=== PATIENT | male | born 1945 | race Caucasian/White ===

== ENCOUNTER → 2018-03-05 10:01 | Outpatient (CLI) | payer MEDICARE, OTHER, SELFPAY ==
--- NOTE | 2018-03-08 07:35 | PM.PFT.1 ---
Pulmonary Function Test Referral & Results Date Patient Seen: 03/05/18 Requesting provider: Mark Palafox Results: The spirometry demonstrates an FVC of 2.09 L which is 55% of predicted. The FEV1 was measured at 1.49 L which is 54% of predicted. The FEV1/FVC ratio was 71 which is 97% of predicted. Following the administration of bronchodilator there was no appreciable change. Lung volumes show an SVC of 2.25 L which is 55% of predicted. The diffusing capacity was measured at 23.49 which is 82% of predicted. The maximum voluntary ventilation was reduced. Interpretation: This study demonstrates moderately severe obstructive lung disease based on reduction in FEV1 without evidence of benefit following bronchodilator administration There is also moderate restrictive lung disease present There is also a small reduction in diffusing capacity suggesting some element of disease at the capillary alveolar level Compared to PFTs performed in October 2011, current spirometry shows reduction in FEV1 from 2.25 L previously to 1.49 L currently. There is also a reduction in total lung volumes with prior SVC being 3.13 L currently 2.25 L. No diffusing capacity was performed on previous study.
== END ==
PROVIDERS: PCP Internal Medicine; Visit Provider Internal Medicine
DX: R06.09 Other forms of dyspnea (principal)
CPT/HCPCS: 94010; 94060; 94726; 94729

== ENCOUNTER → 2018-03-21 14:40 | Outpatient (CLI) | payer MEDICARE, OTHER, SELFPAY ==
--- NOTE | 2018-03-21 | DI.CT.S_ITS ---
PROCEDURE: CT CHEST HIGH RESOLUTION INDICATIONS: Dyspnea TECHNIQUE: Noncontrast 1.0 and 5.0 mm thick contiguous axial sections from the pulmonary apex to the posterior costophrenic angles, with 7 mm thick coronal and sagittal MIP reformats. 1 mm thick dynamic expiratory images acquired through the upper, mid, and lower lungs. 1.0 mm thick axial sections acquired from the tana to the posterior costophrenic angles in the prone end-inspiration position. For radiation dose reduction, the following was used: automated exposure control, adjustment of mA and/or kV according to patient size. COMPARISON: [facility], , CT ABDOMEN/PELVIS WITH CONTRAST, 05/22/2006, 7:41. FINDINGS: Image quality: Excellent. Lungs: No alveolitis or pulmonary fibrosis is seen. There is a small degree of soft tissue prominence along the central bronchi of the upper lungs bilaterally consistent with mild bronchitis, chronic. No bronchiectasis is associated. Pleura: No pleural effusions or pneumothorax. Mediastinum: Heart size is normal. No pericardial effusion. Thoracic aorta and central pulmonary arteries are normal in size. Esophagus is normal in caliber. Bones and chest wall: No suspicious bony lesions. No vertebral body compression fractures. Abdomen: Visualized upper abdominal solid organs and bowel loops appear normal except for presence of the large 9.4 cm exophytic upper pole right renal cortical cyst that has further enlarged since the comparison CT of the abdomen/pelvis from 05/22/06, when this cyst had measured only 6.8 cm in dimension. IMPRESSION: Mild chronic bronchitis, without evidence of underlying infection or neoplasm or pulmonary fibrosis/alveolitis. Mildly enlarged previously present exophytic right upper pole renal cortical cyst now measures up to 9.4 cm in maximal axial dimension. Dictated by: Curry Gagnon M.D. on 03/21/2018 at 16:09 Approved by: Curry Gagnon M.D. on 03/21/2018 at 16:12
== END ==
PROVIDERS: Family Provider Internal Medicine Rheumatology; PCP Internal Medicine; Visit Provider Internal Medicine
DX: J42 Unspecified chronic bronchitis (principal); R06.00 Dyspnea, unspecified; N28.1 Cyst of kidney, acquired
CPT/HCPCS: 71250

== ENCOUNTER → 2018-05-08 11:18 | Outpatient (CLI) | payer MEDICARE, OTHER, SELFPAY ==
[2018-05-08 12:40] LABS: Add Manual Diff / Slide Review NO; Eosinophils Percent Auto 6.5 % (2-4); Hematocrit 37.6 % (41-53); Hemoglobin 12.6 g/dL (13.5-17.5); Lymphocytes Percent Auto 22.5 % (25-40); Mean Corpuscular HGB Conc 33.4 % (30-36); Mean Corpuscular Hemoglobin 34.3 PG (26-34); Mean Corpuscular Volume 102.7 fL (80-100); Monocytes Percent Auto 14.4 % (3-14); Neutrophils Absolute Auto 2200 /uL (3000-5900); Neutrophils Percent Auto 55.6 % (50-75); Platelet Count 141 X10^3/uL (150-400); Red Blood Cell Count 3.66 X10^6/uL (4.5-5.9); Red Cell Distribution Width 13.4 % (11.6-14.8); White Blood Cell Count 3.9 X10^3/uL (4.5-11.0)
[2018-05-08 13:00] LABS: Erythrocyte Sedimentation Rate 9 MM/HR (0-15)
[2018-05-08 13:01] LABS: Alanine Aminotransferase 35 IU/L (21-72); Albumin 3.8 g/dL (3.5-5.0); Albumin Globulin Ratio 1.7 (1.0-2.8); Alkaline Phosphatase 46 U/L (38-126); Aspartate Aminotransferase 42 IU/L (17-59); Bilirubin Total 0.4 mg/dL (0.2-1.3); Blood Urea Nitrogen 22 mg/dL (9-20); Calcium 9.3 mg/dL (8.4-10.2); Carbon Dioxide 32 mmol/L (22-32); Chloride 101 mmol/L (98-107); Estimated Glomerular Filt Rate > 60.0 mL/min (>60); Globulin 2.2 g/dL (1.7-4.1); Glucose 106 mg/dL (80-110); HEMOLYSIS < 15 (0-50); Potassium 4.3 mmol/L (3.4-5.1); Sodium 140 mmol/L (137-145)
[2018-05-08 13:02] LABS: C-Reactive Protein Quant < 0.5 mg/dL (<1.0)
== END ==
PROVIDERS: Family Provider Internal Medicine Rheumatology; PCP Internal Medicine; Visit Provider Internal Medicine Rheumatology
DX: M06.09 Rheumatoid arthritis without rheumatoid factor, multiple sites (principal)
CPT/HCPCS: 36415; 80053; 85025; 85651; 86140

== ENCOUNTER → 2018-05-21 16:04 | Outpatient (CLI) | payer MEDICARE, OTHER, SELFPAY ==
[2018-05-21 17:25] LABS: BUN Creatinine Ratio 25.6 (6-22); Blood Urea Nitrogen 23 mg/dL (9-20); Calcium 9.4 mg/dL (8.4-10.2); Carbon Dioxide 30 mmol/L (22-32); Chloride 101 mmol/L (98-107); Estimated Glomerular Filt Rate > 60.0 mL/min (>60); Glucose 91 mg/dL (80-110); HEMOLYSIS < 15 (0-50); Phosphorous 3.5 mg/dL (2.3-3.7); Potassium 4.3 mmol/L (3.4-5.1); Sodium 139 mmol/L (137-145)
== END ==
PROVIDERS: PCP Internal Medicine; Visit Provider Urology
DX: N28.1 Cyst of kidney, acquired (principal)
CPT/HCPCS: 36415; 80069

== ENCOUNTER → 2018-05-29 16:24 | Outpatient (CLI) | payer MEDICARE, OTHER, SELFPAY ==
[2018-05-29 18:52] LABS: Prostate Specific Antigen < 0.064 ng/mL (0.10-4.00)
== END ==
PROVIDERS: Family Provider Internal Medicine Rheumatology; PCP Internal Medicine; Visit Provider Urology
DX: Z85.46 Personal history of malignant neoplasm of prostate (principal); Z92.3 Personal history of irradiation; Z12.5 Encounter for screening for malignant neoplasm of prostate
CPT/HCPCS: 84153

== ENCOUNTER → 2018-06-11 13:45 | Outpatient (CLI) | payer MEDICARE, OTHER, SELFPAY ==
--- NOTE | 2018-06-11 | DI.US.S_ITS ---
PROCEDURE: US RENAL COMPLETE INDICATIONS: RENAL CYST TECHNIQUE: Real-time scanning was performed of the kidneys and bladder, with image documentation. COMPARISON: [facility], RG, CT ABDOMEN/PELVIS WITH CONTRAST, 05/22/2006, 7:41. [facility], CT, CT CHEST HIGH RESOLUTION, 03/21/2018, 14:42. FINDINGS: Kidneys: Kidneys are normal in size. Right kidney measures 11.0 cm long; left kidney measures 10.9 cm long. Right renal cortical thickness is 1.8 cm; left renal cortical thickness is 1.7 cm. Renal cortical echotexture is normal. No hydronephrosis or nephrolithiasis. No suspicious solid mass lesions. A large exophytic upper pole right renal cortical cyst is seen, correlating with the CT appearance from 2005 and also from February of this year. It measures up to 10.0 x 11.5 x 13.4 cm. There is an inferior right renal cortical simple cyst also, measuring up to 3.1 cm. Bladder: Pre-void bladder volume is 69 mL. Post-void residual is 0 mL. Pre-void images demonstrate no intraluminal masses or stones. On pre-void images, neither ureteral jets are noted with color Doppler interrogation. (Of note, ureteral jets may not be detectable in up to 25% of cases due to insufficient differences in specific gravity between ureteral and bladder urine). Miscellaneous: No free pelvic fluid. IMPRESSION: Large exophytic but simple appearing right renal cortical cyst projects upwards from the upper pole cortex of the right kidney. There is also a small simple cyst measuring 3.1 cm in maximal dimension at the inferior right kidney. Bladder function is normal. Dictated by: Curry Gagnon M.D. on 06/11/2018 at 16:28 Approved by: Curry Gagnon M.D. on 06/11/2018 at 16:31
== END ==
PROVIDERS: Family Provider Internal Medicine Rheumatology; PCP Internal Medicine; Visit Provider Urology
DX: N28.1 Cyst of kidney, acquired (principal)
CPT/HCPCS: 76770

== ENCOUNTER 2018-08-14 10:00 | Outpatient (RCR) | payer MEDICARE, OTHER, SELFPAY ==
[2018-04-09 11:47] VITALS: BP 122/60; BP 128/80; O2SAT 95; BMI 25.8
--- NOTE | 2018-04-09 13:33 | CR.IEVALNOTE ---
MVR repair 2003/ A-Fib/A-Flutter CR Initial Assessment Report CR Cardiac Rehab Initial Assessment Start: 04/09/18 10:33 Freq: Status: Active Protocol: Document 04/09/18 11:47 KAYLA (Rec: 04/09/18 12:08 KAYLA [id number]) Cardiac Rehabilitation Exercise Risk Risk Moderate % 50% EF Comment: 04/03/18 50% 12/22/16 55% AICD No Heart Rhythm a-fib on intake. hx of a- flutter noted in hx. Left Arm Blood Pressure (90/60-120/80 mmHg) 128/80 H Blood Pressure Method Manual Cuff/Auscultation Blood Pressure Position Sitting Right Arm Blood Pressure (90/60-120/80 mmHg) 122/60 H Blood Pressure Method Manual Cuff/Auscultation Blood Pressure Position Sitting Bilateral Resting Heart Rate: 58 Strength: Normal Pulse Rhythm: Irregular Regularly Irregular Pulse Assessment Method Pulse Ox/Monitor Lung Sounds: clear on auscultation Pulse Oximetry (91-100 %) 95 Cardiac Rehabilitation Exercise Fall Risk History of Falling (Immediate or No Previous) Secondary Diagnosis (More Than 2 Medical Yes Diagnoses) Ambulatory Aid None/bed rest/nurse assist IV/Heparin Lock No Gait/Transferring Normal/bedrest/immobile Mental Status Oriented to own ability Score Total 15 Risk Level Low Fall Risk Action Implement Dulzura Fall Risk Precautions Comment notes that he has balance issues and walks outside using hiking poles Assistive Devices None Cross Activity Status Index 6.36 Cardiac Rehabilitation Nutrition Evaluation Lipids Comment need to contact Dr. Lima's office. states has been a year or 2 since last draw History of Diabetes No Cardiac Rehabilitation Weight Management Plan Height 170.18 cm Weight 74.843 kg Body Mass Index (BMI) 25.8 Girth Measurement (in inches) (cm) 36.75 Patient Goal(s) Lose 1-2 of Girth Lose 5-10 lbs Body Weight BMI Goal of 19-25 Vitamins & Supplements Yes Use None/Never Intake Type hx etoh abuse. quit 3 years ago Nutrition Evaluation Referral to Diabetes Education No Nurse/Patient Discussion Yes Patient Following Diet Plan No Patient's Nutritional Goals pt aware that diet is sub optimal. is pre-diabetic and he notes that she eats better than he does. 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 no occupational exposures Hx Hypertension Yes Medications lisinopril 5mg, carvedilol 6. 25mg bid Goal of BP <130/80 Yes HTN Education Discussion reviewed effects of exercise on BP Medications Reconciled Yes CR Psychosocial Evaluation Goal wants to be able to be more confident about exercise ability. 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 Psych Consult No Discussion with Patient Yes Psychotropic Medications Yes: venlafaxine. feels he's in a good space currently PHQ9 Score between 5 and 8 (some half answers) HQ Scoring Scale 5-7 = Mild PHQ >9 No PCP Notified No Comment discussed meaning of numbers. 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 Treatment Prescribed for Individual Yes Needs No Treatment Change Yes: Please Continue with Cardiopulmonary Rehabilitation as Ordered Date 04/09/18 Document 04/09/18 12:16 CFS (Rec: 04/09/18 12:29 CFS [id number]) Cardiac Rehabilitation Exercise Fall Risk Comment Will still start on a saucer under physioball while next to a railing untill he is used to the physioball. Home Exercise Yes Mode Comment: Walking Duration Comment: 30 min Frequency Comment: 3x wk Symptoms: Arthralgias Back Pain Joint Pain Joint Stiffness Joint Swelling Body Alignment Posture Lumbar Lordosis Thoracic Kyphosis Ambulation Assistive Device None Orthotic/Prosthetic Devices or Brace: No Comment RA and OA, Lower back surgery, curvature of the spine-L, R - partial knee still bothersome Exercise TM METS 3.71 Angina with Exercise no Exercise Tolerance Good CR Pre Exercise Evaluation Orientation Self Pulse Check JUSTO PRE Scale Exercise Safety Equipment Orientation Warm Up/Cool Down Patient Short-term Goal(s) Decrease SOB by increasing cardiorepiratory fitness by achieving CROSS score of 6.36 by increasing incline on TM in 6 weeks so that trails are easier to walk. 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 Would like to walk at least 60 min 4-5x/wk, as long as RA and OA tolerates. CR Exercises Prescription Exercise Duration (minutes) 20 METs (resistance level) 4 Frequency 2x/wk RPE 11-14 Exercise Duration (minutes) 20 METs (resistance level) 5 Frequency 2x/wk RPE 11-14 Pounds 4 Number of Reps 12 Number of Sets 2 Frequency 1x/wk RPE 13-14 Band Resistance 4 Number of Reps 12 Number of Sets 1 Frequency 1x/wk RPE 13-14
[2018-05-09 08:02] VITALS: BP 94/54; RESP 18
--- NOTE | 2018-05-09 08:14 | CR.REVALNOTE ---
CR Initial Assessment Report CR Cardiac Rehab Re-Assessment Start: 05/08/18 14:20 Freq: Status: Active Protocol: Document 05/08/18 14:21 AA (Rec: 05/08/18 14:28 AA [id number]) Cardiac Rehab Exercise Risk Re-Eval Bilateral Resting Heart Rate: 56 Target Heart Rate: 116 Achieved Exercise Re-Evaluation Nustep MET Goal 4.54 Treadmill MET Goal 5.35 RPE 11-15 Weights 6# Bands 4 Dk Blue Equipment Goals TM 6.5 Mets NS 5.5 Mets Increase as tolerated Number/Value 8# LVL Lvl 5 Teal Progress to Goal Increase as tolerated % Improvement TM 44% Improvement NS 34% Improvement Short Term Still experiencing shortness of breath in cardio. Will bring albuteral inhaler to CR. Will continue to increase stamina and endurance. 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 Document 05/09/18 08:02 [facility] (Rec: 05/09/18 08:13 [facility] [id number]) Cardiac Rehab Exercise Risk Re-Eval Dx: 2003 MVR HX:AFIB/FLUTTER Risk Moderate Left Arm Blood Pressure (90/60-120/80 mmHg) 94/54 L Bilateral Resting Heart Rate: 56 Target Heart Rate: 134 Respiratory Rate (12-24 breaths/min) 18 Angina with Exercise NO Cardiac Rehab Nutrition Re-Eval Lipids Re-Drawn Yes Date 08/01/17 Total Cholesterol 156 Triglycerides 93 HDL 61 LDL 76 Lipid Medications ATORVASTATIN 80MG Goal for Lipids @ GOAL Education ATTENDED CLASS History of Diabetes No Weight 77.111 kg Dietary Consult Yes Nurse/Patient Discussion Yes Nutrition Class Yes Progress Note HAS ATTENDED EDUCATION WITH THE STEEL TURNER Education Hypertension NO HTN Medications LISINOPRIL Education:Instruct TOM DASH DIET CR Psychosocial Re-Evaluation Progress to Goal SEEMS TO HAVE MORE CONFEDENCE WITH EXERCISE Psych Consult No Uses Stress Management Skills Yes Coping Techniques Yes Note NEGATIVE CR Psychosocial Provider Eval Treatment Prescribed for Individual Yes Needs No Treatment Change Yes: Please Continue with Cardiopulmonary Rehabilitation as Ordered Date 05/09/18
--- NOTE | 2018-05-09 08:16 | CR.REVALNOTE ---
CR RE Assessment Report DX:2003 MVR HX: ATRIAL FIB CR Cardiac Rehab Re-Assessment Start: 05/08/18 14:20 Freq: Status: Active Protocol: Document 05/08/18 14:21 AA (Rec: 05/08/18 14:28 AA [id number]) Cardiac Rehab Exercise Risk Re-Eval Bilateral Resting Heart Rate: 56 Target Heart Rate: 116 Achieved Exercise Re-Evaluation Nustep MET Goal 4.54 Treadmill MET Goal 5.35 RPE 11-15 Weights 6# Bands 4 Dk Blue Equipment Goals TM 6.5 Mets NS 5.5 Mets Increase as tolerated Number/Value 8# LVL Lvl 5 Teal Progress to Goal Increase as tolerated % Improvement TM 44% Improvement NS 34% Improvement Short Term Still experiencing shortness of breath in cardio. Will bring albuteral inhaler to CR. Will continue to increase stamina and endurance. Fpc Is walking trails with hills for 30 mins 4-5 times per week , working to increase stamina and endurance to be able to go for longer hikes. Document 05/09/18 08:02 [facility] (Rec: 05/09/18 08:13 [facility] [id number]) Cardiac Rehab Exercise Risk Re-Eval Dx: 2003 MVR HX:AFIB/FLUTTER Risk Moderate Left Arm Blood Pressure (90/60-120/80 mmHg) 94/54 L Bilateral Resting Heart Rate: 56 Target Heart Rate: 134 Respiratory Rate (12-24 breaths/min) 18 Angina with Exercise NO Cardiac Rehab Nutrition Re-Eval Lipids Re-Drawn Yes Date 08/01/17 Total Cholesterol 156 Triglycerides 93 HDL 61 LDL 76 Lipid Medications ATORVASTATIN 80MG Goal for Lipids @ GOAL Education ATTENDED CLASS History of Diabetes No Weight 77.111 kg Dietary Consult Yes Nurse/Patient Discussion Yes Nutrition Class Yes Progress Note HAS ATTENDED EDUCATION WITH THE DYNAMOMETER TUNER Education Hypertension NO HTN Medications LISINOPRIL Education:Instruct TOM DASH DIET CR Psychosocial Re-Evaluation Progress to Goal SEEMS TO HAVE MORE CONFEDENCE WITH EXERCISE Psych Consult No Uses Stress Management Skills Yes Coping Techniques Yes Note NEGATIVE CR Psychosocial Provider Eval Treatment Prescribed for Individual Yes Needs No Treatment Change Yes: Please Continue with Cardiopulmonary Rehabilitation as Ordered Date 05/09/18
--- NOTE | 2018-05-23 10:51 | CR.EDUC ---
CR Education Report MIGUEL DARDEN CR Education Start: 04/09/18 10:33 Freq: Status: Active Protocol: Document 04/10/18 14:22 JCP (Rec: 04/10/18 14:22 JCP [id number]) CR Education Education MET WITH NICOLE CRABTREE RD Document 04/17/18 11:21 KAYLA (Rec: 04/17/18 11:21 KAYLA [id number]) CR Education Education holistic nutrition and meditation with maycol Document 04/22/18 11:13 JCP (Rec: 04/22/18 11:14 JCP [id number]) CR Education Education STARTED MIIT TODAY AND DISCUSSED IMPORTANCE.JEFF Document 05/08/18 15:53 JCP (Rec: 05/08/18 15:53 JCP [id number]) CR Education Education ANTI INFLAMMATORY FOODS AND MEDITATION Document 05/22/18 16:09 JCP (Rec: 05/22/18 16:10 JCP [id number]) CR Education Education MET WITH CYRIL ALBA ON METS
--- NOTE | 2018-05-23 10:52 | CR.EDUC ---
CR Education Report MIGUEL DARDEN CR Education Start: 04/09/18 10:33 Freq: Status: Active Protocol: Document 04/10/18 14:22 JCP (Rec: 04/10/18 14:22 JCP [id number]) CR Education Education MET WITH NICOLE CRABTREE RD Document 04/17/18 11:21 KAYLA (Rec: 04/17/18 11:21 KAYLA [id number]) CR Education Education holistic nutrition and meditation with maycol Document 04/22/18 11:13 JCP (Rec: 04/22/18 11:14 JCP [id number]) CR Education Education STARTED MIIT TODAY AND DISCUSSED IMPORTANCE.JEFF Document 05/08/18 15:53 JCP (Rec: 05/08/18 15:53 JCP [id number]) CR Education Education ANTI INFLAMMATORY FOODS AND MEDITATION Document 05/22/18 16:09 JCP (Rec: 05/22/18 16:10 JCP [id number]) CR Education Education MET WITH CYRIL ALBA ON METS Document 05/23/18 10:52 JCP (Rec: 05/23/18 10:52 JCP [id number]) CR Education Education WORKED ON HIIT TODAY ON THE TM -TOLERATED WELL.JEFF
--- NOTE | 2018-05-23 10:52 | CR.EDUC ---
CR Education Report MIGUEL DARDEN CR Education Start: 04/09/18 10:33 Freq: Status: Active Protocol: Document 04/10/18 14:22 JCP (Rec: 04/10/18 14:22 JCP [id number]) CR Education Education MET WITH NICOLE CRABTREE RD Document 04/17/18 11:21 KAYLA (Rec: 04/17/18 11:21 KALYA [id number]) CR Education Education holistic nutrition and meditation with maycol Document 04/22/18 11:13 JCP (Rec: 04/22/18 11:14 JCP [id number]) CR Education Education STARTED MIIT TODAY AND DISCUSSED IMPORTANCE.JEFF Document 05/08/18 15:53 JCP (Rec: 05/08/18 15:53 JCP [id number]) CR Education Education ANTI INFLAMMATORY FOODS AND MEDITATION Document 05/22/18 16:09 JCP (Rec: 05/22/18 16:10 JCP [id number]) CR Education Education MET WITH CYRIL ALBA ON METS Document 05/23/18 10:52 JCP (Rec: 05/23/18 10:52 JCP [id number]) CR Education Education WORKED ON HIIT TODAY ON THE TM -TOLERATED WELL.JEFF
[2018-06-06 16:03] VITALS: BP 110/68; RESP 18
--- NOTE | 2018-06-06 16:14 | CR.REVALNOTE ---
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) Provider Summary Visit Care Team Role Provider Type Jeffery Lima MD Primary Care Provider Physician Specialty: Internal Medicine Address: [address] [place] [address], [id number] Email: Ruslan Carney MD Family Provider Non-Staff Specialty: Rheumatology Address: [address] [place] [address] [place], [address] Email: Maria Guadalupe Martins MD Attending Provider Non-Staff Specialty: Cardiology Address: [address] [place] [address], [id number] Email: CR Re-Evaluation Report CR Cardiac Rehab Re-Assessment Start: 05/08/18 14:20 Freq: Status: Active Protocol: Document 05/08/18 14:21 AA (Rec: 05/08/18 14:28 AA [id number]) CARDIAC REHAB EXERCISE RISK RE-EVAL Bilateral Resting Heart Rate: 56 Target Heart Rate: 116 ACHIEVED EXERCISE RE-EVALUATION Nustep MET Goal 4.54 Treadmill MET Goal 5.35 RPE 11-15 Weights 6# Bands 4 Dk Blue Equipment Goals TM 6.5 Mets NS 5.5 Mets Increase as tolerated Number/Value 8# LVL Lvl 5 Teal Progress to Goal Increase as tolerated % Improvement TM 44% Improvement NS 34% Improvement Short Term Still experiencing shortness of breath in cardio. Will bring albuteral inhaler to CR. Will continue to increase stamina and endurance. Practice Physician Is walking trails with hills for 30 mins 4-5 times per week , working to increase stamina and endurance to be able to go for longer hikes. Document 05/09/18 08:02 JCP (Rec: 05/09/18 08:13 JCP [id number]) CARDIAC REHAB EXERCISE RISK RE-EVAL Dx: 2003 MVR HX:AFIB/FLUTTER Risk Moderate Left Arm Blood Pressure (90/60-120/80 mmHg) 94/54 L Bilateral Resting Heart Rate: 56 Target Heart Rate: 134 Respiratory Rate (12-24 breaths/min) 18 Angina with Exercise NO CARDIAC REHAB NUTRITION RE-EVAL Lipids Re-Drawn Yes Date 08/01/17 Total Cholesterol 156 Triglycerides 93 HDL 61 LDL 76 Lipid Medications ATORVASTATIN 80MG Goal for Lipids @ GOAL Education ATTENDED CLASS History of Diabetes No Weight 77.111 kg Dietary Consult Yes Nurse/Patient Discussion Yes Nutrition Class Yes Progress Note HAS ATTENDED EDUCATION WITH THE SKIN FORMER EDUCATION Hypertension NO HTN Medications LISINOPRIL Education:Instruct TOM DASH DIET CR PSYCHOSOCIAL RE-EVALUATION Progress to Goal SEEMS TO HAVE MORE CONFEDENCE WITH EXERCISE Psych Consult No Uses Stress Management Skills Yes Coping Techniques Yes Note NEGATIVE CR PSYCHOSOCIAL PROVIDER EVAL Treatment Prescribed for Individual Yes Needs No Treatment Change Yes: Please Continue with Cardiopulmonary Rehabilitation as Ordered Date 05/09/18 Document 06/06/18 15:44 CFS (Rec: 06/06/18 15:48 CFS [id number]) ACHIEVED EXERCISE RE-EVALUATION Rower MET Goal 4.74 Nustep MET Goal 4.21 Treadmill MET Goal 7.00 RPE 14-15 Weights 6# Bands Lvl 4 Dk blue Equipment Goals TM-8.0 NS-5.5 RW-5.75 Number/Value 8# LVL Lvl 5 teal Progress to Goal Increase as tolerated % Improvement TM 31% NS -7% Short Term Still experiencing shortness of breath during cardio. Will bring albuteral inhaler to CR to have on hand. Will continue to increase stamina and endurance. Practice Physician Is still walking trails with hills for 30 mins 4-5xwk, working to increase stamina and endurance to be able to go for longer hikes with more challenges. Document 06/06/18 16:03 [facility] (Rec: 06/06/18 16:11 [facility] [id number]) CARDIAC REHAB EXERCISE RISK RE-EVAL Risk Moderate Heart Rhythm ATRIAL FIB Left Arm Blood Pressure (90/60-120/80 mmHg) 110/68 Bilateral Resting Heart Rate: 76 Target Heart Rate: 122 Respiratory Rate (12-24 breaths/min) 18 Angina with Exercise NO CARDIAC REHAB NUTRITION RE-EVAL Lipids Re-Drawn No Lipid Medications ATORVASTATIN History of Diabetes No Weight 77.111 kg Dietary Consult Yes Nurse/Patient Discussion Yes Progress Note MET WITH NICOLE CRABTREE RD EDUCATION Hypertension 110/68 PRE AND POST Medications LISININOPRIL Medication Reconciled DONE CR PSYCHOSOCIAL RE-EVALUATION Progress to Goal GAINING CONFEDENCE IN HIGHER INTENSITY Psych Consult No Stress Management Class Yes Uses Stress Management Skills Yes Coping Techniques Yes Note NEGATIVE CR PSYCHOSOCIAL PROVIDER EVAL Treatment Prescribed for Individual Yes Needs No Treatment Change Yes: Please Continue with Cardiopulmonary Rehabilitation as Ordered Date 06/06/18 CR Education Start: 04/09/18 10:33 Freq: Status: Active Protocol: Document 04/10/18 14:22 JCP (Rec: 04/10/18 14:22 JCP [id number]) CR EDUCATION Education MET WITH NICOLE CRABTREE RD Document 04/17/18 11:21 KAYLA (Rec: 04/17/18 11:21 KAYLA [id number]) CR EDUCATION Education holistic nutrition and meditation with maycol Document 04/22/18 11:13 JCP (Rec: 04/22/18 11:14 JCP [id number]) CR EDUCATION Education STARTED MIIT TODAY AND DISCUSSED IMPORTANCE.JEFF Document 05/08/18 15:53 JCP (Rec: 05/08/18 15:53 JCP [id number]) CR EDUCATION Education ANTI INFLAMMATORY FOODS AND MEDITATION Document 05/22/18 16:09 JCP (Rec: 05/22/18 16:10 JCP [id number]) CR EDUCATION Education MET WITH CYRIL ALBA ON METS Document 05/23/18 10:52 JCP (Rec: 05/23/18 10:52 JCP [id number]) CR EDUCATION Education WORKED ON HIIT TODAY ON THE TM -TOLERATED WELL.JEFF Document 05/29/18 14:21 JCP (Rec: 05/29/18 14:22 JCP [id number]) CR EDUCATION Education REVIEWED LATEST GUIDELINES ON CHOLESTEROL Document 06/05/18 16:13 JCP (Rec: 06/05/18 16:13 JCP [id number]) CR EDUCATION Education MET WITH NICOLE CRABTREE RD
[2018-07-04 15:09] VITALS: BP 120/60
[2018-08-14 12:19] VITALS: BMI 25.7
[2018-08-14 15:22] VITALS: BP 108/62
== END 2018-08-19 11:00 ==
LOC: CAR 10:00
PROVIDERS: Family Provider Internal Medicine Rheumatology; PCP Internal Medicine; Visit Provider Internal Medicine Clinical Cardiac Electrophysiology
DX: Z95.3 Presence of xenogenic heart valve (principal)
CPT/HCPCS: 93798

== ENCOUNTER → 2018-09-20 09:29 | Outpatient (CLI) | payer MEDICARE, OTHER, SELFPAY ==
[2018-09-20 10:22] LABS: Add Manual Diff / Slide Review NO; Basophils Percent Auto 0.7 % (0-2); Eosinophils Percent Auto 5.3 % (2-4); Hemoglobin 13.5 g/dL (13.5-17.5); Lymphocytes Percent Auto 18.7 % (25-40); Mean Corpuscular HGB Conc 33.7 % (30-36); Mean Corpuscular Hemoglobin 34.6 PG (26-34); Mean Corpuscular Volume 102.8 fL (80-100); Monocytes Percent Auto 13.8 % (3-14); Neutrophils Absolute Auto 2800 /uL (3000-5900); Neutrophils Percent Auto 61.5 % (50-75); Platelet Count 149 X10^3/uL (150-400); Red Blood Cell Count 3.89 X10^6/uL (4.5-5.9); White Blood Cell Count 4.5 X10^3/uL (4.5-11.0)
[2018-09-20 10:44] LABS: Alanine Aminotransferase 40 IU/L (21-72); Albumin 4.3 g/dL (3.5-5.0); Albumin Globulin Ratio 1.6 (1.0-2.8); Alkaline Phosphatase 51 U/L (38-126); Aspartate Aminotransferase 56 IU/L (17-59); Bilirubin Total 0.6 mg/dL (0.2-1.3); Blood Urea Nitrogen 22 mg/dL (9-20); Calcium 9.2 mg/dL (8.4-10.2); Carbon Dioxide 30 mmol/L (22-32); Chloride 102 mmol/L (98-107); Estimated Glomerular Filt Rate > 60.0 mL/min (>60); Globulin 2.7 g/dL (1.7-4.1); Glucose 125 mg/dL (80-110); HEMOLYSIS < 15 (0-50); Potassium 3.9 mmol/L (3.4-5.1); Sodium 143 mmol/L (137-145)
[2018-09-20 10:45] LABS: C-Reactive Protein Quant < 0.5 mg/dL (<1.0)
[2018-09-20 11:06] LABS: Erythrocyte Sedimentation Rate 12 MM/HR (0-15)
== END ==
PROVIDERS: PCP Internal Medicine; Visit Provider Internal Medicine Rheumatology
DX: M06.09 Rheumatoid arthritis without rheumatoid factor, multiple sites (principal)
CPT/HCPCS: 36415; 80053; 85025; 85651; 86140

== ENCOUNTER → 2018-10-11 12:03 | Outpatient (CLI) | payer MEDICARE, OTHER, SELFPAY ==
[2018-10-11 12:33] LABS: Add Manual Diff / Slide Review NO; Basophils Percent Auto 1.1 % (0-2); Eosinophils Percent Auto 4.4 % (2-4); Hematocrit 39.8 % (41-53); Hemoglobin 13.3 g/dL (13.5-17.5); Lymphocytes Percent Auto 17.1 % (25-40); Mean Corpuscular HGB Conc 33.5 % (30-36); Mean Corpuscular Hemoglobin 34.3 PG (26-34); Mean Corpuscular Volume 102.6 fL (80-100); Monocytes Percent Auto 13.1 % (3-14); Neutrophils Absolute Auto 3400 /uL (1500-7000); Neutrophils Percent Auto 64.3 % (50-75); Platelet Count 156 X10^3/uL (150-400); Red Blood Cell Count 3.88 X10^6/uL (4.5-5.9); Red Cell Distribution Width 13.3 % (11.6-14.8); White Blood Cell Count 5.3 X10^3/uL (4.5-11.0)
[2018-10-11 13:03] LABS: Alanine Aminotransferase 39 IU/L (21-72); Albumin 4.2 g/dL (3.5-5.0); Albumin Globulin Ratio 1.8 (1.0-2.8); Alkaline Phosphatase 53 U/L (38-126); Aspartate Aminotransferase 47 IU/L (17-59); Bilirubin Total 0.6 mg/dL (0.2-1.3); Blood Urea Nitrogen 18 mg/dL (9-20); Calcium 9.3 mg/dL (8.4-10.2); Carbon Dioxide 28 mmol/L (22-32); Chloride 103 mmol/L (98-107); Cholesterol 155 mg/dL (140-199); Estimated Glomerular Filt Rate > 60.0 mL/min (>60); Globulin 2.4 g/dL (1.7-4.1); Glucose 105 mg/dL (80-110); HDL Cholesterol 53 mg/dL (40-60); HEMOLYSIS < 15 (0-50); LDL Cholesterol Calculated 70 mg/dL (<100); Potassium 4.1 mmol/L (3.4-5.1); Sodium 142 mmol/L (137-145); Total Protein 6.6 g/dL (6.3-8.2); Triglycerides 162 mg/dL (35-150)
[2018-10-11 13:34] LABS: TSH w/ Reflex to FT4 0.46 uIU/mL (0.47-4.68)
[2018-10-11 14:02] LABS: Free T4, Direct Thyroxine 1.23 ng/dL (0.78-2.19)
== END ==
PROVIDERS: Family Provider Internal Medicine Rheumatology; PCP Internal Medicine; Visit Provider Internal Medicine
DX: E03.9 Hypothyroidism, unspecified (principal); I48.91 Unspecified atrial fibrillation; I10 Essential (primary) hypertension; G47.33 Obstructive sleep apnea (adult) (pediatric)
CPT/HCPCS: 36415; 80053; 80061; 84439; 84443; 85025

== ENCOUNTER → 2018-10-23 11:06 | Outpatient (CLI) | payer MEDICARE, OTHER, SELFPAY ==
[2018-10-23 12:45] LABS: B Type Natriuretic Peptide 116 (<100)
== END ==
PROVIDERS: Family Provider Internal Medicine Rheumatology; PCP Internal Medicine; Visit Provider Nurse Practitioner Family
DX: I48.1 Persistent atrial fibrillation (principal); R06.09 Other forms of dyspnea
CPT/HCPCS: 36415; 83880

== ENCOUNTER → 2018-11-18 16:46 | Outpatient (CLI) | payer MEDICARE, OTHER, SELFPAY ==
[2018-11-18 18:17] LABS: B Type Natriuretic Peptide < 100 (<100)
== END ==
PROVIDERS: Family Provider Urology; PCP Internal Medicine; Visit Provider Nurse Practitioner Gerontology
DX: I48.1 Persistent atrial fibrillation (principal); R06.09 Other forms of dyspnea
CPT/HCPCS: 36415; 83880

== ENCOUNTER → 2018-11-22 14:40 | Outpatient (CLI) | payer MEDICARE, OTHER, SELFPAY ==
[2018-11-22 16:30] LABS: BUN Creatinine Ratio 15.4 (6-22); Blood Urea Nitrogen 20 mg/dL (9-20); Calcium 9.6 mg/dL (8.4-10.2); Carbon Dioxide 29 mmol/L (22-32); Chloride 99 mmol/L (98-107); Estimated Glomerular Filt Rate 53.8 mL/min (>60); Glucose 70 mg/dL (80-110); HEMOLYSIS < 15 (0-50); Potassium 4.4 mmol/L (3.4-5.1); Sodium 138 mmol/L (137-145)
== END ==
PROVIDERS: Family Provider Internal Medicine; PCP Internal Medicine; Visit Provider Nurse Practitioner Family
DX: I48.1 Persistent atrial fibrillation (principal); R06.09 Other forms of dyspnea
CPT/HCPCS: 36415; 80048

== ENCOUNTER → 2019-03-24 14:57 | Outpatient (CLI) | payer MEDICARE, OTHER, SELFPAY ==
--- NOTE | 2019-03-24 | DI.RAD.S_ITS ---
PROCEDURE: XR CHEST 2V INDICATIONS: DYSPNEA TECHNIQUE: 2 views of the chest were acquired. COMPARISON: [facility], , CHEST 2 VIEW, 10/26/2017, 12:39. FINDINGS: Surgical changes and devices: Sternotomy wires and cardiac valvular postsurgical changes. Lungs and pleura: Low lung volumes with scattered subsegmental atelectasis/scarring. No pleural effusions or pneumothorax. Mediastinum: Mediastinal contours are normal. Heart size is normal. Bones and chest wall: No suspicious bony abnormalities. Soft tissues appear unremarkable. IMPRESSION: No acute disease. Dictated by: Medhat Lewis M.D. on 03/24/2019 at 16:05 Approved by: Medhat Lewis M.D. on 03/24/2019 at 16:06
== END ==
PROVIDERS: Family Provider Internal Medicine Rheumatology; PCP Internal Medicine; Visit Provider Internal Medicine
DX: R06.00 Dyspnea, unspecified (principal)
CPT/HCPCS: 71046

== ENCOUNTER → 2019-03-25 10:30 | Outpatient (CLI) | payer MEDICARE, OTHER, SELFPAY ==
[2019-03-25 11:41] LABS: Blood Urea Nitrogen 24 mg/dL (9-20); Carbon Dioxide 34 mmol/L (22-32); Chloride 98 mmol/L (98-107); Estimated Glomerular Filt Rate > 60.0 mL/min (>60); Glucose 98 mg/dL (80-110); HEMOLYSIS < 15 (0-50); Potassium 3.8 mmol/L (3.4-5.1); Sodium 139 mmol/L (137-145)
[2019-03-25 11:50] LABS: Add Manual Diff / Slide Review NO; Basophils Absolute Auto 0 /uL (0-100); Basophils Percent Auto 0.7 % (0-2); Eosinophils Absolute Auto 100 /uL (0-450); Eosinophils Percent Auto 2.2 % (2-4); Hematocrit 41.9 % (41-53); Hemoglobin 14.1 g/dL (13.5-17.5); Lymphocytes Absolute Auto 1700 /uL (1100-4500); Lymphocytes Percent Auto 28.6 % (25-40); Mean Corpuscular HGB Conc 33.5 % (30-36); Mean Corpuscular Hemoglobin 34.6 PG (26-34); Mean Corpuscular Volume 103.3 fL (80-100); Monocytes Absolute Auto 1000 /uL (0-900); Monocytes Percent Auto 17.3 % (3-14); Neutrophils Absolute Auto 3000 /uL (1500-7000); Neutrophils Percent Auto 51.2 % (50-75); Platelet Count 159 X10^3/uL (150-400); Red Blood Cell Count 4.06 X10^6/uL (4.5-5.9); Red Cell Distribution Width 13.4 % (11.6-14.8)
[2019-03-25 12:09] LABS: B Type Natriuretic Peptide < 100 (<100)
== END ==
PROVIDERS: Family Provider Internal Medicine Rheumatology; PCP Internal Medicine; Visit Provider Internal Medicine
DX: J44.0 Chronic obstructive pulmonary disease with (acute) lower respiratory infection (principal); J20.9 Acute bronchitis, unspecified; I50.21 Acute systolic (congestive) heart failure
CPT/HCPCS: 36415; 80048; 83880; 85025

== ENCOUNTER → 2019-04-02 08:06 | Outpatient (CLI) | payer MEDICARE, OTHER, SELFPAY ==
--- NOTE | 2019-04-02 | DI.ECHO.S_ITS ---
[facility] +---------+ : : [address] : : : : [id number] : : : : Phone: [phone]+ Echocardiogram Report + + :Name: MIGUEL DARDEN Study Date: 04/02/2019 Height: 67 in : :[facility] Exam Location: [facility] Weight: 160 lb: : Gender: Male BSA: 1.8 m2 : :: 1945 Age: 73 yrs BP: 90/60 mmHg: :Reason For Study: Heart failure : :Ordering Physician: Dr. Gil : :Clarence Performed By: Raven Page : + + Interpretation Summary The left ventricle is normal in size. Left ventricular systolic function is mildly reduced. The ejection fraction is estimated to be 45-50%. LV ejection fraction has been stable since 01/17/2011. There is hypokinesis to akinesis along the basal to mid inferior, inferolateral, and extends into part of the anterolateral wall. Compared to the prior exam, the left ventricular wall motion has not changed. Diastolic function could not be accurately assessed due to atrial fibrillation. The right ventricle is mildly dilated. Right ventricular systolic function is borderline reduced. There has been no significant change since the previous study. The right ventricular systolic pressure is estimated to be at least 33 mmHg based on an estimated right atrial pressure of 15 mm Hg. Compared to the prior echo exam, there has been no change in the severity of pulmonary hypertension. The left atrium is severely dilated. The right atrium is mildly dilated. An annuloplasty ring is noted in the mitral position. The mitral valve mean gradient is 4.6 mmHg. There is trace mitral regurgitation. There is no other significant valvular heart disease. The ascending aorta is mildly enlarged. Procedure: A two-dimensional transthoracic echocardiogram with color flow and Doppler was performed. The study quality was technically adequate. Comparison is made with the echocardiogram of 01/17/2011. The patient was in atrial fibrillation with heart rates between 54-80 bpm during the exam. Left Ventricle: The left ventricle is normal in size. There is normal left ventricular wall thickness. Left ventricular systolic function is mildly reduced. The ejection fraction is estimated to be 45-50%. LV ejection fraction has been stable since 01/17/2011. There is hypokinesis to akinesis along the basal to mid inferior, inferolateral, and extends into part of the anterolateral wall. Compared to the prior exam, the left ventricular wall motion has not changed. Diastolic function could not be accurately assessed due to atrial fibrillation. Right Ventricle: The right ventricle is mildly dilated. Right ventricular systolic function is borderline reduced. There has been no significant change since the previous study. Atria: The left atrium is severely dilated. The right atrium is mildly dilated. There is no Doppler evidence for an interatrial shunt. Mitral Valve: The mitral valve leaflets are mildly calcified. An annuloplasty ring is noted in the mitral position. The mitral valve mean gradient is 4.6 mmHg. There is trace mitral regurgitation. Aortic Valve: The aortic valve is trileaflet. The aortic valve opens well. The aortic valve is mildly calcified. No aortic regurgitation is present. Tricuspid Valve: The tricuspid valve is normal in structure and function. There is mild tricuspid regurgitation. The right ventricular systolic pressure is estimated to be at least 33 mmHg based on an estimated right atrial pressure of 15 mm Hg. Compared to the prior echo exam, there has been no change in the severity of pulmonary hypertension. Pulmonic Valve: The pulmonic valve is not well seen, but is grossly normal. There is trace pulmonic regurgitation. There is no other significant valvular heart disease. Great Vessels: The aortic root is normal size. The ascending aorta is mildly enlarged. The pulmonary artery is not well visualized, but is probably normal size. The IVC is dilated (diameter is greater than 2.1 cm) and it collapses less than 50% with a sniff. This suggests a high right atrial pressure of 15 mm Hg. Pericardium/ Pleura There is no pericardial effusion. There is no pleural effusion. MMode/2D Measurements & Calculations LVIDd: 5.0 cm LVOT diam: 2.1 cm LVIDs: 3.8 cm Ao root diam: 3.4 cm FS: 23.9 % asc Aorta Diam: 3.8 cm EPSS: 0.32 cm IVSd: 0.52 cm LVPWd: 1.0 cm LV monge. diameter/BSA (cm/m^2): 2.7 LV sys. diameter/BSA (cm/m^2): 2.1 LA A2 area: 34.2 cm2 RA long axis: 6.0 cm LA A4 area: 30.9 cm2 RA area: 22.0 cm2 LA length (vol): 7.0 cm RA vol: 68.3 ml LA vol: 128.1 ml RA : 37.2 ml/m2 LA vol index: 69.7 ml/m2 IVC diam: 3.0 cm RVD1 (basal): 5.6 cm RVD2 (mid): 4.3 cm TAPSE: 1.8 cm Doppler Measurements & Calculations Ao V2 max: 137.5 cm/sec LVOT Max Wero: 101.4 cm/sec Ao V2 mean: 98.7 cm/sec LV V1 max P.1 mmHg Ao max P.6 mmHg LV V1 VTI: 21.2 cm Ao mean P.2 mmHg ANT(I,D): 2.6 cm2 Ao V2 VTI: 29.1 cm ANT(V,D): 2.6 cm2 sev ratio: 0.73 ANT indexed to BSA (cm^2/m^2): 1.4 MV P1/2t: 99.3 msec TR max wero: 213.9 cm/sec MVA(VTI): 1.4 cm2 TR max P.3 mmHg PA V2 max: 80.7 cm/sec PA V2 mean: 58.1 cm/sec PA mean P.5 mmHg PA Accel Time: 0.05 sec MV V2 mean: 92.6 cm/sec MV P1/2t max wero: 191.8 cm/sec MV mean P.6 mmHg MVA(P1/2t): 2.2 cm2 MV V2 VTI: 53.7 cm SV(LVOT): 75.1 ml Reading Physician:01:38 PM
== END ==
PROVIDERS: Family Provider Internal Medicine Rheumatology; PCP Internal Medicine; Referring Provider Internal Medicine Cardiovascular Disease; Visit Provider Internal Medicine
DX: I07.1 Rheumatic tricuspid insufficiency (principal); I50.9 Heart failure, unspecified; I77.89 Other specified disorders of arteries and arterioles; I48.91 Unspecified atrial fibrillation; I27.20 Pulmonary hypertension, unspecified
CPT/HCPCS: 93306

== ENCOUNTER → 2019-05-27 12:38 | Outpatient (CLI) | payer MEDICARE, OTHER, SELFPAY ==
[2019-05-27 13:27] LABS: Carbon Dioxide 31 mmol/L (22-32); Chloride 101 mmol/L (98-107); HEMOLYSIS < 15 (0-50); Potassium 3.9 mmol/L (3.4-5.1); Sodium 141 mmol/L (137-145)
== END ==
PROVIDERS: Family Provider Internal Medicine; PCP Internal Medicine; Visit Provider Physician Assistant
DX: Z01.812 Encounter for preprocedural laboratory examination (principal)
CPT/HCPCS: 36415; 80051

== ENCOUNTER → 2019-05-28 11:21 | Outpatient (CLI) | payer MEDICARE, OTHER, SELFPAY | PROVIDERS: Family Provider Internal Medicine; PCP Internal Medicine; Visit Provider Physician Assistant | DX: Z01.812 Encounter for preprocedural laboratory examination (principal); Z01.818 Encounter for other preprocedural examination | CPT/HCPCS: 93005; 93010; G0424 ==

== ENCOUNTER → 2019-06-10 11:06 | Outpatient (CLI) | payer MEDICARE, OTHER, SELFPAY ==
--- NOTE | 2019-06-10 | DI.CT.S_ITS ---
PROCEDURE: CT HEAD/BRAIN WO CON INDICATIONS: Unspecified injury of head, initial encounter TECHNIQUE: Noncontrast 4.5 mm thick angled axial sections acquired from the foramen magnum to the vertex, with coronal and sagittal reformats. For radiation dose reduction, the following was used: automated exposure control, adjustment of mA and/or kV according to patient size. COMPARISON: None. FINDINGS: Image quality: Excellent. CSF spaces: Basal cisterns are patent. No extra-axial fluid collections. The ventricles are symmetric in size and shape. Brain: No intracranial bleeds or masses. There is mild cerebral volume loss for age, with resultant ventricular and sulcal prominence. There are mild periventricular and deep white matter chronic small vessel ischemic changes. Small chronic right frontal and right parietal infarcts are noted. There is intracranial internal carotid artery atherosclerosis. Skull and face: Calvarium and visualized facial bones appear intact, without suspicious lesions. Sinuses: Small mucous retention cyst noted in the left maxillary sinus. The mastoids are clear. IMPRESSION: 1. No acute intracranial disease process. 2. Small, chronic right frontal and right parietal infarcts. 3. Mild diffuse cerebral volume loss. 4. Mild periventricular and subcortical white matter chronic microvascular ischemic changes. Dictated by: Stephanie Gillette MD, PhD on 06/10/2019 at 11:45 Approved by: Stephanie Gillette MD, PhD on 06/10/2019 at 11:50
== END ==
PROVIDERS: Family Provider Internal Medicine; PCP Internal Medicine; Visit Provider Internal Medicine
DX: I63.89 Other cerebral infarction (principal)
CPT/HCPCS: 70450

== ENCOUNTER 2019-06-12 09:18 | Day surgery (SDC) | payer MEDICARE, OTHER, SELFPAY ==
[2019-06-04 07:30] VITALS: BMI 26.7
[2019-06-12 10:02] VITALS: BP 147/79; PULSE 58; RESP 15; TEMP 36.4; O2SAT 95; BMI 26.7
[2019-06-12] MEDS: LACTATED RINGERS 1,000 ML 42 ML IV (10:15)
[2019-06-12] MEDS: CEFAZOLIN 2 GM/100 ML FROZ.PIGGY IV (10:55)
--- NOTE | 2019-06-12 11:23 | SUR.OPER ---
Supine on padded OR bed, head on pillow, left arm secured on padded arm boards at <90 degrees abduction, right arm draped free on black arm table, legs uncrossed, safety belt at thigh, tape over blanket over lower legs.
[2019-06-12] MEDS: BUPIVACAINE 0.5% W/ EPI (PF) VIAL 30 ML INJ (11:34)
[2019-06-12 11:45] VITALS: BP 111/71; PULSE 62; RESP 20; TEMP 36; O2SAT 98
--- NOTE | 2019-06-12 11:58 | PM.OP.1 ---
Operative Date/Time/Diagnoses Date of procedure: 06/12/19 Time of procedure: 11:00 Pre-op diagnosis: Right carpal tunnel and cubital tunnel Post-op diagnosis: same Procedure & Clinicians Procedure: Right carpal tunnel and cubital tunnel release Same procedure as scheduled: Yes Indications: Right carpal tunnel and cubital tunnel Surgeon: Luis Michele Supervisory Lifeguard: Ruth Leonard Anesthesia Type: Peripheral nerve block Operative Notes Findings: Compression of the median nerve at the carpal tunnel and compression of the ulnar nerve at the cubital tunnel Closure Type: primary Specimen(s): none sent Estimated Blood Loss (mL): 0 Blood products transfused: none Procedure in detail: On date of service, the patient was met in the holding area. Patients operative site was signed and witnessed by the OR staff. The surgery was once again discussed with the patient, and any remaining questions they had were answered fully. Patient was taken back to the operating theater and placed on the operating table in a supine position. Great care was taken to ensure that all bony prominences were carefully padded. A well-padded tourniquet was placed up along the upper extremity. A timeout was performed to verify patient's name, procedure, and operative site. The arm was then prepped and draped in the normal sterile fashion. A 15 blade was used to incise through skin In the center of the palm. Pickups and tenotomy scissors were used to dissect down until the palmar fascia was visualized. The palmar fascia was then sharply incised using a 15 blade. This gave us good visualization of the carpal ligament. A small opening was made into the carpal ligament, and a curved hemostat was placed into that opening. A 15 blade was then used to sharply incise the carpal ligament with the structures beneath being protected by the hemostat. Pickups and Metzenbaum scissors were used to complete the decompression both distally and proximally. This provided a complete decompression of the median nerve. Wound was irrigated and then closed with nylon. We then turned our attention to the cubital tunnel. Ten blade was used to make an incision centered over the cubital tunnel. Ten blade was used incise through skin and fascial tissue. Electrocautery was used to achieve hemostasis. Deep knife was used to proceed with sharp dissection. Next, Metzenbaum scissors were used to identify the nerve proximal to the cubital tunnel. This was then decompressed proximally. Next, the ulnar nerve was decompressed through the cubital tunnel by releasing the cubital tunnel. This decompression was continued distally providing a complete decompression of the nerve. Wound was irrigated and then closed in a layered fashion. The hand was then cleaned, dried, and dressed. Patient was taken to the PACU in stable condition. Complications: none Condition: stable Disposition: PACU Plan for aftercare: Patient will follow our postoperative protocol for carpal tunnel and cubital tunnel.
--- NOTE | 2019-06-12 12:00 | SUR.PHASEII ---
1145 Pt arrived from OR awake and alert. Denied pain. VS stable. Weak movement to rt fingers. Drsg cdi.
[2019-06-12 12:20] VITALS: BP 125/68; PULSE 51; TEMP 36.1; O2SAT 96
== END 2019-06-12 12:35 | disposition home or self-care (01) ==
PROVIDERS: Family Provider Internal Medicine; PCP Internal Medicine; Visit Provider Orthopaedic Surgery
PROC: (CPT 64721; principal; 2019-06-12 10:45)
PROC: (CPT 64718; 2019-06-12 10:45)
DX: G56.01 Carpal tunnel syndrome, right upper limb (principal); G56.21 Lesion of ulnar nerve, right upper limb; M19.031 Primary osteoarthritis, right wrist; M18.11 Unilateral primary osteoarthritis of first carpometacarpal joint, right hand; I48.91 Unspecified atrial fibrillation; J43.2 Centrilobular emphysema; I10 Essential (primary) hypertension; I25.10 Atherosclerotic heart disease of native coronary artery without angina pectoris; E78.5 Hyperlipidemia, unspecified; G47.30 Sleep apnea, unspecified; Z79.01 Long term (current) use of anticoagulants; Z87.891 Personal history of nicotine dependence; Z95.1 Presence of aortocoronary bypass graft
CPT/HCPCS: 64718; 64721; J0690; J2250; J2704

== ENCOUNTER → 2019-07-18 11:05 | Outpatient (CLI) | payer MEDICARE, OTHER, SELFPAY ==
[2019-07-18 12:49] LABS: Aspartate Aminotransferase 42 IU/L (17-59); Blood Urea Nitrogen 22 mg/dL (9-20); Calcium 9.7 mg/dL (8.4-10.2); Carbon Dioxide 30 mmol/L (22-32); Chloride 103 mmol/L (98-107); Cholesterol 161 mg/dL (140-199); Estimated Glomerular Filt Rate > 60.0 mL/min (>60); Glucose 100 mg/dL (80-110); HDL Cholesterol 52 mg/dL (40-60); HEMOLYSIS < 15 (0-50); LDL Cholesterol Calculated 72 mg/dL (<100); Potassium 3.7 mmol/L (3.4-5.1); Sodium 143 mmol/L (137-145); Triglycerides 184 mg/dL (35-150)
[2019-07-18 13:21] LABS: Prostate Specific Antigen < 0.064 ng/mL (0.10-4.00)
== END ==
PROVIDERS: PCP Internal Medicine; Visit Provider Internal Medicine
DX: I10 Essential (primary) hypertension (principal); E78.2 Mixed hyperlipidemia; N40.1 Benign prostatic hyperplasia with lower urinary tract symptoms
CPT/HCPCS: 36415; 80048; 80061; 84153; 84450

== ENCOUNTER → 2019-07-28 11:33 | Outpatient (CLI) | payer MEDICARE, OTHER, SELFPAY ==
[2019-07-28 12:52] LABS: Add Manual Diff / Slide Review NO; Basophils Absolute Auto 0 /uL (0-100); Basophils Percent Auto 1.1 % (0-2); Eosinophils Absolute Auto 200 /uL (0-450); Eosinophils Percent Auto 4.9 % (2-4); Hemoglobin 12.9 g/dL (13.5-17.5); Lymphocytes Absolute Auto 900 /uL (1100-4500); Lymphocytes Percent Auto 20.5 % (25-40); Mean Corpuscular HGB Conc 33.1 % (30-36); Mean Corpuscular Hemoglobin 33.8 PG (26-34); Mean Corpuscular Volume 102.1 fL (80-100); Monocytes Absolute Auto 700 /uL (0-900); Monocytes Percent Auto 15.2 % (3-14); Neutrophils Absolute Auto 2500 /uL (1500-7000); Neutrophils Percent Auto 58.3 % (50-75); Platelet Count 161 X10^3/uL (150-400); Red Blood Cell Count 3.82 X10^6/uL (4.5-5.9); Red Cell Distribution Width 13.6 % (11.6-14.8); White Blood Cell Count 4.4 X10^3/uL (4.5-11.0)
[2019-07-28 13:12] LABS: Erythrocyte Sedimentation Rate 1 MM/HR (0-15)
[2019-07-28 13:13] LABS: Alanine Aminotransferase 30 IU/L (21-72); Albumin 4.1 g/dL (3.5-5.0); Albumin Globulin Ratio 1.6 (1.0-2.8); Alkaline Phosphatase 61 U/L (38-126); Aspartate Aminotransferase 40 IU/L (17-59); BUN Creatinine Ratio 17.3 (6-22); Bilirubin Total 0.6 mg/dL (0.2-1.3); Blood Urea Nitrogen 19 mg/dL (9-20); Calcium 9.6 mg/dL (8.4-10.2); Carbon Dioxide 31 mmol/L (22-32); Chloride 100 mmol/L (98-107); Estimated Glomerular Filt Rate > 60.0 mL/min (>60); Globulin 2.5 g/dL (1.7-4.1); Glucose 97 mg/dL (80-110); HEMOLYSIS < 15 (0-50); Potassium 4.2 mmol/L (3.4-5.1); Sodium 141 mmol/L (137-145); Total Protein 6.6 g/dL (6.3-8.2)
[2019-07-28 13:18] LABS: C-Reactive Protein Quant < 0.5 mg/dL (<1.0)
== END ==
PROVIDERS: PCP Internal Medicine; Visit Provider Internal Medicine Rheumatology
DX: M06.09 Rheumatoid arthritis without rheumatoid factor, multiple sites (principal); Z79.899 Other long term (current) drug therapy
CPT/HCPCS: 36415; 80053; 85025; 85651; 86140

== ENCOUNTER → 2019-09-22 12:27 | Outpatient (CLI) | payer MEDICARE, OTHER, SELFPAY ==
[2019-09-22 12:54] LABS: Add Manual Diff / Slide Review NO; Basophils Absolute Auto 0 /uL (0-100); Eosinophils Absolute Auto 500 /uL (0-450); Eosinophils Percent Auto 11.3 % (2-4); Hematocrit 39.6 % (41-53); Hemoglobin 13.3 g/dL (13.5-17.5); Lymphocytes Absolute Auto 1000 /uL (1100-4500); Lymphocytes Percent Auto 20.9 % (25-40); Mean Corpuscular HGB Conc 33.5 % (30-36); Mean Corpuscular Hemoglobin 33.7 PG (26-34); Mean Corpuscular Volume 100.6 fL (80-100); Monocytes Absolute Auto 600 /uL (0-900); Monocytes Percent Auto 13.9 % (3-14); Neutrophils Absolute Auto 2500 /uL (1500-7000); Neutrophils Percent Auto 52.9 % (50-75); Platelet Count 138 X10^3/uL (150-400); Red Blood Cell Count 3.93 X10^6/uL (4.5-5.9); Red Cell Distribution Width 13.8 % (11.6-14.8); White Blood Cell Count 4.7 X10^3/uL (4.5-11.0)
[2019-09-22 13:20] LABS: Erythrocyte Sedimentation Rate 15 MM/HR (0-15)
[2019-09-22 13:26] LABS: Alanine Aminotransferase 32 IU/L (<50); Albumin 4.3 g/dL (3.5-5.0); Albumin Globulin Ratio 1.8 (1.0-2.8); Alkaline Phosphatase 69 U/L (38-126); Aspartate Aminotransferase 50 IU/L (17-59); Bilirubin Total 0.6 mg/dL (0.2-1.3); Blood Urea Nitrogen 20 mg/dL (9-20); Calcium 9.5 mg/dL (8.4-10.2); Carbon Dioxide 32 mmol/L (22-32); Chloride 102 mmol/L (98-107); Estimated Glomerular Filt Rate > 60.0 mL/min (>60); Globulin 2.4 g/dL (1.7-4.1); Glucose 111 mg/dL (80-110); HEMOLYSIS < 15 (0-50); Potassium 3.9 mmol/L (3.4-5.1); Sodium 141 mmol/L (137-145); Total Protein 6.7 g/dL (6.3-8.2)
[2019-09-22 13:27] LABS: C-Reactive Protein Quant < 0.5 mg/dL (<1.0)
== END ==
PROVIDERS: PCP Internal Medicine; Visit Provider Internal Medicine Rheumatology
DX: M06.09 Rheumatoid arthritis without rheumatoid factor, multiple sites (principal); Z79.899 Other long term (current) drug therapy
CPT/HCPCS: 36415; 80053; 85025; 85651; 86140

== ENCOUNTER 2019-09-23 07:43 | Day surgery (SDC) | payer MEDICARE, OTHER, SELFPAY ==
[2019-09-23] MEDS: SODIUM CHLORIDE 0.9% 1,000 ML 200 ML IV (09:08)
[2019-09-23 09:11] VITALS: BP 104/64; PULSE 74; RESP 16; TEMP 36.3; O2SAT 95; BMI 26.1
--- NOTE | 2019-09-23 09:37 | PM.HP.1 ---
History of Present Illness History of Present Illness Date Patient Seen: 09/23/19 Time Patient Seen: 09:37 Chief complaint: [id number] Narrative: Patient is a gentleman whose last colonoscopy was 6 years ago. He has a history of polyps. He is here for screening exam. 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) Mild cognitive impairment (Acute) Myocardial infarction (Acute) SHERI on CPAP (Acute) Osteoarthritis (Acute) Prostate cancer (Acute) Raynaud's syndrome (Acute) Rheumatoid arthritis (Acute) Right arm fracture (Acute ~04/2016) Surgical History Hx of angioplasty (Acute ~1984) Hx of arthroscopy of right knee (Acute) Hx of bilateral cataract extraction (Acute) Hx of bilateral inguinal hernia repair (Acute) Hx of CABG (Acute ~2003) Hx of elbow surgery (Acute) Hx of lumbosacral spine surgery (Acute ~2008) Hx of mitral valve repair (Acute ~2003) S/P right unicompartmental knee replacement (Acute) Status post correction of deviated nasal septum (Acute) Family & Social History Social History: household members spouse Meds Home Medications and Allergies Home Medications Medication Instructions Recorded Confirmed Type aspirin 81 mg PO DAILY #0 04/01/09 09/23/19 History multivitamin 1 cap PO DAILY #0 04/01/09 09/23/19 History atorvastatin [Lipitor] 80 mg PO HS #0 06/14/13 06/04/19 History cholecalciferol (vitamin D3) 2,000 unit PO DAILY #0 06/14/13 09/23/19 History [Vitamin D3] flaxseed oil 1,000 mg PO BID #0 06/14/13 09/23/19 History folic acid 3 mg PO QDAY #0 06/14/13 09/23/19 History furosemide 60 mg PO QDAY #0 06/14/13 06/04/19 History gabapentin [Neurontin] 600 mg PO TID #0 06/14/13 06/04/19 History levothyroxine [Synthroid] 100 mcg PO QDAY #0 06/14/13 06/04/19 History magnesium oxide 400 mg PO Q24H #0 06/14/13 06/04/19 History potassium chloride [Klor-Con M20] 30 meq PO AMCC #0 06/14/13 06/12/19 History sulfasalazine 1,000 mg PO BID #0 06/14/13 06/04/19 History terazosin 10 mg PO HS #0 06/14/13 06/04/19 History warfarin [Coumadin] 5 mg PO SEEINSTR #0 06/14/13 06/12/19 History calcium carbonate-vitamin D3 1 tab PO BID 04/09/18 09/23/19 History [Calcium 500 + D] cyanocobalamin (vitamin B-12) 1,000 mcg PO DAILY 04/09/18 06/04/19 History [Vitamin B-12] lisinopril 5 mg PO SEEINSTR 04/09/18 09/23/19 History mirtazapine 15 mg PO BEDTIME 04/09/18 06/04/19 History venlafaxine 75 mg PO DAILY 04/09/18 06/04/19 History C,E,zinc,copper 36-[id number]-chg 1 cap PO DAILY 06/04/19 09/23/19 History [Ocuvite Adult 50 Plus] amantadine HCl 100 mg PO BID 06/04/19 06/04/19 History beclomethasone dipropionate [Qvar 2 puff INHALATION BID PRN 06/04/19 06/04/19 History RediHaler] carvedilol 12.5 mg PO BID 06/04/19 09/23/19 History fluticasone propion-salmeterol 1 inh INHALATION BID 06/04/19 06/04/19 History [Advair Diskus] ipratropium-albuterol 3 ml INHALATION Q4H PRN 06/04/19 06/04/19 History levothyroxine [Tirosint] 100 mcg PO DAILY 06/04/19 06/12/19 History oxybutynin chloride 5 mg PO DAILY 06/04/19 06/04/19 History prednisone 10 mg PO SEE INSTRUCTIONS 06/04/19 06/04/19 History enoxaparin [Lovenox] 80 mg SUBCUT DAILY 06/12/19 06/12/19 History hydrocodone-acetaminophen [[place]] 2 tab PO Q4-6H PRN #30 tab 06/12/19 Rx Allergies Allergy/AdvReac Type Severity Reaction Status Date / Time No Known Drug Allergies Allergy Verified 09/23/19 09:28 Review of Systems Review of Systems ROS Unobtainable: All systems reviewed & are unremarkable except as noted in HPI and below Cardiovascular Comments: Multiple cardiac procedures. No chest pain at this time. Respiratory Comments: COPD chronic Genitourinary Comments: Frequency nocturia due to enlarged prostate Exam Vital Signs (past 8 hours): - 09/23/19 09:11 Temperature 97.3 F L Pulse Rate 74 Respiratory Rate 16 Blood Pressure 104/64 Pulse Oximetry 95 Oxygen Delivery Method Room Air Narrative Exam Narrative: Cooperative no apparent distress lungs are clear to auscultation no rales or rhonchi heart is actually fairly regular but slow. No murmur appreciated. Abdomen is mildly protuberant soft nontender without mass. Patient is alert oriented x3. Assessment & Plan Assessment & Plan narrative: The patient for a screening colonoscopy. I have discussed the procedure with them. Risks of bleeding, perforation which would necessitate major operation, failure to find remove all lesions, the potential tattoo were all discussed. All questions were answered. They wished to proceed.
--- NOTE | 2019-09-23 09:47 | PM.PREOP ---
Pre-operative Note Interval Note History & Physical reviewed/Exam performed by Physician: Yes Changes to H&P: No ASA Class (for procedural sedation): III
[2019-09-23] MEDS: MIDAZOLAM 5 MG/5 ML VIAL IV (10:08)
[2019-09-23] MEDS: fentaNYL 250 MCG/5 ML INJ IV (10:08)
--- NOTE | 2019-09-23 10:08 | PM.OP.ENDO ---
Operative Date/Time/Diagnoses Date of procedure: 09/23/19 Time of procedure: 10:08 Pre-op diagnosis: Screening exam. Last colonoscopy 6 years ago. Personal history of polyps. Post-op diagnosis: same (Pancolonic diverticulosis) Procedure & Clinicians Study performed: Colonoscopy Same procedure as scheduled: Yes Indications: Screening Surgeon: Kyler Morgan Procedure Notes SCOAP/Timeout: Perform Procedure in detail: The patient was placed in the left lateral decubitus position and underwent IV sedation directed by the surgeon consisting of fentanyl and Versed. Digital exam was remarkable for a a reduced size or treated prostate. The scope was inserted and advanced through the rectum into the sigmoid, descending, transverse, and ascending colon. Patient had velasquez colonic diverticulosis but no other lesions were seen. The cecum was reached identified by the ileocecal valve and the appendiceal opening. The ileocecal valve was briefly cannulated. The terminal ileum was normal in appearance. The scope was gradually brought out. No Polyps were found. The scope ultimately was attempted to be retroflexed in the rectum. I was unsuccessful however therefore the scope was slowly brought through the anal verge. The appearance was normal. The scope was removed and the patient tolerated the procedure well. Prep was adequate except for a small area of the cecum which I could not see due to the presence of small forms stool. Scope withdrawal time: 7 minutes Sedation minutes: 19 Findings: diverticulosis (Throughout the colon) Specimen(s): none sent Complications: none Post-procedure Recommendations: Colonscopy in 5 years (If you are in good enough health) Follow up: as needed Disposition: PACU
[2019-09-23 10:12] VITALS: BP 86/56; PULSE 80; RESP 20; TEMP 36.5; O2SAT 96
[2019-09-23 10:16] VITALS: BP 90/59; PULSE 73; RESP 25; O2SAT 96
[2019-09-23 10:22] VITALS: BP 93/53; PULSE 70; RESP 16; TEMP 36.6; O2SAT 94
[2019-09-23 10:30] VITALS: BP 106/68; PULSE 67; RESP 12; TEMP 36.4; O2SAT 95
== END 2019-09-23 10:42 | disposition home or self-care (01) ==
PROVIDERS: PCP Internal Medicine; Visit Provider Specialist
PROC: 0DJD8ZZ Inspection of Lower Intestinal Tract, Via Natural or Artificial Opening Endoscopic (ICD-10-PCS; CPT 45378; principal; 2019-09-23 08:45)
DX: Z12.11 Encounter for screening for malignant neoplasm of colon (principal); Z86.010 Personal history of colon polyps; K57.30 Diverticulosis of large intestine without perforation or abscess without bleeding; I10 Essential (primary) hypertension; I25.2 Old myocardial infarction; J44.9 Chronic obstructive pulmonary disease, unspecified; I25.10 Atherosclerotic heart disease of native coronary artery without angina pectoris; D64.9 Anemia, unspecified; I50.9 Heart failure, unspecified
CPT/HCPCS: G0105; 99152; J2250; J3010

== ENCOUNTER → 2019-10-20 09:56 | Outpatient (CLI) | payer MEDICARE, OTHER, SELFPAY ==
--- NOTE | 2019-10-20 09:59 | DI.RAD.S_ITS ---
PROCEDURE: XR LUMBAR SPINE MIN 4V INDICATIONS: Post laminectomy syndrome TECHNIQUE: 3 views of the lumbar spine were acquired. COMPARISON: [facility], , L-SPINE WITHOUT CONTRAST, 03/04/2014, 8:00. FINDINGS: Bones: 5 nonrib-bearing vertebrae are present. There is trace retrolisthesis of L3 on L4, L5 on S1. Severe disc space narrowing is present at L2-3, L3-4, moderate to severe L5-S1. Severe foraminal narrowing is present at L5-S1, moderate L4-5. No vertebral body compression fractures. No suspicious bony lesions. Multilevel anterior osteophytes are present. Soft tissues: Overlying bowel gas pattern is normal. No suspicious soft tissue calcifications. Oblique images: No pars defects. IMPRESSION: Degenerative changes as above. Dictated by: Rebecca Leary M.D. on 10/20/2019 at 11:09 Approved by: Rebecca Leary M.D. on 10/20/2019 at 11:10
== END ==
PROVIDERS: PCP Internal Medicine; Visit Provider Physical Medicine & Rehabilitation
DX: M96.1 Postlaminectomy syndrome, not elsewhere classified (principal); M47.27 Other spondylosis with radiculopathy, lumbosacral region
CPT/HCPCS: 72110; 99214

== ENCOUNTER 2019-12-01 14:57 | Outpatient (CLI) | payer MEDICARE, OTHER, SELFPAY ==
[2019-12-01] VITALS (9 sets, daily range): BP systolic 105–147; BP diastolic 52–73; PULSE 45–97; RESP 16–18; TEMP 36.2; O2SAT 94–99
--- NOTE | 2019-12-01 15:00 | DI.RAD.S_ITS ---
PROCEDURE: PAIN L/SI FACET INJ/BLK 1STL INDICATIONS: SPONDYLOSIS FINDINGS: Fluoroscopic spot filming was performed to verify placement of spinal needles at the L4-L5, L5-S1 level(s), as labeled on the films. Appropriate location(s) of the needle tip(s) was confirmed by injection of iodinated contrast. Dictated by: Medhat Lewis M.D. on 12/01/2019 at 17:35 Approved by: Medhat Lewis M.D. on 12/01/2019 at 17:36
[2019-12-01] MEDS: MIDAZOLAM 5 MG/5 ML VIAL IV (15:49)
[2019-12-01] MEDS: IOPAMIDOL 15 ML VIAL 3 ML INJ (15:52)
[2019-12-01] MEDS: BUPIVACAINE 0.5% (PF) VIAL 2 ML INJ (15:53)
[2019-12-01] MEDS: BETAMETHASONE 30 MG/5 ML MDV 12 MG INJ (15:53)
--- NOTE | 2019-12-01 15:55 | PC.NURSE ---
ASSISTING PT OFF TABLE AND TRANSPORTING TO POST PROC AREA IN STABLE CONDITION. PASSING RN CARE OF PT OFF TO EVENS Connor RN,.
--- NOTE | 2019-12-01 16:07 | P.PCN_ITS ---
Procedures Date/Time Date of procedure: 12/01/19 Time of procedure: 16:07 General Procedure description: PREOP DIAGNOSIS 1. FACET ARTHROPATHY, 2. AXIAL LBP, 3. MULTILEVEL DDD, POST OP DIAGNOSIS 1. FACET ARTHROPATHY, 2. AXIAL LBP, 3. MULTILEVEL DDD, PROCEDURES 1. FLUORSCOPICALLY GUIDED CONTRAST CONTROLLED FACET JOINT INJECTIONS LEFT L4/5, L5/S1 SURGEON: Alok Feliciano, DO INDICATIONS Roman is referred by for treatment of Axial LBP FINDINGS Multilevel Facet Arthropathy with Clinically significant axial LBP DESCRIPTION OF PROCEDURE Fluoroscopically guided, contrast-controlled left L4/5, L5/S1 facet joint inject ions. Following review of allergy and review of potential side effects and complications, including, but not necessarily limited to, infection, allergic reaction, local tissue breakdown, stroke, temporary or permanent nerve injury, paralysis, and possible , the patient indicated that the patient understood and agreed to proceed. An informed consent document was signed by the patient, witnessed by a nurse, and placed in the patient's chart. Additionally, other treatment options including medications, modalities, and physical therapy were reviewed with the patient. After review of previous anaesthesic history and IV conscious sedation the patient was deemed safe to proceed with todays procedure with IV conscious sedation as ASA class II designation. Safety time-out was performed to confirm patient ID, procedure to be performed and site of procedure. IV sedation was accomplished with a combination of 2mg of Versed was administered by the RN after DO order, titrated to patient comfort during the course of the procedure while the patient remained responsive to all verbal commands. In the prone position, following sterile prep and drape of the lumbar region, the posterior aspect of the left L4/5, L5/S1 facet joints were identified fluoroscopically. The skin was anesthetized via a 25-gauge 1.5-inch needle with 1% lidocaine solution into the corresponding facet joints. At this point, a 25- gauge 3.5-inch spinal needle was atraumatically introduced and advanced under fluoroscopic guidance into the corresponding facet joints. Following negative aspiration, injections of approximately 0.2-cc of Isovue 200 confirmed interarticular placement without vascular uptake. Radiological data, including multiple fluoroscopic views of the lumbosacral spine, reveal a spinal needle at the left L4/5, L5/S1 facet joints. Subsequent views show flow of contrast material both superiorly and inferiorly within the joint space without vascular or intrathecal uptake. At this point, a total of 0.5cc including a mixture of 0.25cc Marcaine and 0.25cc betamethasone was injected without complication into each of the corresponding facet joints. The procedure tolerated the procedure well without signs or symptoms of complications prior to transfer to the recovery area continued monitoring without incident. The patient was then transferred to the recovery area where they were observed for an appropriate period of time after the injection. The patient reported a VAS score of 7 prior to the procedure and a post-procedure VAS of 1. Total Fluoroscopy Time: 5 seconds Total Conscious Sedation Time: 24min POST OP INSTRUCTIONS The patient was provided a Pain Log to continue to record their response to the target-specific procedure prior to follow-up visit with their referring physician. Additionally, specific post-injection care instructions and a contact number to our office were provided if concerns arise regarding possible complications associated with the procedure are suspected. Alok Feliciano, Complications: none
--- NOTE | 2019-12-01 16:21 | PC.NURSE ---
at 1602 returned from procedure, able to transfer self to chair, tolerated well, pain free. assuming care from Geraldine navarrete. snacks provided.
== END 2019-12-01 16:34 | disposition home or self-care (01) ==
LOC: RAD 14:59
PROVIDERS: PCP Internal Medicine; Referring Provider Physical Medicine & Rehabilitation; Visit Provider Physical Medicine & Rehabilitation
DX: M47.816 Spondylosis without myelopathy or radiculopathy, lumbar region (principal); M47.817 Spondylosis without myelopathy or radiculopathy, lumbosacral region; M54.5 Low back pain; M51.36 Other intervertebral disc degeneration, lumbar region; M51.37 Other intervertebral disc degeneration, lumbosacral region
CPT/HCPCS: 64493; 64494; 99152; J0702; J2250; J3010

== ENCOUNTER 2019-12-29 10:30 | Outpatient (RCR) | payer MEDICARE, OTHER, SELFPAY ==
--- NOTE | 2019-11-25 09:05 | PT.OPPOC ---
Addendum entered and electronically signed by Lynn Khalil, PT 12/01/19 18:57: Send for E-signature Original Note: Physical, Occupational & Speech Therapy At [facility] Current Diagnoses Other spondylosis with radiculopathy, lumbosacral region (12/01/19) Spondylosis without myelopathy or radiculopathy, lumbosacral region (12/01/19) Postlaminectomy syndrome, not elsewhere classified (12/01/19) Visit Care Team Role Provider Type Mark Palafox MD Primary Care Provider Physician Specialty: Internal Medicine Address: [address] [place] [address], [id number] Email: [email or web address] Alok Feliciano DO Attending Provider Physician Referring Provider Specialty: Physiatry Pain Management Address: [address] [place] [address], [id number] Email: [email or web address] Plan Of Care PT-OP-T Assessment and Plan Start: 11/25/19 16:04 Freq: Status: Active Protocol: Document 11/25/19 09:05 DLM (Rec: 12/01/19 16:35 [email or web address] [id number]) Physical Therapy Assessment Rehab Potential Rehabilitation Potential Good Evaluation Complexity Number of Personal Factors/Comorbidities 3 or More Number of Body Systems Impaired 4 or More Clinical Presentation at Evaluation Evolving Impairments Impairments Activity Tolerance,Functional Activities,Pain,Posture,ROM, Sensation,Soft Tissue Mobility ,Strength Other Concerns Age Related Concerns wears glasses Barriers to Rehabilitation pt will be out of town 12/30- Goals Three Impairment Decreased strength/ stabalization Short Term Goal (STG) Increase LE strength to 5/5 STG Duration 4 weeks Agricultural Researcher Goal (LTG) Demonstrate good stabalization in single limb stance LTG Duration 8 weeks Two Impairment Decreased trunk AROM with pain Short Term Goal (STG) Tolerate trunk flexion without increased pain STG Duration 4 weeks Agricultural Researcher Goal (LTG) Increase rotation and lateral flexion to 50% LTG Duration 8 weeks One Impairment back pain 5/10, constant with left LE radicular pain Short Term Goal (STG) Decrease his pain to 3/10 STG Duration 4 weeks Agricultural Researcher Goal (LTG) Decrease his pain to intermittent without LE pain LTG Duration 8 weeks Assessment Summary Assessment Roman has a long history of low back pain with a recent increase in his pain that is limiting his ability to do chores and activities at home. He is motivated to increase his activity tolerance. His history is not clear for what may have caused his pain exacerbation but suspect it is a strain. He is a good candidate for skilled physical therapy to address his deficits identified on eval. Physical Therapy Plan Frequency and Duration Frequency of Treatment 2x/Week Duration of Treatment 8 weeks Plan of Care Start Date 11/25/19 Plan of Care End Date 02/23/20 Therapeutic Interventions Therapeutic Interventions Home Exercise Program,Manual Therapy,Patient/Caregiver Education,Self-Care/Home Management,Soft Tissue Mobilization,Taping, Therapeutic Activities, Therapeutic Exercises Modalities Cold Pack/Ice Massage,Electric Stimulation,Hot Packs, Ultrasound Next Visit Focus/Plan Next Note Type Treatment Note Next Visit Plan advance ex, trial Estim for pain management Plan of Care Dates Plan of Care Start Date 11/25/19 Plan of Care End Date 02/23/20 Electronically Signed by: Lynn Khalil, PT 12/01/19 [id number] Please Sign and Return: I have reviewed this Plan of Care and certify that the skilled therapy services above are required to meet the patient?s needs. Physician Signature Date Printed Name and Credentials
--- NOTE | 2019-11-25 09:05 | PT.OIE ---
Current Diagnoses Other spondylosis with radiculopathy, lumbosacral region (12/01/19) Spondylosis without myelopathy or radiculopathy, lumbosacral region (12/01/19) Postlaminectomy syndrome, not elsewhere classified (12/01/19) Past Medical History (Last Updated 11/18/19 @ 11:03 by AVERY Galvan) Acute bronchitis (Acute ~03/2019) Anemia (Acute) Atrial fibrillation (Chronic) CAD (coronary artery disease) (Acute) Cardiomyopathy (Acute) Centrilobular emphysema (Acute) Cerebrovascular accident (CVA) (Acute ~2003) CHF (congestive heart failure) (Acute) Chronic anticoagulation (Chronic) Chronic sinusitis (Acute) COPD (chronic obstructive pulmonary disease) (Chronic) DDD (degenerative disc disease) (Acute) Depression (Acute) ELENA (dyspnea on exertion) (Acute) Edema (Acute) Facet arthropathy, lumbar (Chronic) Fatty liver (Acute) Former smoker (Acute) HLD (hyperlipidemia) (Acute) HTN (hypertension) (Acute) 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) Mild cognitive impairment (Acute) Myocardial infarction (Acute) SHERI on CPAP (Acute) Osteoarthritis (Acute) Prostate cancer (Acute) Raynaud's syndrome (Acute) Rheumatoid arthritis (Acute) Right arm fracture (Acute ~04/2016) Scoliosis deformity of spine (Chronic) Past Surgical History (Last Reviewed 11/18/19 @ 10:40 by AVERY Galvan) History of lumbar laminectomy (Chronic) Hx of angioplasty (Acute ~1984) Hx of arthroscopy of right knee (Acute) Hx of bilateral cataract extraction (Acute) Hx of bilateral inguinal hernia repair (Acute) Hx of CABG (Acute ~2003) Hx of elbow surgery (Acute) Hx of lumbosacral spine surgery (Acute ~2008) Hx of mitral valve repair (Acute ~2003) S/P right unicompartmental knee replacement (Acute) Status post correction of deviated nasal septum (Acute) Visit Care Team Role Provider Type Mark Palafox MD Primary Care Provider Physician Specialty: Internal Medicine Address: [address] [place] [address], [id number] Email: [email or web address] Attending Provider Physician Referring Provider Specialty: Physiatry Pain Management Address: Formerly named [facility] [place], [address] Email: [email or web address] Physical Therapy Initial Evaluation PT-OP-A Visit Information Start: 11/25/19 16:04 Freq: Status: Active Protocol: Document 11/25/19 09:00 DLM (Rec: 11/25/19 16:31 DLM [id number]) Out-Patient Physical Therapy Visit Information Visit Information Visit Type Initial Evaluation Visit Start Time 09:00 Visit Stop Time 09:55 Total Visit Minutes 55 Visit Number 1 Number of ASSET ACCOUNTANT Visits 0 Evaluation Information Evaluation Date 11/25/19 Precautions Precautions scoliosis, history lumbar surgery PT-OP-B Current Condition Start: 11/25/19 16:04 Freq: Status: Active Protocol: Document 11/25/19 09:00 DLM (Rec: 11/25/19 16:31 DLM [id number]) Current Condition History of Current Condition Onset Date 10/20/19 Current Complaints low back pain and pain radiates down left LE History of Current Condition He has a long history of low back pain. Recent increase in his back and left LE pain. Tightening his belt around his waist increases his pain. He has pain radiating down his left LE 1/3 of the time. Prior Treatments and Tests X-rays 10/20/19: trace retrolisthesis of L3 on L4 and L5 on S1. Severe disc space narrowing at L2-3, L3-4 , moderates to sever at L5-S1. Severe formaminal narrowing at L5-S1 and moderate at L4-5. Multilevel anterior osteophytes. Future Testing and Treatments Planned Pain management follow-up, L4- 5 and L5-S1 facet joint injections Treatment Goals Patient/Caregiver Goals decrease his back pain so he can be more active around the house, he wants to be able to do some gardening in the Spring Prior Functional Status Baseline Function- ADL's Independent Baseline Function- Mobility Independent Baseline Function- Gait Independent without device Baseline Function- Work/School retired Baseline Function- Recreation/Hobbies volunteers at [employer], takes care of his dog Baseline Function- Other uses TENS unit to manage his back pain Current Functional Impairments (Reported) Functional Limitations- ADL's Independent Functional Limitations- Mobility/Gait Independent without a device Functional Limitations- Recreation/ wants to be able to garden and 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, 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 nor vacuum due to his back pain, increased pain with anything that requires lifting, twisting and bending at home Functional Limitations- Other He is not currently doing any exercises for his back Personal Factors Other Personal Factors That May Effect A-fib, COPD, hx of CVA with Therapy/Recovery left hemiplegia, convex left scoliosis PT-OP-C Subjective Start: 11/25/19 16:04 Freq: Status: Active Protocol: Document 11/25/19 09:00 DL (Rec: 11/25/19 16:31 [facility] [id number]) OP-PT Subjective Patient Comments Patient Comments His back is a little irritated today Patient Questionnaires Oswestry Low Back Index Oswestry Score Modified Oswestry- raw score 25, 50% OP-PT Pain Assessment Pain Assessment Grid Paper Pain Assessment Grid Completed Yes Location Lower Posterior Back Pain Location Details more left than right Intensity 5 Scale Used Numeric (1 - 10) Description Aching,Radiating Frequency Constant Radiating Location left LE, laterally Pain Aggravating Factors Activity,Standing,Walking Other Pain Aggravating Factors twisting Pain Alleviating Factors Heat,Lying Supine,Sitting,Rest Other Pain Alleviating Factors TENS Home Pain Medication Use Pain Medications Used No: Tylenol does not help Home Pain Medication Frequency He took ibuprofen in the past, stopped due to new dx Diverticulitis Pain Behaviors Pain Behaviors Wincing PT-OP-G Mobility & Gait Start: 11/25/19 16:04 Freq: Status: Active Protocol: Document 11/25/19 09:05 DL (Rec: 12/01/19 16:23 [facility] [id number]) OP Mobility Evaluation Bed Mobility Rolling independent Supine to and from Sit independent Transfers Sit to Stand independent OP Gait Assessment Gait Gait Assistance Required: Independent Assistive Devices Assistive Device None PT-OP-H Neuro Start: 11/25/19 16:04 Freq: Status: Active Protocol: Document 11/25/19 09:05 DL (Rec: 12/01/19 16:24 [facility] [id number]) Sensation Evaluation Gross Sensation Gross Sensation Left LE Impaired Sensation Description Numbness Comments Summary Comments he has had some numbness in left LE since his heart surgery (vein removed for CABG ) and CVA, can feel touch PT-OP-J Posture/Palpation/Skin Start: 11/25/19 16:04 Freq: Status: Active Protocol: Document 11/25/19 09:05 DL (Rec: 12/01/19 16:14 [facility] [id number]) Posture Evaluation Position Standing Evaluation View Posterior Head/C-Spine Posture Forward Head T-Spine Posture Flexible Scoliosis on (L) L-Spine Posture Flexed,Shifted Left Palpation Assessment Location Sacral Palpation Location sacral and gluteal areas Palpation Findings Soft Tissue Tightness, Tenderness Palpation Details tenderness along left sacral border Lumbar Palpation Findings Soft Tissue Tightness, Tenderness Palpation Details old scar tissue bilaterally with well healed old incision visible, tenderness more left than right especially at L5 level that goes out laterally to left side PT-OP-K Range of Motion Start: 11/25/19 16:04 Freq: Status: Active Protocol: Document 11/25/19 09:05 DL (Rec: 12/01/19 16:11 [facility] [id number]) Lumbar Spine Range of Motion Lumbar Spine Active Percentage Testing Position Standing Flexion 80 Extension 20 Rotation Left 10 Rotation Right 20 Lateral Flexion Left 20 Lateral Flexion Right 40 Comments increased pain with flexion, shift to left with extension, pain with left rotation and lateral flexion, hamstring tightness noted with functional flexion PT-OP-L Special Tests Start: 11/25/19 16:04 Freq: Status: Active Protocol: Document 11/25/19 09:05 DL (Rec: 12/01/19 16:22 [facility] [id number]) Special Tests Lumbar Spine Special Tests Stork Test Test Results positive for instability Comments in right Single limb pelvis shifts and rotates right Other- 1 Test Results Leg Length equal in supine Prone Knee Flexion Test Results positive Comments increased back pain Prone Press Up Test Results positive Comments increased radicular pain Straight Leg Raise Test Results negative right, back pain with left Comments hamstring tightness PT-OP-M Strength Start: 11/25/19 16:04 Freq: Status: Active Protocol: Document 11/25/19 09:05 DL (Rec: 12/01/19 16:19 [facility] [id number]) Hip Strength Hip Manual Muscle Testing Right Flexion (L2) 5 Normal Extension (S1) 5 Normal Abduction 5 Normal Adduction 5 Normal Left Flexion (L2) 4+ Good+ Extension (S1) 5 Normal Abduction 4+ Good+ Adduction 5 Normal Comments pain with resisted flexion and extension Knee Strength Knee Manual Muscle Testing Right Flexion (S2) 5 Normal Extension (L3) 5 Normal Comments left LE pain with resisted knee flexion on right Left Flexion (S2) 4+ Good+ Extension (L3) 5 Normal Comments pain in LE and back with resisted knee flexion Ankle/Foot Strength Ankle and Foot Manual Muscle Testing Right Dorsiflexion (L4) 5 Normal Plantarflexion (S1) 5 Normal Left Dorsiflexion (L4) 5 Normal Plantarflexion (S1) 5 Normal Toe Strength Toe Manual Muscle Testing Right Great Toe Flexion 5 Normal Left Great Toe Extension 5 Normal PT-OP-Q Treatments Start: 11/25/19 16:04 Freq: Status: Active Protocol: Document 11/25/19 09:05 DL (Rec: 12/01/19 16:26 DL [id number]) Therapeutic Exercises Supine Exercises Bridging Reps/Minutes 5 reps Lower Trunk Rotation Side bilateral Reps/Minutes 3 reps Single Knee to Chest Side bilateral Reps/Minutes 3 reps each Self-Care/Home Management Treatment Education Other Education treatment plan PT-OP-T Assessment and Plan Start: 11/25/19 16:04 Freq: Status: Active Protocol: Document 11/25/19 09:05 DLM (Rec: 12/01/19 16:35 [facility] [id number]) Physical Therapy Assessment Rehab Potential Rehabilitation Potential Good Evaluation Complexity Number of Personal Factors/Comorbidities 3 or More Number of Body Systems Impaired 4 or More Clinical Presentation at Evaluation Evolving Impairments Impairments Activity Tolerance,Functional Activities,Pain,Posture,ROM, Sensation,Soft Tissue Mobility ,Strength Other Concerns Age Related Concerns wears glasses Barriers to Rehabilitation pt will be out of town 12/30- Goals Three Impairment Decreased strength/ stabalization Short Term Goal (STG) Increase LE strength to 5/5 STG Duration 4 weeks System Archive Analyst Goal (LTG) Demonstrate good stabalization in single limb stance LTG Duration 8 weeks Two Impairment Decreased trunk AROM with pain Short Term Goal (STG) Tolerate trunk flexion without increased pain STG Duration 4 weeks System Archive Analyst Goal (LTG) Increase rotation and lateral flexion to 50% LTG Duration 8 weeks One Impairment back pain 5/10, constant with left LE radicular pain Short Term Goal (STG) Decrease his pain to 3/10 STG Duration 4 weeks Fdc Goal (LTG) Decrease his pain to intermittent without LE pain LTG Duration 8 weeks Assessment Summary Assessment Roman has a long history of low back pain with a recent increase in his pain that is limiting his ability to do chores and activities at home. He is motivated to increase his activity tolerance. His history is not clear for what may have caused his pain exacerbation but suspect it is a strain. He is a good candidate for skilled physical therapy to address his deficits identified on eval. Physical Therapy Plan Frequency and Duration Frequency of Treatment 2x/Week Duration of Treatment 8 weeks Plan of Care Start Date 11/25/19 Plan of Care End Date 02/23/20 Therapeutic Interventions Therapeutic Interventions Home Exercise Program,Manual Therapy,Patient/Caregiver Education,Self-Care/Home Management,Soft Tissue Mobilization,Taping, Therapeutic Activities, Therapeutic Exercises Modalities Cold Pack/Ice Massage,Electric Stimulation,Hot Packs, Ultrasound Next Visit Focus/Plan Next Note Type Treatment Note Next Visit Plan advance ex, trial Estim for pain management
--- NOTE | 2019-11-27 14:30 | PT.OTN ---
Current Diagnoses Other spondylosis with radiculopathy, lumbosacral region (12/01/19) Spondylosis without myelopathy or radiculopathy, lumbosacral region (12/01/19) Postlaminectomy syndrome, not elsewhere classified (12/01/19) Physical Therapy Treatment Note PT-OP-A Visit Information Start: 11/25/19 16:04 Freq: Status: Active Protocol: Document 11/27/19 14:30 DLM (Rec: 12/01/19 19:11 DLM [id number]) Out-Patient Physical Therapy Visit Information Visit Information Visit Type Treatment Note Visit Start Time 14:30 Visit Stop Time 15:20 Total Visit Minutes 50 Visit Number 2 Number of ACOUSTICS TEACHER Visits 0 Evaluation Information Evaluation Date 11/25/19 Precautions Precautions scoliosis, history lumbar surgery PT-OP-B Current Condition Start: 11/25/19 16:04 Freq: Status: Active Protocol: Document 11/25/19 09:00 DLM (Rec: 11/25/19 16:31 DLM [id number]) Current Condition History of Current Condition Onset Date 10/20/19 Current Complaints low back pain and pain radiates down left LE History of Current Condition He has a long history of low back pain. Recent increase in his back and left LE pain. Tightening his belt around his waist increases his pain. He has pain radiating down his left LE 1/3 of the time. Prior Treatments and Tests X-rays 10/20/19: trace retrolisthesis of L3 on L4 and L5 on S1. Severe disc space narrowing at L2-3, L3-4 , moderates to sever at L5-S1. Severe formaminal narrowing at L5-S1 and moderate at L4-5. Multilevel anterior osteophytes. Future Testing and Treatments Planned Pain management follow-up, L4- 5 and L5-S1 facet joint injections Treatment Goals Patient/Caregiver Goals decrease his back pain so he can be more active around the house, he wants to be able to do some gardening in the Spring Prior Functional Status Baseline Function- ADL's Independent Baseline Function- Mobility Independent Baseline Function- Gait Independent without device Baseline Function- Work/School retired Baseline Function- Recreation/Hobbies volunteers at [employer], takes care of his dog Baseline Function- Other uses TENS unit to manage his back pain Current Functional Impairments (Reported) Functional Limitations- ADL's Independent Functional Limitations- Mobility/Gait Independent without a device Functional Limitations- Recreation/ wants to be able to garden and 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, 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 nor vacuum due to his back pain, increased pain with anything that requires lifting, twisting and bending at home Functional Limitations- Other He is not currently doing any exercises for his back Personal Factors Other Personal Factors That May Effect A-fib, COPD, hx of CVA with Therapy/Recovery left hemiplegia, convex left scoliosis PT-OP-C Subjective Start: 11/25/19 16:04 Freq: Status: Active Protocol: Document 11/27/19 14:30 DLM (Rec: 12/01/19 19:11 DLM [id number]) OP-PT Subjective Patient Comments Patient Comments He has less pain today and no LE pain at the start of this visit. Patient Reported Progress Improving PT-OP-G Mobility & Gait Start: 11/25/19 16:04 Freq: Status: Active Protocol: Document 11/25/19 09:05 DLM (Rec: 12/01/19 16:23 DLM [id number]) OP Mobility Evaluation Bed Mobility Rolling independent Supine to and from Sit independent Transfers Sit to Stand independent OP Gait Assessment Gait Gait Assistance Required: Independent Assistive Devices Assistive Device None PT-OP-H Neuro Start: 11/25/19 16:04 Freq: Status: Active Protocol: Document 11/25/19 09:05 DLM (Rec: 12/01/19 16:24 DLM [id number]) Sensation Evaluation Gross Sensation Gross Sensation Left LE Impaired Sensation Description Numbness Comments Summary Comments he has had some numbness in left LE since his heart surgery (vein removed for CABG ) and CVA, can feel touch PT-OP-J Posture/Palpation/Skin Start: 11/25/19 16:04 Freq: Status: Active Protocol: Document 11/25/19 09:05 DLM (Rec: 12/01/19 16:14 DLM [id number]) Posture Evaluation Position Standing Evaluation View Posterior Head/C-Spine Posture Forward Head T-Spine Posture Flexible Scoliosis on (L) L-Spine Posture Flexed,Shifted Left Palpation Assessment Location Sacral Palpation Location sacral and gluteal areas Palpation Findings Soft Tissue Tightness, Tenderness Palpation Details tenderness along left sacral border Lumbar Palpation Findings Soft Tissue Tightness, Tenderness Palpation Details old scar tissue bilaterally with well healed old incision visible, tenderness more left than right especially at L5 level that goes out laterally to left side PT-OP-K Range of Motion Start: 11/25/19 16:04 Freq: Status: Active Protocol: Document 11/25/19 09:05 DLM (Rec: 12/01/19 16:11 DLM [id number]) Lumbar Spine Range of Motion Lumbar Spine Active Percentage Testing Position Standing Flexion 80 Extension 20 Rotation Left 10 Rotation Right 20 Lateral Flexion Left 20 Lateral Flexion Right 40 Comments increased pain with flexion, shift to left with extension, pain with left rotation and lateral flexion, hamstring tightness noted with functional flexion PT-OP-L Special Tests Start: 11/25/19 16:04 Freq: Status: Active Protocol: Document 11/25/19 09:05 DLM (Rec: 12/01/19 16:22 DL [id number]) Special Tests Lumbar Spine Special Tests Stork Test Test Results positive for instability Comments in right Single limb pelvis shifts and rotates right Other- 1 Test Results Leg Length equal in supine Prone Knee Flexion Test Results positive Comments increased back pain Prone Press Up Test Results positive Comments increased radicular pain Straight Leg Raise Test Results negative right, back pain with left Comments hamstring tightness PT-OP-M Strength Start: 11/25/19 16:04 Freq: Status: Active Protocol: Document 11/25/19 09:05 DLM (Rec: 12/01/19 16:19 DL [id number]) Hip Strength Hip Manual Muscle Testing Right Flexion (L2) 5 Normal Extension (S1) 5 Normal Abduction 5 Normal Adduction 5 Normal Left Flexion (L2) 4+ Good+ Extension (S1) 5 Normal Abduction 4+ Good+ Adduction 5 Normal Comments pain with resisted flexion and extension Knee Strength Knee Manual Muscle Testing Right Flexion (S2) 5 Normal Extension (L3) 5 Normal Comments left LE pain with resisted knee flexion on right Left Flexion (S2) 4+ Good+ Extension (L3) 5 Normal Comments pain in LE and back with resisted knee flexion Ankle/Foot Strength Ankle and Foot Manual Muscle Testing Right Dorsiflexion (L4) 5 Normal Plantarflexion (S1) 5 Normal Left Dorsiflexion (L4) 5 Normal Plantarflexion (S1) 5 Normal Toe Strength Toe Manual Muscle Testing Right Great Toe Flexion 5 Normal Left Great Toe Extension 5 Normal PT-OP-Q Treatments Start: 11/25/19 16:04 Freq: Status: Active Protocol: Document 11/27/19 14:30 DLM (Rec: 12/01/19 19:11 DLM [id number]) Therapeutic Exercises Supine Exercises Straight Leg Raise Supine Exercise Name SLR with opposite knee flexed Side bilateral Reps/Minutes 10 reps each Comments incorporated dynamic HS stretch Bridging Reps/Minutes 5 reps Lower Trunk Rotation Side bilateral Reps/Minutes 3 reps Single Knee to Chest Side bilateral Reps/Minutes 3 reps each Sidelying Exercises Clamshells Side bilateral Reps/Minutes 10 reps each Comments with core stabalization Manual Therapy Treatment Soft Tissue Mobilization 2 Body Location left gluteal area Mobilization Type Strumming,Sustained Pressure Intensity/Depth Moderate Body Position Prone 1 Body Location Lumbosacral area Mobilization Type Rolling,Strumming,Sustained Pressure Intensity/Depth Moderate Body Position Prone Comments focus more on left PT-OP-R Modalities Start: 11/25/19 16:04 Freq: Status: Active Protocol: Document 11/27/19 14:30 DLM (Rec: 12/01/19 19:11 DLM [id number]) Electric Stimulation Electric Stimulation Interferential Current (IFC) Body Location lumbosacral area Duration (Minutes) 15 Patient Position Hooklying Combined With Heat/Cold Hot Pack PT-OP-T Assessment and Plan Start: 11/25/19 16:04 Freq: Status: Active Protocol: Document 11/27/19 14:30 DLM (Rec: 12/01/19 19:11 DLM [id number]) Physical Therapy Assessment Goals Three Impairment Decreased strength/ stabalization Short Term Goal (STG) Increase LE strength to 5/5 STG Duration 4 weeks Snf Goal (LTG) Demonstrate good stabalization in single limb stance LTG Duration 8 weeks Two Impairment Decreased trunk AROM with pain Short Term Goal (STG) Tolerate trunk flexion without increased pain STG Duration 4 weeks [employer] Goal (LTG) Increase rotation and lateral flexion to 50% LTG Duration 8 weeks One Impairment back pain 5/10, constant with left LE radicular pain Short Term Goal (STG) Decrease his pain to 3/10 STG Duration 4 weeks Snf Goal (LTG) Decrease his pain to intermittent without LE pain LTG Duration 8 weeks Progress Towards Goals Progress Comments decreased pain today Assessment Summary Assessment He tolerated treatment session well. Soft tissue tighness improved with manual therapy. He reports decreased pain with use of IFC. He reports getting more relief with clinic IFC than his home TENS unit. Assess his response to new exercises next visit. Physical Therapy Plan Frequency and Duration Frequency of Treatment 2x/Week Duration of Treatment 8 weeks Plan of Care Start Date 11/25/19 Plan of Care End Date 02/23/20 Therapeutic Interventions Therapeutic Interventions Home Exercise Program,Manual Therapy,Patient/Caregiver Education,Self-Care/Home Management,Soft Tissue Mobilization,Taping, Therapeutic Activities, Therapeutic Exercises Modalities Cold Pack/Ice Massage,Electric Stimulation,Hot Packs, Ultrasound Next Visit Focus/Plan Next Note Type Treatment Note Next Visit Plan slowly advance exercises
--- NOTE | 2019-12-01 09:00 | PT.OTN ---
Current Diagnoses Other spondylosis with radiculopathy, lumbosacral region (12/01/19) Spondylosis without myelopathy or radiculopathy, lumbosacral region (12/01/19) Postlaminectomy syndrome, not elsewhere classified (12/01/19) Physical Therapy Treatment Note PT-OP-A Visit Information Start: 11/25/19 16:04 Freq: Status: Active Protocol: Document 12/01/19 09:00 DLM (Rec: 12/01/19 19:49 DLM [id number]) Out-Patient Physical Therapy Visit Information Visit Information Visit Type Treatment Note Visit Start Time 09:00 Visit Stop Time 10:00 Total Visit Minutes 60 Visit Number 3 Number of OFFICE ASSISTANCE Visits 0 Evaluation Information Evaluation Date 11/25/19 Precautions Precautions scoliosis, history lumbar surgery PT-OP-B Current Condition Start: 11/25/19 16:04 Freq: Status: Active Protocol: Document 11/25/19 09:00 DLM (Rec: 11/25/19 16:31 DLM [id number]) Current Condition History of Current Condition Onset Date 10/20/19 Current Complaints low back pain and pain radiates down left LE History of Current Condition He has a long history of low back pain. Recent increase in his back and left LE pain. Tightening his belt around his waist increases his pain. He has pain radiating down his left LE 1/3 of the time. Prior Treatments and Tests X-rays 10/20/19: trace retrolisthesis of L3 on L4 and L5 on S1. Severe disc space narrowing at L2-3, L3-4 , moderates to sever at L5-S1. Severe formaminal narrowing at L5-S1 and moderate at L4-5. Multilevel anterior osteophytes. Future Testing and Treatments Planned Pain management follow-up, L4- 5 and L5-S1 facet joint injections Treatment Goals Patient/Caregiver Goals decrease his back pain so he can be more active around the house, he wants to be able to do some gardening in the Spring Prior Functional Status Baseline Function- ADL's Independent Baseline Function- Mobility Independent Baseline Function- Gait Independent without device Baseline Function- Work/School retired Baseline Function- Recreation/Hobbies volunteers at [employer], takes care of his dog Baseline Function- Other uses TENS unit to manage his back pain Current Functional Impairments (Reported) Functional Limitations- ADL's Independent Functional Limitations- Mobility/Gait Independent without a device Functional Limitations- Recreation/ wants to be able to garden 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 He wants pictures of the exercises so he can do them at home. PT-OP-G Mobility & Gait Start: 11/25/19 16:04 Freq: Status: Active Protocol: Document 11/25/19 09:05 DLM (Rec: 12/01/19 16:23 DLM [id number]) OP Mobility Evaluation Bed Mobility Rolling independent Supine to and from Sit independent Transfers Sit to Stand independent OP Gait Assessment Gait Gait Assistance Required: Independent Assistive Devices Assistive Device None PT-OP-H Neuro Start: 11/25/19 16:04 Freq: Status: Active Protocol: Document 11/25/19 09:05 DLM (Rec: 12/01/19 16:24 DLM [id number]) Sensation Evaluation Gross Sensation Gross Sensation Left LE Impaired Sensation Description Numbness Comments Summary Comments he has had some numbness in left LE since his heart surgery (vein removed for CABG ) and CVA, can feel touch PT-OP-J Posture/Palpation/Skin Start: 11/25/19 16:04 Freq: Status: Active Protocol: Document 11/25/19 09:05 DLM (Rec: 12/01/19 16:14 DLM [id number]) Posture Evaluation Position Standing Evaluation View Posterior Head/C-Spine Posture Forward Head T-Spine Posture Flexible Scoliosis on (L) L-Spine Posture Flexed,Shifted Left Palpation Assessment Location Sacral Palpation Location sacral and gluteal areas Palpation Findings Soft Tissue Tightness, Tenderness Palpation Details tenderness along left sacral border Lumbar Palpation Findings Soft Tissue Tightness, Tenderness Palpation Details old scar tissue bilaterally with well healed old incision visible, tenderness more left than right especially at L5 level that goes out laterally to left side PT-OP-K Range of Motion Start: 11/25/19 16:04 Freq: Status: Active Protocol: Document 11/25/19 09:05 DL (Rec: 12/01/19 16:11 DL [id number]) Lumbar Spine Range of Motion Lumbar Spine Active Percentage Testing Position Standing Flexion 80 Extension 20 Rotation Left 10 Rotation Right 20 Lateral Flexion Left 20 Lateral Flexion Right 40 Comments increased pain with flexion, shift to left with extension, pain with left rotation and lateral flexion, hamstring tightness noted with functional flexion PT-OP-L Special Tests Start: 11/25/19 16:04 Freq: Status: Active Protocol: Document 11/25/19 09:05 DL (Rec: 12/01/19 16:22 DL [id number]) Special Tests Lumbar Spine Special Tests Stork Test Test Results positive for instability Comments in right Single limb pelvis shifts and rotates right Other- 1 Test Results Leg Length equal in supine Prone Knee Flexion Test Results positive Comments increased back pain Prone Press Up Test Results positive Comments increased radicular pain Straight Leg Raise Test Results negative right, back pain with left Comments hamstring tightness PT-OP-M Strength Start: 11/25/19 16:04 Freq: Status: Active Protocol: Document 11/25/19 09:05 DL (Rec: 12/01/19 16:19 [facility] [id number]) Hip Strength Hip Manual Muscle Testing Right Flexion (L2) 5 Normal Extension (S1) 5 Normal Abduction 5 Normal Adduction 5 Normal Left Flexion (L2) 4+ Good+ Extension (S1) 5 Normal Abduction 4+ Good+ Adduction 5 Normal Comments pain with resisted flexion and extension Knee Strength Knee Manual Muscle Testing Right Flexion (S2) 5 Normal Extension (L3) 5 Normal Comments left LE pain with resisted knee flexion on right Left Flexion (S2) 4+ Good+ Extension (L3) 5 Normal Comments pain in LE and back with resisted knee flexion Ankle/Foot Strength Ankle and Foot Manual Muscle Testing Right Dorsiflexion (L4) 5 Normal Plantarflexion (S1) 5 Normal Left Dorsiflexion (L4) 5 Normal Plantarflexion (S1) 5 Normal Toe Strength Toe Manual Muscle Testing Right Great Toe Flexion 5 Normal Left Great Toe Extension 5 Normal PT-OP-Q Treatments Start: 11/25/19 16:04 Freq: Status: Active Protocol: Document 12/01/19 09:00 DLM (Rec: 12/01/19 19:49 DL [id number]) Therapeutic Exercises Supine Exercises Straight Leg Raise Supine Exercise Name SLR with opposite knee flexed Side bilateral Equipment Used cuing to keep knee extended Reps/Minutes 10 reps each Comments incorporated dynamic HS stretch Bridging Reps/Minutes 5 reps Lower Trunk Rotation Side bilateral Reps/Minutes 3 reps Single Knee to Chest Side bilateral Reps/Minutes 3 reps each Prone Exercises Prone Knee Flexion Prone Exercise Name alternating Side bilateral Reps/Minutes 10 reps each Sidelying Exercises Clamshells Sidelying Exercise Name needs a lot of cuing Side bilateral Reps/Minutes 10 reps each Comments with core stabalization Manual Therapy Treatment Soft Tissue Mobilization 2 Body Location left gluteal area Mobilization Type Strumming,Sustained Pressure Intensity/Depth Moderate Body Position Prone 1 Body Location Lumbosacral area Mobilization Type Rolling,Strumming,Sustained Pressure Intensity/Depth Moderate Body Position Prone Comments focus more on left Self-Care/Home Management Treatment Education Patient Education Home Exercise Program Other Education written HEP provided to pt ( copy in paper chart) PT-OP-R Modalities Start: 11/25/19 16:04 Freq: Status: Active Protocol: Document 12/01/19 09:00 DLM (Rec: 12/01/19 19:49 [facility] [id number]) Electric Stimulation Electric Stimulation Interferential Current (IFC) Body Location lumbosacral area Duration (Minutes) 15 Patient Position Hooklying Combined With Heat/Cold Hot Pack PT-OP-T Assessment and Plan Start: 11/25/19 16:04 Freq: Status: Active Protocol: Document 12/01/19 09:00 DLM (Rec: 12/01/19 19:49 [facility] [id number]) Physical Therapy Assessment Goals Three Impairment Decreased strength/ stabalization Short Term Goal (STG) Increase LE strength to 5/5 STG Duration 4 weeks Residential Goal (LTG) Demonstrate good stabalization in single limb stance LTG Duration 8 weeks Two Impairment Decreased trunk AROM with pain Short Term Goal (STG) Tolerate trunk flexion without increased pain STG Duration 4 weeks Restaurant Shift Leader Goal (LTG) Increase rotation and lateral flexion to 50% LTG Duration 8 weeks One Impairment back pain 5/10, constant with left LE radicular pain Short Term Goal (STG) Decrease his pain to 3/10 STG Duration 4 weeks Restaurant Shift Leader Goal (LTG) Decrease his pain to intermittent without LE pain LTG Duration 8 weeks Progress Towards Goals Progress Towards Goals Progressing Toward Goals Assessment Summary Assessment Roman tolerated treatment well. Left lumbar lateral to L4-5 continues to be very tender. Pt to have spinal injections tomorrow. Physical Therapy Plan Frequency and Duration Frequency of Treatment 2x/Week Duration of Treatment 8 weeks Plan of Care Start Date 11/25/19 Plan of Care End Date 02/23/20 Therapeutic Interventions Therapeutic Interventions Home Exercise Program,Manual Therapy,Patient/Caregiver Education,Self-Care/Home Management,Soft Tissue Mobilization,Taping, Therapeutic Activities, Therapeutic Exercises Modalities Cold Pack/Ice Massage,Electric Stimulation,Hot Packs, Ultrasound Next Visit Focus/Plan Next Note Type Treatment Note Next Visit Plan continue to advance his exercises with focus on core stability
--- NOTE | 2019-12-04 14:32 | PT.OTN ---
Current Diagnoses Other spondylosis with radiculopathy, lumbosacral region (12/04/19) Spondylosis without myelopathy or radiculopathy, lumbosacral region (12/04/19) Postlaminectomy syndrome, not elsewhere classified (12/04/19) Physical Therapy Treatment Note PT-OP-A Visit Information Start: 11/25/19 16:04 Freq: Status: Active Protocol: Document 12/04/19 13:44 [facility] (Rec: 12/04/19 14:32 [facility] [id number]) Out-Patient Physical Therapy Visit Information Visit Information Visit Type Treatment Note Visit Start Time 13:47 Visit Stop Time 14:47 Total Visit Minutes 55 Visit Number 4 Number of GEOPHYSICAL LABORATORY CHIEF Visits 0 PT-OP-B Current Condition Start: 11/25/19 16:04 Freq: Status: Active Protocol: Document 11/25/19 09:00 DLM (Rec: 11/25/19 16:31 DLM [id number]) Current Condition History of Current Condition Onset Date 10/20/19 Current Complaints low back pain and pain radiates down left LE History of Current Condition He has a long history of low back pain. Recent increase in his back and left LE pain. Tightening his belt around his waist increases his pain. He has pain radiating down his left LE 1/3 of the time. Prior Treatments and Tests X-rays 10/20/19: trace retrolisthesis of L3 on L4 and L5 on S1. Severe disc space narrowing at L2-3, L3-4 , moderates to sever at L5-S1. Severe formaminal narrowing at L5-S1 and moderate at L4-5. Multilevel anterior osteophytes. Future Testing and Treatments Planned Pain management follow-up, L4- 5 and L5-S1 facet joint injections Treatment Goals Patient/Caregiver Goals decrease his back pain so he can be more active around the house, he wants to be able to do some gardening in the Spring Prior Functional Status Baseline Function- ADL's Independent Baseline Function- Mobility Independent Baseline Function- Gait Independent without device Baseline Function- Work/School retired Baseline Function- Recreation/Hobbies volunteers at [employer], takes care of his dog Baseline Function- Other uses TENS unit to manage his back pain Current Functional Impairments (Reported) Functional Limitations- ADL's Independent Functional Limitations- Mobility/Gait Independent without a device Functional Limitations- Recreation/ wants to be able to garden and 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, 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 nor vacuum due to his back pain, increased pain with anything that requires lifting, twisting and bending at home Functional Limitations- Other He is not currently doing any exercises for his back Personal Factors Other Personal Factors That May Effect A-fib, COPD, hx of CVA with Therapy/Recovery left hemiplegia, convex left scoliosis PT-OP-C Subjective Start: 11/25/19 16:04 Freq: Status: Active Protocol: Document 12/04/19 13:44 [facility] (Rec: 12/04/19 14:32 [facility] [id number]) OP-PT Subjective Patient Comments Patient Comments Pt reports he isn't getting the pain level he was getting isn't as bad. Notes he got cortizone injection sunday PT-OP-G Mobility & Gait Start: 11/25/19 16:04 Freq: Status: Active Protocol: Document 11/25/19 09:05 DLM (Rec: 12/01/19 16:23 DL [id number]) OP Mobility Evaluation Bed Mobility Rolling independent Supine to and from Sit independent Transfers Sit to Stand independent OP Gait Assessment Gait Gait Assistance Required: Independent Assistive Devices Assistive Device None PT-OP-H Neuro Start: 11/25/19 16:04 Freq: Status: Active Protocol: Document 11/25/19 09:05 DLM (Rec: 12/01/19 16:24 DLM [id number]) Sensation Evaluation Gross Sensation Gross Sensation Left LE Impaired Sensation Description Numbness Comments Summary Comments he has had some numbness in left LE since his heart surgery (vein removed for CABG ) and CVA, can feel touch PT-OP-J Posture/Palpation/Skin Start: 11/25/19 16:04 Freq: Status: Active Protocol: Document 11/25/19 09:05 DLM (Rec: 12/01/19 16:14 DLM [id number]) Posture Evaluation Position Standing Evaluation View Posterior Head/C-Spine Posture Forward Head T-Spine Posture Flexible Scoliosis on (L) L-Spine Posture Flexed,Shifted Left Palpation Assessment Location Sacral Palpation Location sacral and gluteal areas Palpation Findings Soft Tissue Tightness, Tenderness Palpation Details tenderness along left sacral border Lumbar Palpation Findings Soft Tissue Tightness, Tenderness Palpation Details old scar tissue bilaterally with well healed old incision visible, tenderness more left than right especially at L5 level that goes out laterally to left side PT-OP-K Range of Motion Start: 11/25/19 16:04 Freq: Status: Active Protocol: Document 11/25/19 09:05 DL (Rec: 12/01/19 16:11 DL [id number]) Lumbar Spine Range of Motion Lumbar Spine Active Percentage Testing Position Standing Flexion 80 Extension 20 Rotation Left 10 Rotation Right 20 Lateral Flexion Left 20 Lateral Flexion Right 40 Comments increased pain with flexion, shift to left with extension, pain with left rotation and lateral flexion, hamstring tightness noted with functional flexion PT-OP-L Special Tests Start: 11/25/19 16:04 Freq: Status: Active Protocol: Document 11/25/19 09:05 DL (Rec: 12/01/19 16:22 DL [id number]) Special Tests Lumbar Spine Special Tests Stork Test Test Results positive for instability Comments in right Single limb pelvis shifts and rotates right Other- 1 Test Results Leg Length equal in supine Prone Knee Flexion Test Results positive Comments increased back pain Prone Press Up Test Results positive Comments increased radicular pain Straight Leg Raise Test Results negative right, back pain with left Comments hamstring tightness PT-OP-M Strength Start: 11/25/19 16:04 Freq: Status: Active Protocol: Document 11/25/19 09:05 DL (Rec: 12/01/19 16:19 [facility] [id number]) Hip Strength Hip Manual Muscle Testing Right Flexion (L2) 5 Normal Extension (S1) 5 Normal Abduction 5 Normal Adduction 5 Normal Left Flexion (L2) 4+ Good+ Extension (S1) 5 Normal Abduction 4+ Good+ Adduction 5 Normal Comments pain with resisted flexion and extension Knee Strength Knee Manual Muscle Testing Right Flexion (S2) 5 Normal Extension (L3) 5 Normal Comments left LE pain with resisted knee flexion on right Left Flexion (S2) 4+ Good+ Extension (L3) 5 Normal Comments pain in LE and back with resisted knee flexion Ankle/Foot Strength Ankle and Foot Manual Muscle Testing Right Dorsiflexion (L4) 5 Normal Plantarflexion (S1) 5 Normal Left Dorsiflexion (L4) 5 Normal Plantarflexion (S1) 5 Normal Toe Strength Toe Manual Muscle Testing Right Great Toe Flexion 5 Normal Left Great Toe Extension 5 Normal PT-OP-Q Treatments Start: 11/25/19 16:04 Freq: Status: Active Protocol: Document 12/04/19 13:44 [facility] (Rec: 12/04/19 14:32 [facility] [id number]) Therapeutic Exercises Supine Exercises Straight Leg Raise Supine Exercise Name SLR with opposite knee flexed Side bilateral Equipment Used cuing to keep knee extended Reps/Minutes 15 reps each Comments incorporated dynamic HS stretch Bridging Reps/Minutes 10 reps Comments w/arms in air Lower Trunk Rotation Side bilateral Reps/Minutes 3 reps Prone Exercises hip ext Side bilateral Reps/Minutes 10 Prone Knee Flexion Prone Exercise Name alternating Side bilateral Reps/Minutes 10 reps each Sidelying Exercises abd Sidelying Exercise Name focus on core & no rolling w/ cueing Side bilateral Reps/Minutes 15 Clamshells Sidelying Exercise Name needs a lot of cuing Side bilateral Reps/Minutes 15 reps each Comments with core stabalization Manual Therapy Treatment Soft Tissue Mobilization 2 Body Location left gluteal area Mobilization Type Strumming,Sustained Pressure Intensity/Depth Moderate Body Position Prone 1 Body Location Lumbosacral area Mobilization Type Rolling,Strumming,Sustained Pressure Intensity/Depth Moderate Body Position Prone Comments focus more on left PT-OP-R Modalities Start: 11/25/19 16:04 Freq: Status: Active Protocol: Document 12/04/19 13:44 [facility] (Rec: 12/04/19 14:32 [facility] [id number]) Electric Stimulation Electric Stimulation Interferential Current (IFC) Body Location lumbosacral area Duration (Minutes) 15 Patient Position Hooklying Combined With Heat/Cold Hot Pack PT-OP-T Assessment and Plan Start: 11/25/19 16:04 Freq: Status: Active Protocol: Document 12/04/19 13:44 [facility] (Rec: 12/04/19 14:32 [facility] [id number]) Physical Therapy Assessment Goals Three Impairment Decreased strength/ stabalization Short Term Goal (STG) Increase LE strength to 5/5 STG Duration 4 weeks Senior Living Goal (LTG) Demonstrate good stabalization in single limb stance LTG Duration 8 weeks Two Impairment Decreased trunk AROM with pain Short Term Goal (STG) Tolerate trunk flexion without increased pain STG Duration 4 weeks Senior Living Goal (LTG) Increase rotation and lateral flexion to 50% LTG Duration 8 weeks One Impairment back pain 5/10, constant with left LE radicular pain Short Term Goal (STG) Decrease his pain to 3/10 STG Duration 4 weeks Senior Living Goal (LTG) Decrease his pain to intermittent without LE pain LTG Duration 8 weeks Assessment Summary Assessment Pt indepw ith supine exercises with very littel cueing required. able to make bridges more difficult with no UE support. cueing required for s /l and prone exercises. Physical Therapy Plan Next Visit Focus/Plan Next Note Type Treatment Note Next Visit Plan continue to advance his exercises with focus on core stability
--- NOTE | 2019-12-09 11:28 | PT.OTN ---
Current Diagnoses Other spondylosis with radiculopathy, lumbosacral region (12/09/19) Spondylosis without myelopathy or radiculopathy, lumbosacral region (12/09/19) Postlaminectomy syndrome, not elsewhere classified (12/09/19) Physical Therapy Treatment Note PT-OP-A Visit Information Start: 11/25/19 16:04 Freq: Status: Active Protocol: Document 12/09/19 10:34 SP (Rec: 12/09/19 11:35 SP [id number]) Out-Patient Physical Therapy Visit Information Visit Information Visit Type Treatment Note Visit Start Time 10:35 Visit Stop Time 11:28 Total Visit Minutes 53 Visit Number 5 Number of AUDIOVISUAL LEAD TECHNICIAN Visits 1 PT-OP-B Current Condition Start: 11/25/19 16:04 Freq: Status: Active Protocol: Document 11/25/19 09:00 DLM (Rec: 11/25/19 16:31 DLM [id number]) Current Condition History of Current Condition Onset Date 10/20/19 Current Complaints low back pain and pain radiates down left LE History of Current Condition He has a long history of low back pain. Recent increase in his back and left LE pain. Tightening his belt around his waist increases his pain. He has pain radiating down his left LE 1/3 of the time. Prior Treatments and Tests X-rays 10/20/19: trace retrolisthesis of L3 on L4 and L5 on S1. Severe disc space narrowing at L2-3, L3-4 , moderates to sever at L5-S1. Severe formaminal narrowing at L5-S1 and moderate at L4-5. Multilevel anterior osteophytes. Future Testing and Treatments Planned Pain management follow-up, L4- 5 and L5-S1 facet joint injections Treatment Goals Patient/Caregiver Goals decrease his back pain so he can be more active around the house, he wants to be able to do some gardening in the Spring Prior Functional Status Baseline Function- ADL's Independent Baseline Function- Mobility Independent Baseline Function- Gait Independent without device Baseline Function- Work/School retired Baseline Function- Recreation/Hobbies volunteers at [employer], takes care of his dog Baseline Function- Other uses TENS unit to manage his back pain Current Functional Impairments (Reported) Functional Limitations- ADL's Independent Functional Limitations- Mobility/Gait Independent without a device Functional Limitations- Recreation/ wants to be able to garden 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 Incjection 2 weeks ago. PT-OP-G Mobility & Gait Start: 11/25/19 16:04 Freq: Status: Active Protocol: Document 11/25/19 09:05 DLM (Rec: 12/01/19 16:23 DLM [id number]) OP Mobility Evaluation Bed Mobility Rolling independent Supine to and from Sit independent Transfers Sit to Stand independent OP Gait Assessment Gait Gait Assistance Required: Independent Assistive Devices Assistive Device None PT-OP-H Neuro Start: 11/25/19 16:04 Freq: Status: Active Protocol: Document 11/25/19 09:05 DLM (Rec: 12/01/19 16:24 DLM [id number]) Sensation Evaluation Gross Sensation Gross Sensation Left LE Impaired Sensation Description Numbness Comments Summary Comments he has had some numbness in left LE since his heart surgery (vein removed for CABG ) and CVA, can feel touch PT-OP-J Posture/Palpation/Skin Start: 11/25/19 16:04 Freq: Status: Active Protocol: Document 11/25/19 09:05 DLM (Rec: 12/01/19 16:14 DLM [id number]) Posture Evaluation Position Standing Evaluation View Posterior Head/C-Spine Posture Forward Head T-Spine Posture Flexible Scoliosis on (L) L-Spine Posture Flexed,Shifted Left Palpation Assessment Location Sacral Palpation Location sacral and gluteal areas Palpation Findings Soft Tissue Tightness, Tenderness Palpation Details tenderness along left sacral border Lumbar Palpation Findings Soft Tissue Tightness, Tenderness Palpation Details old scar tissue bilaterally with well healed old incision visible, tenderness more left than right especially at L5 level that goes out laterally to left side PT-OP-K Range of Motion Start: 11/25/19 16:04 Freq: Status: Active Protocol: Document 11/25/19 09:05 DLM (Rec: 12/01/19 16:11 DLM [id number]) Lumbar Spine Range of Motion Lumbar Spine Active Percentage Testing Position Standing Flexion 80 Extension 20 Rotation Left 10 Rotation Right 20 Lateral Flexion Left 20 Lateral Flexion Right 40 Comments increased pain with flexion, shift to left with extension, pain with left rotation and lateral flexion, hamstring tightness noted with functional flexion PT-OP-L Special Tests Start: 11/25/19 16:04 Freq: Status: Active Protocol: Document 11/25/19 09:05 DLM (Rec: 12/01/19 16:22 DL [id number]) Special Tests Lumbar Spine Special Tests Stork Test Test Results positive for instability Comments in right Single limb pelvis shifts and rotates right Other- 1 Test Results Leg Length equal in supine Prone Knee Flexion Test Results positive Comments increased back pain Prone Press Up Test Results positive Comments increased radicular pain Straight Leg Raise Test Results negative right, back pain with left Comments hamstring tightness PT-OP-M Strength Start: 11/25/19 16:04 Freq: Status: Active Protocol: Document 11/25/19 09:05 DLM (Rec: 12/01/19 16:19 DL [id number]) Hip Strength Hip Manual Muscle Testing Right Flexion (L2) 5 Normal Extension (S1) 5 Normal Abduction 5 Normal Adduction 5 Normal Left Flexion (L2) 4+ Good+ Extension (S1) 5 Normal Abduction 4+ Good+ Adduction 5 Normal Comments pain with resisted flexion and extension Knee Strength Knee Manual Muscle Testing Right Flexion (S2) 5 Normal Extension (L3) 5 Normal Comments left LE pain with resisted knee flexion on right Left Flexion (S2) 4+ Good+ Extension (L3) 5 Normal Comments pain in LE and back with resisted knee flexion Ankle/Foot Strength Ankle and Foot Manual Muscle Testing Right Dorsiflexion (L4) 5 Normal Plantarflexion (S1) 5 Normal Left Dorsiflexion (L4) 5 Normal Plantarflexion (S1) 5 Normal Toe Strength Toe Manual Muscle Testing Right Great Toe Flexion 5 Normal Left Great Toe Extension 5 Normal PT-OP-Q Treatments Start: 11/25/19 16:04 Freq: Status: Active Protocol: Document 12/09/19 10:34 SP (Rec: 12/09/19 11:35 SP [id number]) Therapeutic Exercises Supine Exercises Straight Leg Raise Supine Exercise Name SLR with opposite knee flexed Side bilateral Equipment Used cuing to keep knee extended Reps/Minutes 15 reps each Comments incorporated dynamic HS stretch, cued PPT/ Lower ribcage core facilitation Bridging Reps/Minutes 10 reps Lower Trunk Rotation Side bilateral Reps/Minutes 5 reps Single Knee to Chest Side bilateral Reps/Minutes 3 reps each Prone Exercises hip ext Side bilateral Reps/Minutes 2x10 Comments cued glut engagement height Prone Knee Flexion Prone Exercise Name alternating Side bilateral Reps/Minutes 2x10 reps each Comments cued for pelvis staying in contact w/ table Sidelying Exercises abd Sidelying Exercise Name focus on core & no rolling w/ cueing Side bilateral Reps/Minutes 15 reps Comments cued trunk alignment perpendicular with table and form abd decrease flex Standing Exercises tandem Standing Exercise Name EO, head turns Side bilateral Equipment Used chair Reps/Minutes 4min Comments cued wt between B LE, glut facilitation hip abd/ext Side bilateral Reps/Minutes 2x5 sit to stand Reps/Minutes 3 Comments stopped due to knee pain so stoped Manual Therapy Treatment Soft Tissue Mobilization 1 Body Location Lumbosacral area Mobilization Type Rolling,Strumming,Sustained Pressure Intensity/Depth Moderate Body Position Prone Comments focus more on left PT-OP-R Modalities Start: 11/25/19 16:04 Freq: Status: Active Protocol: Document 12/09/19 10:34 SP (Rec: 12/09/19 11:35 SP [id number]) Electric Stimulation Electric Stimulation Interferential Current (IFC) Body Location lumbosacral area Duration (Minutes) 10 Intensity 25 Target/Sweep Target High/Low High Patient Position Hooklying Combined With Heat/Cold Hot Pack PT-OP-T Assessment and Plan Start: 11/25/19 16:04 Freq: Status: Active Protocol: Document 12/09/19 10:34 SP (Rec: 12/09/19 11:35 SP [id number]) Physical Therapy Assessment Goals Three Impairment Decreased strength/ stabalization Short Term Goal (STG) Increase LE strength to 5/5 STG Duration 4 weeks Half-Way Goal (LTG) Demonstrate good stabalization in single limb stance LTG Duration 8 weeks Two Impairment Decreased trunk AROM with pain Short Term Goal (STG) Tolerate trunk flexion without increased pain STG Duration 4 weeks Online Editor Goal (LTG) Increase rotation and lateral flexion to 50% LTG Duration 8 weeks One Impairment back pain 5/10, constant with left LE radicular pain Short Term Goal (STG) Decrease his pain to 3/10 STG Duration 4 weeks Online Editor Goal (LTG) Decrease his pain to intermittent without LE pain LTG Duration 8 weeks Assessment Summary Assessment Pt tolerated tx well, focused on HEP review, cued for glut facilitation and PPT to decreased LS recruitment. Added standing hip abd, ext AROM with continued cuing for awareness of not LS extension and tandem using chair for support to progress self balance activity. Pt stated LB better end of tx, loosened up . Physical Therapy Plan Frequency and Duration Frequency of Treatment 2x/Week Duration of Treatment 8 weeks Plan of Care Start Date 11/25/19 Plan of Care End Date 02/23/20 Therapeutic Interventions Therapeutic Interventions Home Exercise Program,Manual Therapy,Patient/Caregiver Education,Self-Care/Home Management,Soft Tissue Mobilization,Taping, Therapeutic Activities, Therapeutic Exercises Modalities Cold Pack/Ice Massage,Electric Stimulation,Hot Packs, Ultrasound Next Visit Focus/Plan Next Note Type Treatment Note Next Visit Plan Assess response to last tx, addd stand hip abd, ext AROM and tandem for assist balance. continue to advance his exercises with focus on core stability.
--- NOTE | 2019-12-11 10:32 | PT.OTN ---
Current Diagnoses Other spondylosis with radiculopathy, lumbosacral region (12/11/19) Spondylosis without myelopathy or radiculopathy, lumbosacral region (12/11/19) Postlaminectomy syndrome, not elsewhere classified (12/11/19) Physical Therapy Treatment Note PT-OP-A Visit Information Start: 11/25/19 16:04 Freq: Status: Active Protocol: Document 12/11/19 09:47 KS (Rec: 12/11/19 12:54 KS [id number]) Out-Patient Physical Therapy Visit Information Visit Information Visit Type Treatment Note Visit Start Time 09:47 Visit Stop Time 10:32 Total Visit Minutes 45 Visit Number 6 Number of HEALTH INSURANCE ASSESSOR Visits 2 PT-OP-B Current Condition Start: 11/25/19 16:04 Freq: Status: Active Protocol: Document 11/25/19 09:00 DLM (Rec: 11/25/19 16:31 DLM [id number]) Current Condition History of Current Condition Onset Date 10/20/19 Current Complaints low back pain and pain radiates down left LE History of Current Condition He has a long history of low back pain. Recent increase in his back and left LE pain. Tightening his belt around his waist increases his pain. He has pain radiating down his left LE 1/3 of the time. Prior Treatments and Tests X-rays 10/20/19: trace retrolisthesis of L3 on L4 and L5 on S1. Severe disc space narrowing at L2-3, L3-4 , moderates to sever at L5-S1. Severe formaminal narrowing at L5-S1 and moderate at L4-5. Multilevel anterior osteophytes. Future Testing and Treatments Planned Pain management follow-up, L4- 5 and L5-S1 facet joint injections Treatment Goals Patient/Caregiver Goals decrease his back pain so he can be more active around the house, he wants to be able to do some gardening in the Spring Prior Functional Status Baseline Function- ADL's Independent Baseline Function- Mobility Independent Baseline Function- Gait Independent without device Baseline Function- Work/School retired Baseline Function- Recreation/Hobbies volunteers at [employer], takes care of his dog Baseline Function- Other uses TENS unit to manage his back pain Current Functional Impairments (Reported) Functional Limitations- ADL's Independent Functional Limitations- Mobility/Gait Independent without a device Functional Limitations- Recreation/ wants to be able to garden 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, 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 PT-OP-G Mobility & Gait Start: 11/25/19 16:04 Freq: Status: Active Protocol: Document 11/25/19 09:05 DLM (Rec: 12/01/19 16:23 DLM [id number]) OP Mobility Evaluation Bed Mobility Rolling independent Supine to and from Sit independent Transfers Sit to Stand independent OP Gait Assessment Gait Gait Assistance Required: Independent Assistive Devices Assistive Device None PT-OP-H Neuro Start: 11/25/19 16:04 Freq: Status: Active Protocol: Document 11/25/19 09:05 DLM (Rec: 12/01/19 16:24 DLM [id number]) Sensation Evaluation Gross Sensation Gross Sensation Left LE Impaired Sensation Description Numbness Comments Summary Comments he has had some numbness in left LE since his heart surgery (vein removed for CABG ) and CVA, can feel touch PT-OP-J Posture/Palpation/Skin Start: 11/25/19 16:04 Freq: Status: Active Protocol: Document 11/25/19 09:05 DLM (Rec: 12/01/19 16:14 DLM [id number]) Posture Evaluation Position Standing Evaluation View Posterior Head/C-Spine Posture Forward Head T-Spine Posture Flexible Scoliosis on (L) L-Spine Posture Flexed,Shifted Left Palpation Assessment Location Sacral Palpation Location sacral and gluteal areas Palpation Findings Soft Tissue Tightness, Tenderness Palpation Details tenderness along left sacral border Lumbar Palpation Findings Soft Tissue Tightness, Tenderness Palpation Details old scar tissue bilaterally with well healed old incision visible, tenderness more left than right especially at L5 level that goes out laterally to left side PT-OP-K Range of Motion Start: 11/25/19 16:04 Freq: Status: Active Protocol: Document 11/25/19 09:05 DLM (Rec: 12/01/19 16:11 DLM [id number]) Lumbar Spine Range of Motion Lumbar Spine Active Percentage Testing Position Standing Flexion 80 Extension 20 Rotation Left 10 Rotation Right 20 Lateral Flexion Left 20 Lateral Flexion Right 40 Comments increased pain with flexion, shift to left with extension, pain with left rotation and lateral flexion, hamstring tightness noted with functional flexion PT-OP-L Special Tests Start: 11/25/19 16:04 Freq: Status: Active Protocol: Document 11/25/19 09:05 DLM (Rec: 12/01/19 16:22 DL [id number]) Special Tests Lumbar Spine Special Tests Stork Test Test Results positive for instability Comments in right Single limb pelvis shifts and rotates right Other- 1 Test Results Leg Length equal in supine Prone Knee Flexion Test Results positive Comments increased back pain Prone Press Up Test Results positive Comments increased radicular pain Straight Leg Raise Test Results negative right, back pain with left Comments hamstring tightness PT-OP-M Strength Start: 11/25/19 16:04 Freq: Status: Active Protocol: Document 11/25/19 09:05 DLM (Rec: 12/01/19 16:19 DLM [id number]) Hip Strength Hip Manual Muscle Testing Right Flexion (L2) 5 Normal Extension (S1) 5 Normal Abduction 5 Normal Adduction 5 Normal Left Flexion (L2) 4+ Good+ Extension (S1) 5 Normal Abduction 4+ Good+ Adduction 5 Normal Comments pain with resisted flexion and extension Knee Strength Knee Manual Muscle Testing Right Flexion (S2) 5 Normal Extension (L3) 5 Normal Comments left LE pain with resisted knee flexion on right Left Flexion (S2) 4+ Good+ Extension (L3) 5 Normal Comments pain in LE and back with resisted knee flexion Ankle/Foot Strength Ankle and Foot Manual Muscle Testing Right Dorsiflexion (L4) 5 Normal Plantarflexion (S1) 5 Normal Left Dorsiflexion (L4) 5 Normal Plantarflexion (S1) 5 Normal Toe Strength Toe Manual Muscle Testing Right Great Toe Flexion 5 Normal Left Great Toe Extension 5 Normal PT-OP-Q Treatments Start: 11/25/19 16:04 Freq: Status: Active Protocol: Document 12/11/19 09:47 KS (Rec: 12/11/19 12:54 KS [id number]) Therapeutic Exercises Supine Exercises Upper Trunk Rotation Resistance bilateral Reps/Minutes 2 min Straight Leg Raise Supine Exercise Name SLR with opposite knee flexed Side bilateral Equipment Used cuing to keep knee extended Reps/Minutes 2x10 Comments cues for core stabilization Bridging Equipment Used ball between knees Reps/Minutes 2x10 Comments core stabilization and post pelvic tilt Lower Trunk Rotation Side bilateral Reps/Minutes 2 min Sidelying Exercises Clamshells Side bilateral Reps/Minutes 2x10 Comments tactile cues for stacked hips Sitting Exercises QL stretch Sitting Exercise Name QL stretch Side left Reps/Minutes 2x30 sec Hamstring curls Sitting Exercise Name Seated hamstring curls Side bilateral Resistance l2 tband Reps/Minutes 2x10 Comments cues for upright posture and core stabilization Manual Therapy Treatment Soft Tissue Mobilization 2 Body Location left gluteal area Mobilization Type Rolling,Strumming Intensity/Depth Moderate Body Position Prone 1 Body Location Lumbosacral area Mobilization Type Rolling,Strumming Intensity/Depth Moderate Body Position Prone Comments focus more on left Manual Traction LLE Details LLE Body Position Supine Comments LAD to L hip PT-OP-R Modalities Start: 11/25/19 16:04 Freq: Status: Active Protocol: Document 12/09/19 10:34 SP (Rec: 12/09/19 11:35 SP [id number]) Electric Stimulation Electric Stimulation Interferential Current (IFC) Body Location lumbosacral area Duration (Minutes) 10 Intensity 25 Target/Sweep Target High/Low High Patient Position Hooklying Combined With Heat/Cold Hot Pack PT-OP-T Assessment and Plan Start: 11/25/19 16:04 Freq: Status: Active Protocol: Document 12/11/19 09:47 KS (Rec: 12/11/19 12:54 KS [id number]) Physical Therapy Assessment Rehab Potential Rehabilitation Potential Good Evaluation Complexity Number of Personal Factors/Comorbidities 3 or More Number of Body Systems Impaired 4 or More Clinical Presentation at Evaluation Evolving Impairments Impairments Activity Tolerance,Functional Activities,Pain,Posture,ROM, Sensation,Soft Tissue Mobility ,Strength Other Concerns Age Related Concerns wears glasses Barriers to Rehabilitation pt will be out of town 12/30- Goals Three Impairment Decreased strength/ stabalization Short Term Goal (STG) Increase LE strength to 5/5 STG Duration 4 weeks Reprographics Technician Goal (LTG) Demonstrate good stabalization in single limb stance LTG Duration 8 weeks Two Impairment Decreased trunk AROM with pain Short Term Goal (STG) Tolerate trunk flexion without increased pain STG Duration 4 weeks Reprographics Technician Goal (LTG) Increase rotation and lateral flexion to 50% LTG Duration 8 weeks One Impairment back pain 5/10, constant with left LE radicular pain Short Term Goal (STG) Decrease his pain to 3/10 STG Duration 4 weeks Reprographics Technician Goal (LTG) Decrease his pain to intermittent without LE pain LTG Duration 8 weeks Progress Towards Goals Progress Towards Goals Progressing Toward Goals Assessment Summary Assessment Pt was able to complete all exercises today w/o reported increase in pain or discomfort. Pt requires cues for core stabilization for protection of back during exercises. Responded well to STM of lumbosacral area and L glutes as well as long axis distraction to L hip. Pt would benefit from continued strengthening of core, LE, and back to decrease pain. Physical Therapy Plan Frequency and Duration Frequency of Treatment 2x/Week Duration of Treatment 8 weeks Plan of Care Start Date 11/25/19 Plan of Care End Date 02/23/20 Therapeutic Interventions Therapeutic Interventions Home Exercise Program,Manual Therapy,Patient/Caregiver Education,Self-Care/Home Management,Soft Tissue Mobilization,Taping, Therapeutic Activities, Therapeutic Exercises Modalities Cold Pack/Ice Massage,Electric Stimulation,Hot Packs, Ultrasound Next Visit Focus/Plan Next Note Type Treatment Note Next Visit Plan Assess response to last tx, add stand hip abd, ext AROM and tandem for assist balance. continue to advance his exercises with focus on core stability.
--- NOTE | 2019-12-16 15:18 | PT.OTN ---
Current Diagnoses Other spondylosis with radiculopathy, lumbosacral region (12/16/19) Spondylosis without myelopathy or radiculopathy, lumbosacral region (12/16/19) Postlaminectomy syndrome, not elsewhere classified (12/16/19) Physical Therapy Treatment Note PT-OP-A Visit Information Start: 11/25/19 16:04 Freq: Status: Active Protocol: Document 12/16/19 14:28 [facility] (Rec: 12/16/19 15:18 [facility] [id number]) Out-Patient Physical Therapy Visit Information Visit Information Visit Type Treatment Note Visit Start Time 14:30 Visit Stop Time 15:30 Total Visit Minutes 60 Visit Number 7 Number of WEAPONS ENGINEER Visits 0 PT-OP-B Current Condition Start: 11/25/19 16:04 Freq: Status: Active Protocol: Document 11/25/19 09:00 DLM (Rec: 11/25/19 16:31 DLM [id number]) Current Condition History of Current Condition Onset Date 10/20/19 Current Complaints low back pain and pain radiates down left LE History of Current Condition He has a long history of low back pain. Recent increase in his back and left LE pain. Tightening his belt around his waist increases his pain. He has pain radiating down his left LE 1/3 of the time. Prior Treatments and Tests X-rays 10/20/19: trace retrolisthesis of L3 on L4 and L5 on S1. Severe disc space narrowing at L2-3, L3-4 , moderates to sever at L5-S1. Severe formaminal narrowing at L5-S1 and moderate at L4-5. Multilevel anterior osteophytes. Future Testing and Treatments Planned Pain management follow-up, L4- 5 and L5-S1 facet joint injections Treatment Goals Patient/Caregiver Goals decrease his back pain so he can be more active around the house, he wants to be able to do some gardening in the Spring Prior Functional Status Baseline Function- ADL's Independent Baseline Function- Mobility Independent Baseline Function- Gait Independent without device Baseline Function- Work/School retired Baseline Function- Recreation/Hobbies volunteers at [employer], takes care of his dog Baseline Function- Other uses TENS unit to manage his back pain Current Functional Impairments (Reported) Functional Limitations- ADL's Independent Functional Limitations- Mobility/Gait Independent without a device Functional Limitations- Recreation/ wants to be able to garden and 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, 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 He just needs to make sure he follows through with the exercises. PT-OP-G Mobility & Gait Start: 11/25/19 16:04 Freq: Status: Active Protocol: Document 11/25/19 09:05 DLM (Rec: 12/01/19 16:23 DL [id number]) OP Mobility Evaluation Bed Mobility Rolling independent Supine to and from Sit independent Transfers Sit to Stand independent OP Gait Assessment Gait Gait Assistance Required: Independent Assistive Devices Assistive Device None PT-OP-H Neuro Start: 11/25/19 16:04 Freq: Status: Active Protocol: Document 11/25/19 09:05 DLM (Rec: 12/01/19 16:24 DLM [id number]) Sensation Evaluation Gross Sensation Gross Sensation Left LE Impaired Sensation Description Numbness Comments Summary Comments he has had some numbness in left LE since his heart surgery (vein removed for CABG ) and CVA, can feel touch PT-OP-J Posture/Palpation/Skin Start: 11/25/19 16:04 Freq: Status: Active Protocol: Document 11/25/19 09:05 DLM (Rec: 12/01/19 16:14 DLM [id number]) Posture Evaluation Position Standing Evaluation View Posterior Head/C-Spine Posture Forward Head T-Spine Posture Flexible Scoliosis on (L) L-Spine Posture Flexed,Shifted Left Palpation Assessment Location Sacral Palpation Location sacral and gluteal areas Palpation Findings Soft Tissue Tightness, Tenderness Palpation Details tenderness along left sacral border Lumbar Palpation Findings Soft Tissue Tightness, Tenderness Palpation Details old scar tissue bilaterally with well healed old incision visible, tenderness more left than right especially at L5 level that goes out laterally to left side PT-OP-K Range of Motion Start: 11/25/19 16:04 Freq: Status: Active Protocol: Document 11/25/19 09:05 DL (Rec: 12/01/19 16:11 DL [id number]) Lumbar Spine Range of Motion Lumbar Spine Active Percentage Testing Position Standing Flexion 80 Extension 20 Rotation Left 10 Rotation Right 20 Lateral Flexion Left 20 Lateral Flexion Right 40 Comments increased pain with flexion, shift to left with extension, pain with left rotation and lateral flexion, hamstring tightness noted with functional flexion PT-OP-L Special Tests Start: 11/25/19 16:04 Freq: Status: Active Protocol: Document 11/25/19 09:05 DL (Rec: 12/01/19 16:22 [facility] [id number]) Special Tests Lumbar Spine Special Tests Stork Test Test Results positive for instability Comments in right Single limb pelvis shifts and rotates right Other- 1 Test Results Leg Length equal in supine Prone Knee Flexion Test Results positive Comments increased back pain Prone Press Up Test Results positive Comments increased radicular pain Straight Leg Raise Test Results negative right, back pain with left Comments hamstring tightness PT-OP-M Strength Start: 11/25/19 16:04 Freq: Status: Active Protocol: Document 11/25/19 09:05 DL (Rec: 12/01/19 16:19 [facility] [id number]) Hip Strength Hip Manual Muscle Testing Right Flexion (L2) 5 Normal Extension (S1) 5 Normal Abduction 5 Normal Adduction 5 Normal Left Flexion (L2) 4+ Good+ Extension (S1) 5 Normal Abduction 4+ Good+ Adduction 5 Normal Comments pain with resisted flexion and extension Knee Strength Knee Manual Muscle Testing Right Flexion (S2) 5 Normal Extension (L3) 5 Normal Comments left LE pain with resisted knee flexion on right Left Flexion (S2) 4+ Good+ Extension (L3) 5 Normal Comments pain in LE and back with resisted knee flexion Ankle/Foot Strength Ankle and Foot Manual Muscle Testing Right Dorsiflexion (L4) 5 Normal Plantarflexion (S1) 5 Normal Left Dorsiflexion (L4) 5 Normal Plantarflexion (S1) 5 Normal Toe Strength Toe Manual Muscle Testing Right Great Toe Flexion 5 Normal Left Great Toe Extension 5 Normal PT-OP-Q Treatments Start: 02/04/20 16:04 Freq: Status: Active Protocol: Document 12/16/19 14:28 [facility] (Rec: 12/16/19 15:18 [facility] [id number]) Therapeutic Exercises Supine Exercises march Supine Exercise Name w/pelvic tilt Side bilateral Reps/Minutes 20 alt Straight Leg Raise Supine Exercise Name SLR with opposite knee flexed Side bilateral Equipment Used cuing to keep knee extended Reps/Minutes 10 x2B Comments cues for core stabilization & keeping back down to neutrla pelvis Lower Trunk Rotation Side bilateral Reps/Minutes 10 Comments comfortable range & using core for bringing knees back up Standing Exercises mini squats Side bilateral Equipment Used at rail Reps/Minutes 3x5 Comments focus on avoid knees past toes hip abd/ext Side bilateral Equipment Used L1 tband for ext not abd d/t pain w/ band Reps/Minutes 2x10 Comments focus on neutral pelvis & upright torso Manual Therapy Treatment Soft Tissue Mobilization 2 Body Location left upper gluteal area Mobilization Type Rolling,Strumming Intensity/Depth Moderate Body Position Prone Joint Mobilizations hip Direction L inf FM, B IR FM Body Position Supine Neuro Re-Education Treatment Balance Activities SLS Details B Surface firm Reps/Duration 4 min total tpads Details staggered stance on blue tpads Reps/Duration 4 min total Comments 1. balancing 2. w/manual pertubations from all directions PT-OP-R Modalities Start: 11/25/19 16:04 Freq: Status: Active Protocol: Document 12/16/19 14:28 [facility] (Rec: 12/16/19 15:18 [facility] [id number]) Electric Stimulation Electric Stimulation Interferential Current (IFC) Body Location lumbosacral area Duration (Minutes) 15 Intensity 25 Target/Sweep Target High/Low High Patient Position Hooklying Combined With Heat/Cold Hot Pack PT-OP-T Assessment and Plan Start: 11/25/19 16:04 Freq: Status: Active Protocol: Document 12/16/19 14:28 [facility] (Rec: 12/16/19 15:18 [facility] [id number]) Physical Therapy Assessment Goals Three Impairment Decreased strength/ stabalization Short Term Goal (STG) Increase LE strength to 5/5 STG Duration 4 weeks Carbide Tool Maker Goal (LTG) Demonstrate good stabalization in single limb stance LTG Duration 8 weeks Two Impairment Decreased trunk AROM with pain Short Term Goal (STG) Tolerate trunk flexion without increased pain STG Duration 4 weeks Carbide Tool Maker Goal (LTG) Increase rotation and lateral flexion to 50% LTG Duration 8 weeks One Impairment back pain 5/10, constant with left LE radicular pain Short Term Goal (STG) Decrease his pain to 3/10 STG Duration 4 weeks [facility]pc Goal (LTG) Decrease his pain to intermittent without LE pain LTG Duration 8 weeks Assessment Summary Assessment Pt imporved in ability to do SLR with leass pain after mnaul treatment. When cued to work on pushing back down during core exercises, he dec his pain duirng core exercises . Physical Therapy Plan Frequency and Duration Frequency of Treatment 2x/Week Duration of Treatment 8 weeks Plan of Care Start Date 11/25/19 Plan of Care End Date 02/23/20 Next Visit Focus/Plan Next Note Type Treatment Note Next Visit Plan Cont to advance core stability in all positions
--- NOTE | 2019-12-18 11:20 | PT.OTN ---
Current Diagnoses Other spondylosis with radiculopathy, lumbosacral region (12/18/19) Spondylosis without myelopathy or radiculopathy, lumbosacral region (12/18/19) Postlaminectomy syndrome, not elsewhere classified (12/18/19) Physical Therapy Treatment Note PT-OP-A Visit Information Start: 11/25/19 16:04 Freq: Status: Active Protocol: Document 12/18/19 10:38 KS (Rec: 12/18/19 16:55 KS [id number]) Out-Patient Physical Therapy Visit Information Visit Information Visit Type Treatment Note Visit Start Time 10:38 Visit Stop Time 11:20 Total Visit Minutes 42 Visit Number 8 Number of MANUFACTURING TEAM MEMBER Visits 1 PT-OP-B Current Condition Start: 11/25/19 16:04 Freq: Status: Active Protocol: Document 11/25/19 09:00 DLM (Rec: 11/25/19 16:31 DLM [id number]) Current Condition History of Current Condition Onset Date 10/20/19 Current Complaints low back pain and pain radiates down left LE History of Current Condition He has a long history of low back pain. Recent increase in his back and left LE pain. Tightening his belt around his waist increases his pain. He has pain radiating down his left LE 1/3 of the time. Prior Treatments and Tests X-rays 10/20/19: trace retrolisthesis of L3 on L4 and L5 on S1. Severe disc space narrowing at L2-3, L3-4 , moderates to sever at L5-S1. Severe formaminal narrowing at L5-S1 and moderate at L4-5. Multilevel anterior osteophytes. Future Testing and Treatments Planned Pain management follow-up, L4- 5 and L5-S1 facet joint injections Treatment Goals Patient/Caregiver Goals decrease his back pain so he can be more active around the house, he wants to be able to do some gardening in the Spring Prior Functional Status Baseline Function- ADL's Independent Baseline Function- Mobility Independent Baseline Function- Gait Independent without device Baseline Function- Work/School retired Baseline Function- Recreation/Hobbies volunteers at [employer], takes care of his dog Baseline Function- Other uses TENS unit to manage his back pain Current Functional Impairments (Reported) Functional Limitations- ADL's Independent Functional Limitations- Mobility/Gait Independent without a device Functional Limitations- Recreation/ wants to be able to garden and 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 Offers that he has increased LBP after mowing his lawn yesterday. PT-OP-G Mobility & Gait Start: 11/25/19 16:04 Freq: Status: Active Protocol: Document 11/25/19 09:05 DLM (Rec: 12/01/19 16:23 DLM [id number]) OP Mobility Evaluation Bed Mobility Rolling independent Supine to and from Sit independent Transfers Sit to Stand independent OP Gait Assessment Gait Gait Assistance Required: Independent Assistive Devices Assistive Device None PT-OP-H Neuro Start: 11/25/19 16:04 Freq: Status: Active Protocol: Document 11/25/19 09:05 DLM (Rec: 12/01/19 16:24 DLM [id number]) Sensation Evaluation Gross Sensation Gross Sensation Left LE Impaired Sensation Description Numbness Comments Summary Comments he has had some numbness in left LE since his heart surgery (vein removed for CABG ) and CVA, can feel touch PT-OP-J Posture/Palpation/Skin Start: 11/25/19 16:04 Freq: Status: Active Protocol: Document 11/25/19 09:05 DLM (Rec: 12/01/19 16:14 DLM [id number]) Posture Evaluation Position Standing Evaluation View Posterior Head/C-Spine Posture Forward Head T-Spine Posture Flexible Scoliosis on (L) L-Spine Posture Flexed,Shifted Left Palpation Assessment Location Sacral Palpation Location sacral and gluteal areas Palpation Findings Soft Tissue Tightness, Tenderness Palpation Details tenderness along left sacral border Lumbar Palpation Findings Soft Tissue Tightness, Tenderness Palpation Details old scar tissue bilaterally with well healed old incision visible, tenderness more left than right especially at L5 level that goes out laterally to left side PT-OP-K Range of Motion Start: 11/25/19 16:04 Freq: Status: Active Protocol: Document 11/25/19 09:05 DLM (Rec: 12/01/19 16:11 DLM [id number]) Lumbar Spine Range of Motion Lumbar Spine Active Percentage Testing Position Standing Flexion 80 Extension 20 Rotation Left 10 Rotation Right 20 Lateral Flexion Left 20 Lateral Flexion Right 40 Comments increased pain with flexion, shift to left with extension, pain with left rotation and lateral flexion, hamstring tightness noted with functional flexion PT-OP-L Special Tests Start: 11/25/19 16:04 Freq: Status: Active Protocol: Document 11/25/19 09:05 DLM (Rec: 12/01/19 16:22 DL [id number]) Special Tests Lumbar Spine Special Tests Stork Test Test Results positive for instability Comments in right Single limb pelvis shifts and rotates right Other- 1 Test Results Leg Length equal in supine Prone Knee Flexion Test Results positive Comments increased back pain Prone Press Up Test Results positive Comments increased radicular pain Straight Leg Raise Test Results negative right, back pain with left Comments hamstring tightness PT-OP-M Strength Start: 11/25/19 16:04 Freq: Status: Active Protocol: Document 11/25/19 09:05 DLM (Rec: 12/01/19 16:19 DLM [id number]) Hip Strength Hip Manual Muscle Testing Right Flexion (L2) 5 Normal Extension (S1) 5 Normal Abduction 5 Normal Adduction 5 Normal Left Flexion (L2) 4+ Good+ Extension (S1) 5 Normal Abduction 4+ Good+ Adduction 5 Normal Comments pain with resisted flexion and extension Knee Strength Knee Manual Muscle Testing Right Flexion (S2) 5 Normal Extension (L3) 5 Normal Comments left LE pain with resisted knee flexion on right Left Flexion (S2) 4+ Good+ Extension (L3) 5 Normal Comments pain in LE and back with resisted knee flexion Ankle/Foot Strength Ankle and Foot Manual Muscle Testing Right Dorsiflexion (L4) 5 Normal Plantarflexion (S1) 5 Normal Left Dorsiflexion (L4) 5 Normal Plantarflexion (S1) 5 Normal Toe Strength Toe Manual Muscle Testing Right Great Toe Flexion 5 Normal Left Great Toe Extension 5 Normal PT-OP-Q Treatments Start: 11/25/19 16:04 Freq: Status: Active Protocol: Document 12/18/19 10:38 KS (Rec: 12/18/19 16:55 KS [email or web address]) Cardio Equipment Recumbent Stepper (Sci-Fit) Duration (Minutes) 6 Resistance 4 Therapeutic Exercises Supine Exercises Upper Trunk Rotation Resistance bilateral Reps/Minutes 2 min Straight Leg Raise Supine Exercise Name SLR with opposite knee flexed Side bilateral Equipment Used cuing to keep knee extended Reps/Minutes 10 x2B Comments cues for core stabilization & keeping back down to neutrla pelvis Bridging Equipment Used ball between knees Reps/Minutes 2x10 Comments core stabilization and post pelvic tilt Lower Trunk Rotation Side bilateral Reps/Minutes 10 Comments comfortable range & using core for bringing knees back up Sidelying Exercises Clamshells Side bilateral Reps/Minutes 2x10 Comments tactile cues for stacked hips Standing Exercises mini squats Side bilateral Reps/Minutes 10 Comments focus on avoid knees past toes Manual Therapy Treatment Manual Traction LLE Details LLE Body Position Supine Comments LAD to L hip PT-OP-R Modalities Start: 11/25/19 16:04 Freq: Status: Active Protocol: Document 12/18/19 10:38 KS (Rec: 12/18/19 16:56 KS [email or web address]) Electric Stimulation Electric Stimulation Interferential Current (IFC) Body Location low back Duration (Minutes) 7 Intensity 19 Contraction Type Normal Target/Sweep Target Cycle Continuous Patient Position Supine Combined With Heat/Cold Hot Pack PT-OP-T Assessment and Plan Start: 11/25/19 16:04 Freq: Status: Active Protocol: Document 12/18/19 10:38 KS (Rec: 12/18/19 16:55 KS [id number]) Physical Therapy Assessment Rehab Potential Rehabilitation Potential Good Evaluation Complexity Number of Personal Factors/Comorbidities 3 or More Number of Body Systems Impaired 4 or More Clinical Presentation at Evaluation Evolving Impairments Impairments Activity Tolerance,Functional Activities,Pain,Posture,ROM, Sensation,Soft Tissue Mobility ,Strength Other Concerns Age Related Concerns wears glasses Barriers to Rehabilitation pt will be out of town 12/30- Goals Three Impairment Decreased strength/ stabalization Short Term Goal (STG) Increase LE strength to 5/5 STG Duration 4 weeks Supplier Quality Engineer Goal (LTG) Demonstrate good stabalization in single limb stance LTG Duration 8 weeks Two Impairment Decreased trunk AROM with pain Short Term Goal (STG) Tolerate trunk flexion without increased pain STG Duration 4 weeks Supplier Quality Engineer Goal (LTG) Increase rotation and lateral flexion to 50% LTG Duration 8 weeks One Impairment back pain 5/10, constant with left LE radicular pain Short Term Goal (STG) Decrease his pain to 3/10 STG Duration 4 weeks Group Home Goal (LTG) Decrease his pain to intermittent without LE pain LTG Duration 8 weeks Progress Towards Goals Progress Towards Goals Progressing Toward Goals Assessment Summary Assessment Pt imporved in ability to do SLR with leass pain after mnaul treatment. When cued to work on pushing back down during core exercises, he dec his pain duirng core exercises . Physical Therapy Plan Frequency and Duration Frequency of Treatment 2x/Week Duration of Treatment 8 weeks Plan of Care Start Date 11/25/19 Plan of Care End Date 02/23/20 Therapeutic Interventions Therapeutic Interventions Home Exercise Program,Manual Therapy,Patient/Caregiver Education,Self-Care/Home Management,Soft Tissue Mobilization,Taping, Therapeutic Activities, Therapeutic Exercises Modalities Cold Pack/Ice Massage,Electric Stimulation,Hot Packs, Ultrasound Next Visit Focus/Plan Next Note Type Treatment Note Next Visit Plan Cont to advance core stability in all positions
--- NOTE | 2019-12-22 11:30 | PT.OTN ---
Current Diagnoses Other spondylosis with radiculopathy, lumbosacral region (12/22/19) Spondylosis without myelopathy or radiculopathy, lumbosacral region (12/22/19) Postlaminectomy syndrome, not elsewhere classified (12/22/19) Physical Therapy Treatment Note PT-OP-A Visit Information Start: 11/25/19 16:04 Freq: Status: Active Protocol: Document 12/22/19 10:32 SP (Rec: 12/22/19 11:49 SP [id number]) Out-Patient Physical Therapy Visit Information Visit Information Visit Type Treatment Note Visit Start Time 10:32 Visit Stop Time 11:30 Total Visit Minutes 58 Visit Number 9 Number of AUTO SEAT COVER INSTALLER Visits 2 PT-OP-B Current Condition Start: 11/25/19 16:04 Freq: Status: Active Protocol: Document 11/25/19 09:00 DLM (Rec: 11/25/19 16:31 DLM [id number]) Current Condition History of Current Condition Onset Date 10/20/19 Current Complaints low back pain and pain radiates down left LE History of Current Condition He has a long history of low back pain. Recent increase in his back and left LE pain. Tightening his belt around his waist increases his pain. He has pain radiating down his left LE 1/3 of the time. Prior Treatments and Tests X-rays 10/20/19: trace retrolisthesis of L3 on L4 and L5 on S1. Severe disc space narrowing at L2-3, L3-4 , moderates to sever at L5-S1. Severe formaminal narrowing at L5-S1 and moderate at L4-5. Multilevel anterior osteophytes. Future Testing and Treatments Planned Pain management follow-up, L4- 5 and L5-S1 facet joint injections Treatment Goals Patient/Caregiver Goals decrease his back pain so he can be more active around the house, he wants to be able to do some gardening in the Spring Prior Functional Status Baseline Function- ADL's Independent Baseline Function- Mobility Independent Baseline Function- Gait Independent without device Baseline Function- Work/School retired Baseline Function- Recreation/Hobbies volunteers at [employer], takes care of his dog Baseline Function- Other uses TENS unit to manage his back pain Current Functional Impairments (Reported) Functional Limitations- ADL's Independent Functional Limitations- Mobility/Gait Independent without a device Functional Limitations- Recreation/ wants to be able to garden 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 Pt stated currently going through a procedures to decrease low back pain, possible ablasion in the future. Pt reports gets most of his pain sweeping, vacuuming motions. PT-OP-G Mobility & Gait Start: 11/25/19 16:04 Freq: Status: Active Protocol: Document 11/25/19 09:05 DLM (Rec: 12/01/19 16:23 DLM [id number]) OP Mobility Evaluation Bed Mobility Rolling independent Supine to and from Sit independent Transfers Sit to Stand independent OP Gait Assessment Gait Gait Assistance Required: Independent Assistive Devices Assistive Device None PT-OP-H Neuro Start: 11/25/19 16:04 Freq: Status: Active Protocol: Document 11/25/19 09:05 DLM (Rec: 12/01/19 16:24 DLM [id number]) Sensation Evaluation Gross Sensation Gross Sensation Left LE Impaired Sensation Description Numbness Comments Summary Comments he has had some numbness in left LE since his heart surgery (vein removed for CABG ) and CVA, can feel touch PT-OP-J Posture/Palpation/Skin Start: 11/25/19 16:04 Freq: Status: Active Protocol: Document 11/25/19 09:05 DLM (Rec: 12/01/19 16:14 DLM [id number]) Posture Evaluation Position Standing Evaluation View Posterior Head/C-Spine Posture Forward Head T-Spine Posture Flexible Scoliosis on (L) L-Spine Posture Flexed,Shifted Left Palpation Assessment Location Sacral Palpation Location sacral and gluteal areas Palpation Findings Soft Tissue Tightness, Tenderness Palpation Details tenderness along left sacral border Lumbar Palpation Findings Soft Tissue Tightness, Tenderness Palpation Details old scar tissue bilaterally with well healed old incision visible, tenderness more left than right especially at L5 level that goes out laterally to left side PT-OP-K Range of Motion Start: 11/25/19 16:04 Freq: Status: Active Protocol: Document 11/25/19 09:05 DL (Rec: 12/01/19 16:11 DLM [id number]) Lumbar Spine Range of Motion Lumbar Spine Active Percentage Testing Position Standing Flexion 80 Extension 20 Rotation Left 10 Rotation Right 20 Lateral Flexion Left 20 Lateral Flexion Right 40 Comments increased pain with flexion, shift to left with extension, pain with left rotation and lateral flexion, hamstring tightness noted with functional flexion PT-OP-L Special Tests Start: 11/25/19 16:04 Freq: Status: Active Protocol: Document 11/25/19 09:05 DL (Rec: 12/01/19 16:22 DL [id number]) Special Tests Lumbar Spine Special Tests Stork Test Test Results positive for instability Comments in right Single limb pelvis shifts and rotates right Other- 1 Test Results Leg Length equal in supine Prone Knee Flexion Test Results positive Comments increased back pain Prone Press Up Test Results positive Comments increased radicular pain Straight Leg Raise Test Results negative right, back pain with left Comments hamstring tightness PT-OP-M Strength Start: 11/25/19 16:04 Freq: Status: Active Protocol: Document 11/25/19 09:05 DL (Rec: 12/01/19 16:19 DL [id number]) Hip Strength Hip Manual Muscle Testing Right Flexion (L2) 5 Normal Extension (S1) 5 Normal Abduction 5 Normal Adduction 5 Normal Left Flexion (L2) 4+ Good+ Extension (S1) 5 Normal Abduction 4+ Good+ Adduction 5 Normal Comments pain with resisted flexion and extension Knee Strength Knee Manual Muscle Testing Right Flexion (S2) 5 Normal Extension (L3) 5 Normal Comments left LE pain with resisted knee flexion on right Left Flexion (S2) 4+ Good+ Extension (L3) 5 Normal Comments pain in LE and back with resisted knee flexion Ankle/Foot Strength Ankle and Foot Manual Muscle Testing Right Dorsiflexion (L4) 5 Normal Plantarflexion (S1) 5 Normal Left Dorsiflexion (L4) 5 Normal Plantarflexion (S1) 5 Normal Toe Strength Toe Manual Muscle Testing Right Great Toe Flexion 5 Normal Left Great Toe Extension 5 Normal PT-OP-Q Treatments Start: 11/25/19 16:04 Freq: Status: Active Protocol: Document 12/22/19 10:32 SP (Rec: 12/22/19 11:49 SP [id number]) Cardio Equipment Recumbent Bicycle Duration (Minutes) 8 Resistance 4 Seat Position 6 Therapeutic Exercises Supine Exercises Straight Leg Raise Supine Exercise Name SLR with opposite knee flexed Side bilateral Reps/Minutes 10 x2B Comments cues for core stabilization & keeping back down to neutrla pelvis Bridging Equipment Used ball between knees Reps/Minutes 2x10 Comments core stabilization and post pelvic tilt. Some discomfort LB when lowering Lower Trunk Rotation Side bilateral Reps/Minutes 10 Comments comfortable range & using core for bringing knees back up Standing Exercises step ups Standing Exercise Name add to HEP Side bilateral Equipment Used 4in & 6 in steps Reps/Minutes 2 x10 Comments with and without SPC sit to stand Standing Exercise Name add to HEP Equipment Used Black table 22.5 in and 18in chair Reps/Minutes 5x2 Comments hands on lap Gait Training Gait Activity stair mgt Description step to and step over step sequencing need for SPC support Level of Assistance SBA Surface 4 stairs Distance/Duration x5 Treatment Focus stability stair mgt with support and SPC positioning Comments cued SPC step in front ascending and same step descending for improved balance. R knee limited range with demonstration of R lateral step down to compensate. PT-OP-R Modalities Start: 11/25/19 16:04 Freq: Status: Active Protocol: Document 12/22/19 10:32 SP (Rec: 12/22/19 11:49 SP [id number]) Electric Stimulation Electric Stimulation Interferential Current (IFC) Body Location low back Duration (Minutes) 10 Intensity 28 Contraction Type Normal Target/Sweep Target Cycle Continuous Patient Position Supine Combined With Heat/Cold Hot Pack PT-OP-T Assessment and Plan Start: 11/25/19 16:04 Freq: Status: Active Protocol: Document 12/22/19 10:32 SP (Rec: 12/22/19 11:49 SP [id number]) Physical Therapy Assessment Goals Three Impairment Decreased strength/ stabalization Short Term Goal (STG) Increase LE strength to 5/5 STG Duration 4 weeks Half-Way Goal (LTG) Demonstrate good stabalization in single limb stance LTG Duration 8 weeks Two Impairment Decreased trunk AROM with pain Short Term Goal (STG) Tolerate trunk flexion without increased pain STG Duration 4 weeks Volleyball Coach Goal (LTG) Increase rotation and lateral flexion to 50% LTG Duration 8 weeks One Impairment back pain 5/10, constant with left LE radicular pain Short Term Goal (STG) Decrease his pain to 3/10 STG Duration 4 weeks Half-Way Goal (LTG) Decrease his pain to intermittent without LE pain LTG Duration 8 weeks Assessment Summary Assessment Pt improved core stabilization during SLR w/ no need for knee extension cuing, does experience soreness in LB. Reviewed supine HEP and added sit to stands with required hand support on lap 22.5 raised table initially then 18 chair upi to 5 reps before knees started to hurt so stopped and is his baseline of tolerance. Pt improved stair mgt using SPC support step over step ascending, step to down (leading RLE). Physical Therapy Plan Frequency and Duration Frequency of Treatment 2x/Week Duration of Treatment 8 weeks Plan of Care Start Date 11/25/19 Plan of Care End Date 02/23/20 Therapeutic Interventions Therapeutic Interventions Home Exercise Program,Manual Therapy,Patient/Caregiver Education,Self-Care/Home Management,Soft Tissue Mobilization,Taping, Therapeutic Activities, Therapeutic Exercises Modalities Cold Pack/Ice Massage,Electric Stimulation,Hot Packs, Ultrasound Next Visit Focus/Plan Next Note Type Treatment Note Next Visit Plan Cont to advance core stability in all positions. Review addtions to HEP: sit to stands, step ups.
--- NOTE | 2019-12-25 11:13 | PT.OTN ---
Current Diagnoses Other spondylosis with radiculopathy, lumbosacral region (12/25/19) Spondylosis without myelopathy or radiculopathy, lumbosacral region (12/25/19) Postlaminectomy syndrome, not elsewhere classified (12/25/19) Physical Therapy Treatment Note PT-OP-A Visit Information Start: 11/25/19 16:04 Freq: Status: Active Protocol: Document 12/25/19 10:26 KS (Rec: 12/25/19 11:15 KS [id number]) Out-Patient Physical Therapy Visit Information Visit Information Visit Type Treatment Note Visit Start Time 10:26 Visit Stop Time 11:13 Total Visit Minutes 47 Visit Number 10 Number of RECONSIGNMENT CLERK Visits 3 PT-OP-B Current Condition Start: 11/25/19 16:04 Freq: Status: Active Protocol: Document 11/25/19 09:00 DLM (Rec: 11/25/19 16:31 DLM [id number]) Current Condition History of Current Condition Onset Date 10/20/19 Current Complaints low back pain and pain radiates down left LE History of Current Condition He has a long history of low back pain. Recent increase in his back and left LE pain. Tightening his belt around his waist increases his pain. He has pain radiating down his left LE 1/3 of the time. Prior Treatments and Tests X-rays 10/20/19: trace retrolisthesis of L3 on L4 and L5 on S1. Severe disc space narrowing at L2-3, L3-4 , moderates to sever at L5-S1. Severe formaminal narrowing at L5-S1 and moderate at L4-5. Multilevel anterior osteophytes. Future Testing and Treatments Planned Pain management follow-up, L4- 5 and L5-S1 facet joint injections Treatment Goals Patient/Caregiver Goals decrease his back pain so he can be more active around the house, he wants to be able to do some gardening in the Spring Prior Functional Status Baseline Function- ADL's Independent Baseline Function- Mobility Independent Baseline Function- Gait Independent without device Baseline Function- Work/School retired Baseline Function- Recreation/Hobbies volunteers at [employer], takes care of his dog Baseline Function- Other uses TENS unit to manage his back pain Current Functional Impairments (Reported) Functional Limitations- ADL's Independent Functional Limitations- Mobility/Gait Independent without a device Functional Limitations- Recreation/ wants to be able to garden and 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 One of his dogs took off after another dog and pull him down, he landed on his L hip and L elbow. States that he has some brusing and tenderness, but is feeling okay. Pt also states that he had pain in knee after sit to stands and stair training last treatment and would like to avoid those exercises today. PT-OP-G Mobility & Gait Start: 11/25/19 16:04 Freq: Status: Active Protocol: Document 11/25/19 09:05 DLM (Rec: 12/01/19 16:23 DLM [id number]) OP Mobility Evaluation Bed Mobility Rolling independent Supine to and from Sit independent Transfers Sit to Stand independent OP Gait Assessment Gait Gait Assistance Required: Independent Assistive Devices Assistive Device None PT-OP-H Neuro Start: 11/25/19 16:04 Freq: Status: Active Protocol: Document 11/25/19 09:05 DLM (Rec: 12/01/19 16:24 DLM [id number]) Sensation Evaluation Gross Sensation Gross Sensation Left LE Impaired Sensation Description Numbness Comments Summary Comments he has had some numbness in left LE since his heart surgery (vein removed for CABG ) and CVA, can feel touch PT-OP-J Posture/Palpation/Skin Start: 11/25/19 16:04 Freq: Status: Active Protocol: Document 11/25/19 09:05 DLM (Rec: 12/01/19 16:14 DLM [id number]) Posture Evaluation Position Standing Evaluation View Posterior Head/C-Spine Posture Forward Head T-Spine Posture Flexible Scoliosis on (L) L-Spine Posture Flexed,Shifted Left Palpation Assessment Location Sacral Palpation Location sacral and gluteal areas Palpation Findings Soft Tissue Tightness, Tenderness Palpation Details tenderness along left sacral border Lumbar Palpation Findings Soft Tissue Tightness, Tenderness Palpation Details old scar tissue bilaterally with well healed old incision visible, tenderness more left than right especially at L5 level that goes out laterally to left side PT-OP-K Range of Motion Start: 11/25/19 16:04 Freq: Status: Active Protocol: Document 11/25/19 09:05 DL (Rec: 12/01/19 16:11 DL [id number]) Lumbar Spine Range of Motion Lumbar Spine Active Percentage Testing Position Standing Flexion 80 Extension 20 Rotation Left 10 Rotation Right 20 Lateral Flexion Left 20 Lateral Flexion Right 40 Comments increased pain with flexion, shift to left with extension, pain with left rotation and lateral flexion, hamstring tightness noted with functional flexion PT-OP-L Special Tests Start: 11/25/19 16:04 Freq: Status: Active Protocol: Document 11/25/19 09:05 DL (Rec: 12/01/19 16:22 DL [id number]) Special Tests Lumbar Spine Special Tests Stork Test Test Results positive for instability Comments in right Single limb pelvis shifts and rotates right Other- 1 Test Results Leg Length equal in supine Prone Knee Flexion Test Results positive Comments increased back pain Prone Press Up Test Results positive Comments increased radicular pain Straight Leg Raise Test Results negative right, back pain with left Comments hamstring tightness PT-OP-M Strength Start: 11/25/19 16:04 Freq: Status: Active Protocol: Document 11/25/19 09:05 DL (Rec: 12/01/19 16:19 [facility] [id number]) Hip Strength Hip Manual Muscle Testing Right Flexion (L2) 5 Normal Extension (S1) 5 Normal Abduction 5 Normal Adduction 5 Normal Left Flexion (L2) 4+ Good+ Extension (S1) 5 Normal Abduction 4+ Good+ Adduction 5 Normal Comments pain with resisted flexion and extension Knee Strength Knee Manual Muscle Testing Right Flexion (S2) 5 Normal Extension (L3) 5 Normal Comments left LE pain with resisted knee flexion on right Left Flexion (S2) 4+ Good+ Extension (L3) 5 Normal Comments pain in LE and back with resisted knee flexion Ankle/Foot Strength Ankle and Foot Manual Muscle Testing Right Dorsiflexion (L4) 5 Normal Plantarflexion (S1) 5 Normal Left Dorsiflexion (L4) 5 Normal Plantarflexion (S1) 5 Normal Toe Strength Toe Manual Muscle Testing Right Great Toe Flexion 5 Normal Left Great Toe Extension 5 Normal PT-OP-Q Treatments Start: 11/25/19 16:04 Freq: Status: Active Protocol: Document 12/25/19 10:26 KS (Rec: 12/25/19 11:15 KS [id number]) Cardio Equipment Recumbent Elliptical (Biodex) Duration (Minutes) 7 Resistance 5 Therapeutic Exercises Supine Exercises Straight Leg Raise Supine Exercise Name SLR with opposite knee flexed Side bilateral Reps/Minutes 10 x2B Comments cues for core stabilization & keeping back down to neutrla pelvis Bridging Equipment Used ball between knees Reps/Minutes 2x10 Comments core stabilization and post pelvic tilt. Some discomfort LB when lowering Lower Trunk Rotation Side bilateral Reps/Minutes 10 Comments comfortable range & using core for bringing knees back up Sidelying Exercises Clamshells Side bilateral Reps/Minutes 2x10 Comments tactile cues for stacked hips Sitting Exercises Hamstring curls Sitting Exercise Name Hamstring curls Side bilateral Resistance l3 tband Comments 2x10 Manual Therapy Treatment Manual Traction LLE Details LLE Body Position Supine Comments LAD to L hip PT-OP-R Modalities Start: 11/25/19 16:04 Freq: Status: Active Protocol: Document 12/25/19 10:26 KS (Rec: 12/25/19 11:15 KS [id number]) Electric Stimulation Electric Stimulation Interferential Current (IFC) Body Location low back Duration (Minutes) 10 Intensity 30 Contraction Type Normal Target/Sweep Target Cycle Continuous Patient Position Supine Combined With Heat/Cold Hot Pack PT-OP-T Assessment and Plan Start: 11/25/19 16:04 Freq: Status: Active Protocol: Document 12/25/19 10:26 KS (Rec: 12/25/19 11:15 KS [email or web address]) Physical Therapy Assessment Rehab Potential Rehabilitation Potential Good Evaluation Complexity Number of Personal Factors/Comorbidities 3 or More Number of Body Systems Impaired 4 or More Clinical Presentation at Evaluation Evolving Impairments Impairments Activity Tolerance,Functional Activities,Pain,Posture,ROM, Sensation,Soft Tissue Mobility ,Strength Other Concerns Age Related Concerns wears glasses Barriers to Rehabilitation pt will be out of town 12/30- Goals Three Impairment Decreased strength/ stabalization Short Term Goal (STG) Increase LE strength to 5/5 STG Duration 4 weeks Main Galley Scullion Goal (LTG) Demonstrate good stabalization in single limb stance LTG Duration 8 weeks Two Impairment Decreased trunk AROM with pain Short Term Goal (STG) Tolerate trunk flexion without increased pain STG Duration 4 weeks Snf Goal (LTG) Increase rotation and lateral flexion to 50% LTG Duration 8 weeks One Impairment back pain 5/10, constant with left LE radicular pain Short Term Goal (STG) Decrease his pain to 3/10 STG Duration 4 weeks Main Galley Scullion Goal (LTG) Decrease his pain to intermittent without LE pain LTG Duration 8 weeks Progress Towards Goals Progress Towards Goals Progressing Toward Goals Assessment Summary Assessment Pt able to complete all exercises w/o increase in pain . Responded well to LAD of LLE and IFC low back. Discussed importance of compliance w/ HEP w/ pt while he is out of town for two weeks. Physical Therapy Plan Frequency and Duration Frequency of Treatment 2x/Week Duration of Treatment 8 weeks Plan of Care Start Date 11/25/19 Plan of Care End Date 02/23/20 Therapeutic Interventions Therapeutic Interventions Home Exercise Program,Manual Therapy,Patient/Caregiver Education,Self-Care/Home Management,Soft Tissue Mobilization,Taping, Therapeutic Activities, Therapeutic Exercises Modalities Cold Pack/Ice Massage,Electric Stimulation,Hot Packs, Ultrasound Next Visit Focus/Plan Next Note Type Treatment Note Next Visit Plan Cont to advance core stability in all positions. Review addtions to HEP: sit to stands, step ups.
--- NOTE | 2019-12-29 18:50 | PT.OTN ---
Current Diagnoses Other spondylosis with radiculopathy, lumbosacral region (12/29/19) Spondylosis without myelopathy or radiculopathy, lumbosacral region (12/29/19) Postlaminectomy syndrome, not elsewhere classified (12/29/19) Physical Therapy Treatment Note PT-OP-A Visit Information Start: 11/25/19 16:04 Freq: Status: Active Protocol: Document 12/29/19 12:07 SP (Rec: 12/29/19 13:11 SP [email or web address]) Out-Patient Physical Therapy Visit Information Visit Information Visit Type Progress Note Visit Start Time 10:36 Visit Stop Time 11:30 Total Visit Minutes 54 Visit Number 11 Number of HEAD TRIMMER Visits 0 PT-OP-B Current Condition Start: 11/25/19 16:04 Freq: Status: Active Protocol: Document 11/25/19 09:00 DLM (Rec: 11/25/19 16:31 DLM [id number]) Current Condition History of Current Condition Onset Date 10/20/19 Current Complaints low back pain and pain radiates down left LE History of Current Condition He has a long history of low back pain. Recent increase in his back and left LE pain. Tightening his belt around his waist increases his pain. He has pain radiating down his left LE 1/3 of the time. Prior Treatments and Tests X-rays 10/20/19: trace retrolisthesis of L3 on L4 and L5 on S1. Severe disc space narrowing at L2-3, L3-4 , moderates to sever at L5-S1. Severe formaminal narrowing at L5-S1 and moderate at L4-5. Multilevel anterior osteophytes. Future Testing and Treatments Planned Pain management follow-up, L4- 5 and L5-S1 facet joint injections Treatment Goals Patient/Caregiver Goals decrease his back pain so he can be more active around the house, he wants to be able to do some gardening in the Spring Prior Functional Status Baseline Function- ADL's Independent Baseline Function- Mobility Independent Baseline Function- Gait Independent without device Baseline Function- Work/School retired Baseline Function- Recreation/Hobbies volunteers at [employer], takes care of his dog Baseline Function- Other uses TENS unit to manage his back pain Current Functional Impairments (Reported) Functional Limitations- ADL's Independent Functional Limitations- Mobility/Gait Independent without a device Functional Limitations- Recreation/ wants to be able to garden and Hobbies 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, 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 nor vacuum due to his back pain, increased pain with anything that requires lifting, twisting and bending at home Functional Limitations- Other He is not currently doing any exercises for his back Personal Factors Other Personal Factors That May Effect A-fib, COPD, hx of CVA with Therapy/Recovery left hemiplegia, convex left scoliosis PT-OP-C Subjective Start: 11/25/19 16:04 Freq: Status: Active Protocol: Document 12/29/19 12:07 SP (Rec: 12/29/19 13:11 SP [email or web address]) OP-PT Subjective Patient Comments Patient Comments Pt reports his left hip feels better and he just has a bruise on his outer thigh from previous fall. He thinks having more number of days between PT visits is helping. Stairs cause him the greatest amount of pain at the right knee. PT-OP-G Mobility & Gait Start: 11/25/19 16:04 Freq: Status: Active Protocol: Document 11/25/19 09:05 DLM (Rec: 12/01/19 16:23 DLM [id number]) OP Mobility Evaluation Bed Mobility Rolling independent Supine to and from Sit independent Transfers Sit to Stand independent OP Gait Assessment Gait Gait Assistance Required: Independent Assistive Devices Assistive Device None PT-OP-H Neuro Start: 11/25/19 16:04 Freq: Status: Active Protocol: Document 11/25/19 09:05 DLM (Rec: 12/01/19 16:24 DLM [id number]) Sensation Evaluation Gross Sensation Gross Sensation Left LE Impaired Sensation Description Numbness Comments Summary Comments he has had some numbness in left LE since his heart surgery (vein removed for CABG ) and CVA, can feel touch PT-OP-J Posture/Palpation/Skin Start: 11/25/19 16:04 Freq: Status: Active Protocol: Document 11/25/19 09:05 DLM (Rec: 12/01/19 16:14 DLM [id number]) Posture Evaluation Position Standing Evaluation View Posterior Head/C-Spine Posture Forward Head T-Spine Posture Flexible Scoliosis on (L) L-Spine Posture Flexed,Shifted Left Palpation Assessment Location Sacral Palpation Location sacral and gluteal areas Palpation Findings Soft Tissue Tightness, Tenderness Palpation Details tenderness along left sacral border Lumbar Palpation Findings Soft Tissue Tightness, Tenderness Palpation Details old scar tissue bilaterally with well healed old incision visible, tenderness more left than right especially at L5 level that goes out laterally to left side PT-OP-K Range of Motion Start: 11/25/19 16:04 Freq: Status: Active Protocol: Document 12/29/19 12:07 SP (Rec: 12/29/19 13:11 SP [email or web address]) Lumbar Spine Range of Motion Lumbar Spine Active Percentage Testing Position Standing Flexion 80 Extension 60 Rotation Left 70 Rotation Right 60 Lateral Flexion Left 70 Lateral Flexion Right 70 PT-OP-L Special Tests Start: 11/25/19 16:04 Freq: Status: Active Protocol: Document 11/25/19 09:05 DLM (Rec: 12/01/19 16:22 DLM [id number]) Special Tests Lumbar Spine Special Tests Stork Test Test Results positive for instability Comments in right Single limb pelvis shifts and rotates right Other- 1 Test Results Leg Length equal in supine Prone Knee Flexion Test Results positive Comments increased back pain Prone Press Up Test Results positive Comments increased radicular pain Straight Leg Raise Test Results negative right, back pain with left Comments hamstring tightness PT-OP-M Strength Start: 11/25/19 16:04 Freq: Status: Active Protocol: Document 11/25/19 09:05 DLM (Rec: 12/01/19 16:19 DLM [id number]) Hip Strength Hip Manual Muscle Testing Right Flexion (L2) 5 Normal Extension (S1) 5 Normal Abduction 5 Normal Adduction 5 Normal Left Flexion (L2) 4+ Good+ Extension (S1) 5 Normal Abduction 4+ Good+ Adduction 5 Normal Comments pain with resisted flexion and extension Knee Strength Knee Manual Muscle Testing Right Flexion (S2) 5 Normal Extension (L3) 5 Normal Comments left LE pain with resisted knee flexion on right Left Flexion (S2) 4+ Good+ Extension (L3) 5 Normal Comments pain in LE and back with resisted knee flexion Ankle/Foot Strength Ankle and Foot Manual Muscle Testing Right Dorsiflexion (L4) 5 Normal Plantarflexion (S1) 5 Normal Left Dorsiflexion (L4) 5 Normal Plantarflexion (S1) 5 Normal Toe Strength Toe Manual Muscle Testing Right Great Toe Flexion 5 Normal Left Great Toe Extension 5 Normal PT-OP-Q Treatments Start: 11/25/19 16:04 Freq: Status: Active Protocol: Document 12/29/19 12:07 SP (Rec: 12/29/19 13:11 SP [email or web address]) Cardio Equipment Recumbent Elliptical (Biodex) Duration (Minutes) 7 Resistance 4 Therapeutic Exercises Supine Exercises Straight Leg Raise Supine Exercise Name SLR Side bilateral Reps/Minutes 20 Bridging Reps/Minutes 20 Lower Trunk Rotation Side bilateral Reps/Minutes 10 Standing Exercises hip ext Side bilateral Resistance yellow band Reps/Minutes 20 side steps Side bilateral Resistance yellow band Reps/Minutes 15 ft x 4 Manual Therapy Treatment Soft Tissue Mobilization QL, ES, paraspinals Mobilization Type Rolling,Sustained Pressure Intensity/Depth Moderate Body Position Sidelying Comments 1. STM in sidelying 2. STM in sitting with pt flexing foward Neuro Re-Education Treatment Balance Activities tpads Comments first on ground, then on tpads . 1. feet together 2. staggered stance EC, head turns, pertubations. PT-OP-R Modalities Start: 11/25/19 16:04 Freq: Status: Active Protocol: Document 12/29/19 12:07 SP (Rec: 12/29/19 13:12 SP [email or web address]) Electric Stimulation Electric Stimulation Interferential Current (IFC) Body Location low back Duration (Minutes) 15 Intensity 30 Contraction Type Normal Target/Sweep Target Cycle Continuous Patient Position Supine Combined With Heat/Cold Hot Pack PT-OP-T Assessment and Plan Start: 11/25/19 16:04 Freq: Status: Active Protocol: Document 12/29/19 12:07 SP (Rec: 12/29/19 13:11 SP [email or web address]) Physical Therapy Assessment Goals Three Impairment Decreased strength/ stabalization Short Term Goal (STG) Increase LE strength to 5/5 12/29/19 - did not test strength STG Duration 4 weeks Longterm Goal (LTG) Demonstrate good stabalization in single limb stance 12/29/19 - improvement with tandem, did not test SLS LTG Duration 8 weeks Two Impairment Decreased trunk AROM with pain Short Term Goal (STG) Tolerate trunk flexion without increased pain 12/29/19 - able to get to end of available range lumbar flexion with mild pain STG Duration 4 weeks Lye Treater Goal (LTG) Increase rotation and lateral flexion to 50% LTG Duration achieved One Impairment back pain 5/10, constant with left LE radicular pain Short Term Goal (STG) Decrease his pain to 3/10 12/29/19 - pain at 4-/ STG Duration 4 weeks Longterm Goal (LTG) Decrease his pain to intermittent without LE pain LTG Duration achieved Assessment Summary Assessment Pt demonstrated improvement with balance activities. He was able to complete all strengthening exercises without increase of back pain. Pt continues to lack full lumbar AROM without pain however is no longer experiencing constant pain into his LEs. He would benefit from further PT services in order to increase activity tolerance, decrease LBP, improve balance, and improve lumbar ROM. Physical Therapy Plan Frequency and Duration Frequency of Treatment 2x/Week Duration of Treatment 8 weeks Plan of Care Start Date 11/25/19 Plan of Care End Date 02/23/20 Next Visit Focus/Plan Next Note Type Treatment Note Next Visit Plan progress balance activities, quad strengthening without squats or stairs.
--- NOTE | 2020-01-09 13:26 | P.PCN_ITS ---
Procedures Date/Time Date of procedure: 12/29/19 Time of procedure: 13:27 General Procedure description: POST OP DIAGNOSIS 1. FACET ARTHROPATHY PROCEDURES 1. Left L4, L5 and S1 MB BLOCKS PHYSICIAN: DO SONG Agarwal Roman is referred by Dr. Palafox for treatment of Left Axial LBP. DESCRIPTION OF PROCEDURE Fluoroscopically guided, contrast-controlled left L4, L5 and S1 medial branch blocks with 0.5cc of 0.5% Marcaine. Following review of allergy and review of potential side effects and complications, including, but not necessarily limited to, infection, allergic reaction, local tissue breakdown, nerve injury, paralysis, stroke and possible , the patient indicated that the patient understood and agreed to proceed. An informed consent document was signed by the patient, witnessed by a nurse, and placed in the patient's chart. After review of previous anaesthesic history and IV conscious sedation the patient was deemed safe to proceed with todays procedure with IV conscious sedation as ASA class II designation. Safety time-out was performed to confirm patient ID, procedure to be performed and site of procedure. IV sedation was accomplished with a combination of 2mg of Versed and 50mcg of Fentanyl was administered by the RN after DO order, titrated to patient comfort during the course of the procedure while the patient remained responsive to all verbal commands. In the prone position, following sterile prep and drape of the lumbar region, the left L4, L5 and S1 anatomical location of the medial branch of the dorsal ramus was identified fluoroscopically. Subsequently an anesthetic skin wheal using 1% lidocaine solution was initiated at each of the anatomical spots. Subsequently then a 22-gauge 3.5-inch spinal needle was atraumatically introduced and advanced under fluoroscopic guidance at each of the corresponding sites at the left L4, L5 and S1 MB. After negative aspiration, 0.2 cc of Isovue 200 was injected, confirming placement without vascular or intrathecal uptake. Subsequently then 0.5 cc of 0.5% Marcaine solution was injected at each of the corresponding sites at the left L4, L5 and S1 medial branch locations. The patient tolerated the procedure well without signs or symptoms of complications. The patient tolerated the procedure well without signs or symptoms of complications prior to transfer to the recovery area continued monitoring without incident. Post-procedure, the patient was monitored initiating provocative activities to measure the amount of relief from block of the facetogenic pain. The patient reported a VAS of 7 prior to the procedure and a post-procedure VAS of 1. It has been a pleasure to assist in the diagnostic and therapeutic care of your patient. Total Fluoroscopy Time: seconds Total Conscious Sedation Time: 24min POST OP INSTRUCTIONS The patient was provided with a Pain Log to complete over the next several hours and subsequent days prior to the patient's follow up with the ordering physician. If the patient has molecular spectroscopist relief to the solution applied, then they may be a candidate for medial branch rhizotomy. The patient is aware, was provided, once again, with a Pain Log and will follow up with the referring physician for review and clinical correlation Alok Feliciano DO
--- NOTE | 2020-09-23 14:50 | PT.OPDS ---
Current Diagnoses Other spondylosis with radiculopathy, lumbosacral region (12/29/19) Spondylosis without myelopathy or radiculopathy, lumbosacral region (12/29/19) Postlaminectomy syndrome, not elsewhere classified (12/29/19) Visit Care Team Role Provider Type Mark Palafox MD Primary Care Provider Physician Specialty: Internal Medicine Address: [address] [place] [address], [id number] Email: [email or web address] [email or web address] Alok Feliciano DO Attending Provider Physician Referring Provider Specialty: Physiatry Pain Management Address: [facility] [place], [address] Email: [email or web address] Visit Number Visit Number 11 Discharge Summary PT-OP-B Current Condition Start: 11/25/19 16:04 Freq: Status: Active Protocol: Document 11/25/19 09:00 DLM (Rec: 11/25/19 16:31 DLM [id number]) Current Condition History of Current Condition Onset Date 10/20/19 Current Complaints low back pain and pain radiates down left LE History of Current Condition He has a long history of low back pain. Recent increase in his back and left LE pain. Tightening his belt around his waist increases his pain. He has pain radiating down his left LE 1/3 of the time. Prior Treatments and Tests X-rays 10/20/19: trace retrolisthesis of L3 on L4 and L5 on S1. Severe disc space narrowing at L2-3, L3-4 , moderates to sever at L5-S1. Severe formaminal narrowing at L5-S1 and moderate at L4-5. Multilevel anterior osteophytes. Future Testing and Treatments Planned Pain management follow-up, L4- 5 and L5-S1 facet joint injections Treatment Goals Patient/Caregiver Goals decrease his back pain so he can be more active around the house, he wants to be able to do some gardening in the Spring Prior Functional Status Baseline Function- ADL's Independent Baseline Function- Mobility Independent Baseline Function- Gait Independent without device Baseline Function- Work/School retired Baseline Function- Recreation/Hobbies volunteers at [employer], takes care of his dog Baseline Function- Other uses TENS unit to manage his back pain Current Functional Impairments (Reported) Functional Limitations- ADL's Independent Functional Limitations- Mobility/Gait Independent without a device Functional Limitations- Recreation/ wants to be able to garden and 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, 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 nor vacuum due to his back pain, increased pain with anything that requires lifting, twisting and bending at home Functional Limitations- Other He is not currently doing any exercises for his back Personal Factors Other Personal Factors That May Effect A-fib, COPD, hx of CVA with Therapy/Recovery left hemiplegia, convex left scoliosis PT-OP-C Subjective Start: 11/25/19 16:04 Freq: Status: Active Protocol: Document 12/29/19 12:07 SP (Rec: 12/29/19 13:11 SP [id number]) OP-PT Subjective Patient Comments Patient Comments Pt reports his left hip feels better and he just has a bruise on his outer thigh from previous fall. He thinks having more number of days between PT visits is helping. Stairs cause him the greatest amount of pain at the right knee. PT-OP-G Mobility & Gait Start: 11/25/19 16:04 Freq: Status: Active Protocol: Document 11/25/19 09:05 DLM (Rec: 12/01/19 16:23 DLM [id number]) OP Mobility Evaluation Bed Mobility Rolling independent Supine to and from Sit independent Transfers Sit to Stand independent OP Gait Assessment Gait Gait Assistance Required: Independent Assistive Devices Assistive Device None PT-OP-H Neuro Start: 11/25/19 16:04 Freq: Status: Active Protocol: Document 11/25/19 09:05 DLM (Rec: 12/01/19 16:24 DLM [id number]) Sensation Evaluation Gross Sensation Gross Sensation Left LE Impaired Sensation Description Numbness Comments Summary Comments he has had some numbness in left LE since his heart surgery (vein removed for CABG ) and CVA, can feel touch PT-OP-J Posture/Palpation/Skin Start: 11/25/19 16:04 Freq: Status: Active Protocol: Document 11/25/19 09:05 DLM (Rec: 12/01/19 16:14 DLM [id number]) Posture Evaluation Position Standing Evaluation View Posterior Head/C-Spine Posture Forward Head T-Spine Posture Flexible Scoliosis on (L) L-Spine Posture Flexed,Shifted Left Palpation Assessment Location Sacral Palpation Location sacral and gluteal areas Palpation Findings Soft Tissue Tightness, Tenderness Palpation Details tenderness along left sacral border Lumbar Palpation Findings Soft Tissue Tightness, Tenderness Palpation Details old scar tissue bilaterally with well healed old incision visible, tenderness more left than right especially at L5 level that goes out laterally to left side PT-OP-K Range of Motion Start: 11/25/19 16:04 Freq: Status: Active Protocol: Document 12/29/19 12:07 SP (Rec: 12/29/19 13:11 SP [id number]) Lumbar Spine Range of Motion Lumbar Spine Active Percentage Testing Position Standing Flexion 80 Extension 60 Rotation Left 70 Rotation Right 60 Lateral Flexion Left 70 Lateral Flexion Right 70 PT-OP-L Special Tests Start: 11/25/19 16:04 Freq: Status: Active Protocol: Document 11/25/19 09:05 DLM (Rec: 12/01/19 16:22 DLM [id number]) Special Tests Lumbar Spine Special Tests Stork Test Test Results positive for instability Comments in right Single limb pelvis shifts and rotates right Other- 1 Test Results Leg Length equal in supine Prone Knee Flexion Test Results positive Comments increased back pain Prone Press Up Test Results positive Comments increased radicular pain Straight Leg Raise Test Results negative right, back pain with left Comments hamstring tightness PT-OP-M Strength Start: 11/25/19 16:04 Freq: Status: Active Protocol: Document 11/25/19 09:05 DLM (Rec: 12/01/19 16:19 DLM [id number]) Hip Strength Hip Manual Muscle Testing Right Flexion (L2) 5 Normal Extension (S1) 5 Normal Abduction 5 Normal Adduction 5 Normal Left Flexion (L2) 4+ Good+ Extension (S1) 5 Normal Abduction 4+ Good+ Adduction 5 Normal Comments pain with resisted flexion and extension Knee Strength Knee Manual Muscle Testing Right Flexion (S2) 5 Normal Extension (L3) 5 Normal Comments left LE pain with resisted knee flexion on right Left Flexion (S2) 4+ Good+ Extension (L3) 5 Normal Comments pain in LE and back with resisted knee flexion Ankle/Foot Strength Ankle and Foot Manual Muscle Testing Right Dorsiflexion (L4) 5 Normal Plantarflexion (S1) 5 Normal Left Dorsiflexion (L4) 5 Normal Plantarflexion (S1) 5 Normal Toe Strength Toe Manual Muscle Testing Right Great Toe Flexion 5 Normal Left Great Toe Extension 5 Normal PT-OP-T Assessment and Plan Start: 11/25/19 16:04 Freq: Status: Active Protocol: Document 09/23/20 14:49 [facility] (Rec: 09/23/20 14:50 [facility] [id number]) Physical Therapy Plan Discharge Physical Therapy Discharge Reasons No Longer Attending PT
== END 2020-10-01 10:22 | disposition home or self-care (01) ==
LOC: PHYS 10:30
PROVIDERS: PCP Internal Medicine; Referring Provider Physical Medicine & Rehabilitation; Visit Provider Physical Medicine & Rehabilitation
DX: M47.27 Other spondylosis with radiculopathy, lumbosacral region (principal); M47.817 Spondylosis without myelopathy or radiculopathy, lumbosacral region; M96.1 Postlaminectomy syndrome, not elsewhere classified
CPT/HCPCS: 97014; 97032; 97110; 97112; 97116; 97140; 97162; G0283

== ENCOUNTER 2019-12-29 13:29 | Outpatient (CLI) | payer MEDICARE, OTHER, SELFPAY ==
[2019-12-29] VITALS (10 sets, daily range): BP systolic 101–139; BP diastolic 49–87; PULSE 52–66; RESP 16; TEMP 36.1; O2SAT 93–97
--- NOTE | 2019-12-29 13:31 | DI.RAD.S_ITS ---
PROCEDURE: PAIN L/S FACET INJ/BLK 1ST DEAN COMPARISON: None. INDICATIONS: SPONDYLOSIS FINDINGS: Fluoroscopic spot filming was performed to verify placement of spinal needles at the L4, L5, S1 level(s), as labeled on the films. Appropriate location(s) of the needle tip(s) was confirmed by injection of iodinated contrast. Dictated by: Medhat Lewis M.D. on 12/29/2019 at 16:00 Approved by: Medhat Lewis M.D. on 12/29/2019 at 16:01
[2019-12-29] MEDS: MIDAZOLAM 5 MG/5 ML VIAL IV (14:25)
[2019-12-29] MEDS: LIDOCAINE 1% 20 ML 10 ML INJ (14:30)
[2019-12-29] MEDS: IOPAMIDOL 15 ML VIAL 3 ML INJ (14:30)
[2019-12-29] MEDS: BUPIVACAINE 0.5% (PF) VIAL 2 ML INJ (14:30)
--- NOTE | 2019-12-29 14:53 | PC.NURSE ---
1445: Received patient post procedure from Geraldine MAHER via , drowsy, arouses easily to voice, answers questions appropriately. Transferred from WC to chair with assistanc. Leah in waiting area
--- NOTE | 2019-12-30 12:02 | PC.NURSE ---
FOLLOW UP CALL MADE, LEFT MESSAGE WITH OFFICE NUMBER AND MSG TO CONTINUE WITH PAIN LOG AND CALL CLINIC WITH ANY QUESTIONS CONCERNS.
--- NOTE | 2020-01-09 13:26 | P.PCN_ITS ---
Procedures Date/Time Date of procedure: 12/29/19 Time of procedure: 13:27 General Procedure description: POST OP DIAGNOSIS 1. FACET ARTHROPATHY PROCEDURES 1. Left L4, L5 and S1 MB BLOCKS PHYSICIAN: DO SONG Agarwal Roman is referred by Dr. Palafox for treatment of Left Axial LBP. DESCRIPTION OF PROCEDURE Fluoroscopically guided, contrast-controlled left L4, L5 and S1 medial branch blocks with 0.5cc of 0.5% Marcaine. Following review of allergy and review of potential side effects and complications, including, but not necessarily limited to, infection, allergic reaction, local tissue breakdown, nerve injury, paralysis, stroke and possible , the patient indicated that the patient understood and agreed to proceed. An informed consent document was signed by the patient, witnessed by a nurse, and placed in the patient's chart. After review of previous anaesthesic history and IV conscious sedation the patient was deemed safe to proceed with todays procedure with IV conscious sedation as ASA class II designation. Safety time-out was performed to confirm patient ID, procedure to be performed and site of procedure. IV sedation was accomplished with a combination of 2mg of Versed and 50mcg of Fentanyl was administered by the RN after DO order, titrated to patient comfort during the course of the procedure while the patient remained responsive to all verbal commands. In the prone position, following sterile prep and drape of the lumbar region, the left L4, L5 and S1 anatomical location of the medial branch of the dorsal ramus was identified fluoroscopically. Subsequently an anesthetic skin wheal using 1% lidocaine solution was initiated at each of the anatomical spots. Subsequently then a 22-gauge 3.5-inch spinal needle was atraumatically introduced and advanced under fluoroscopic guidance at each of the corresponding sites at the left L4, L5 and S1 MB. After negative aspiration, 0.2 cc of Isovue 200 was injected, confirming placement without vascular or intrathecal uptake. Subsequently then 0.5 cc of 0.5% Marcaine solution was injected at each of the corresponding sites at the left L4, L5 and S1 medial branch locations. The patient tolerated the procedure well without signs or symptoms of complications. The patient tolerated the procedure well without signs or symptoms of complications prior to transfer to the recovery area continued monitoring without incident. Post-procedure, the patient was monitored initiating provocative activities to measure the amount of relief from block of the facetogenic pain. The patient reported a VAS of 7 prior to the procedure and a post-procedure VAS of 1. It has been a pleasure to assist in the diagnostic and therapeutic care of your patient. Total Fluoroscopy Time: seconds Total Conscious Sedation Time: 24min POST OP INSTRUCTIONS The patient was provided with a Pain Log to complete over the next several hours and subsequent days prior to the patient's follow up with the ordering physician. If the patient has construction teacher relief to the solution applied, then they may be a candidate for medial branch rhizotomy. The patient is aware, was provided, once again, with a Pain Log and will follow up with the referring physician for review and clinical correlation Alok Feliciano DO
== END 2019-12-29 15:15 | disposition home or self-care (01) ==
PROVIDERS: PCP Internal Medicine; Referring Provider Internal Medicine; Visit Provider Physical Medicine & Rehabilitation
DX: M47.816 Spondylosis without myelopathy or radiculopathy, lumbar region (principal); M54.5 Low back pain
CPT/HCPCS: 64493; 64494; 64495; 99152; J2250; J3010

== ENCOUNTER → 2020-04-07 12:19 | Outpatient (CLI) | payer MEDICARE, OTHER, SELFPAY ==
[2020-04-07 13:39] LABS: INR 3.5 (0.9-1.3); Prothrombin Time 39.4 SECONDS (10.1-12.7)
== END ==
PROVIDERS: PCP Internal Medicine; Referring Provider Internal Medicine; Visit Provider Internal Medicine
DX: I48.91 Unspecified atrial fibrillation (principal)
CPT/HCPCS: 36415; 85610

== ENCOUNTER → 2020-04-12 09:39 | Outpatient (CLI) | payer MEDICARE, OTHER, SELFPAY ==
[2020-04-13 08:51] LABS: COVID19 Sendout Not Detected (Not Detect)
== END ==
PROVIDERS: PCP Internal Medicine; Visit Provider Nurse Practitioner
DX: Z01.812 Encounter for preprocedural laboratory examination (principal)
CPT/HCPCS: 87635

== ENCOUNTER 2020-04-15 07:29 | Outpatient (CLI) | payer MEDICARE, OTHER, SELFPAY ==
[2020-04-15] VITALS (11 sets, daily range): BP systolic 110–126; BP diastolic 59–91; PULSE 42–67; RESP 16; TEMP 36.5; O2SAT 90–99
--- NOTE | 2020-04-15 07:30 | DI.RAD.S_ITS ---
PROCEDURE: PAIN L/S MED/LAT N RFA INDICATIONS: SPONDYLOSIS FINDINGS: Fluoroscopic spot filming was performed to verify placement of spinal needles at the left L4, L5, and S1 levels as labeled on the films. IMPRESSION: Intraprocedural examination within normal limits. Dictated by: Kyree Waddell M.D. on 04/15/2020 at 10:13 Approved by: Kyree Waddell M.D. on 04/15/2020 at 10:14
[2020-04-15] MEDS: MIDAZOLAM 5 MG/5 ML VIAL IV (08:40)
[2020-04-15] MEDS: fentaNYL 100 MCG/2 ML INJ 50 MCG IV (08:40)
[2020-04-15] MEDS: BUPIVACAINE 0.5% (PF) VIAL 5 ML INJ (08:54)
[2020-04-15] MEDS: LIDOCAINE 1% 20 ML 10 ML INJ (08:55)
--- NOTE | 2020-04-15 09:02 | PC.NURSE ---
ASSISTING PT OFF TABLE AND TRANSPORTING TO POST PROC AREA IN STABLE CONDITION. PASSING RN CARE OF PT OFF TO NIK[facility] AIKEN.
--- NOTE | 2020-04-15 09:21 | P.PCN_ITS ---
Procedures Date/Time Date of procedure: 04/15/20 Time of procedure: 09:22 General Procedure description: PREOP DIAGNOSIS 1. RECALCITRANT FACET ARTHROPATHY, POST OP DIAGNOSIS 1. RECALCITRANT FACET ARTHROPATHY, PROCEDURES 1. LEFTT L4 AND L5 MEDIAL BRANCH RADIOFREQUENCY NEUROTOMY AND LEFT S1 DORSAL RAMUS RADIOFREQUENCY NEUROTOMY, PHYSICIAN: Alok Feliciano DO INDICATIONS is referred by for treatment of facet arthropathy. DESCRIPTION OF PROCEDURE Left L4 and L5 medial branch radiofrequency neurotomy and left S1 dorsal ramus branch radiofrequency neurotomy under fluoroscopy with conscious sedation. The patient is well known to this clinic having undergone previous facet injections with good but temporary relief. The patient has experienced appropriate, concordant relief with previous facet and median branch blocks but the patient's pain has been recalcitrant to further conservative measures. Therefore, based upon the patient's relief and persistent symptoms, the patient is considered an appropriate candidate for facet rhizotomy. All of the patient's questions regarding the risks versus benefits of the procedure, including, but not limited to, bleeding, infection, temporary as well as lasting nerve injury, paralysis, stroke, and , as well treatment alternatives were answered to satisfaction. After obtaining informed consent, denial of pertinent drug allergies, as well as being made aware of the potential risks of bleeding, infection, spinal cord trauma, paralysis, temporary and permanent nerve damage, seizure, stroke, and possible , the patient was brought to the fluoroscopy suite and positioned prone on the fluoroscopy table. The lumbar region was prepped with Betadine and covered with a fenestrated drape in the usual sterile fashion. Appropriate monitors applied including pulse oximeter, pulse, and blood pressure for regular monitoring throughout the procedure. IV sedation was accomplished with a combination of 2mg of Versed and 50mcg of Fentanyl titrated to patient comfort during the course of the procedure while the patient remained responsive to all verbal commands. After local infiltration using 1% lidocaine, under fluoroscopic guidance, a 10- cm RF insulated needle with a 10-mm active tip was positioned parallel to the junction of the left sacral ala and the superior articulating process where the S1 dorsal ramus resides. Needle placement was confirmed with sensory stimulation at 50 Hz, with motor stimulation of .5v on the left which produced local stimulation without radicular component. The stimulation was then increased to 1.5v with, once again, only local multifidus stimulation without radicular component. This was then followed by two discreet lesions performed at 80 degrees Celsius for 90 seconds each. The needle was then removed and the identical procedure was performed along the length of the left L5 medial branch with motor stimulation at .7v on the leftt. The identical procedure was once again performed along the length of the left L4 medial branch with motor stimulation of .5v on the left. The patient tolerated the procedure well without signs or symptoms of complications prior to transfer to the recovery area continued monitoring without incident. The patient was then transferred to the recovery area where they were observed for an appropriate period of time after the injection. The patient was then transferred to the recovery area where they were observed for an appropriate period of time after the injection. The patient reported a VAS score of 9 prior to the procedure and a post- procedure VAS of 0. Total Fluoroscopy Time: 22.7 seconds Total Conscious Sedation Time: 34min POST OP INSTRUCTIONS The patient was provided a Pain Log to continue to record the patient's response to the target-specific procedure prior to the patient's follow-up visit with the referring physician. Additionally, specific post-injection care instructions and a contact number to our office were provided if concerns arise regarding possible complications associated with the procedure are suspected. Alok Feliciano, Complications: none
--- NOTE | 2020-04-15 09:43 | PC.NURSE ---
PT ARRIVED TO PRE PROC ROOM IN STABLE CONDITION VIA WC, MINIMAL ASSISTANCE FOR TRANSFER FROM WC TO CHAIR, INDEPENDENT IN EATING, RESUMED MONITIORING BY THIS RN
--- NOTE | 2020-04-15 10:26 | P.PCN_ITS ---
Procedures Date/Time Date of procedure: 04/15/20 Time of procedure: 10:26 General Procedure description: PREOP DIAGNOSIS 1. CERVICAL STENOSIS, 2. CERVICAL HNP WITH UPPER EXTREMITY RADICULAR FEATURES, POST OP DIAGNOSIS 1. CERVICAL STENOSIS, 2. CERVICAL HNP WITH UPPER EXTREMITY RADICULAR FEATURES, PROCEDURES 1. FLUORSCOPICALLY GUIDED CONTRAST CONTROLLED INTERLAMINAR EPIDURAL STEROID INJECTION - C6/7 TL JESSICA PHYSICIAN: Alok Feliciano, DO INDICATIONS Roman is referred by Dr. Palafox for treatment of Cervical HNP with Upper Extremity Paresthesias. FINDINGS Cervical Stenosis due to disc deterioration and nerve root irritation and nerve root irritation DESCRIPTION OF PROCEDURE Fluoroscopically guided, contrast-controlled C6/7 translaminar epidural steroid injection with conscious sedation. Following review of allergy and review of potential side effects and complications, including, but not necessarily limited to, infection, allergic reaction, local tissue breakdown, temporary as well as permanent nerve injury, stroke, paralysis, and possible , the patient indicated that patient understood and agreed to proceed. An informed consent document was signed by the patient, witnessed by a nurse, and placed in the patient's chart. Additionally, other treatment options including modalities, medications, and physical therapy were reviewed with the patient. After review of previous anaesthesic history and IV conscious sedation the patient was deemed safe to proceed with todays procedure with IV conscious sedation as ASA class II designation. Safety time-out was performed to confirm patient ID, procedure to be performed and site of procedure. IV sedation was accomplished with a combination of 3mg of Versed and 50mcg of Fentanyl administered by the RN after DO order, titrated to patient comfort during the course of the procedure while the patient remained responsive to all verbal commands. In the prone position, following sterile prep and drape of the cervical region, the C6/7 translaminar space was identified fluoroscopically. The skin was anesthetized via a 25-gauge 1.5-inch needle with 1% lidocaine solution. At this point, a 25-gauge, 2.5-inch short bevel spinal needle was atraumatically intro duced and advanced under fluoroscopic guidance into epidural space at the C6/7 translaminar space. Depth was confirmed on lateral view. Radiological data, including multiple fluoroscopic views of the cervical spine, reveal a spinal needle at the C6/7 translaminar space. Lateral views then show placement of the needle in the epidural space. Subsequent views show contrast material flowing superiorly and inferiorly in the epidural space. DSA fluoroscopy with live contrast injection, once again, confirmed no vascular or intrathecal uptake. At this point, using loss of resistance technique with saline and air, the epidural space was entered. Following negative aspiration, injection of approximately 1.5 cc of Isovue-200 with live fluoroscopy in the AP view confirmed epidural flow in the epidural space without vascular or intrathecal uptake observed. Subsequently, a test dose of 1 cc of 1% lidocaine solution was injected and patient was observed for two minutes without signs or symptoms of complications, including abdominal pain, shortness of breath, bilateral upper or lower extremity weakness, nausea and vomiting, prior to steroid injection. At this point, 2cc or 20mg of dexamethasone was then injected without incident. The patient tolerated the procedure well without signs or symptoms of complications prior to being transferred to the recovery area for further monitoring, The patient was then transferred to the recovery area where they were observed for an appropriate period of time after the injection. The patient reported a VAS score of 6 prior to the procedure and a post-procedure VAS of 0. Total Fluoroscopy Time: 17 seconds Total Conscious Time: 24min POST OP INSTRUCTIONS The patient was provided a Pain Log to continue to record their response to the target-specific procedure prior to follow-up visit with the referring provider. Additionally, specific post-injection care instructions and a contact number to our office were provided if concerns arise regarding possible complications associated with the procedure are suspected. Alok Feliciano DO Complications: none
--- NOTE | 2020-05-18 15:12 | P.PCN_ITS ---
Date/Time/Diagnoses Date of procedure: 04/15/20 Time of procedure: 08:12 Pre-procedure diagnosis: 1. RECALCITRANT FACET ARTHROPATHY Post-procedure diagnosis: same Procedure Notes Procedure: 1. LEFT L4 AND L5 MEDIAL BRANCH RADIOFREQUENCY NEUROTOMY AND LEFT S1 DORSAL RAMUS RADIOFREQUENCY NEUROTOMY, Indications: Roman is referred by for treatment of facet arthropathy. Physician: Alok Feliciano Total Fluoroscopy time (seconds): 15 Total sedation minutes: 45 Complications: none Procedure in detail & Post-procedure care: DESCRIPTION OF PROCEDURE Left L4 and L5 medial branch radiofrequency neurotomy and left S1 dorsal ramus branch radiofrequency neurotomy under fluoroscopy with conscious sedation. The patient is well known to this clinic having undergone previous facet injections with good but temporary relief. The patient has experienced appropriate, concordant relief with previous facet and median branch blocks but the patient's pain has been recalcitrant to further conservative measures. Therefore, based upon the patient's relief and persistent symptoms, the patient is considered an appropriate candidate for facet rhizotomy. All of the patient's questions regarding the risks versus benefits of the procedure, including, but not limited to, bleeding, infection, temporary as well as lasting nerve injury, paralysis, stroke, and , as well treatment alternatives were answered to satisfaction. After obtaining informed consent, denial of pertinent drug allergies, as well as being made aware of the potential risks of bleeding, infection, spinal cord trauma, paralysis, temporary and permanent nerve damage, seizure, stroke, and possible , the patient was brought to the fluoroscopy suite and positioned prone on the fluoroscopy table. The lumbar region was prepped with Betadine and covered with a fenestrated drape in the usual sterile fashion. Appropriate monitors applied including pulse oximeter, pulse, and blood pressure for regular monitoring throughout the procedure. IV sedation was accomplished with a combination of 2mg of Versed and 50mcg of Fentanyl titrated to patient comfort during the course of the procedure while the patient remained responsive to all verbal commands. After local infiltration using 1% lidocaine, under fluoroscopic guidance, a 10- cm RF insulated needle with a 10-mm active tip was positioned parallel to the junction of the left sacral ala and the superior articulating process where the S1 dorsal ramus resides. Needle placement was confirmed with sensory stimulation at 50 Hz, with motor stimulation of .5v on the left which produced local stimulation without radicular component. The stimulation was then increased to 1.5v with, once again, only local multifidus stimulation without radicular component. This was then followed by two discreet lesions performed at 80 degrees Celsius for 90 seconds each. The needle was then removed and the identical procedure was performed along the length of the left L5 medial branch with motor stimulation at .7v on the left. The identical procedure was once again performed along the length of the left L4 medial branch with motor stimulation of .5v on the left. The patient tolerated the procedure well without signs or symptoms of complications prior to transfer to the recovery area continued monitoring without incident. The patient was then transferred to the recovery area where they were observed for an appropriate period of time after the injection. The patient was then transferred to the recovery area where they were observed for an appropriate period of time after the injection. The patient reported a VAS score of 7 prior to the procedure and a post- procedure VAS of 0. POST OP INSTRUCTIONS The patient was provided a Pain Log to continue to record the patient's response to the target-specific procedure prior to the patient's follow-up visit with the referring physician. Additionally, specific post-injection care instructions and a contact number to our office were provided if concerns arise regarding possible complications associated with the procedure are suspected.
== END 2020-04-15 09:42 | disposition home or self-care (01) ==
LOC: RAD 07:30
PROVIDERS: PCP Internal Medicine; Referring Provider Physical Medicine & Rehabilitation; Visit Provider Physical Medicine & Rehabilitation
DX: M47.816 Spondylosis without myelopathy or radiculopathy, lumbar region (principal); M47.817 Spondylosis without myelopathy or radiculopathy, lumbosacral region
CPT/HCPCS: 64635; 64636; 99152; 99153; J2250; J3010

== ENCOUNTER → 2020-04-29 13:01 | Outpatient (CLI) | payer MEDICARE, OTHER, SELFPAY ==
[2020-04-29 14:29] LABS: INR 2.1 (0.9-1.3); Prothrombin Time 24.2 SECONDS (10.1-12.7)
[2020-04-29 14:36] LABS: Add Manual Diff / Slide Review NO; Basophils Absolute Auto 100 /uL (0-100); Basophils Percent Auto 1.1 % (0-2); Eosinophils Absolute Auto 200 /uL (0-450); Eosinophils Percent Auto 3.1 % (2-4); Hematocrit 37.3 % (41-53); Hemoglobin 12.4 g/dL (13.5-17.5); Lymphocytes Absolute Auto 1100 /uL (1100-4500); Lymphocytes Percent Auto 22.7 % (25-40); Mean Corpuscular HGB Conc 33.3 % (30-36); Mean Corpuscular Hemoglobin 32.9 PG (26-34); Monocytes Absolute Auto 800 /uL (0-900); Monocytes Percent Auto 17.3 % (3-14); Neutrophils Absolute Auto 2700 /uL (1500-7000); Neutrophils Percent Auto 55.8 % (50-75); Platelet Count 154 X10^3/uL (150-400); Red Blood Cell Count 3.77 X10^6/uL (4.5-5.9); Red Cell Distribution Width 13.3 % (11.6-14.8); White Blood Cell Count 4.9 X10^3/uL (4.5-11.0)
[2020-04-29 14:41] LABS: Alanine Aminotransferase 28 IU/L (<50); Albumin 4.2 g/dL (3.5-5.0); Albumin Globulin Ratio 1.5 (1.0-2.8); Alkaline Phosphatase 73 U/L (38-126); Aspartate Aminotransferase 47 IU/L (17-59); BUN Creatinine Ratio 22.7 (6-22); Bilirubin Total 0.6 mg/dL (0.2-1.3); Blood Urea Nitrogen 22 mg/dL (9-20); Calcium 9.3 mg/dL (8.4-10.2); Carbon Dioxide 28 mmol/L (22-32); Chloride 101 mmol/L (98-107); Estimated Glomerular Filt Rate > 60.0 mL/min (>60); Globulin 2.8 g/dL (1.7-4.1); Glucose 89 mg/dL (80-110); HEMOLYSIS < 15 (0-50); Potassium 4.2 mmol/L (3.4-5.1); Sodium 136 mmol/L (137-145)
[2020-04-29 14:43] LABS: C-Reactive Protein Quant < 0.5 mg/dL (<1.0)
[2020-04-29 17:38] LABS: Erythrocyte Sedimentation Rate 16 MM/HR (0-15)
== END ==
PROVIDERS: PCP Internal Medicine; Referring Provider Internal Medicine Rheumatology; Visit Provider Internal Medicine Rheumatology
DX: M06.09 Rheumatoid arthritis without rheumatoid factor, multiple sites (principal); Z79.899 Other long term (current) drug therapy; I48.91 Unspecified atrial fibrillation
CPT/HCPCS: 36415; 80053; 85025; 85610; 85651; 86140

== ENCOUNTER → 2020-05-17 11:35 | Outpatient (CLI) | payer MEDICARE, OTHER, SELFPAY ==
--- NOTE | 2020-05-17 11:37 | DI.RAD.S_ITS ---
PROCEDURE: XR KNEE RT 3V INDICATIONS: right knee djd TECHNIQUE: 3 views of the knee were acquired. COMPARISON: None. FINDINGS: Bones: No fractures or dislocations. No suspicious bony lesions. Prior medial unicompartmental right knee joint hemiarthroplasty. Soft tissues: No joint effusion. No suspicious soft tissue calcifications. IMPRESSION: The prior medial unicompartmental right knee joint hemiarthroplasty shows no evidence of device loosening or disruption and no joint effusion is seen. No trauma found. Dictated by: Curry Gagnon M.D. on 05/17/2020 at 12:04 Approved by: Curry Gagnon M.D. on 05/17/2020 at 12:05
== END ==
PROVIDERS: PCP Internal Medicine; Referring Provider Physical Medicine & Rehabilitation; Visit Provider Physical Medicine & Rehabilitation
DX: M17.11 Unilateral primary osteoarthritis, right knee (principal); Z96.651 Presence of right artificial knee joint
CPT/HCPCS: 73562

== ENCOUNTER → 2020-07-21 19:36 | Outpatient (ROUT) | payer MEDICARE, OTHER, SELFPAY ==
[2020-07-21 19:45] LABS: Add Manual Diff / Slide Review NO; Basophils Absolute Auto 100 /uL (0-100); Basophils Percent Auto 1.4 % (0-2); Eosinophils Absolute Auto 100 /uL (0-450); Eosinophils Percent Auto 3.3 % (2-4); Hematocrit 34.6 % (41-53); Hemoglobin 11.6 g/dL (13.5-17.5); Lymphocytes Absolute Auto 600 /uL (1100-4500); Lymphocytes Percent Auto 15.4 % (25-40); Mean Corpuscular HGB Conc 33.4 % (30-36); Mean Corpuscular Hemoglobin 34.3 PG (26-34); Mean Corpuscular Volume 102.8 fL (80-100); Monocytes Absolute Auto 600 /uL (0-900); Monocytes Percent Auto 13.8 % (3-14); Neutrophils Absolute Auto 2700 /uL (1500-7000); Neutrophils Percent Auto 66.1 % (50-75); Platelet Count 215 X10^3/uL (150-400); Red Blood Cell Count 3.37 X10^6/uL (4.5-5.9); Red Cell Distribution Width 15.3 % (11.6-14.8); White Blood Cell Count 4.1 X10^3/uL (4.5-11.0)
[2020-07-21 19:54] LABS: Alanine Aminotransferase 27 IU/L (<50); Albumin 3.8 g/dL (3.5-5.0); Albumin Globulin Ratio 1.5 (1.0-2.8); Alkaline Phosphatase 79 U/L (38-126); Aspartate Aminotransferase 48 IU/L (17-59); BUN Creatinine Ratio 21.9 (6-22); Bilirubin Total 0.8 mg/dL (0.2-1.3); Blood Urea Nitrogen 23 mg/dL (9-20); Calcium 9.1 mg/dL (8.4-10.2); Carbon Dioxide 32 mmol/L (22-32); Chloride 101 mmol/L (98-107); Cholesterol 145 mg/dL (140-199); Estimated Glomerular Filt Rate > 60.0 mL/min (>60); Globulin 2.6 g/dL (1.7-4.1); Glucose 133 mg/dL (80-110); HDL Cholesterol 45 mg/dL (40-60); HEMOLYSIS < 15 (0-50); LDL Cholesterol Calculated 71 mg/dL (<100); Potassium 3.6 mmol/L (3.4-5.1); Sodium 138 mmol/L (137-145); Total Protein 6.4 g/dL (6.3-8.2); Triglycerides 147 mg/dL (35-150)
[2020-07-21 20:24] LABS: TSH w/ Reflex to FT4 1.92 uIU/mL (0.47-4.68)
[2020-07-22 16:11] LABS: Prostate Specific Antigen < 0.064 ng/mL (0.10-4.00)
== END ==
PROVIDERS: PCP Internal Medicine; Visit Provider Internal Medicine
DX: I25.10 Atherosclerotic heart disease of native coronary artery without angina pectoris (principal); E78.2 Mixed hyperlipidemia; C61 Malignant neoplasm of prostate
CPT/HCPCS: 80053; 80061; 84153; 84443; 85025

== ENCOUNTER → 2020-08-04 13:03 | Outpatient (CLI) | payer MEDICARE, OTHER, SELFPAY ==
[2020-08-04 15:31] LABS: Prostate Specific Antigen < 0.064 ng/mL (0.10-4.00)
== END ==
PROVIDERS: PCP Internal Medicine; Referring Provider Urology; Visit Provider Urology
DX: Z85.46 Personal history of malignant neoplasm of prostate (principal)
CPT/HCPCS: 36415; 84153

== ENCOUNTER 2020-08-17 10:30 | Outpatient (RCR) | payer MEDICARE, OTHER, SELFPAY ==
--- NOTE | 2020-07-15 10:26 | PT.OIE ---
Current Diagnoses Nontraumatic hematoma of soft tissue (07/15/20) Soft tissue disorder, unspecified (07/15/20) Contusion of right lower leg, initial encounter (07/15/20) Past Medical History (Last Reviewed 05/26/20 @ 17:11 by Alok Feliciano DO) Acute bronchitis (Acute ~03/2019) Anemia (Acute) Atrial fibrillation (Chronic) CAD (coronary artery disease) (Acute) Cardiomyopathy (Acute) Centrilobular emphysema (Acute) Cerebrovascular accident (CVA) (Acute ~2003) CHF (congestive heart failure) (Acute) Chronic anticoagulation (Chronic) Chronic sinusitis (Acute) COPD (chronic obstructive pulmonary disease) (Chronic) DDD (degenerative disc disease) (Acute) Depression (Acute) ELENA (dyspnea on exertion) (Acute) Edema (Acute) Facet arthropathy, lumbar (Chronic) Fatty liver (Acute) Former smoker (Acute) HLD (hyperlipidemia) (Acute) HTN (hypertension) (Acute) 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) Mild cognitive impairment (Acute) Myocardial infarction (Acute) SHERI on CPAP (Acute) Osteoarthritis (Acute) Prostate cancer (Acute) Raynaud's syndrome (Acute) Rheumatoid arthritis (Acute) Right arm fracture (Acute ~04/2016) Right knee DJD (Acute) Scoliosis deformity of spine (Chronic) Past Surgical History (Last Reviewed 05/26/20 @ 17:11 by Alok Feliciano DO) History of lumbar laminectomy (Chronic) Hx of angioplasty (Acute ~1984) Hx of arthroscopy of right knee (Acute) Hx of bilateral cataract extraction (Acute) Hx of bilateral inguinal hernia repair (Acute) Hx of CABG (Acute ~2003) Hx of elbow surgery (Acute) Hx of lumbosacral spine surgery (Acute ~2008) Hx of mitral valve repair (Acute ~2003) S/P right unicompartmental knee replacement (Acute) Status post correction of deviated nasal septum (Acute) Visit Care Team Role Provider Type Mark Palafox MD Attending Provider Physician Primary Care Provider Referring Provider Specialty: Internal Medicine Address: [address] [place] [address], [facility] Email: [email or web address] [facility] Initial Evaluation PT-OP-A Visit Information Start: 07/14/20 16:09 Freq: Status: Active Protocol: Document 07/15/20 09:59 [facility] (Rec: 07/15/20 10:24 [facility] [id number]) Out-Patient Physical Therapy Visit Information Visit Information Visit Type Initial Evaluation Visit Start Time 09:02 Visit Stop Time 10:03 Total Visit Minutes 61 Visit Number 1 Number of CASH CLERK Visits 0 Evaluation Information Evaluation Date 07/15/20 Precautions Precautions history of blood clots, right partial TKA. PT-OP-B Current Condition Start: 07/14/20 16:09 Freq: Status: Active Protocol: Document 07/15/20 09:59 [facility] (Rec: 07/15/20 10:24 [facility] [id number]) Current Condition History of Current Condition Onset Date 2 weeks ago Current Complaints right LE brusing and pain limiting activity History of Current Condition Patient reports after drive to [employer] noticed swelling and bruising in his right LE, no known reason. Went to ER, negative for clot. Returned to his physician at home, diagnosed as hematoma. Also reports hematoma on right forearm which he feels is a result of pushing up from a chair aginst his forearm. States the swelling has gone down significantly in his LE though persists, pain is limiting his ability to walk and do his usual activities. Treatment Goals Patient/Caregiver Goals E PT-OP-C Subjective Start: 07/14/20 16:09 Freq: Status: Active Protocol: Document 07/15/20 09:59 [facility] (Rec: 07/15/20 10:24 [facility] [id number]) Patient Questionnaires Lower Extremity Functional Scale LEFS Score 35 OP-PT Pain Assessment Pain Assessment Grid Paper Pain Assessment Grid Completed Yes Location right posterior thigh Pain Location Details buttock to ankle Intensity 5 Scale Used Numeric (0 - 10) Description Aching,Pressure,Tender, Tightness Pain Behaviors Pain Behaviors Guarding PT-OP-F Manual Assessment Start: 07/14/20 16:09 Freq: Status: Active Protocol: Document 07/15/20 09:59 [facility] (Rec: 07/15/20 10:24 [facility] [id number]) Manual Assessments Soft Tissue Assessment Soft Tissue Mobility Assessment tender to palpation throughout hamstring on right PT-OP-G Mobility & Gait Start: 07/14/20 16:09 Freq: Status: Active Protocol: Document 07/15/20 09:59 [facility] (Rec: 07/15/20 10:24 [facility] [id number]) OP Gait Assessment Gait Gait Assistance Required: Independent Assistive Devices Assistive Device None Gait Deviations General Gait Pattern Antalgic PT-OP-H Neuro Start: 07/14/20 16:09 Freq: Status: Active Protocol: Document 07/15/20 09:59 [facility] (Rec: 07/15/20 10:24 [facility] [id number]) Sensation Evaluation Gross Sensation Gross Sensation WNL Comments Summary Comments denies N/T PT-OP-J Posture/Palpation/Skin Start: 07/14/20 16:09 Freq: Status: Active Protocol: Document 07/15/20 09:59 [facility] (Rec: 07/15/20 10:24 [facility] [id number]) Posture Evaluation Position Standing Weight Distribution Weight Shifted Left Skin Assessment Edema Assessment right forearm Edema Type Non-Pitting Edema Appearance Puffy Comments 50 cent piece size right forearm right LE Edema Type Pitting Edema Degree 2+ Edema Appearance Discolored,Shiny,Taut PT-OP-K Range of Motion Start: 07/14/20 16:09 Freq: Status: Active Protocol: Document 07/15/20 09:59 [facility] (Rec: 07/15/20 10:24 [facility] [id number]) Hip Goniometric Range of Motion Hip ronni Hip ROM WFL No Comments left WNL with PSLR 70. Right PSLR 45 with c/o pain posterior thigh Knee Goniometric Range of Motion Knee ronni Knee ROM WFL No Knee ROM Limitations Comments left WNL, right mildly decreased due to swelling and knee pain (chronic) Ankle and Foot Goniometric Range of Motion Ankle and Foot right Ankle/Foot ROM WFL No Dorsiflexion with Knee Flexed 5 Dorsiflexion with Knee Extended 0 Left Ankle/Foot ROM WFL Yes PT-OP-L Special Tests Start: 07/14/20 16:09 Freq: Status: Active Protocol: Document 07/15/20 09:59 [facility] (Rec: 07/15/20 10:24 [facility] [id number]) Special Tests Hip Special Tests Straight Leg Raise Test Results positive for tightness and pain in hamstring right PT-OP-Q Treatments Start: 07/14/20 16:09 Freq: Status: Active Protocol: Document 07/15/20 09:59 [facility] (Rec: 07/15/20 10:24 [facility] [id number]) Manual Therapy Treatment Taping 2 Body Location right forearm hematoma Treatment Focus edema reduction Type of Tape Kinesio Tape Comments 2 fam strips Other Other Manual Treatments Tubigrip size D cut for compression right forearm Self-Care/Home Management Treatment Education Patient Education Home Exercise Program,Pain Management Other Education edema reduction; use of biking shorts or consider thigh-high compression stocking PT-OP-R Modalities Start: 07/14/20 16:09 Freq: Status: Active Protocol: Document 07/15/20 09:59 [facility] (Rec: 07/15/20 10:24 [facility] [id number]) Hot Pack/Cold Pack Treatment Hot Pack Location right posterior thigh/ hamstring Patient Position Supine Treatment Duration (minutes) 15 Patient Tolerance Good PT-OP-T Assessment and Plan Start: 07/14/20 16:09 Freq: Status: Active Protocol: Document 07/15/20 09:59 [facility] (Rec: 07/15/20 10:24 [facility] [id number]) Physical Therapy Assessment Rehab Potential Rehabilitation Potential Good Evaluation Complexity Number of Personal Factors/Comorbidities 1-2 Number of Body Systems Impaired 3 Clinical Presentation at Evaluation Evolving Impairments Impairments Edema,Functional Mobility,Pain ,ROM Goals Four Impairment swelling right LE, hematoma right forearm Power Bender Operator Goal (LTG) Minimize swelling right LE and right forearm to allow for full, painfree use of right forearm and LE LTG Duration 09/14/20 Three Impairment hamstring pain and tightness right LE Short Term Goal (STG) Patient to be independent in ther ex for purposes of edema reduction and gentle hamstring stretching and ROM STG Duration 07/21/20 Senior Care Goal (LTG) PSLR right to at least 70 degrees LTG Duration 09/14/20 Two Impairment limited ability to ambulate Short Term Goal (STG) Patient able to ambulate on level surfaces without an increase in pain STG Duration 08/14/20 Senior Care Goal (LTG) Patient able to resume [place] walks [place] with minimal to no pain LTG Duration 09/14/20 One Impairment pain right LE at rest and with ADL's Power Bender Operator Goal (LTG) Decrease pain to no greater than 2/10 during all ADL's LTG Duration 09/14/20 Assessment Summary Assessment Patient presents to PT with c/ o pain, bruising, and swelling right LE which started 2 weeks ago for no know reason except for long car ride. Also with large hematoma right forearm. Patient does take blood thinners which appears to have contributed, but signs and symptoms in right LE also indicate possible hamstring injury. Feel he would benefit from PT to decrease the swelling and pain, normalize his ROM, and help him return to his previously very active lifestyle. Physical Therapy Plan Frequency and Duration Frequency of Treatment 2x/Week Duration of Treatment 8 wks Plan of Care Start Date 07/15/20 Plan of Care End Date 09/13/20 Therapeutic Interventions Therapeutic Interventions Aquatic Therapy,Home Exercise Program,Manual Therapy,Patient /Caregiver Education,Self-Care /Home Management,Taping, Therapeutic Exercises Modalities Cold Pack/Ice Massage,Hot Packs Next Visit Focus/Plan Next Note Type Treatment Note Next Visit Plan Review HEP, assess response to kinesiotape and any compression for LE patient obtained. Gentle ther ex for LE ROM, flexibility of right hamstring.
--- NOTE | 2020-07-15 10:27 | PT.OPPOC ---
Physical, Occupational & Speech Therapy At [facility] Current Diagnoses Nontraumatic hematoma of soft tissue (07/15/20) Soft tissue disorder, unspecified (07/15/20) Contusion of right lower leg, initial encounter (07/15/20) Visit Care Team Role Provider Type Mark Palafox MD Attending Provider Physician Primary Care Provider Referring Provider Specialty: Internal Medicine Address: [address] [place] [address], [facility] Email: [email or web address] Plan Of Care PT-OP-T Assessment and Plan Start: 07/14/20 16:09 Freq: Status: Active Protocol: Document 07/15/20 09:59 [facility] (Rec: 07/15/20 10:24 [facility] [id number]) Physical Therapy Assessment Rehab Potential Rehabilitation Potential Good Evaluation Complexity Number of Personal Factors/Comorbidities 1-2 Number of Body Systems Impaired 3 Clinical Presentation at Evaluation Evolving Impairments Impairments Edema,Functional Mobility,Pain ,ROM Goals Four Impairment swelling right LE, hematoma right forearm Lay Out Machine Operator Goal (LTG) Minimize swelling right LE and right forearm to allow for full, painfree use of right forearm and LE LTG Duration 09/14/20 Three Impairment hamstring pain and tightness right LE Short Term Goal (STG) Patient to be independent in ther ex for purposes of edema reduction and gentle hamstring stretching and ROM STG Duration 07/21/20 Lay Out Machine Operator Goal (LTG) PSLR right to at least 70 degrees LTG Duration 09/14/20 Two Impairment limited ability to ambulate Short Term Goal (STG) Patient able to ambulate on level surfaces without an increase in pain STG Duration 08/14/20 Senior Living Goal (LTG) Patient able to resume taking walks in the [place] with minimal to no pain LTG Duration 09/14/20 One Impairment pain right LE at rest and with ADL's Senior Living Goal (LTG) Decrease pain to no greater than 2/10 during all ADL's LTG Duration 09/14/20 Assessment Summary Assessment Patient presents to PT with c/ o pain, bruising, and swelling right LE which started 2 weeks ago for no know reason except for long car ride. Also with large hematoma right forearm. Patient does take blood thinners which appears to have contributed, but signs and symptoms in right LE also indicate possible hamstring injury. Feel he would benefit from PT to decrease the swelling and pain, normalize his ROM, and help him return to his previously very active lifestyle. Physical Therapy Plan Frequency and Duration Frequency of Treatment 2x/Week Duration of Treatment 8 wks Plan of Care Start Date 07/15/20 Plan of Care End Date 09/13/20 Therapeutic Interventions Therapeutic Interventions Aquatic Therapy,Home Exercise Program,Manual Therapy,Patient /Caregiver Education,Self-Care /Home Management,Taping, Therapeutic Exercises Modalities Cold Pack/Ice Massage,Hot Packs Next Visit Focus/Plan Next Note Type Treatment Note Next Visit Plan Review HEP, assess response to kinesiotape and any compression for LE patient obtained. Gentle ther ex for LE ROM, flexibility of right hamstring. Plan of Care Dates Plan of Care Start Date 07/15/20 Plan of Care End Date 09/13/20 Electronically Signed by: Mae Villeda, PT 07/15/20 1023 Please Sign and Return: I have reviewed this Plan of Care and certify that the skilled therapy services above are required to meet the patient?s needs. Physician Signature Date Printed Name and Credentials Clinical Instructor Signature Printed Name and Credentials
--- NOTE | 2020-07-22 11:15 | PT.OTN ---
Current Diagnoses Nontraumatic hematoma of soft tissue (07/22/20) Soft tissue disorder, unspecified (07/22/20) Contusion of right lower leg, initial encounter (07/22/20) Physical Therapy Treatment Note PT-OP-A Visit Information Start: 07/14/20 16:09 Freq: Status: Active Protocol: Document 07/22/20 09:22 [facility] (Rec: 07/22/20 09:52 [facility] [id number]) Out-Patient Physical Therapy Visit Information Visit Information Visit Type Treatment Note Visit Start Time 09:00 Visit Stop Time 09:55 Total Visit Minutes 55 Visit Number 2 Number of CALL OR CONTACT CENTRE TEAM LEADER Visits 0 Precautions Precautions history of blood clots, right partial TKA. PT-OP-B Current Condition Start: 07/14/20 16:09 Freq: Status: Active Protocol: Document 07/22/20 09:22 [facility] (Rec: 07/22/20 09:52 [facility] [id number]) Current Condition History of Current Condition Onset Date 2 weeks ago Current Complaints right LE brusing and pain limiting activity History of Current Condition Patient reports after drive to [place] noticed swelling and bruising in his right LE, no known reason. Went to ER, negative for clot. Returned to his physician at home, diagnosed as hematoma. Also reports hematoma on right forearm which he feels is a result of pushing up from a chair aginst his forearm. States the swelling has gone down significantly in his LE though persists, pain is limiting his ability to walk and do his usual activities. PT-OP-C Subjective Start: 07/14/20 16:09 Freq: Status: Active Protocol: Document 07/22/20 09:22 [facility] (Rec: 07/22/20 09:52 [facility] [id number]) OP-PT Subjective Patient Comments Patient Comments Patient reports walking only on level surfaces, hasn't been able to walk [place] yet. Increased pain in leg if does walking 2 days in a row. PT-OP-F Manual Assessment Start: 07/14/20 16:09 Freq: Status: Active Protocol: Document 07/15/20 09:59 [facility] (Rec: 07/15/20 10:24 [facility] [id number]) Manual Assessments Soft Tissue Assessment Soft Tissue Mobility Assessment tender to palpation throughout hamstring on right PT-OP-G Mobility & Gait Start: 07/14/20 16:09 Freq: Status: Active Protocol: Document 07/15/20 09:59 [facility] (Rec: 07/15/20 10:24 [facility] [id number]) OP Gait Assessment Gait Gait Assistance Required: Independent Assistive Devices Assistive Device None Gait Deviations General Gait Pattern Antalgic PT-OP-H Neuro Start: 07/14/20 16:09 Freq: Status: Active Protocol: Document 07/15/20 09:59 [facility] (Rec: 07/15/20 10:24 [facility] [id number]) Sensation Evaluation Gross Sensation Gross Sensation WNL Comments Summary Comments denies N/T PT-OP-J Posture/Palpation/Skin Start: 07/14/20 16:09 Freq: Status: Active Protocol: Document 07/15/20 09:59 [facility] (Rec: 07/15/20 10:24 [facility] [id number]) Posture Evaluation Position Standing Weight Distribution Weight Shifted Left Skin Assessment Edema Assessment right forearm Edema Type Non-Pitting Edema Appearance Puffy Comments 50 cent piece size right forearm right LE Edema Type Pitting Edema Degree 2+ Edema Appearance Discolored,Shiny,Taut PT-OP-K Range of Motion Start: 07/14/20 16:09 Freq: Status: Active Protocol: Document 07/15/20 09:59 [facility] (Rec: 07/15/20 10:24 [facility] [id number]) Hip Goniometric Range of Motion Hip ronni Hip ROM WFL No Comments left WNL with PSLR 70. Right PSLR 45 with c/o pain posterior thigh Knee Goniometric Range of Motion Knee ronni Knee ROM WFL No Knee ROM Limitations Comments left WNL, right mildly decreased due to swelling and knee pain (chronic) Ankle and Foot Goniometric Range of Motion Ankle and Foot right Ankle/Foot ROM WFL No Dorsiflexion with Knee Flexed 5 Dorsiflexion with Knee Extended 0 Left Ankle/Foot ROM WFL Yes PT-OP-L Special Tests Start: 07/14/20 16:09 Freq: Status: Active Protocol: Document 07/15/20 09:59 [facility] (Rec: 07/15/20 10:24 [facility] [id number]) Special Tests Hip Special Tests Straight Leg Raise Test Results positive for tightness and pain in hamstring right PT-OP-Q Treatments Start: 07/14/20 16:09 Freq: Status: Active Protocol: Document 07/22/20 09:22 [facility] (Rec: 07/22/20 09:52 [facility] [id number]) Cardio Equipment Recumbent Elliptical (Biodex) Duration (Minutes) 5 Resistance 3 Seat Position 8 Gym Equipment Shuttle Recovery Unilateral Squats Resistance 25 Shuttle Recovery Platform Stable Reps/Time 10x1 Bilateral Squats Resistance 50 Shuttle Recovery Platform Stable Reps/Time 10x2 Therapeutic Exercises Sitting Exercises hamstring stretch Reps/Minutes 2x30 Standing Exercises hamstring curl Reps/Minutes 10x HC stretch Reps/Minutes 2x30 Manual Therapy Treatment Taping 2 Body Location right forearm hematoma Treatment Focus edema reduction Type of Tape Kinesio Tape Comments 2 fan strips Other Other Manual Treatments Tubigrip size D cut and issued for compression right forearm PT-OP-R Modalities Start: 07/14/20 16:09 Freq: Status: Active Protocol: Document 07/22/20 09:22 [facility] (Rec: 07/22/20 11:15 [facility] [id number]) Hot Pack/Cold Pack Treatment Hot Pack Location right posterior thigh/ hamstring Patient Position Supine Treatment Duration (minutes) 15 Patient Tolerance Good PT-OP-T Assessment and Plan Start: 07/14/20 16:09 Freq: Status: Active Protocol: Document 07/22/20 09:22 [facility] (Rec: 07/22/20 11:15 [facility] [id number]) Physical Therapy Assessment Goals Four Impairment swelling right LE, hematoma right forearm Skilled Nursing Goal (LTG) Minimize swelling right LE and right forearm to allow for full, painfree use of right forearm and LE LTG Duration 09/14/20 Three Impairment hamstring pain and tightness right LE Short Term Goal (STG) Patient to be independent in ther ex for purposes of edema reduction and gentle hamstring stretching and ROM STG Duration 07/21/20 Skilled Nursing Goal (LTG) PSLR right to at least 70 degrees LTG Duration 09/14/20 Two Impairment limited ability to ambulate Short Term Goal (STG) Patient able to ambulate on level surfaces without an increase in pain STG Duration 08/14/20 Skilled Nursing Goal (LTG) Patient able to resume taking walks in the [place] lands with minimal to no pain LTG Duration 09/14/20 One Impairment pain right LE at rest and with ADL's [employer] Goal (LTG) Decrease pain to no greater than 2/10 during all ADL's LTG Duration 09/14/20 Assessment Summary Assessment Good reduction in circumferential measurements right LE, fair reduction in hematoma right forearm. Patient compliant to HEP. Some improvement in ability to walk on level surfaces, has not yet been able to tolerate on uneven surfaces. Physical Therapy Plan Frequency and Duration Frequency of Treatment 2x/Week Duration of Treatment 8 wks Plan of Care Start Date 07/15/20 Plan of Care End Date 09/13/20 Therapeutic Interventions Therapeutic Interventions Aquatic Therapy,Home Exercise Program,Manual Therapy,Patient /Caregiver Education,Self-Care /Home Management,Taping, Therapeutic Exercises Modalities Cold Pack/Ice Massage,Hot Packs Next Visit Focus/Plan Next Note Type Treatment Note Next Visit Plan add seated hamstring curl with theraband, standing hip ex with TB. Circumferential measurements
--- NOTE | 2020-07-29 10:06 | PT.OTN ---
Current Diagnoses Nontraumatic hematoma of soft tissue (07/29/20) Soft tissue disorder, unspecified (07/29/20) Contusion of right lower leg, initial encounter (07/29/20) Physical Therapy Treatment Note PT-OP-A Visit Information Start: 07/14/20 16:09 Freq: Status: Active Protocol: Document 07/29/20 09:03 [facility] (Rec: 07/29/20 09:49 [facility] [id number]) Out-Patient Physical Therapy Visit Information Visit Information Visit Type Treatment Note Visit Start Time 09:00 Visit Stop Time 09:48 Total Visit Minutes 48 Visit Number 3 Number of SALES ASSISTANT Visits 0 Precautions Precautions history of blood clots, right partial TKA. PT-OP-B Current Condition Start: 07/14/20 16:09 Freq: Status: Active Protocol: Document 07/22/20 09:22 [facility] (Rec: 07/22/20 09:52 [facility] [id number]) Current Condition History of Current Condition Onset Date 2 weeks ago Current Complaints right LE brusing and pain limiting activity History of Current Condition Patient reports after drive to [employer] noticed swelling and bruising in his right LE, no known reason. Went to ER, negative for clot. Returned to his physician at home, diagnosed as hematoma. Also reports hematoma on right forearm which he feels is a result of pushing up from a chair aginst his forearm. States the swelling has gone down significantly in his LE though persists, pain is limiting his ability to walk and do his usual activities. PT-OP-C Subjective Start: 07/14/20 16:09 Freq: Status: Active Protocol: Document 07/29/20 09:03 [facility] (Rec: 07/29/20 09:49 [facility] [id number]) OP-PT Subjective Patient Comments Patient Comments kinesiotape helped his knee, thinks swelling minimal. States Ue swelling decreasing as well. Pain minimal in hamstring. PT-OP-F Manual Assessment Start: 07/14/20 16:09 Freq: Status: Active Protocol: Document 07/15/20 09:59 [facility] (Rec: 07/15/20 10:24 [facility] [id number]) Manual Assessments Soft Tissue Assessment Soft Tissue Mobility Assessment tender to palpation throughout hamstring on right PT-OP-G Mobility & Gait Start: 07/14/20 16:09 Freq: Status: Active Protocol: Document 07/15/20 09:59 [facility] (Rec: 07/15/20 10:24 [facility] [id number]) OP Gait Assessment Gait Gait Assistance Required: Independent Assistive Devices Assistive Device None Gait Deviations General Gait Pattern Antalgic PT-OP-H Neuro Start: 07/14/20 16:09 Freq: Status: Active Protocol: Document 07/15/20 09:59 [facility] (Rec: 07/15/20 10:24 [facility] [id number]) Sensation Evaluation Gross Sensation Gross Sensation WNL Comments Summary Comments denies N/T PT-OP-J Posture/Palpation/Skin Start: 07/14/20 16:09 Freq: Status: Active Protocol: Document 07/15/20 09:59 [facility] (Rec: 07/15/20 10:24 [facility] [id number]) Posture Evaluation Position Standing Weight Distribution Weight Shifted Left Skin Assessment Edema Assessment right forearm Edema Type Non-Pitting Edema Appearance Puffy Comments 50 cent piece size right forearm right LE Edema Type Pitting Edema Degree 2+ Edema Appearance Discolored,Shiny,Taut PT-OP-K Range of Motion Start: 07/14/20 16:09 Freq: Status: Active Protocol: Document 07/15/20 09:59 [facility] (Rec: 07/15/20 10:24 [facility] [id number]) Hip Goniometric Range of Motion Hip ronni Hip ROM WFL No Comments left WNL with PSLR 70. Right PSLR 45 with c/o pain posterior thigh Knee Goniometric Range of Motion Knee ronni Knee ROM WFL No Knee ROM Limitations Comments left WNL, right mildly decreased due to swelling and knee pain (chronic) Ankle and Foot Goniometric Range of Motion Ankle and Foot right Ankle/Foot ROM WFL No Dorsiflexion with Knee Flexed 5 Dorsiflexion with Knee Extended 0 Left Ankle/Foot ROM WFL Yes PT-OP-L Special Tests Start: 07/14/20 16:09 Freq: Status: Active Protocol: Document 07/15/20 09:59 [facility] (Rec: 07/15/20 10:24 [facility] [id number]) Special Tests Hip Special Tests Straight Leg Raise Test Results positive for tightness and pain in hamstring right PT-OP-Q Treatments Start: 07/14/20 16:09 Freq: Status: Active Protocol: Document 07/29/20 09:03 [facility] (Rec: 07/29/20 09:49 [facility] [id number]) Cardio Equipment Recumbent Bicycle Duration (Minutes) 10 Resistance 4 Seat Position 7 Gym Equipment Shuttle Recovery Unilateral Squats Resistance 25 Shuttle Recovery Platform Stable Reps/Time 10x1 Bilateral Squats Resistance 50 Shuttle Recovery Platform Stable Reps/Time 10x2 Therapeutic Exercises Sitting Exercises hamstring stretch Reps/Minutes 2x30 Hamstring curls Sitting Exercise Name Hamstring curls Side bilateral Resistance L3 tband Comments 2x10 Standing Exercises HC stretch Reps/Minutes 2x30 mini squats Side bilateral Reps/Minutes 10 Comments focus on avoid knees past toes Manual Therapy Treatment Taping 1 Body Location right knee Treatment Focus pain management Type of Tape kinesiotape Comments 2 Y strips 2 Body Location right forearm hematoma Treatment Focus edema reduction Type of Tape Kinesio Tape Comments 2 fan strips PT-OP-R Modalities Start: 07/14/20 16:09 Freq: Status: Active Protocol: Document 07/29/20 09:03 [facility] (Rec: 07/29/20 10:05 [facility] [id number]) Hot Pack/Cold Pack Treatment Hot Pack Patient Position Hooklying Comments during ultrasound and kinesiotape to right forearm Ultrasound Therapy Treatment Right Forearm Treatment Duration (minutes) 8 Patient Position Supine Coupling Medium Ultrasound Gel Frequency Setting (mHz) 2 Mode Setting Continuous Duty Cycle 100% Intensity Setting (w/cm2) 1.0 Comments hematoma right forearm PT-OP-T Assessment and Plan Start: 07/14/20 16:09 Freq: Status: Active Protocol: Document 07/29/20 09:03 [facility] (Rec: 07/29/20 10:05 [facility] [id number]) Physical Therapy Assessment Rehab Potential Rehabilitation Potential Good Evaluation Complexity Number of Personal Factors/Comorbidities 1-2 Number of Body Systems Impaired 3 Clinical Presentation at Evaluation Evolving Impairments Impairments Edema,Functional Mobility,Pain ,ROM Goals Four Impairment swelling right LE, hematoma right forearm [employer] Clamper Goal (LTG) Minimize swelling right LE and right forearm to allow for full, painfree use of right forearm and LE LTG Duration 09/14/20 Three Impairment hamstring pain and tightness right LE Short Term Goal (STG) Patient to be independent in ther ex for purposes of edema reduction and gentle hamstring stretching and ROM STG Duration 07/21/20 [employer] Clamper Goal (LTG) PSLR right to at least 70 degrees LTG Duration 09/14/20 Two Impairment limited ability to ambulate Short Term Goal (STG) Patient able to ambulate on level surfaces without an increase in pain STG Duration 08/14/20 Group Home Goal (LTG) Patient able to resume taking walks in the [place] with minimal to no pain LTG Duration 09/14/20 One Impairment pain right LE at rest and with ADL's Group Home Goal (LTG) Decrease pain to no greater than 2/10 during all ADL's LTG Duration 09/14/20 Progress Towards Goals Progress Towards Goals Progressing Toward Goals Assessment Summary Assessment Further decrease in circumferential measurements noted today with knee joint same as left, still some edema distal thigh, mild hamstring pain. Physical Therapy Plan Frequency and Duration Frequency of Treatment 2x/Week Duration of Treatment 8 wks Plan of Care Start Date 07/15/20 Plan of Care End Date 09/13/20 Therapeutic Interventions Therapeutic Interventions Aquatic Therapy,Home Exercise Program,Manual Therapy,Patient /Caregiver Education,Self-Care /Home Management,Taping, Therapeutic Exercises Modalities Cold Pack/Ice Massage,Hot Packs Next Visit Focus/Plan Next Note Type Treatment Note Next Visit Plan Add standing hip extension with TB, continue edema management, gentle flexibility and strengthening right hamstring, knee, thigh.
--- NOTE | 2020-08-02 16:27 | PT.OTN ---
Current Diagnoses Nontraumatic hematoma of soft tissue (08/02/20) Soft tissue disorder, unspecified (08/02/20) Contusion of right lower leg, initial encounter (08/02/20) Physical Therapy Treatment Note PT-OP-A Visit Information Start: 07/14/20 16:09 Freq: Status: Active Protocol: Document 08/02/20 11:20 [facility] (Rec: 08/02/20 11:46 [facility] [id number]) Out-Patient Physical Therapy Visit Information Visit Information Visit Type Treatment Note Visit Start Time 09:00 Visit Stop Time 09:45 Total Visit Minutes 45 Visit Number 4 Number of [employer] MARKET[employer] SPECIALIST Visits 0 Precautions Precautions history of blood clots, right partial TKA. PT-OP-B Current Condition Start: 07/14/20 16:09 Freq: Status: Active Protocol: Document 07/22/20 09:22 [facility] (Rec: 07/22/20 09:52 [facility] [id number]) Current Condition History of Current Condition Onset Date 2 weeks ago Current Complaints right LE brusing and pain limiting activity History of Current Condition Patient reports after drive to [place] noticed swelling and bruising in his right LE, no known reason. Went to ER, negative for clot. Returned to his physician at home, diagnosed as hematoma. Also reports hematoma on right forearm which he feels is a result of pushing up from a chair aginst his forearm. States the swelling has gone down significantly in his LE though persists, pain is limiting his ability to walk and do his usual activities. PT-OP-C Subjective Start: 07/14/20 16:09 Freq: Status: Active Protocol: Document 08/02/20 11:20 [facility] (Rec: 08/02/20 11:46 [facility] [id number]) OP-PT Subjective Patient Comments Patient Comments Walked on trail 25 min, some knee soreness. Hamstring pain mild. Thinks ultrasound helped his forearm. States he forgot to do hamstring curl at home. PT-OP-F Manual Assessment Start: 07/14/20 16:09 Freq: Status: Active Protocol: Document 07/15/20 09:59 [facility] (Rec: 07/15/20 10:24 [facility] [id number]) Manual Assessments Soft Tissue Assessment Soft Tissue Mobility Assessment tender to palpation throughout hamstring on right PT-OP-G Mobility & Gait Start: 07/14/20 16:09 Freq: Status: Active Protocol: Document 07/15/20 09:59 [facility] (Rec: 07/15/20 10:24 [facility] [id number]) OP Gait Assessment Gait Gait Assistance Required: Independent Assistive Devices Assistive Device None Gait Deviations General Gait Pattern Antalgic PT-OP-H Neuro Start: 07/14/20 16:09 Freq: Status: Active Protocol: Document 07/15/20 09:59 [facility] (Rec: 07/15/20 10:24 [facility] [id number]) Sensation Evaluation Gross Sensation Gross Sensation WNL Comments Summary Comments denies N/T PT-OP-J Posture/Palpation/Skin Start: 07/14/20 16:09 Freq: Status: Active Protocol: Document 07/15/20 09:59 [facility] (Rec: 07/15/20 10:24 [facility] [id number]) Posture Evaluation Position Standing Weight Distribution Weight Shifted Left Skin Assessment Edema Assessment right forearm Edema Type Non-Pitting Edema Appearance Puffy Comments 50 cent piece size right forearm right LE Edema Type Pitting Edema Degree 2+ Edema Appearance Discolored,Shiny,Taut PT-OP-K Range of Motion Start: 07/14/20 16:09 Freq: Status: Active Protocol: Document 07/15/20 09:59 [facility] (Rec: 07/15/20 10:24 [facility] [id number]) Hip Goniometric Range of Motion Hip ronni Hip ROM WFL No Comments left WNL with PSLR 70. Right PSLR 45 with c/o pain posterior thigh Knee Goniometric Range of Motion Knee ronni Knee ROM WFL No Knee ROM Limitations Comments left WNL, right mildly decreased due to swelling and knee pain (chronic) Ankle and Foot Goniometric Range of Motion Ankle and Foot right Ankle/Foot ROM WFL No Dorsiflexion with Knee Flexed 5 Dorsiflexion with Knee Extended 0 Left Ankle/Foot ROM WFL Yes PT-OP-L Special Tests Start: 07/14/20 16:09 Freq: Status: Active Protocol: Document 07/15/20 09:59 [facility] (Rec: 07/15/20 10:24 [facility] [id number]) Special Tests Hip Special Tests Straight Leg Raise Test Results positive for tightness and pain in hamstring right PT-OP-Q Treatments Start: 07/14/20 16:09 Freq: Status: Active Protocol: Document 08/02/20 11:20 [facility] (Rec: 08/02/20 11:46 [facility] [id number]) Gym Equipment Shuttle Recovery Unilateral Squats Resistance 37 left, 25 right Shuttle Recovery Platform Stable Reps/Time 10x1 Bilateral Squats Resistance 62 Shuttle Recovery Platform Stable Reps/Time 10x2 Therapeutic Exercises Sitting Exercises hamstring stretch Reps/Minutes 2x30 Hamstring curls Sitting Exercise Name Hamstring curls Side bilateral Resistance L3 tband Comments 2x10 Standing Exercises HC stretch Equipment Used PABLO Reps/Minutes 2x30 Manual Therapy Treatment Taping 1 Body Location right knee Treatment Focus pain management Type of Tape kinesiotape Comments 2 Y strips 2 Body Location right forearm hematoma Treatment Focus edema reduction Type of Tape Kinesio Tape Comments 2 fan strips PT-OP-R Modalities Start: 07/14/20 16:09 Freq: Status: Active Protocol: Document 08/02/20 11:20 [facility] (Rec: 08/02/20 11:46 [facility] [id number]) Hot Pack/Cold Pack Treatment Hot Pack Patient Position Hooklying Treatment Duration (minutes) 15 Patient Tolerance Good Comments during ultrasound and kinesiotape to right forearm Ultrasound Therapy Treatment Right Forearm Treatment Duration (minutes) 8 Patient Position Supine Coupling Medium Ultrasound Gel Frequency Setting (mHz) 2 Mode Setting Continuous Duty Cycle 100% Intensity Setting (w/cm2) 1.0 Comments hematoma right forearm PT-OP-T Assessment and Plan Start: 07/14/20 16:09 Freq: Status: Active Protocol: Document 08/02/20 11:20 [facility] (Rec: 08/02/20 11:46 [facility] [id number]) Physical Therapy Assessment Goals Four Impairment swelling right LE, hematoma right forearm Legislators Goal (LTG) Minimize swelling right LE and right forearm to allow for full, painfree use of right forearm and LE LTG Duration 09/14/20 Three Impairment hamstring pain and tightness right LE Short Term Goal (STG) Patient to be independent in ther ex for purposes of edema reduction and gentle hamstring stretching and ROM STG Duration 07/21/20 Legislators Goal (LTG) PSLR right to at least 70 degrees LTG Duration 09/14/20 Two Impairment limited ability to ambulate Short Term Goal (STG) Patient able to ambulate on level surfaces without an increase in pain STG Duration 08/14/20 Legislators Goal (LTG) Patient able to resume taking walks in the [place] with minimal to no pain LTG Duration 09/14/20 One Impairment pain right LE at rest and with ADL's Legislators Goal (LTG) Decrease pain to no greater than 2/10 during all ADL's LTG Duration 09/14/20 Assessment Summary Assessment Circumferential measurements not taken today. Overall decreasing pain, improving activity tolerance. Forearm hematoma helped by ultrasound. Good progress. Physical Therapy Plan Frequency and Duration Frequency of Treatment 2x/Week Duration of Treatment 8 wks Plan of Care Start Date 07/15/20 Plan of Care End Date 09/13/20 Therapeutic Interventions Therapeutic Interventions Aquatic Therapy,Home Exercise Program,Manual Therapy,Patient /Caregiver Education,Self-Care /Home Management,Taping, Therapeutic Exercises Modalities Cold Pack/Ice Massage,Hot Packs Next Visit Focus/Plan Next Note Type Treatment Note Next Visit Plan Add standing hip extension with TB, continue edema management, gentle flexibility and strengthening right hamstring, hip, and knee. Modalities and kinesiotape PRN .
--- NOTE | 2020-08-06 10:30 | PT.OTN ---
Current Diagnoses Nontraumatic hematoma of soft tissue (08/06/20) Soft tissue disorder, unspecified (08/06/20) Contusion of right lower leg, initial encounter (08/06/20) Physical Therapy Treatment Note PT-OP-A Visit Information Start: 07/14/20 16:09 Freq: Status: Active Protocol: Document 08/06/20 11:02 MA (Rec: 08/06/20 11:05 MA [email or web address]) Out-Patient Physical Therapy Visit Information Visit Information Visit Type Treatment Note Visit Start Time 09:45 Visit Stop Time 10:28 Total Visit Minutes 43 Visit Number 5 Number of OUTDOOR PURSUITS INSTRUCTOR Visits 1 PT-OP-B Current Condition Start: 07/14/20 16:09 Freq: Status: Active Protocol: Document 07/22/20 09:22 SAK (Rec: 07/22/20 09:52 SAK [id number]) Current Condition History of Current Condition Onset Date 2 weeks ago Current Complaints right LE brusing and pain limiting activity History of Current Condition Patient reports after drive to [employer] noticed swelling and bruising in his right LE, no known reason. Went to ER, negative for clot. Returned to his physician at home, diagnosed as hematoma. Also reports hematoma on right forearm which he feels is a result of pushing up from a chair aginst his forearm. States the swelling has gone down significantly in his LE though persists, pain is limiting his ability to walk and do his usual activities. PT-OP-C Subjective Start: 07/14/20 16:09 Freq: Status: Active Protocol: Document 08/06/20 11:02 MA (Rec: 08/06/20 11:05 MA [email or web address]) OP-PT Subjective Patient Comments Patient Comments Pt says he did not bring shorts or T-shirt today and would like to keep tape on forearm and knee for another day and then re-tape on Sunday . He says he hasn't been doing his HEP as often b/c he is walking the trails more PT-OP-F Manual Assessment Start: 07/14/20 16:09 Freq: Status: Active Protocol: Document 07/15/20 09:59 SAK (Rec: 07/15/20 10:24 SAK [id number]) Manual Assessments Soft Tissue Assessment Soft Tissue Mobility Assessment tender to palpation throughout hamstring on right PT-OP-G Mobility & Gait Start: 07/14/20 16:09 Freq: Status: Active Protocol: Document 07/15/20 09:59 [facility] (Rec: 07/15/20 10:24 [facility] [id number]) OP Gait Assessment Gait Gait Assistance Required: Independent Assistive Devices Assistive Device None Gait Deviations General Gait Pattern Antalgic PT-OP-H Neuro Start: 07/14/20 16:09 Freq: Status: Active Protocol: Document 07/15/20 09:59 [facility] (Rec: 07/15/20 10:24 [facility] [id number]) Sensation Evaluation Gross Sensation Gross Sensation WNL Comments Summary Comments denies N/T PT-OP-J Posture/Palpation/Skin Start: 07/14/20 16:09 Freq: Status: Active Protocol: Document 07/15/20 09:59 [facility] (Rec: 07/15/20 10:24 [facility] [id number]) Posture Evaluation Position Standing Weight Distribution Weight Shifted Left Skin Assessment Edema Assessment right forearm Edema Type Non-Pitting Edema Appearance Puffy Comments 50 cent piece size right forearm right LE Edema Type Pitting Edema Degree 2+ Edema Appearance Discolored,Shiny,Taut PT-OP-K Range of Motion Start: 07/14/20 16:09 Freq: Status: Active Protocol: Document 07/15/20 09:59 [facility] (Rec: 07/15/20 10:24 [facility] [id number]) Hip Goniometric Range of Motion Hip ronni Hip ROM WFL No Comments left WNL with PSLR 70. Right PSLR 45 with c/o pain posterior thigh Knee Goniometric Range of Motion Knee ronni Knee ROM WFL No Knee ROM Limitations Comments left WNL, right mildly decreased due to swelling and knee pain (chronic) Ankle and Foot Goniometric Range of Motion Ankle and Foot right Ankle/Foot ROM WFL No Dorsiflexion with Knee Flexed 5 Dorsiflexion with Knee Extended 0 Left Ankle/Foot ROM WFL Yes PT-OP-L Special Tests Start: 07/14/20 16:09 Freq: Status: Active Protocol: Document 07/15/20 09:59 [facility] (Rec: 07/15/20 10:24 [facility] [id number]) Special Tests Hip Special Tests Straight Leg Raise Test Results positive for tightness and pain in hamstring right PT-OP-Q Treatments Start: 07/14/20 16:09 Freq: Status: Active Protocol: Document 08/06/20 11:05 MA (Rec: 08/06/20 11:13 MA [email or web address]) Gym Equipment Shuttle Recovery Unilateral Squats Resistance 37 left, 25 right Shuttle Recovery Platform Stable Reps/Time 10x2 Bilateral Squats Resistance 62 Shuttle Recovery Platform Stable Reps/Time 15x2 Therapeutic Exercises Standing Exercises hip ext Standing Exercise Name Hip Ext Side bilateral Equipment Used TB#2 Reps/Minutes 2x10 Bilateral Comments Modified range due to pain. VC for spinal extension hip abd/ext Standing Exercise Name Hip Abduction Side bilateral Resistance #2 TB Reps/Minutes 2x10 Comments Modified by stepping to side and stepping back due to R knee pain Manual Therapy Treatment Soft Tissue Mobilization HS Body Location Hamstring Mobilization Type Rolling Intensity/Depth Superficial Body Position Supine Comments Superficial to moderate pressure while stretching HS 90/90 stretch. Self-Care/Home Management Treatment Education Other Education Educated pt on how he can use a rolling pin now that bruising and swelling are subsiding to gently roll out ITB and HS PT-OP-R Modalities Start: 07/14/20 16:09 Freq: Status: Active Protocol: Document 08/02/20 11:20 SAK (Rec: 08/02/20 11:46 SAK [id number]) Hot Pack/Cold Pack Treatment Hot Pack Patient Position Hooklying Treatment Duration (minutes) 15 Patient Tolerance Good Comments during ultrasound and kinesiotape to right forearm Ultrasound Therapy Treatment Right Forearm Treatment Duration (minutes) 8 Patient Position Supine Coupling Medium Ultrasound Gel Frequency Setting (mHz) 2 Mode Setting Continuous Duty Cycle 100% Intensity Setting (w/cm2) 1.0 Comments hematoma right forearm PT-OP-T Assessment and Plan Start: 07/14/20 16:09 Freq: Status: Active Protocol: Document 08/06/20 12:40 MA (Rec: 08/06/20 12:51 MA [email or web address]) Physical Therapy Assessment Goals Four Impairment swelling right LE, hematoma right forearm Senior Care Goal (LTG) Minimize swelling right LE and right forearm to allow for full, painfree use of right forearm and LE LTG Duration 09/14/20 Three Impairment hamstring pain and tightness right LE Short Term Goal (STG) Patient to be independent in ther ex for purposes of edema reduction and gentle hamstring stretching and ROM STG Duration 07/21/20 [employer] Furn[employer] Operator Goal (LTG) PSLR right to at least 70 degrees LTG Duration 09/14/20 Two Impairment limited ability to ambulate Short Term Goal (STG) Patient able to ambulate on level surfaces without an increase in pain STG Duration 08/14/20 [employer] Furnace Operator Goal (LTG) Patient able to resume [place] with minimal to no pain LTG Duration 09/14/20 One Impairment pain right LE at rest and with ADL's Senior Care Goal (LTG) Decrease pain to no greater than 2/10 during all ADL's LTG Duration 09/14/20 Assessment Summary Assessment Due to pt reporting feeling pain during his HEP abduction exercise, exercise was modified to stepping out and back with pt reporting no pain with modification. During standing hip extension, pt c/o 4/10 pain on R knee which subsided after cues to avoid abducting when extending. Increased ROM in HS after STM. Physical Therapy Plan Frequency and Duration Frequency of Treatment 2x/Week Duration of Treatment 8 wks Plan of Care Start Date 07/15/20 Plan of Care End Date 09/13/20 Next Visit Focus/Plan Next Note Type Treatment Note Next Visit Plan Review abduction and extension HEP exercises. Continue gentle flexibility and strengthening R HS, hip and knee. US as needed to R forearm and redo kinesiotape next session to R forearm and R knee
--- NOTE | 2020-08-09 13:10 | PT.OTN ---
Current Diagnoses Nontraumatic hematoma of soft tissue (08/09/20) Soft tissue disorder, unspecified (08/09/20) Contusion of right lower leg, initial encounter (08/09/20) Physical Therapy Treatment Note PT-OP-A Visit Information Start: 07/14/20 16:09 Freq: Status: Active Protocol: Document 08/09/20 12:48 MA (Rec: 08/09/20 13:09 MA [email or web address]) Out-Patient Physical Therapy Visit Information Visit Information Visit Type Treatment Note Visit Start Time 12:05 Visit Stop Time 12:45 Total Visit Minutes 40 Visit Number 6 Number of ETHANOL OPERATOR Visits 2 PT-OP-B Current Condition Start: 07/14/20 16:09 Freq: Status: Active Protocol: Document 07/22/20 09:22 SAK (Rec: 07/22/20 09:52 SAK [id number]) Current Condition History of Current Condition Onset Date 2 weeks ago Current Complaints right LE brusing and pain limiting activity History of Current Condition Patient reports after drive to [employer] noticed swelling and bruising in his right LE, no known reason. Went to ER, negative for clot. Returned to his physician at home, diagnosed as hematoma. Also reports hematoma on right forearm which he feels is a result of pushing up from a chair aginst his forearm. States the swelling has gone down significantly in his LE though persists, pain is limiting his ability to walk and do his usual activities. PT-OP-C Subjective Start: 07/14/20 16:09 Freq: Status: Active Protocol: Document 08/09/20 12:48 MA (Rec: 08/09/20 13:09 MA [email or web address]) OP-PT Subjective Patient Comments Patient Comments Pt stated his hematoma on his RUE has been doing much better and he would like to tape it again today. He also said the had no pain after doing abduction modification for his HEP. PT-OP-F Manual Assessment Start: 07/14/20 16:09 Freq: Status: Active Protocol: Document 07/15/20 09:59 SAK (Rec: 07/15/20 10:24 SAK [id number]) Manual Assessments Soft Tissue Assessment Soft Tissue Mobility Assessment tender to palpation throughout hamstring on right PT-OP-G Mobility & Gait Start: 07/14/20 16:09 Freq: Status: Active Protocol: Document 07/15/20 09:59 SAK (Rec: 07/15/20 10:24 [facility] [id number]) OP Gait Assessment Gait Gait Assistance Required: Independent Assistive Devices Assistive Device None Gait Deviations General Gait Pattern Antalgic PT-OP-H Neuro Start: 07/14/20 16:09 Freq: Status: Active Protocol: Document 07/15/20 09:59 SAK (Rec: 07/15/20 10:24 [facility] [id number]) Sensation Evaluation Gross Sensation Gross Sensation WNL Comments Summary Comments denies N/T PT-OP-J Posture/Palpation/Skin Start: 07/14/20 16:09 Freq: Status: Active Protocol: Document 07/15/20 09:59 [facility] (Rec: 07/15/20 10:24 [facility] [id number]) Posture Evaluation Position Standing Weight Distribution Weight Shifted Left Skin Assessment Edema Assessment right forearm Edema Type Non-Pitting Edema Appearance Puffy Comments 50 cent piece size right forearm right LE Edema Type Pitting Edema Degree 2+ Edema Appearance Discolored,Shiny,Taut PT-OP-K Range of Motion Start: 07/14/20 16:09 Freq: Status: Active Protocol: Document 07/15/20 09:59 [facility] (Rec: 07/15/20 10:24 [facility] [id number]) Hip Goniometric Range of Motion Hip ronni Hip ROM WFL No Comments left WNL with PSLR 70. Right PSLR 45 with c/o pain posterior thigh Knee Goniometric Range of Motion Knee ronni Knee ROM WFL No Knee ROM Limitations Comments left WNL, right mildly decreased due to swelling and knee pain (chronic) Ankle and Foot Goniometric Range of Motion Ankle and Foot right Ankle/Foot ROM WFL No Dorsiflexion with Knee Flexed 5 Dorsiflexion with Knee Extended 0 Left Ankle/Foot ROM WFL Yes PT-OP-L Special Tests Start: 07/14/20 16:09 Freq: Status: Active Protocol: Document 07/15/20 09:59 [facility] (Rec: 07/15/20 10:24 [facility] [id number]) Special Tests Hip Special Tests Straight Leg Raise Test Results positive for tightness and pain in hamstring right PT-OP-Q Treatments Start: 07/14/20 16:09 Freq: Status: Active Protocol: Document 08/09/20 12:48 MA (Rec: 08/09/20 13:09 MA [email or web address]) Therapeutic Exercises Supine Exercises Passive HS stretch Reps/Minutes 3x45 seconds Comments pt guarded on first, but able to relax and gain ROM Standing Exercises hip ext Standing Exercise Name Hip Ext Side bilateral Equipment Used TB#2 Reps/Minutes 2x10 Bilateral Comments Modified range due to pain. VC for spinal extension hip abd/ext Standing Exercise Name Hip Abduction Side bilateral Resistance #2 TB Reps/Minutes 2x10 Comments Modified by stepping to side and stepping back due to R knee pain Manual Therapy Treatment Taping 1 Body Location R knee Treatment Focus pain management Type of Tape Kinesio Tape Skin Inspection no adverse reactions to tape Comments 2 Y strips 2 Body Location Right Forearm Hematoma Treatment Focus Edema Reduction Type of Tape Kinesio Tape Skin Inspection no adverse reactions to tape Comments 2 fan strips PT-OP-R Modalities Start: 07/14/20 16:09 Freq: Status: Active Protocol: Document 08/09/20 12:48 MA (Rec: 08/09/20 13:09 MA [email or web address]) Ultrasound Therapy Treatment Right Forearm Treatment Duration (minutes) 8 Patient Position Hooklying Coupling Medium Ultrasound Gel Frequency Setting (mHz) 2 Mode Setting Continuous Duty Cycle 100% Intensity Setting (w/cm2) 1.0 Comments Hematoma R forearm PT-OP-T Assessment and Plan Start: 07/14/20 16:09 Freq: Status: Active Protocol: Document 08/09/20 12:48 MA (Rec: 08/09/20 13:09 MA [email or web address]) Physical Therapy Assessment Goals Four Impairment swelling right LE, hematoma right forearm Environmental Conservation Professor Goal (LTG) Minimize swelling right LE and right forearm to allow for full, painfree use of right forearm and LE LTG Duration 09/14/20 Three Impairment hamstring pain and tightness right LE Short Term Goal (STG) Patient to be independent in ther ex for purposes of edema reduction and gentle hamstring stretching and ROM STG Duration 07/21/20 Jail Goal (LTG) PSLR right to at least 70 degrees LTG Duration 09/14/20 Two Impairment limited ability to ambulate Short Term Goal (STG) Patient able to ambulate on level surfaces without an increase in pain STG Duration 08/14/20 Environmental Conservation Professor Goal (LTG) Patient able to resume taking walks [place] the [place] with minimal to no pain LTG Duration 09/14/20 One Impairment pain right LE at rest and with ADL's Jail Goal (LTG) Decrease pain to no greater than 2/10 during all ADL's LTG Duration 09/14/20 Assessment Summary Assessment Pt was able to compelte HEP with no pain today. Verbal cues were necessary to remind pt to lift his foot and not drag the foot when working hip abduction. After passive hamstring stretching, pt's PROM increased from 130 to 160 Physical Therapy Plan Frequency and Duration Frequency of Treatment 2x/Week Duration of Treatment 8 wks Plan of Care Start Date 07/15/20 Plan of Care End Date 09/13/20 Next Visit Focus/Plan Next Note Type Treatment Note Next Visit Plan Continue HS stretching to decrese pain in RLE and ultrasound to decrease hematoma size on RUE. Continue HEP exercises for strengthening.
--- NOTE | 2020-08-13 11:44 | PT.OTN ---
Current Diagnoses Nontraumatic hematoma of soft tissue (08/13/20) Soft tissue disorder, unspecified (08/13/20) Contusion of right lower leg, initial encounter (08/13/20) Physical Therapy Treatment Note PT-OP-A Visit Information Start: 07/14/20 16:09 Freq: Status: Active Protocol: Document 08/13/20 11:07 MA (Rec: 08/13/20 11:43 MA [id number]) Out-Patient Physical Therapy Visit Information Visit Information Visit Type Treatment Note Visit Start Time 11:00 Visit Stop Time 11:40 Total Visit Minutes 40 Visit Number 7 Number of BAFFLE MOUNTER Visits 3 PT-OP-B Current Condition Start: 07/14/20 16:09 Freq: Status: Active Protocol: Document 07/22/20 09:22 SAK (Rec: 07/22/20 09:52 SAK [id number]) Current Condition History of Current Condition Onset Date 2 weeks ago Current Complaints right LE brusing and pain limiting activity History of Current Condition Patient reports after drive to [place] noticed swelling and bruising in his right LE, no known reason. Went to ER, negative for clot. Returned to his physician at home, diagnosed as hematoma. Also reports hematoma on right forearm which he feels is a result of pushing up from a chair aginst his forearm. States the swelling has gone down significantly in his LE though persists, pain is limiting his ability to walk and do his usual activities. PT-OP-C Subjective Start: 07/14/20 16:09 Freq: Status: Active Protocol: Document 08/13/20 11:07 MA (Rec: 08/13/20 11:43 MA [id number]) OP-PT Subjective Patient Comments Patient Comments Pt has had no pain since last session. Reports his hematoma has gone down a little and that he has not been as good with his HEP exercises since last visit PT-OP-F Manual Assessment Start: 07/14/20 16:09 Freq: Status: Active Protocol: Document 07/15/20 09:59 SAK (Rec: 07/15/20 10:24 SAK [id number]) Manual Assessments Soft Tissue Assessment Soft Tissue Mobility Assessment tender to palpation throughout hamstring on right PT-OP-G Mobility & Gait Start: 07/14/20 16:09 Freq: Status: Active Protocol: Document 07/15/20 09:59 SAK (Rec: 07/15/20 10:24 [facility] [id number]) OP Gait Assessment Gait Gait Assistance Required: Independent Assistive Devices Assistive Device None Gait Deviations General Gait Pattern Antalgic PT-OP-H Neuro Start: 07/14/20 16:09 Freq: Status: Active Protocol: Document 07/15/20 09:59 [facility] (Rec: 07/15/20 10:24 [facility] [id number]) Sensation Evaluation Gross Sensation Gross Sensation WNL Comments Summary Comments denies N/T PT-OP-J Posture/Palpation/Skin Start: 07/14/20 16:09 Freq: Status: Active Protocol: Document 07/15/20 09:59 [facility] (Rec: 07/15/20 10:24 [facility] [id number]) Posture Evaluation Position Standing Weight Distribution Weight Shifted Left Skin Assessment Edema Assessment right forearm Edema Type Non-Pitting Edema Appearance Puffy Comments 50 cent piece size right forearm right LE Edema Type Pitting Edema Degree 2+ Edema Appearance Discolored,Shiny,Taut PT-OP-K Range of Motion Start: 07/14/20 16:09 Freq: Status: Active Protocol: Document 07/15/20 09:59 [facility] (Rec: 07/15/20 10:24 [facility] [id number]) Hip Goniometric Range of Motion Hip ronni Hip ROM WFL No Comments left WNL with PSLR 70. Right PSLR 45 with c/o pain posterior thigh Knee Goniometric Range of Motion Knee ronni Knee ROM WFL No Knee ROM Limitations Comments left WNL, right mildly decreased due to swelling and knee pain (chronic) Ankle and Foot Goniometric Range of Motion Ankle and Foot right Ankle/Foot ROM WFL No Dorsiflexion with Knee Flexed 5 Dorsiflexion with Knee Extended 0 Left Ankle/Foot ROM WFL Yes PT-OP-L Special Tests Start: 07/14/20 16:09 Freq: Status: Active Protocol: Document 07/15/20 09:59 [facility] (Rec: 07/15/20 10:24 [facility] [id number]) Special Tests Hip Special Tests Straight Leg Raise Test Results positive for tightness and pain in hamstring right PT-OP-Q Treatments Start: 07/14/20 16:09 Freq: Status: Active Protocol: Document 08/13/20 11:07 MA (Rec: 08/13/20 11:43 MA [id number]) Therapeutic Exercises Supine Exercises Piriformis Stretch Side bilateral Comments Slight R knee pain, no pain in left Straight Leg Raise Side bilateral Reps/Minutes 2x10 Bridging Reps/Minutes 2x10 Sidelying Exercises Clamshells Side bilateral Reps/Minutes 1x10 ronni Sitting Exercises hamstring stretch Side bilateral Reps/Minutes 2x30 seconds Standing Exercises hip abd/ext Standing Exercise Name Hip Abduction/extension Side bilateral Resistance #2 TB Reps/Minutes 2x10 Comments Modified by stepping to side and stepping back due to R knee pain PT-OP-R Modalities Start: 07/14/20 16:09 Freq: Status: Active Protocol: Document 08/09/20 12:48 MA (Rec: 08/09/20 13:09 MA [email or web address]) Ultrasound Therapy Treatment Right Forearm Treatment Duration (minutes) 8 Patient Position Hooklying Coupling Medium Ultrasound Gel Frequency Setting (mHz) 2 Mode Setting Continuous Duty Cycle 100% Intensity Setting (w/cm2) 1.0 Comments Hematoma R forearm PT-OP-T Assessment and Plan Start: 07/14/20 16:09 Freq: Status: Active Protocol: Document 08/13/20 11:07 MA (Rec: 08/13/20 11:43 MA [id number]) Physical Therapy Assessment Goals Four Impairment swelling right LE, hematoma right forearm Real Estate Assistant Goal (LTG) Minimize swelling right LE and right forearm to allow for full, painfree use of right forearm and LE LTG Duration 09/14/20 Three Impairment hamstring pain and tightness right LE Short Term Goal (STG) Patient to be independent in ther ex for purposes of edema reduction and gentle hamstring stretching and ROM STG Duration 07/21/20 Real Estate Assistant Goal (LTG) PSLR right to at least 70 degrees 08/13-Goal Met (R 80 degrees, L 72) LTG Duration 09/14/20 Two Impairment limited ability to ambulate Short Term Goal (STG) Patient able to ambulate on level surfaces without an increase in pain Goal Met- 08/13 STG Duration 08/14/20 [facility] Goal (LTG) Patient able to resume [place] with minimal to no pain Goal Met- 08/13 LTG Duration 09/14/20 One Impairment pain right LE at rest and with ADL's [facility] Goal (LTG) Decrease pain to no greater than 2/10 during all ADL's 08/13- pt says about 80% of the time he has no pain with HEP LTG Duration 09/14/20 Assessment Summary Assessment Pt had no pain during HEP exercises. Increaesd PSLR on R from 45 degrees with pain to 80 degrees without pain. Physical Therapy Plan Frequency and Duration Frequency of Treatment 2x/Week Duration of Treatment 8 wks Plan of Care Start Date 07/15/20 Plan of Care End Date 09/13/20 Next Visit Focus/Plan Next Note Type Treatment Note Next Visit Plan Tape R forearm and R knee. Ultrasound as needed to R forearm for hematoma reduction . COntinue HEP exercises for strengthening
--- NOTE | 2020-08-17 11:28 | PT.OTN ---
Current Diagnoses Nontraumatic hematoma of soft tissue (08/17/20) Soft tissue disorder, unspecified (08/17/20) Contusion of right lower leg, initial encounter (08/17/20) Physical Therapy Treatment Note PT-OP-A Visit Information Start: 07/14/20 16:09 Freq: Status: Active Protocol: Document 08/17/20 10:35 SAK (Rec: 08/17/20 11:28 SAK [id number]) Out-Patient Physical Therapy Visit Information Visit Information Visit Type Treatment Note Visit Start Time 10:35 Visit Stop Time 11:28 Total Visit Minutes 58 Visit Number 8 PT-OP-B Current Condition Start: 07/14/20 16:09 Freq: Status: Active Protocol: Document 07/22/20 09:22 SAK (Rec: 07/22/20 09:52 SAK [id number]) Current Condition History of Current Condition Onset Date 2 weeks ago Current Complaints right LE brusing and pain limiting activity History of Current Condition Patient reports after drive to [employer] noticed swelling and bruising in his right LE, no known reason. Went to ER, negative for clot. Returned to his physician at home, diagnosed as hematoma. Also reports hematoma on right forearm which he feels is a result of pushing up from a chair aginst his forearm. States the swelling has gone down significantly in his LE though persists, pain is limiting his ability to walk and do his usual activities. PT-OP-C Subjective Start: 07/14/20 16:09 Freq: Status: Active Protocol: Document 08/17/20 10:35 SAK (Rec: 08/17/20 11:28 SAK [id number]) OP-PT Subjective Patient Comments Patient Comments Patient reports feeling ready for discharge after today, doing well, minimal soreness, compliant to HEP. PT-OP-F Manual Assessment Start: 07/14/20 16:09 Freq: Status: Active Protocol: Document 07/15/20 09:59 SAK (Rec: 07/15/20 10:24 SAK [id number]) Manual Assessments Soft Tissue Assessment Soft Tissue Mobility Assessment tender to palpation throughout hamstring on right PT-OP-G Mobility & Gait Start: 07/14/20 16:09 Freq: Status: Active Protocol: Document 07/15/20 09:59 SAK (Rec: 07/15/20 10:24 SAK [id number]) OP Gait Assessment Gait Gait Assistance Required: Independent Assistive Devices Assistive Device None Gait Deviations General Gait Pattern Antalgic PT-OP-H Neuro Start: 07/14/20 16:09 Freq: Status: Active Protocol: Document 07/15/20 09:59 [facility] (Rec: 07/15/20 10:24 [facility] [id number]) Sensation Evaluation Gross Sensation Gross Sensation WNL Comments Summary Comments denies N/T PT-OP-J Posture/Palpation/Skin Start: 07/14/20 16:09 Freq: Status: Active Protocol: Document 07/15/20 09:59 [facility] (Rec: 07/15/20 10:24 [facility] [id number]) Posture Evaluation Position Standing Weight Distribution Weight Shifted Left Skin Assessment Edema Assessment right forearm Edema Type Non-Pitting Edema Appearance Puffy Comments 50 cent piece size right forearm right LE Edema Type Pitting Edema Degree 2+ Edema Appearance Discolored,Shiny,Taut PT-OP-K Range of Motion Start: 07/14/20 16:09 Freq: Status: Active Protocol: Document 07/15/20 09:59 [facility] (Rec: 07/15/20 10:24 [facility] [id number]) Hip Goniometric Range of Motion Hip ronni Hip ROM WFL No Comments left WNL with PSLR 70. Right PSLR 45 with c/o pain posterior thigh Knee Goniometric Range of Motion Knee ronni Knee ROM WFL No Knee ROM Limitations Comments left WNL, right mildly decreased due to swelling and knee pain (chronic) Ankle and Foot Goniometric Range of Motion Ankle and Foot right Ankle/Foot ROM WFL No Dorsiflexion with Knee Flexed 5 Dorsiflexion with Knee Extended 0 Left Ankle/Foot ROM WFL Yes PT-OP-L Special Tests Start: 07/14/20 16:09 Freq: Status: Active Protocol: Document 07/15/20 09:59 [facility] (Rec: 07/15/20 10:24 [facility] [id number]) Special Tests Hip Special Tests Straight Leg Raise Test Results positive for tightness and pain in hamstring right PT-OP-Q Treatments Start: 07/14/20 16:09 Freq: Status: Active Protocol: Document 08/17/20 10:35 [facility] (Rec: 08/17/20 11:28 [facility] [id number]) Cardio Equipment Recumbent Bicycle Duration (Minutes) 10 Resistance 4 Seat Position 7 Therapeutic Exercises Supine Exercises Straight Leg Raise Side bilateral Reps/Minutes 2x10 Bridging Reps/Minutes 2x10 Sidelying Exercises Clamshells Side bilateral Reps/Minutes 1x10 ronni Sitting Exercises hamstring stretch Side bilateral Reps/Minutes 2x30 seconds Standing Exercises hip ext Standing Exercise Name Hip Ext Side bilateral Equipment Used TB#2 Reps/Minutes 2x10 Bilateral Comments Modified range due to pain. VC for spinal extension hip abd/ext Standing Exercise Name Hip Abduction/extension Side bilateral Resistance #2 TB Reps/Minutes 2x10 Comments Modified by stepping to side and stepping back due to R knee pain Manual Therapy Treatment Taping 1 Body Location R knee Treatment Focus pain management Type of Tape Kinesio Tape Skin Inspection no adverse reactions to tape Comments 2 Y strips 2 Body Location Right Forearm Hematoma Treatment Focus Edema Reduction Type of Tape Kinesio Tape Skin Inspection no adverse reactions to tape Comments 2 fan strips Self-Care/Home Management Treatment Education Other Education self-kinesiotaping PT-OP-R Modalities Start: 07/14/20 16:09 Freq: Status: Active Protocol: Document 08/09/20 12:48 MA (Rec: 08/09/20 13:09 MA [id number]) Ultrasound Therapy Treatment Right Forearm Treatment Duration (minutes) 8 Patient Position Hooklying Coupling Medium Ultrasound Gel Frequency Setting (mHz) 2 Mode Setting Continuous Duty Cycle 100% Intensity Setting (w/cm2) 1.0 Comments Hematoma R forearm PT-OP-T Assessment and Plan Start: 07/14/20 16:09 Freq: Status: Active Protocol: Document 08/17/20 10:35 SAK (Rec: 08/17/20 11:28 SAK [id number]) Physical Therapy Assessment Goals Four Impairment swelling right LE, hematoma right forearm Channel Marketing Manager Goal (LTG) Minimize swelling right LE and right forearm to allow for full, painfree use of right forearm and LE LTG Duration 09/14/20 Three Impairment hamstring pain and tightness right LE Short Term Goal (STG) Patient to be independent in ther ex for purposes of edema reduction and gentle hamstring stretching and ROM STG Duration 07/21/20 Assisted Goal (LTG) PSLR right to at least 70 degrees 08/13-Goal Met (R 80 degrees, L 72) LTG Duration 09/14/20 Two Impairment limited ability to ambulate Short Term Goal (STG) Patient able to ambulate on level surfaces without an increase in pain Goal Met- 08/13 STG Duration 08/14/20 Assisted Goal (LTG) Patient able [place] with minimal to no pain Goal Met- 08/13 LTG Duration 09/14/20 One Impairment pain right LE at rest and with ADL's Assisted Goal (LTG) Decrease pain to no greater than 2/10 during all ADL's 08/13- pt says about 80% of the time he has no pain with HEP LTG Duration 09/14/20 Physical Therapy Plan Frequency and Duration Frequency of Treatment 2x/Week Duration of Treatment 8 wks Plan of Care Start Date 07/15/20 Plan of Care End Date 09/13/20 Discharge Physical Therapy Discharge Reasons Goals Met
--- NOTE | 2020-08-17 11:28 | PT.OPDS ---
Current Diagnoses Nontraumatic hematoma of soft tissue (08/17/20) Soft tissue disorder, unspecified (08/17/20) Contusion of right lower leg, initial encounter (08/17/20) Visit Care Team Role Provider Type Mark Palafox MD Attending Provider Physician Primary Care Provider Referring Provider Specialty: Internal Medicine Address: [address] [place] [address], [facility] Email: [email or web address] Visit Number Visit Number 8 Discharge Summary PT-OP-B Current Condition Start: 07/14/20 16:09 Freq: Status: Active Protocol: Document 07/22/20 09:22 SAK (Rec: 07/22/20 09:52 SAK [id number]) Current Condition History of Current Condition Onset Date 2 weeks ago Current Complaints right LE brusing and pain limiting activity History of Current Condition Patient reports after drive to [employer] noticed swelling and bruising in his right LE, no known reason. Went to ER, negative for clot. Returned to his physician at home, diagnosed as hematoma. Also reports hematoma on right forearm which he feels is a result of pushing up from a chair aginst his forearm. States the swelling has gone down significantly in his LE though persists, pain is limiting his ability to walk and do his usual activities. PT-OP-C Subjective Start: 07/14/20 16:09 Freq: Status: Active Protocol: Document 08/17/20 10:35 SAK (Rec: 08/17/20 11:28 SAK [id number]) OP-PT Subjective Patient Comments Patient Comments Patient reports feeling ready for discharge after today, doing well, minimal soreness, compliant to HEP. PT-OP-F Manual Assessment Start: 07/14/20 16:09 Freq: Status: Active Protocol: Document 07/15/20 09:59 SAK (Rec: 07/15/20 10:24 SAK [id number]) Manual Assessments Soft Tissue Assessment Soft Tissue Mobility Assessment tender to palpation throughout hamstring on right PT-OP-G Mobility & Gait Start: 07/14/20 16:09 Freq: Status: Active Protocol: Document 07/15/20 09:59 SAK (Rec: 07/15/20 10:24 SAK [id number]) OP Gait Assessment Gait Gait Assistance Required: Independent Assistive Devices Assistive Device None Gait Deviations General Gait Pattern Antalgic PT-OP-H Neuro Start: 07/14/20 16:09 Freq: Status: Active Protocol: Document 07/15/20 09:59 [facility] (Rec: 07/15/20 10:24 [facility] [id number]) Sensation Evaluation Gross Sensation Gross Sensation WNL Comments Summary Comments denies N/T PT-OP-J Posture/Palpation/Skin Start: 07/14/20 16:09 Freq: Status: Active Protocol: Document 07/15/20 09:59 [facility] (Rec: 07/15/20 10:24 [facility] [id number]) Posture Evaluation Position Standing Weight Distribution Weight Shifted Left Skin Assessment Edema Assessment right forearm Edema Type Non-Pitting Edema Appearance Puffy Comments 50 cent piece size right forearm right LE Edema Type Pitting Edema Degree 2+ Edema Appearance Discolored,Shiny,Taut PT-OP-K Range of Motion Start: 07/14/20 16:09 Freq: Status: Active Protocol: Document 07/15/20 09:59 [facility] (Rec: 07/15/20 10:24 [facility] [id number]) Hip Goniometric Range of Motion Hip ronni Hip ROM WFL No Comments left WNL with PSLR 70. Right PSLR 45 with c/o pain posterior thigh Knee Goniometric Range of Motion Knee ronni Knee ROM WFL No Knee ROM Limitations Comments left WNL, right mildly decreased due to swelling and knee pain (chronic) Ankle and Foot Goniometric Range of Motion Ankle and Foot right Ankle/Foot ROM WFL No Dorsiflexion with Knee Flexed 5 Dorsiflexion with Knee Extended 0 Left Ankle/Foot ROM WFL Yes PT-OP-L Special Tests Start: 07/14/20 16:09 Freq: Status: Active Protocol: Document 07/15/20 09:59 [facility] (Rec: 07/15/20 10:24 [facility] [id number]) Special Tests Hip Special Tests Straight Leg Raise Test Results positive for tightness and pain in hamstring right PT-OP-T Assessment and Plan Start: 07/14/20 16:09 Freq: Status: Active Protocol: Document 08/17/20 10:35 [facility] (Rec: 08/17/20 11:28 [facility] [id number]) Physical Therapy Assessment Goals Four Impairment swelling right LE, hematoma right forearm Usp Goal (LTG) Minimize swelling right LE and right forearm to allow for full, painfree use of right forearm and LE LTG Duration 09/14/20 Three Impairment hamstring pain and tightness right LE Short Term Goal (STG) Patient to be independent in ther ex for purposes of edema reduction and gentle hamstring stretching and ROM STG Duration 07/21/20 Certified Professional Coder Goal (LTG) PSLR right to at least 70 degrees 08/13-Goal Met (R 80 degrees, L 72) LTG Duration 09/14/20 Two Impairment limited ability to ambulate Short Term Goal (STG) Patient able to ambulate on level surfaces without an increase in pain Goal Met- 08/13 STG Duration 08/14/20 Usp Goal (LTG) Patient able to resume taking walks in the [facility] with minimal to no pain Goal Met- 08/13 LTG Duration 09/14/20 One Impairment pain right LE at rest and with ADL's Certified Professional Coder Goal (LTG) Decrease pain to no greater than 2/10 during all ADL's 08/13- pt says about 80% of the time he has no pain with HEP LTG Duration 09/14/20 Physical Therapy Plan Frequency and Duration Frequency of Treatment 2x/Week Duration of Treatment 8 wks Plan of Care Start Date 07/15/20 Plan of Care End Date 09/13/20 Discharge Physical Therapy Discharge Reasons Goals Met
== END 2020-09-06 09:57 ==
LOC: PHYS 10:30
PROVIDERS: PCP Internal Medicine; Referring Provider Internal Medicine; Visit Provider Internal Medicine
DX: S80.11XA Contusion of right lower leg, initial encounter (principal); M79.81 Nontraumatic hematoma of soft tissue; M79.9 Soft tissue disorder, unspecified
CPT/HCPCS: 97010; 97035; 97110; 97140; 97162

== ENCOUNTER → 2020-08-17 12:57 | Outpatient (CLI) | payer MEDICARE, OTHER, SELFPAY ==
[2020-08-17 14:13] LABS: INR 2.6 (0.9-1.3); Prothrombin Time 29.3 SECONDS (10.1-12.7)
== END ==
PROVIDERS: PCP Internal Medicine; Referring Provider Internal Medicine; Visit Provider Internal Medicine
DX: I48.91 Unspecified atrial fibrillation (principal)
CPT/HCPCS: 36415; 85610

== ENCOUNTER → 2021-01-01 09:16 | Outpatient (CLI) | payer OTHER, SELFPAY ==
[2021-01-01 10:27] LABS: Add Manual Diff / Slide Review NO; Basophils Absolute Auto 0 /uL (0-100); Basophils Percent Auto 0.8 % (0-2); Eosinophils Absolute Auto 200 /uL (0-450); Eosinophils Percent Auto 3.5 % (2-4); Hemoglobin 12.7 g/dL (13.5-17.5); Lymphocytes Absolute Auto 1000 /uL (1100-4500); Lymphocytes Percent Auto 19.2 % (25-40); Mean Corpuscular HGB Conc 33.3 % (30-36); Mean Corpuscular Hemoglobin 34.2 PG (26-34); Mean Corpuscular Volume 102.7 fL (80-100); Monocytes Absolute Auto 800 /uL (0-900); Monocytes Percent Auto 15.1 % (3-14); Neutrophils Absolute Auto 3100 /uL (1500-7000); Neutrophils Percent Auto 61.4 % (50-75); Platelet Count 147 X10^3/uL (150-400); Red Cell Distribution Width 13.6 % (11.6-14.8)
[2021-01-01 10:37] LABS: Alanine Aminotransferase 30 IU/L (<50); Albumin 4.2 g/dL (3.5-5.0); Albumin Globulin Ratio 1.7 (1.0-2.8); Alkaline Phosphatase 81 U/L (38-126); Aspartate Aminotransferase 46 IU/L (17-59); BUN Creatinine Ratio 25.3 (6-22); Bilirubin Total 0.4 mg/dL (0.2-1.3); Blood Urea Nitrogen 25 mg/dL (9-20); Calcium 9.3 mg/dL (8.4-10.2); Carbon Dioxide 30 mmol/L (22-32); Chloride 102 mmol/L (98-107); Estimated Glomerular Filt Rate > 60.0 mL/min (>60); Globulin 2.5 g/dL (1.7-4.1); Glucose 142 mg/dL (80-110); HEMOLYSIS < 15 (0-50); Sodium 138 mmol/L (137-145); Total Protein 6.7 g/dL (6.3-8.2)
[2021-01-01 11:19] LABS: Erythrocyte Sedimentation Rate 23 MM/HR (0-15)
== END ==
PROVIDERS: PCP Internal Medicine; Referring Provider Nurse Practitioner; Visit Provider Nurse Practitioner
DX: M05.09 Felty's syndrome, multiple sites (principal); Z79.899 Other long term (current) drug therapy
CPT/HCPCS: 36415; 80053; 85025; 85651; 86140

== ENCOUNTER → 2021-01-31 12:30 | Outpatient (CLI) | payer OTHER, SELFPAY ==
[2021-01-31 13:29] LABS: Add Manual Diff / Slide Review NO; Basophils Absolute Auto 100 /uL (0-100); Basophils Percent Auto 0.9 % (0-2); Eosinophils Absolute Auto 100 /uL (0-450); Eosinophils Percent Auto 2.3 % (2-4); Hemoglobin 12.3 g/dL (13.5-17.5); Lymphocytes Absolute Auto 900 /uL (1100-4500); Lymphocytes Percent Auto 16.1 % (25-40); Mean Corpuscular HGB Conc 33.2 % (30-36); Mean Corpuscular Volume 102.4 fL (80-100); Monocytes Absolute Auto 900 /uL (0-900); Monocytes Percent Auto 15.7 % (3-14); Neutrophils Absolute Auto 3800 /uL (1500-7000); Platelet Count 154 X10^3/uL (150-400); Red Blood Cell Count 3.62 X10^6/uL (4.5-5.9); Red Cell Distribution Width 13.3 % (11.6-14.8); White Blood Cell Count 5.8 X10^3/uL (4.5-11.0)
[2021-01-31 13:57] LABS: Carbon Dioxide 28 mmol/L (22-32); Chloride 104 mmol/L (98-107); HEMOLYSIS < 15 (0-50); Sodium 138 mmol/L (137-145)
== END ==
PROVIDERS: PCP Internal Medicine; Referring Provider Orthopaedic Surgery; Visit Provider Orthopaedic Surgery
DX: Z01.818 Encounter for other preprocedural examination (principal); Z01.812 Encounter for preprocedural laboratory examination
CPT/HCPCS: 36415; 80051; 85025; 93005; 93010

== ENCOUNTER → 2021-03-02 08:57 | Outpatient (CLI) | payer OTHER, SELFPAY ==
[2021-03-02 11:09] LABS: COVID19 -Nasal RAPID Negative (Negative)
== END ==
PROVIDERS: PCP Internal Medicine; Visit Provider Physician Assistant
DX: Z20.822 Contact with and (suspected) exposure to COVID-19
CPT/HCPCS: 87635; C9803

== ENCOUNTER 2021-03-05 12:00 | Observation (INO) | payer OTHER, SELFPAY ==
[2021-02-24 09:44] VITALS: BMI 25.8
[2021-03-04] VITALS (12 sets, daily range): BP systolic 107–149; BP diastolic 55–80; PULSE 60–73; RESP 13–18; TEMP 36.1–36.6; O2SAT 91–97; BMI 25.8
--- NOTE | 2021-03-04 | DI.RAD.S_ITS ---
PROCEDURE: XR KNEE RT 1TO2V INDICATIONS: UNI REVISION TO TOTAL TECHNIQUE: 2 view(s) of the knee acquired. COMPARISON: [facility], CR, XR KNEE RT 3V, 05/17/2020, 10:41. FINDINGS: Bones: Patient is status post knee joint arthroplasty. Hardware components are in expected positions. Visualized bony structures are intact. Soft tissues: Overlying postoperative changes are noted. IMPRESSION: Expected postoperative appearance Dictated by: Medhat Lewis M.D. on 03/04/2021 at 11:38 Approved by: Medhat Lewis M.D. on 03/04/2021 at 11:39
[2021-03-04] MEDS: LACTATED RINGERS 1,000 ML 42 ML IV (07:17)
[2021-03-04] MEDS: CELECOXIB 200 MG CAPSULE PO (07:32)
[2021-03-04] MEDS: ACETAMINOPHEN 325 MG TABLET 975 MG PO (07:32)
--- NOTE | 2021-03-04 07:54 | PM.PREOP ---
Pre-operative Note COVID-19 COVID-19 status: Negative Interval Note History & Physical reviewed/Exam performed by Physician: Yes Changes to H&P: No
--- NOTE | 2021-03-04 07:55 | PM.OP.1 ---
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 The nature of the procedure including the risks and benefits, alternatives, postoperative course and expected outcome were discussed and all questions answered. Consent was obtained. Operative site confirmed and marked. Surgeon: Odell Alonso Animal Laboratory Helper: Josue Jordan Anesthesia Type: General, Peripheral nerve block and Local Operative Notes Findings: There was severe arthritic change of the patellofemoral and lateral compartments. There was mild wear of the polyethylene. No loosening of the medial compartment arthroplasty. The previous components were removed with minimal bone loss. Standard cuts were made on the femur which incorporated all of the previous bone cuts. A deeper tibial cut was made removing approximately 15 mm off the lateral side and about 1-2 mm off the medial side. Bone quality was adequate. No specific balancing was needed other than routine soft tissue exposure and osteophyte removal. Knee was nicely balanced in flexion extension with a 15 mm nonconstrained polyethylene tray. Closure Type: primary Specimen(s): none sent Prosthetic devices, grafts, tissues, transplants, or devices: Stock and Nephew Irene BCS: 6 femoral component, 5 tibial component with 100 mm x 16 mm stem, 15 mm BCS polyethylene tray and 35 x 9 mm round patella Applied: implant(s) Estimated Blood Loss (mL): 10 Blood products transfused: none Tourniquet time (min): 80 Procedure in detail: The patient was taken to the operative suite and placed under anesthesia. The patient was given prophylactic antibiotics prior to surgery. The patient was also given tranexamic acid, 1 g, just prior to surgery for postoperative hemostasis. The knee was then prepped and draped in usual sterile fashion. The leg was exsanguinated with an Esmarch dressing and the tourniquet raised to 250 torr. A 15 cm anterior incision was made utilizing the previous incision for the partial knee replacement. Next a medial trivector arthrotomy was made. The extensor mechanism was marked to ensure accurate repair. Initial exposing dissection was carried out medially and laterally. The knee was then flexed and the intramedullary femoral guide deborah placed. The femoral component was removed with osteotomes. There was minimal bone loss. The distal femoral cut was made in 6? of valgus at the +0 position. The femoral size was measured and the appropriate cutting block was then placed and the anterior, posterior and chamfer cuts made. The femoral cuts fully incorporated the prior cuts for the partial knee. Tibial component was then removed with osteotomes. There was minimal bone loss. The intramedullary tibial alignment deborah was then placed. The guide was set to remove approximately 15 mm from the less affected lateral side. This took about 1-2 mm off the medial side. The proximal tibial cut was then made with an oscillating saw. All meniscus and bony debris was then removed. Posterior femoral osteophytes removed with a curved osteotome. Flexion extension gaps were checked. No specific balancing was required other than routine exposure and removal of osteophytes. The soft tissues were then injected with a combination of 20 mL of half percent Marcaine with epinephrine and 20 mL of Exparel. The trial components were then placed. The knee was then extended and the patellar thickness was measured and a cut made removing approximately 9 mm of bone. The patella was then sized and drilled. Some excess lateral bone was excised and the patellofemoral ligament released. The knee went into full extension and flexion beyond 130?. There was excellent medial-lateral balance throughout motion. Patellar tracking was excellent. The trial components were removed and the knee was cleansed with Pulsavac irrigation and dried. The final components were cemented with high viscosity vacuum mixed bone cement with antibiotics. The joint was filled with a dilute Betadine solution. The knee was held in extension and the patellar clamped until the cement was adequately cured. The knee was then irrigated. The extensor mechanism was closed with 5 interrupted #1 Vicryl sutures and a running Quill suture at approximately 90 degrees of flexion. The joint was then injected with a combination of 1 g of tranexamic acid and 20 mL of quarter percent Marcaine with epinephrine. The subcutaneous tissue was closed with 2 0 Vicryl. The skin was closed with monica as there was very little subcutaneous tissue. An Oscar dressing and Yves wrap were then applied. The patient tolerated the procedure well and was returned to recovery room in good condition. Complications: none Post-operative Condition: stable Disposition: PACU Plan for aftercare: [facility] Protocol.
--- NOTE | 2021-03-04 07:57 | SUR.PREOP ---
Block start time [0744] . Monitoring initiated and maintained throughout procedure. Oxygen and medications given per anesthesiologist instructions. Patient remained stable throughout procedure, no adverse reactions noted. Block end time [0748]. Pt in chronic A-fib. Retake on vitals at 0752 r/t low reading at 0749
[2021-03-04] MEDS: CEFAZOLIN 1 GM VIAL 2 GM IV ×2 (08:12→16:26)
--- NOTE | 2021-03-04 08:23 | SUR.OPER ---
Supine on padded OR bed. Pillow under head, arms secured on padded armboards <90 degree abduction. Safety belt across torso. Non-operative leg secured with tape over blanket over lower leg. Operative leg secured in DeMayo/Tariq positioner. Foam padded brace at thigh of operative leg.
[2021-03-04] MEDS: BUPIVACAINE 0.25% W/ EPI (PF) 40 ML, BUPIVACAINE LIPOSOME 266 MG, SODIUM CHLORIDE 0.9% ... INJ (08:45)
[2021-03-04] MEDS: TRANEXAMIC ACID 1,000 MG in SODIUM CHLORIDE 0.9% 100 ML 200 ML IV (08:45)
[2021-03-04] MEDS: BUPIVACAINE 0.25% W/ EPI (PF) 20 ML, TRANEXAMIC ACID 1,000 MG, SODIUM CHLORIDE 0.9% 10 ML INJ (08:52)
[2021-03-04] MEDS: LACTATED RINGERS 1,000 ML 100 ML IV ×2 (11:00→22:56)
--- NOTE | 2021-03-04 12:15 | PT.IIE ---
Current Diagnoses Unilateral primary osteoarthritis, right knee (03/04/21) Surgery Performed Operation Date: 03/04/21 07:45 Actual Procedures p Revision unicompartmental to total knee arthroplasty(Right) - Odell Alonso MD Surgical History (Last Reviewed 05/26/20 @ 17:11 by Alok Feliciano DO) History of lumbar laminectomy Hx of angioplasty (~1984) Hx of arthroscopy of right knee Hx of bilateral cataract extraction Hx of bilateral inguinal hernia repair Hx of CABG (~2003) Hx of elbow surgery Hx of lumbosacral spine surgery (~2008) Hx of mitral valve repair (~2003) S/P right unicompartmental knee replacement Status post correction of deviated nasal septum Medical History (Last Updated 02/24/21 @ 12:20 by Mariama Cardenas RN) Acute bronchitis (~03/2019) Anemia Atrial fibrillation CAD (coronary artery disease) Cardiomyopathy Centrilobular emphysema Cerebrovascular accident (CVA) (~2003) CHF (congestive heart failure) Chronic anticoagulation Chronic sinusitis COPD (chronic obstructive pulmonary disease) DDD (degenerative disc disease) Depression ELENA (dyspnea on exertion) Edema Facet arthropathy, lumbar Fatty liver Former smoker HLD (hyperlipidemia) HTN (hypertension) Hypothyroidism due to amiodarone Mild cognitive impairment Myocardial infarction Obstructive sleep apnea syndrome Orthostatic hypotension Osteoarthritis Prostate cancer Raynaud's syndrome Rheumatoid arthritis Right arm fracture (~04/2016) Right knee DJD Scoliosis deformity of spine Physical Therapy Inpatient Evaluation/Re-Eval M1 PT/OT-IP Prior Functional Status Start: 03/04/21 13:07 Freq: NEEDED Status: Active Protocol: Document 03/04/21 12:15 AB (Rec: 03/04/21 13:20 [email or web address]) Medical Review Prior Functional Status Medical History Reviewed Yes Communication able to make needs known Mobility and Gait pt stated that he is independent with all mobilities and ambulation without AD Social History Household Members spouse Living Arrangements House Number of Floors (Floors) One Floor Number of Stairs To Enter/Railing? 2 platform steps without rails to enter from the front ( pt stated that he will use front steps) 2 steps without rails to enter from the garage Home Environment High Toilet,Walk in Shower Home Equipment Front Wheel Walker,Straight Cane,Grab Bars In Shower M2 PT-IP Current Condition Start: 03/04/21 13:07 Freq: NEEDED Status: Active Protocol: Document 03/04/21 12:15 AB (Rec: 03/04/21 13:20 AB [email or web address]) Physical Therapy Current Condition Current Condition Evaluation Date 03/04/21 Treatment Diagnosis s/p R TKA rev; difficulty in walking Onset Date 03/04/21 Weight Bearing Status Weight Bearing Status Weight Bear as Tolerated Allowed Weight Bearing Amount (enter % RLE WBAT or #) (%) M3 PT-IP Subjective Start: 03/04/21 13:07 Freq: NEEDED Status: Active Protocol: Document 03/04/21 12:15 AB (Rec: 03/04/21 13:20 AB [email or web address]) Subjective Physical Therapy Visit Type Type Initial Evaluation Visit Start Time 12:15 Visit Stop Time 13:00 Total Visit Minutes 45 Number of EMBROIDERY ASSISTANT Visits 0 Physical Therapy Visit Comments Patient Comments pt is agreeable to do PT Therapy Pain Assessment Pain When Pain Assessed At Rest Pain Present Pain Present Pain Reported Location Right Hip Intensity 3 Scale Used Numeric (0 - 10) Pain Management Techniques Apply Cold,Distraction, Modification of Treatment,Re- positioning,Timing of Activity with Medications M4 PT-IP Mobility and Gait Start: 03/04/21 13:07 Freq: NEEDED Status: Active Protocol: Document 03/04/21 12:15 AB (Rec: 03/04/21 13:20 AB [email or web address]) PT-Bed Mobility Assessment Supine to Sit Supine to Sit Standby Assistance Sit to Supine Sit to Supine Standby Assistance PT-Transfer Assessment Sit to and From Stand Sit to and from Stand Moderate Assistance,Maximum Assistance,1 Person Assistance ,Use of Upper Extremities Equipment Transfer Assistive Device Gait Belt,Front Wheeled Walker Orthotic/Prosthetic Devices or Brace: No Comments Mobility Comments pt stated that sensation is back on BLE with just sligh numbness on anterior thigh area. c/o 3/10 R hip pain. BP supine: 149/75. completed supine to sit SBA. pt was able to sit on EOB SBA. c/o slight dizziness. BP 121/79. completed sit to stand mod to max A and max cues. instructed pt to do marching in plance and unable due to decrearse RLE motor control and (+) foot drop. pt with R knee hyperextension. instructed pt to sit back down and required max A for controlled descent. pt completed sit to supine SBA and cues. positioned in bed. call light and table placed within reach. informed nurse regarding mobility. Gait Assessment Comments Gait Comments unable at thist ced PT-Balance Assessment Sitting Balance and Reactions Static Sitting Balance Ability Good Dynamic Sitting Balance Ability Good Standing Balance and Reactions Static Standing Balance Ability Poor Dynamic Standing Balance Ability Poor Device Used FWW M5 PT-IP Objective Assessments Start: 03/04/21 13:07 Freq: NEEDED Status: Active Protocol: Document 03/04/21 12:15 AB (Rec: 03/04/21 13:20 AB [email or web address]) Orientation Orientation/Cognition Level of Alertness Alert Orientation Name Language Function Ability No Deficits Noted Safety Awareness Understands Safety Issues Memory Description No Deficits Noted Gross Range of Motion Lower Extremity ROM Assessment Within Functional Limits Strength Lower Extremity Strength Assessment Right Impaired Hip 3+/5 Knee 3+/5 Ankle 2-/5 (+) foot drop Sensation Assessment Sensation Gross Sensation Right LE Impaired Sensation Description Numbness Comments Sensation Comments stated slight numbness on R anterior thigh area M6 PT-IP Treatment Start: 03/04/21 13:07 Freq: NEEDED Status: Active Protocol: Document 03/04/21 12:15 AB (Rec: 03/04/21 13:20 AB [email or web address]) Physical Therapy Treatment Education Education Provided Precautions,Weight Bearing Status,Post-Op Packet,Safety M7 PT-IP Assessment and Plan Start: 03/04/21 13:07 Freq: NEEDED Status: Active Protocol: Document 03/04/21 12:15 AB (Rec: 03/04/21 13:20 AB [email or web address]) PT Summary Assessment and Plan Potential Rehabilitation Potential Good Status of Condition at Evaluation Evolving Summary Impairments Pain,ROM,Strength,Balance, Coordination,Sensation,Tone, Cognition,Bed Mobility, Transfers,Gait,Activity Tolerance Assessment Summary pt s/p R TKA revision POD 0. pt still has slight numbness on R anterior thigh area and has (+) R foot drop. pt able to stand with max A but has decrease motor control and unable to ambulate at this time. will continue to assess progress for safe d/c plan. pt plans to go home with spouse to assist him. will conduct caregiver training when appropriate as well as stair climbing training. Goals Bed Mobility Goal Standby Assistance Transfer Goal Standby Assistance,Front Wheeled Walker Gait Goal Standby Assistance,Front Wheel Walker Gait Distance 200 Other Goals up/down 2 platform steps using FWW SBA Days to Meet Goals 5 Frequency of Treatment Frequency Of Treatment Twice a Day Treatment Plan Physical Therapy Treatment Plan Bed Mobility Training,Transfer Training,Gait Training, Therapeutic Exercise,Balance Retraining,Post Op Education, Discharge Planning,Hot or Cold Pack,Neuromuscular Re-ed, Coordination Retraining,Manual Therapy Precautions Other Precautions RLE WBAT Recommendations To Nursing Amount of Assist Needed PT/OT Assist Only Discharge Recommendations PT Discharge Recommendations Home with Assistance, Outpatient PT Transportation Needs at Discharge Private Vehicle
[2021-03-04 12:24] LABS: INR 1.3 (0.9-1.3); Prothrombin Time 14.4 SECONDS (10.1-12.7)
--- NOTE | 2021-03-04 13:33 | P.PCN_ITS ---
Procedures Date/Time Date of procedure: 03/04/21 Time of procedure: 07:49 Nerve Block Time out performed: Yes Local anesthetic used: lidocaine 1% (w/ epi 5mL + 10mL 0.5opivacaine) Location of anesthetic used: adductor canal Amount of anesthesia used (mL): 20 Nerve blocks: femoral (adductor canal) Procedure successful: Yes Patient tolerated procedure: well Complications: none Additional comments: Adductor canal block for post operative pain management. R/B discussed. Site marked. Consent verified/signed. Standard ASA monitors. NC O2. Chloroprep. Sterile technique. Femoral A/V/N identified medial mid thigh with US. Lidocaine skin wheal. 100mm x 21g Pajunk needle advanced with in-plane US guidance. Negative aspiration. LA injected medial and lateral to femoral artery. Negative aspiration throughout. No pain, no paresthesia with injection. VSS. Tolerated well. To OR.
--- NOTE | 2021-03-04 15:13 | PC.NURSE ---
Addendum entered by Ce Fuentes R.N. 03/04/21 15:15: TEMI dressing intact, functioning. Yves wrap to RLE Original Note: Pt arrived to floor with no pain and able to move BLE. Making needs known, heart healthy diet tolerated well. LR infusing to PIV. BA active. PT into see Pt and attempt to get OOB, foot drop to R LE, unable to safety ambulate. Full sensation to RLE, strength returning as shift ending. Denies pain, declines PO pain control at present. Call light in reach home CPAP provided. Glasses at bedside.
[2021-03-04] MEDS: WARFARIN 5 MG TABLET PO (16:26)
[2021-03-04] MEDS: HYDROMORPHONE 2 MG TABLET PO ×2 (18:40→22:55)
[2021-03-04] MEDS: ASPIRIN EC 81 MG TABLET PO (20:22)
[2021-03-04] MEDS: GABAPENTIN 300 MG CAPSULE 600 MG PO (20:22)
[2021-03-04] MEDS: TERAZOSIN 5 MG CAPSULE 10 MG PO (20:22)
[2021-03-04] MEDS: sulfaSALAzine 500 MG TABLET 1500 MG PO (20:22)
[2021-03-04] MEDS: ACETAMINOPHEN 325 MG TABLET 650 MG PO (20:22)
[2021-03-04] MEDS: MIRTAZAPINE 15 MG TABLET 30 MG PO (20:22)
[2021-03-04] MEDS: lisinopriL 5 MG TABLET PO (20:22)
[2021-03-04] MEDS: carvediloL 12.5 MG TABLET PO (20:22)
[2021-03-04] MEDS: DOCUSATE 100 MG CAPSULE PO (20:22)
[2021-03-04] MEDS: ATORVASTATIN 20 MG TABLET 80 MG PO (20:23)
[2021-03-05] VITALS (8 sets, daily range): BP systolic 67–125; BP diastolic 37–96; PULSE 61–85; RESP 14–19; TEMP 35.7–36.8; O2SAT 89–96
[2021-03-05] MEDS: CEFAZOLIN 1 GM VIAL 2 GM IV (00:11)
[2021-03-05] MEDS: HYDROMORPHONE 2 MG TABLET PO ×5 (02:08→17:14)
[2021-03-05] MEDS: ACETAMINOPHEN 325 MG TABLET 650 MG PO ×3 (03:08→20:39)
[2021-03-05] MEDS: LEVOTHYROXINE 100 MCG TABLET PO (05:44)
[2021-03-05 06:51] LABS: Hematocrit 29.6 % (41-53)
[2021-03-05] MEDS: ONDANSETRON 4 MG/2 ML INJ IV (07:53)
[2021-03-05] MEDS: ASPIRIN EC 81 MG TABLET PO ×2 (08:29→20:39)
[2021-03-05] MEDS: GABAPENTIN 300 MG CAPSULE 600 MG PO ×3 (08:30→20:38)
[2021-03-05] MEDS: carvediloL 12.5 MG TABLET PO ×2 (08:31→20:39)
[2021-03-05] MEDS: DOCUSATE 100 MG CAPSULE PO ×2 (08:31→20:38)
[2021-03-05] MEDS: POTASSIUM CHLORIDE 10 MEQ TAB 30 MEQ PO (08:47)
[2021-03-05] MEDS: PANTOPRAZOLE DR 20 MG TABLET PO (08:48)
[2021-03-05] MEDS: DULOXETINE 30 MG CAPSULE 60 MG PO (08:48)
[2021-03-05] MEDS: OXYBUTYNIN 5 MG ER TAB PO (08:48)
[2021-03-05] MEDS: sulfaSALAzine 500 MG TABLET 1500 MG PO ×2 (08:49→20:46)
[2021-03-05] MEDS: FERROUS SULFATE 325 MG TABLET PO (08:49)
[2021-03-05] MEDS: FOLIC ACID 1 MG TABLET 3 MG PO (08:49)
--- NOTE | 2021-03-05 09:52 | P.PN_ITS ---
Subjective Subjective Date Patient Seen: 03/05/21 Time Patient Seen: 09:52 Interval history: Patient states he is doing well overall and feels that his pain level has decreased significantly since last night. At this time the patient denies fever, chills, nausea, chest pain, shortness of breath, or urinary retention. He reports good sensation throughout the bilateral lower extremities. He explains he is looking forward to working with physical therapy today and possibly being discharged home. Exam Vital Signs (past 8 hours): - 03/05/21 04:26 03/05/21 07:44 Temperature 97.2 F L 97.7 F Pulse Rate 70 71 Respiratory Rate 16 19 Blood Pressure 120/60 99/56 L Pulse Oximetry 93 92 Oxygen Delivery Method Room Air Oxygen Flow Rate 0 Narrative Exam Narrative: Pleasant 75-year-old male postop day 1 status post revision of medial compartment arthroplasty to right total knee replacement. Patient is resting comfortably in bed, is in no acute distress, is alert and oriented x3. Skin is warm dry, and the skin surrounding the incision site is free of erythema, warmth, induration, or discharge. Scant amount of blood appreciated on the patient's mukund dressing over the incision, is otherwise intact. Good sensation appreciated throughout the bilateral lower extremities to light touch. Hip flexion performed bilaterally without difficulty or discomfort. Ankle dorsiflexion, plantar flexion, eversion, inversion performed bilaterally without difficulty or discomfort. Palpable pulses appreciated, capillary refill less than 2 seconds. Calves are soft nontender, negative Homans sign. No other signs of DVT appreciated. Const General: cooperative, healthy appearing and comfortable Resp Effort & Inspection: normal respiratory effort and able to speak in complete sentences Skin General: no rashes or lesions noted Objective Labs Result Diagrams: 03/05/21 06:31 Labs: Laboratory Results - last 24 hr 03/04/21 03/05/21 12:04 06:31 Hgb 10.0 L Hct 29.6 L PT 14.4 H INR 1.3 PFSH Medical History Acute bronchitis (~03/2019) Anemia Atrial fibrillation CAD (coronary artery disease) Cardiomyopathy Centrilobular emphysema Cerebrovascular accident (CVA) (~2003) CHF (congestive heart failure) Chronic anticoagulation Chronic sinusitis COPD (chronic obstructive pulmonary disease) DDD (degenerative disc disease) Depression ELENA (dyspnea on exertion) Edema Facet arthropathy, lumbar Fatty liver Former smoker HLD (hyperlipidemia) HTN (hypertension) Hypothyroidism due to amiodarone Mild cognitive impairment Myocardial infarction Obstructive sleep apnea syndrome Orthostatic hypotension Osteoarthritis Prostate cancer Raynaud's syndrome Rheumatoid arthritis Right arm fracture (~04/2016) Right knee DJD Scoliosis deformity of spine Surgical History History of lumbar laminectomy Hx of angioplasty (~1984) Hx of arthroscopy of right knee Hx of bilateral cataract extraction Hx of bilateral inguinal hernia repair Hx of CABG (~2003) Hx of elbow surgery Hx of lumbosacral spine surgery (~2008) Hx of mitral valve repair (~2003) S/P right unicompartmental knee replacement Status post correction of deviated nasal septum Social History household members: spouse Smoking Status: Former smoker Tobacco: How many years used: 8 alcohol intake: former Assessment & Plan Post-op Postoperative Procedures: Procedures Operation Date: 03/04/21 07:45 Actual Procedures Side Surgeon p Revision unicompartmental to total knee arthroplasty Right Odell Alonso MD Postoperative day: 1 Postoperative status: doing well Postoperative plan: ambulate Postoperative plan narrative: Patient is to work on ambulation with the assistance of a front wheeled walker with PT, he is also to work on stair [place]. Patient is to continue current pain management regimen as it is adequately controlling his pain level at this time. Dressing over the incision site is to remain intact for at least 1 week. Plan for discharge home likely today or tomorrow. Time Spent With Patient Time with patient: 15-24 minutes
--- NOTE | 2021-03-05 10:08 | P.DS_ITS ---
History of Present Illness History of Present Illness Date Patient Seen: 03/05/21 Time Patient Seen: 10:08 Chief complaint: RT TKA *OPB* Narrative: Refer to previous HPI. 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 Following the procedure the patient has been convalescing appropriately in his pain has been managed with his current pain management regimen. Throughout the course of his stay in the hospital the patient has denied fever, chills, nausea, chest pain, shortness of breath, or urinary retention. Patient has successfully worked on ambulation and stair [facility] with physical therapy. The dressing over the incision site has remained intact following the procedure. Aspirin 81 mg has been administered for DVT prophylaxis with the assistance of sequential compression devices. Patient has remained in weight-bearing as tolerated status with the assistance of a front wheeled walker. Status at Discharge Cognitive/behavioral status at discharge: oriented Functional status at discharge: uses cane/walker Overall status at discharge: patient is progressing back to baseline Exam Vital Signs (past 8 hours): - 03/05/21 04:26 03/05/21 07:44 Temperature 97.2 F L 97.7 F Pulse Rate 70 71 Respiratory Rate 16 19 Blood Pressure 120/60 99/56 L Pulse Oximetry 93 92 Oxygen Delivery Method Room Air Oxygen Flow Rate 0 Narrative Exam Narrative: Pleasant 75-year-old male postop day 1 status post revision of medial compartment arthroplasty to right total knee replacement. Patient is resting comfortably in bed, is in no acute distress, is alert and oriented x3. Skin is warm dry, and the skin surrounding the incision site is free of erythema, warmth, induration, or discharge. Scant amount of blood appreciated on the patient's mukund dressing over the incision, is otherwise intact. Good sensation appreciated throughout the bilateral lower extremities to light touch. Hip flexion performed bilaterally without difficulty or discomfort. Ankle dorsiflexion, plantar flexion, eversion, inversion performed bilaterally without difficulty or discomfort. Palpable pulses appreciated, capillary refill less than 2 seconds. Calves are soft nontender, negative Homans sign. No other signs of DVT appreciated. Const General: cooperative, healthy appearing and comfortable Resp Effort & Inspection: normal respiratory effort and able to speak in complete sentences Skin General: no rashes or lesions noted Objective Labs Result Diagrams: 03/05/21 06:31 Labs: Laboratory Results - last 24 hr 03/04/21 03/05/21 12:04 06:31 Hgb 10.0 L Hct 29.6 L PT 14.4 H INR 1.3 PFSH Medical History Acute bronchitis (~03/2019) Anemia Atrial fibrillation CAD (coronary artery disease) Cardiomyopathy Centrilobular emphysema Cerebrovascular accident (CVA) (~2003) CHF (congestive heart failure) Chronic anticoagulation Chronic sinusitis COPD (chronic obstructive pulmonary disease) DDD (degenerative disc disease) Depression ELENA (dyspnea on exertion) Edema Facet arthropathy, lumbar Fatty liver Former smoker HLD (hyperlipidemia) HTN (hypertension) Hypothyroidism due to amiodarone Mild cognitive impairment Myocardial infarction Obstructive sleep apnea syndrome Orthostatic hypotension Osteoarthritis Prostate cancer Raynaud's syndrome Rheumatoid arthritis Right arm fracture (~04/2016) Right knee DJD Scoliosis deformity of spine Surgical History History of lumbar laminectomy Hx of angioplasty (~1984) Hx of arthroscopy of right knee Hx of bilateral cataract extraction Hx of bilateral inguinal hernia repair Hx of CABG (~2003) Hx of elbow surgery Hx of lumbosacral spine surgery (~2008) Hx of mitral valve repair (~2003) S/P right unicompartmental knee replacement Status post correction of deviated nasal septum Social History household members: spouse Smoking Status: Former smoker Tobacco: How many years used: 8 alcohol intake: former Discharge Assessment & Plan Assessment and Plan Assessment: Patient is doing well. Plan of Treatment: Patient is to continue outpatient physical therapy following discharge from the hospital. First postoperative visit is scheduled in clinic 2 weeks following discharge from the hospital. Patient is to remain weight-bearing as tolerated with the assistance of a front wheeled walker. Current pain management regimen is to be continued as it is adequately controlled the patient's pain level at this time. Aspirin 81 mg twice daily is to be continued for 6 weeks for DVT prophylaxis. Dressing over the incision site is to remain intact until the 1st postoperative visit in clinic. Patient is to contact clinic with any concerns or questions. Any signs of increased pain, swelling, redness, warmth, or discharge from around the incision site should be reported to the clinic. Standard total knee replacement protocol. Discharge Plan Discharge Plan Patient Disposition: Home Provider Discharge Comment: Patient cleared for discharge pending PT approval. Discharge orders & Medications Discharge Orders: Discharge (Order); Ordered 03/05/21 Ordered By: Josue Jordan Prescriptions: New acetaminophen 325 mg Tablet 650 mg PO TID Qty: 90 RF: 0 aspirin 81 mg Tablet,Delayed Release (Dr/Ec) 81 mg PO BID Qty: 90 RF: 0 oxycodone 10 mg Tablet 10 mg PO Q3HR PRN (Reason: Pain, Severe (7-10)) Qty: 42 RF: 0 Continued aspirin 81 mg Tablet,Delayed Release (Dr/Ec) 81 mg PO DAILY Qty: 0 RF: 0 multivitamin Capsule 1 cap PO DAILY Qty: 0 RF: 0 atorvastatin [Lipitor] 80 MG tablet 80 mg PO HS Qty: 0 RF: 0 cholecalciferol (vitamin D3) [Vitamin D3] 2,000 unit Capsule 2,000 unit PO DAILY Qty: 0 RF: 0 folic acid 1 MG tablet 3 mg PO QDAY Qty: 0 RF: 0 gabapentin [Neurontin] 300 MG capsule 600 mg PO TID Qty: 0 RF: 0 furosemide 40 MG tablet 60 mg PO QDAY Qty: 0 RF: 0 magnesium oxide 400 MG tablet 400 mg PO Q24H Qty: 0 RF: 0 potassium chloride [Klor-Con M20] 20 MEQ tablet,ER particles/crystals 30 meq PO AMCC Qty: 0 RF: 0 sulfasalazine 500 MG tablet 1,500 mg PO BID Qty: 0 RF: 0 terazosin 10 MG capsule 10 mg PO HS Qty: 0 RF: 0 warfarin [Coumadin] 2.5 MG tablet 5 mg PO SEEINSTR Qty: 0 RF: 0 Ocuvite Adult 50 Plus 250-5-1 mg Capsule 1 cap PO DAILY RF: 0 carvedilol 12.5 mg Tablet 12.5 mg PO BID RF: 0 oxybutynin chloride 5 mg Tablet Extended Release 24hr 5 mg PO DAILY RF: 0 cyanocobalamin (vitamin B-12) [Vitamin B-12] 1,000 mcg Tablet 1,000 mcg PO DAILY RF: 0 lisinopril 5 mg Tablet 5 mg PO SEEINSTR RF: 0 calcium carbonate-vitamin D3 [Calcium 500 + D] 500 mg(1,250mg) -200 unit Tablet 1 tab PO BID RF: 0 mirtazapine 15 mg tablet 30 mg PO BEDTIME RF: 0 duloxetine 60 mg Capsule,Delayed Release(Dr/Ec) 60 mg PO DAILY RF: 0 levothyroxine 100 mcg Tablet 100 mcg PO DAILY RF: 0 PreserVision AREDS-2 250-90-40-1 mg Capsule 1 tab PO BID RF: 0 omeprazole 20 mg capsule,delayed release(DR/EC) 20 mg PO DAILY RF: 0 ferrous sulfate 324 mg (65 mg iron) tablet,delayed release (DR/EC) 324 mg PO DAILY RF: 0 Follow up/Referrals: Mark Palafox MD [Primary Care Provider] - Diet/Activity/Treatments Diet: Diet as Tolerated Activity: Weight-bearing as tolerated with the assistance of a front wheeled walker. Standard total knee replacement protocol. Skin/Wound/Dressing Care Report to your healthcare provider any signs of infection, such as:: chills, fever, night sweats, increased pain, unusual drainage and unusual redness Dressing: Mukund dressing over the incision site should remain intact for 1 week. Contact the clinic if it is become damaged or removed. Other wound treatment: Avoid soaking the incision or placing topical ointments over the incision site. Visit Report/Discharge Packet Instructions: DI for Knee Replacement Stand Alone Forms: Surgery Discharge Discharge Data Primary Care Provider: Mark Palafox V Attending Provider: Odell Alonso
--- NOTE | 2021-03-05 10:50 | PC.NURSE ---
Addendum entered by Ce Fuentes R.N. 03/05/21 15:34: Using scheduled meds for pain control, BP remains low, MAP 72 BP L Arm 91/37. Pt concerned about pain getting out of control and education provided for hypotention and pain control, and increased risk of falls. Pt has tolerated Spencer in past with no a/e. Requesting sleep aid, educated about stability in BP prior to adding more medication with potential effects. Call into [facility] x2 to update PA on cancelled DC order. No return call back at change of shift. Claudia MAHER updated on pain control and hypotension. Addendum entered by Ce Fuentes R.N. 03/05/21 12:45: Held AM lisinopril for low BP, when PT into see Pt again after toileting, Pt standing BP 60/30's. Mildly symptomatic. Dizziness reported, But standing with FWW and conversing with staff at this time, assisted to bed, then Trendelenburg. BP improved but marginally. Pt reporting increased pain. Held pain control until BP stable, Enc po intake which has been good this shift. Update to PT and as d/c planning needs may change. Original Note: Am shift, Pt has had pain control issues and is tolerating PO Dilaudid with fairly good pain control. Up with 2 PA and gait belt FWW, reporting dizziness, assisted to bed. Update to PT, LM on vocera. We will Ambulate after lunch to assess safety . Pt will be up to chair for lunch and staff will continue to enc ambulation. IS in use, IV SL. Urinal to void.
[2021-03-05] MEDS: FUROSEMIDE 40 MG TABLET 60 MG PO (11:06)
--- NOTE | 2021-03-05 11:24 | PT.IPTN ---
Current Diagnoses Unilateral primary osteoarthritis, right knee (03/04/21) Surgery Performed Operation Date: 03/04/21 07:45 Actual Procedures p Revision unicompartmental to total knee arthroplasty(Right) - Odell Alonso MD Physical Therapy Treatment Note M2 PT-IP Current Condition Start: 03/04/21 13:07 Freq: NEEDED Status: Active Protocol: Document 03/04/21 12:15 AB (Rec: 03/04/21 13:20 AB [id number]) Physical Therapy Current Condition Current Condition Evaluation Date 03/04/21 Treatment Diagnosis s/p R TKA rev; difficulty in walking Onset Date 03/04/21 Weight Bearing Status Weight Bearing Status Weight Bear as Tolerated Allowed Weight Bearing Amount (enter % RLE WBAT or #) (%) M3 PT-IP Subjective Start: 03/04/21 13:07 Freq: NEEDED Status: Active Protocol: Document 03/05/21 11:07 CLB (Rec: 03/05/21 12:22 CLB [id number]) Subjective Physical Therapy Visit Type Type Treatment Note Visit Start Time 11:07 Visit Stop Time 11:24 Total Visit Minutes 17 Number of SPRING ENCASER Visits 1 Physical Therapy Visit Comments Patient Comments Pt up in room with RN using BR . Pt willing to sit up in chair. Therapy Pain Assessment Pain When Pain Assessed During Mobility Pain Present Pain Present Pain Reported Location Right Hip Scale Used did not state M4 PT-IP Mobility and Gait Start: 03/04/21 13:07 Freq: NEEDED Status: Active Protocol: Document 03/05/21 11:07 CLB (Rec: 03/05/21 12:22 CLB [id number]) PT-Bed Mobility Assessment Sit to Supine Sit to Supine Contact Guard Assistance,Head of Bed Elevated PT-Transfer Assessment Comments Mobility Comments Pt up in room with RN upon arrival, RN stated pt felt dizzy but BP had not been taken. Pt BP in standing 74/46 pt states mild dizziness. Pt sat on EOB CGA and BP in sitting 73/39 right arm. Pt BP in sitting left arm 67/37, pt SBA to supine able to lift RLE onto bed independently. BP in supine 66/44, removed one of the pillow from under pt head and put bed in trendelenburg, pt BP 75/43. RN entered room and pt left in bed with alarm on in care of RN. Gait Assessment Gait Gait Assistance Required: Contact Guard Assist,1 Person Assist Distance (Feet) 10 Assistive Devices Assistive Device Gait Belt,Front Wheeled Walker Gait Deviations General Gait Pattern Antalgic,Decreased Stride Length,Decreased Feet Clearance Factors Limiting Gait Function Factors Limiting Gait Function Decreased Activity Tolerance, Decreased Strength,Pain,Poor Balance Comments Gait Comments Pt ambulated from BR to bedside. PT-Balance Assessment Sitting Balance and Reactions Static Sitting Balance Ability Good Dynamic Sitting Balance Ability Good Standing Balance and Reactions Static Standing Balance Ability Poor Dynamic Standing Balance Ability Poor Device Used FWW M5 PT-IP Objective Assessments Start: 03/04/21 13:07 Freq: NEEDED Status: Active Protocol: Document 03/04/21 12:15 AB (Rec: 03/04/21 13:20 AB [id number]) Orientation Orientation/Cognition Level of Alertness Alert Orientation Name Language Function Ability No Deficits Noted Safety Awareness Understands Safety Issues Memory Description No Deficits Noted Gross Range of Motion Lower Extremity ROM Assessment Within Functional Limits Strength Lower Extremity Strength Assessment Right Impaired Hip 3+/5 Knee 3+/5 Ankle 2-/5 (+) foot drop Sensation Assessment Sensation Gross Sensation Right LE Impaired Sensation Description Numbness Comments Sensation Comments stated slight numbness on R anterior thigh area M6 PT-IP Treatment Start: 03/04/21 13:07 Freq: NEEDED Status: Active Protocol: Document 03/04/21 12:15 AB (Rec: 03/04/21 13:20 AB [email or web address]) Physical Therapy Treatment Education Education Provided Precautions,Weight Bearing Status,Post-Op Packet,Safety M7 PT-IP Assessment and Plan Start: 03/04/21 13:07 Freq: NEEDED Status: Active Protocol: Document 03/05/21 11:07 CLB (Rec: 03/05/21 12:22 CLB [id number]) PT Summary Assessment and Plan Potential Rehabilitation Potential Good Status of Condition at Evaluation Evolving Summary Impairments Pain,ROM,Strength,Balance, Coordination,Sensation,Tone, Cognition,Bed Mobility, Transfers,Gait,Activity Tolerance Progress Towards Goals Slow Progress due to Medical Issues Assessment Summary Pt with low BP was unable to mobilize with PT this session. Goals Bed Mobility Goal Standby Assistance Transfer Goal Standby Assistance,Front Wheeled Walker Gait Goal Standby Assistance,Front Wheel Walker Gait Distance 200 Other Goals up/down 2 platform steps using FWW SBA Days to Meet Goals 5 Frequency of Treatment Frequency Of Treatment Twice a Day Treatment Plan Physical Therapy Treatment Plan Bed Mobility Training,Transfer Training,Gait Training, Therapeutic Exercise,Balance Retraining,Post Op Education, Discharge Planning,Hot or Cold Pack,Neuromuscular Re-ed, Coordination Retraining,Manual Therapy Other Recommendations and Next Treatment check BP, CG training with Focus if able. Precautions Other Precautions RLE WBAT Recommendations To Nursing Amount of Assist Needed 1 Person Assist Discharge Recommendations PT Discharge Recommendations Home with Assistance, Outpatient PT Transportation Needs at Discharge Private Vehicle
--- NOTE | 2021-03-05 13:24 | CM.IDA ---
Initial DCP Assessment Note Pt is a 75 yo female, resident of [place], now POD#1 from Rt knee surgery w/ Dr Alonso PCP: Mark Palafox Payer: [facility] Reviewed chart, pt discussed in multidisciplinary rounds this morning. Therapy has cleared pt for return home w/family to assist and pt has planned for home, DC order from Ortho has already been initiated this morning. Met w/patient and he explained he wasn't feeling well, was dizzy when he got up this morning. Patient told this SYSTEMS DEVELOPMENT CONSULTANT numerous times that it would be best if I left tomorrow. Educated patient re the following: Per [facility] guidelines, most typically a RT TKA is an outpatient procedure. If patients are transferred to the acute care floor for recovery, they often will DC POD#1 if they are cleared medically. Then suggested that patient have his Leah come in this afternoon for cg training and patient agreed to call his . Patient planned to DC w/spouse to assist, and therapy has cleared patient for this plan. Will follow closely in case any DC needs or concerns arise. URIEL Mora Discharge Planning/Care Management CM Discharge Assessment Start: 03/05/21 13:21 Freq: Status: Active Protocol: Document 03/05/21 13:22 LINDA (Rec: 03/05/21 13:24 LINDA [id number]) Discharge Planning Assessment Assigned Edi Architect URIEL Macario DPOA/Assigned Designee Name alice Royal Contact Information [phone] Advance Directives? Yes Advance Directives on File No History Provided By Patient Prior Living Arrangements House Household Members spouse Type of transporation used prior to Drives own vehicle admit Independent with ADL's Yes Is patient alert and oriented? Yes Patient/Family Preference OP PT Therapy Barriers to Discharge No Discharge Plan Home Transportation Arrangement Spouse Referrals Initiated None needed Additional Comment At this time Whiteboard Updated in Patient Room with Yes name and ext. # of Edi Architect Review Status In Process
--- NOTE | 2021-03-05 14:23 | PT.IPTN ---
Current Diagnoses Unilateral primary osteoarthritis, right knee (03/04/21) Surgery Performed Operation Date: 03/04/21 07:45 Actual Procedures p Revision unicompartmental to total knee arthroplasty(Right) - Odell Alonso MD Physical Therapy Treatment Note M2 PT-IP Current Condition Start: 03/04/21 13:07 Freq: NEEDED Status: Active Protocol: Document 03/04/21 12:15 AB (Rec: 03/04/21 13:20 AB [id number]) Physical Therapy Current Condition Current Condition Evaluation Date 03/04/21 Treatment Diagnosis s/p R TKA rev; difficulty in walking Onset Date 03/04/21 Weight Bearing Status Weight Bearing Status Weight Bear as Tolerated Allowed Weight Bearing Amount (enter % RLE WBAT or #) (%) M3 PT-IP Subjective Start: 03/04/21 13:07 Freq: NEEDED Status: Active Protocol: Document 03/05/21 13:52 CLB (Rec: 03/05/21 14:37 CLB [id number]) Subjective Physical Therapy Visit Type Type Treatment Note Visit Start Time 13:52 Visit Stop Time 14:23 Total Visit Minutes 31 Notes present Number of STATISTICAL TECHNICIAN Visits 2 Physical Therapy Visit Comments Patient Comments Pt states he has no dizziness. Therapy Pain Assessment Pain When Pain Assessed During Mobility Pain Present Pain Present Pain Reported Location Right Knee Scale Used did not state Pain Management Techniques Modification of Treatment,Re- positioning,Timing of Activity with Medications M4 PT-IP Mobility and Gait Start: 03/04/21 13:07 Freq: NEEDED Status: Active Protocol: Document 03/05/21 13:52 CLB (Rec: 03/05/21 14:37 CLB [id number]) PT-Bed Mobility Assessment Sit to Supine Sit to Supine Contact Guard Assistance,Head of Bed Elevated PT-Transfer Assessment Sit to and From Stand Sit to and from Stand Contact Guard Assistance,1 Person Assistance,Use of Upper Extremities Equipment Transfer Assistive Device Gait Belt,Front Wheeled Walker Orthotic/Prosthetic Devices or Brace: No Comments Mobility Comments Pt on EOB upon arrival, BP in sitting 89/63, MAP 71. Pt denied dizziness, pt ambulated around bed and back ~25ft w/FWW/CGA, Pt BP in standing after activity in standing 68/43, MAP 52. Pt returned to supine SBA, BP in supine 75/36, MAP 52. BP in [place] 91/52, MAP 66. Pt then performed ther ex in supine. Pt BP in semi seated position after ther ex. 90/52, MAP 66. Gait Assessment Gait Gait Assistance Required: Contact Guard Assist,1 Person Assist Distance (Feet) 25 Assistive Devices Assistive Device Gait Belt,Front Wheeled Walker Gait Deviations General Gait Pattern Antalgic,Decreased Stride Length,Decreased Feet Clearance Factors Limiting Gait Function Factors Limiting Gait Function Decreased Activity Tolerance, Decreased Strength,Pain,Poor Balance Comments Gait Comments Pt ambulated with cues for step/walker sequencing. Stair Climbing Assessment Comments Stair Climbing Comments needs stair training before d/ c. PT-Balance Assessment Sitting Balance and Reactions Static Sitting Balance Ability Good Dynamic Sitting Balance Ability Good Standing Balance and Reactions Static Standing Balance Ability Poor Dynamic Standing Balance Ability Poor Device Used FWW M5 PT-IP Objective Assessments Start: 03/04/21 13:07 Freq: NEEDED Status: Active Protocol: Document 03/04/21 12:15 AB (Rec: 03/04/21 13:20 AB [id number]) Orientation Orientation/Cognition Level of Alertness Alert Orientation Name Language Function Ability No Deficits Noted Safety Awareness Understands Safety Issues Memory Description No Deficits Noted Gross Range of Motion Lower Extremity ROM Assessment Within Functional Limits Strength Lower Extremity Strength Assessment Right Impaired Hip 3+/5 Knee 3+/5 Ankle 2-/5 (+) foot drop Sensation Assessment Sensation Gross Sensation Right LE Impaired Sensation Description Numbness Comments Sensation Comments stated slight numbness on R anterior thigh area M6 PT-IP Treatment Start: 03/04/21 13:07 Freq: NEEDED Status: Active Protocol: Document 03/05/21 13:52 CLB (Rec: 03/05/21 14:37 CLB [id number]) Physical Therapy Treatment Exercises Exercises Ankle Pumps,Quad Sets,Heel Slides,Straight Leg Raises, Short Arc Quads Education Education Provided Post-Op Packet,Safety M7 PT-IP Assessment and Plan Start: 03/04/21 13:07 Freq: NEEDED Status: Active Protocol: Document 03/05/21 13:52 CLB (Rec: 03/05/21 14:37 CLB [id number]) PT Summary Assessment and Plan Potential Rehabilitation Potential Good Status of Condition at Evaluation Evolving Summary Impairments Pain,ROM,Strength,Balance, Coordination,Sensation,Tone, Cognition,Bed Mobility, Transfers,Gait,Activity Tolerance Progress Towards Goals Slow Progress due to Medical Issues Assessment Summary See mobility section for BP. Pt ambulated ~25ft with BP decreasing but denied dizziness. Pt and concerned about pt BP. RN informed of pt BP and MAP during mobility. Goals Bed Mobility Goal Standby Assistance Transfer Goal Standby Assistance,Front Wheeled Walker Gait Goal Standby Assistance,Front Wheel Walker Gait Distance 200 Other Goals up/down 2 platform steps using FWW SBA Days to Meet Goals 5 Frequency of Treatment Frequency Of Treatment Twice a Day Treatment Plan Physical Therapy Treatment Plan Bed Mobility Training,Transfer Training,Gait Training, Therapeutic Exercise,Balance Retraining,Post Op Education, Discharge Planning,Hot or Cold Pack,Neuromuscular Re-ed, Coordination Retraining,Manual Therapy Other Recommendations and Next Treatment check BP, gait, stair training Focus , ther ex, CG training with Precautions Other Precautions RLE WBAT Recommendations To Nursing Amount of Assist Needed 1 Person Assist Discharge Recommendations PT Discharge Recommendations Home with Assistance, Outpatient PT Transportation Needs at Discharge Private Vehicle
[2021-03-05] MEDS: WARFARIN 5 MG TABLET PO (17:04)
--- NOTE | 2021-03-05 17:26 | PC.NURSE ---
BP dropped to 70/44 when he stood up. pt reports mild dizziness. pt was able to tolerate transferring from bed to chair. BP was 91/52 sitting position.
[2021-03-05] MEDS: ATORVASTATIN 20 MG TABLET 80 MG PO (20:38)
[2021-03-05] MEDS: MIRTAZAPINE 15 MG TABLET 30 MG PO (20:39)
[2021-03-05] MEDS: TERAZOSIN 5 MG CAPSULE 10 MG PO (20:46)
[2021-03-06 03:14] VITALS: BP 111/67; PULSE 86; RESP 18; TEMP 36.4; O2SAT 94
[2021-03-06] MEDS: HYDROMORPHONE 2 MG TABLET PO ×3 (03:22→15:00)
[2021-03-06] MEDS: LEVOTHYROXINE 100 MCG TABLET PO (06:07)
[2021-03-06] MEDS: POTASSIUM CHLORIDE 10 MEQ TAB 30 MEQ PO (08:31)
[2021-03-06] MEDS: ACETAMINOPHEN 325 MG TABLET 650 MG PO ×2 (08:32→14:59)
[2021-03-06 08:33] VITALS: BP 106/63; PULSE 101; RESP 17; TEMP 37.1; O2SAT 91
[2021-03-06] MEDS: FUROSEMIDE 40 MG TABLET 60 MG PO (08:34)
[2021-03-06] MEDS: ASPIRIN EC 81 MG TABLET PO (08:34)
[2021-03-06] MEDS: GABAPENTIN 300 MG CAPSULE 600 MG PO ×2 (08:36→15:00)
[2021-03-06] MEDS: FOLIC ACID 1 MG TABLET 3 MG PO (08:37)
[2021-03-06] MEDS: OXYBUTYNIN 5 MG ER TAB PO (08:37)
[2021-03-06] MEDS: FERROUS SULFATE 325 MG TABLET PO (08:37)
[2021-03-06] MEDS: DULOXETINE 30 MG CAPSULE 60 MG PO (08:37)
[2021-03-06] MEDS: DOCUSATE 100 MG CAPSULE PO (08:37)
[2021-03-06] MEDS: PANTOPRAZOLE DR 20 MG TABLET PO (08:38)
--- NOTE | 2021-03-06 09:41 | PM.PN.1 ---
Subjective Subjective Date Patient Seen: 03/06/21 Time Patient Seen: 09:42 Interval history: Roman notes he is feeling better overall. His pain is decreased and he says he is voiding without difficulty and has been getting around some with therapy. Exam Vital Signs (past 8 hours): - 03/06/21 03:14 03/06/21 08:33 Temperature 97.6 F 98.7 F Pulse Rate 86 101 H Respiratory Rate 18 17 Blood Pressure 111/67 106/63 Pulse Oximetry 94 91 Oxygen Delivery Method Room Air Oxygen Flow Rate 0 Narrative Exam Narrative: He is alert he is oriented his calfs are soft bilaterally he has a weak straight leg raise on the right, his dressings intact there is mild swelling in his knee Objective Labs Result Diagrams: 03/05/21 06:31 PFSH Medical History Acute bronchitis (~03/2019) Anemia Atrial fibrillation CAD (coronary artery disease) Cardiomyopathy Centrilobular emphysema Cerebrovascular accident (CVA) (~2003) CHF (congestive heart failure) Chronic anticoagulation Chronic sinusitis COPD (chronic obstructive pulmonary disease) DDD (degenerative disc disease) Depression ELENA (dyspnea on exertion) Edema Facet arthropathy, lumbar Fatty liver Former smoker HLD (hyperlipidemia) HTN (hypertension) Hypothyroidism due to amiodarone Mild cognitive impairment Myocardial infarction Obstructive sleep apnea syndrome Orthostatic hypotension Osteoarthritis Prostate cancer Raynaud's syndrome Rheumatoid arthritis Right arm fracture (~04/2016) Right knee DJD Scoliosis deformity of spine Surgical History History of lumbar laminectomy Hx of angioplasty (~1984) Hx of arthroscopy of right knee Hx of bilateral cataract extraction Hx of bilateral inguinal hernia repair Hx of CABG (~2003) Hx of elbow surgery Hx of lumbosacral spine surgery (~2008) Hx of mitral valve repair (~2003) S/P right unicompartmental knee replacement Status post correction of deviated nasal septum Social History household members: spouse Smoking Status: Former smoker Tobacco: How many years used: 8 alcohol intake: former Assessment & Plan Assessment & Plan narrative: Improving status post revision right total knee arthroplasty. He was considered a possible discharge yesterday but was having some issues related to his blood pressure. He had some orthostatic issues and he was kept an additional day to make sure that he had medically stabilized. At this point he is doing well plan is to work with him with physical therapy today and discharge him to home later in the afternoon.
[2021-03-06] MEDS: sulfaSALAzine 500 MG TABLET 1500 MG PO (10:05)
[2021-03-06 10:06] VITALS: BP 104/68; PULSE 98
[2021-03-06] MEDS: carvediloL 12.5 MG TABLET PO (10:06)
--- NOTE | 2021-03-06 10:15 | PT.IPTN ---
Current Diagnoses Unilateral primary osteoarthritis, right knee (03/04/21) Surgery Performed Operation Date: 03/04/21 07:45 Actual Procedures p Revision unicompartmental to total knee arthroplasty(Right) - Odell Alonso MD Physical Therapy Treatment Note M2 PT-IP Current Condition Start: 03/04/21 13:07 Freq: NEEDED Status: Active Protocol: Document 03/04/21 12:15 AB (Rec: 03/04/21 13:20 AB [id number]) Physical Therapy Current Condition Current Condition Evaluation Date 03/04/21 Treatment Diagnosis s/p R TKA rev; difficulty in walking Onset Date 03/04/21 Weight Bearing Status Weight Bearing Status Weight Bear as Tolerated Allowed Weight Bearing Amount (enter % RLE WBAT or #) (%) M3 PT-IP Subjective Start: 03/04/21 13:07 Freq: NEEDED Status: Active Protocol: Document 03/06/21 10:15 DLM (Rec: 03/06/21 10:44 DL [id number]) Subjective Physical Therapy Visit Type Type Treatment Note Visit Start Time 09:15 Visit Stop Time 10:15 Total Visit Minutes 60 Number of TECHNOLOGY TRAINING ASSOCIATE Visits 0 Physical Therapy Visit Comments Patient Comments He feels he is doing better, wants to go home Patient Goals discharge home Therapy Pain Assessment Pain When Pain Assessed During Mobility Pain Present Pain Present Pain Reported Location Right Knee Intensity 7 Scale Used Numeric (0 - 10) Description Aching Pain Behaviors Facial Grimacing,Guarding Pain Management Techniques Apply Cold,Elevation,Re- positioning,Timing of Activity with Medications M4 PT-IP Mobility and Gait Start: 03/04/21 13:07 Freq: NEEDED Status: Active Protocol: Document 03/06/21 10:15 DLM (Rec: 03/06/21 10:44 [facility] [id number]) PT-Bed Mobility Assessment Supine to Sit Supine to Sit Standby Assistance Sit to Supine Sit to Supine Standby Assistance Scooting Scooting to Edge of Bed Independent PT-Transfer Assessment Sit to and From Stand Sit to and from Stand Standby Assistance Equipment Transfer Assistive Device Gait Belt,Front Wheeled Walker Transfers Transfer Destination Bed Transfer Technique Stand Step Pivot Transfer Ability Level of Assist Standby Assistance Comments Mobility Comments good use of UE support during sit-stand, pt using left LE to assist right LE in/out of bed with some difficulty Gait Assessment Gait Gait Assistance Required: Standby Assistance Distance (Feet) 15 Able to Maintain Weight Bearing Status Yes During Gait Assistive Devices Assistive Device Gait Belt,Front Wheeled Walker Gait Deviations General Gait Pattern Antalgic,Decreased Stride Length Factors Limiting Gait Function Factors Limiting Gait Function Decreased Activity Tolerance, Decreased Strength,Limited Range of Motion,Pain Comments Gait Comments he fatigues quickly with gait with c/o right knee pain, good use of UE's on FWW to compensate for right LE weakness/pain Stair Climbing Assessment Evaluation Level of Assist On Stairs Contact Guard Assistance Devices Stair Climbing Assistive Devices Front Wheel Walker Technique/Endurance Stair Climbing Direction Ascend and Descend Stair Climbing Technique Step to Step Number of Steps Climbed 1 Stair Climbing Set # Repetitions (reps) 2 Comments Stair Climbing Comments pt going up step backwards and down forwards to maximize use of UE support on FWW for steps, he has large platform type steps at home and has the space to use this technique PT-Balance Assessment Sitting Balance and Reactions Static Sitting Balance Ability Good Dynamic Sitting Balance Ability Good Standing Balance and Reactions Static Standing Balance Ability Good Dynamic Standing Balance Ability Fair Device Used FWW M5 PT-IP Objective Assessments Start: 03/04/21 13:07 Freq: NEEDED Status: Active Protocol: Document 03/06/21 10:15 DL (Rec: 03/06/21 10:44 [facility] [id number]) Orientation Orientation/Cognition Level of Alertness Alert Orientation Name,Age,Birthday,Month,Date, Year,Day of Week,Place, Situation Language Function Ability No Deficits Noted Safety Awareness Understands Safety Issues Memory Description No Deficits Noted Gross Range of Motion Upper Extremity ROM Assessment Within Functional Limits Lower Extremity ROM Assessment Right Impaired Impairments knee 5-85 degrees, mild DF stiffness noted today and encouraged pt to do ankle pumps with active calf stretch Strength Upper Extremity Strength Assessment Within Functional Limits Lower Extremity Strength Assessment Right Impaired Hip needs assist to do straight leg raise with extensor lag Knee knee ext seated 2+/5, needs assist to do short arc quad Ankle DF 4/5 Comments Strength Comments pain in right knee which affects his strength functionally Coordination Assessment Gross Coordination Gross Coordination WNL Muscle Tone Muscle Tone WNL Yes Other Assessments Other Other Assessments Vital Signs: Supine BP 127/55, HR 94, Map 81 Seated 91/51, HR 93, Map 70 Seated 116/10, HR 101, Map 86 After gait 104/68, HR 137, Map 77 M6 PT-IP Treatment Start: 03/04/21 13:07 Freq: NEEDED Status: Active Protocol: Document 03/06/21 10:15 DLM (Rec: 03/06/21 10:44 DL [id number]) Physical Therapy Treatment Exercises Exercises Ankle Pumps,Quad Sets,Heel Slides,Straight Leg Raises, Short Arc Quads,Passive Knee Extension Hang,Seated Knee Flexion/Extension Knee ROM Measurement 5-85 degrees Education Education Provided Weight Bearing Status,Post-Op Packet,Safety Equipment Issued Equipment Type and Company pt has a fWW to use at home, borrowed from [employer] Other Treatments Other Treatment Performed his is present and is very supportive, educated her on safety issues managing his low activity tolerance at home M7 PT-IP Assessment and Plan Start: 03/04/21 13:07 Freq: NEEDED Status: Active Protocol: Document 03/06/21 10:15 DLM (Rec: 03/06/21 10:44 DL [id number]) PT Summary Assessment and Plan Potential Rehabilitation Potential Good Status of Condition at Evaluation Evolving Summary Impairments Pain,ROM,Strength,Balance,Tone ,Cognition,Bed Mobility, Transfers,Gait,Activity Tolerance Progress Towards Goals Slow Progress due to Medical Issues Assessment Summary Roman shows good effort with physical therapy. He fatigues quickly with activity. He demonstrates safe use of the fWW for gait and stairs. His BP seems more stable today ( see details in notes above). He has a supportive who can assist him at home. Pt is eager to discharge home. His mobility/gait is safe for discharge home but his activity level continues to be low. Goals Bed Mobility Goal Standby Assistance Transfer Goal Standby Assistance,Front Wheeled Walker Gait Goal Standby Assistance,Front Wheel Walker Gait Distance 200 Other Goals up/down 2 platform steps using FWW SBA Days to Meet Goals 5 Frequency of Treatment Frequency Of Treatment Twice a Day Treatment Plan Physical Therapy Treatment Plan Bed Mobility Training,Transfer Training,Gait Training, Therapeutic Exercise,Balance Retraining,Post Op Education, Discharge Planning,Hot or Cold Pack,Neuromuscular Re-ed Other Recommendations and Next Treatment monitor BP Focus Recommendations To Nursing Amount of Assist Needed 1 Person Assist Discharge Recommendations PT Discharge Recommendations Home with Assistance, Outpatient PT Transportation Needs at Discharge Private Vehicle
[2021-03-06 11:00] VITALS: BP 128/62; PULSE 94
--- NOTE | 2021-03-06 11:35 | PC.NURSE ---
Addendum entered by Arti Rodriguez R.N. 03/06/21 15:38: Received Dilaudid PO RX changed by Dr. Stock. Home via private vehicle accompanied by spouse Original Note: Day shift note: Dr. Stock at bedside this am, patient discharge home, cleared by PT. Discharge instructions given to patient, discussed importance of F/U with Ortho on scheduled appt on 03/16, s/sx of infections, TEMI dressing care, and new medication. Spouse and patient both verbalized understanding of instructions.
== END 2021-03-06 15:46 | disposition home or self-care (01) ==
LOC: OR 03-06 12:53 → AC 03-06 12:53
PROVIDERS: Admitting Provider Orthopaedic Surgery; PCP Internal Medicine; Referring Provider Internal Medicine; Visit Provider Orthopaedic Surgery
PROC: 0SRC0JZ Replacement of Right Knee Joint with Synthetic Substitute, Open Approach (ICD-10-PCS; CPT 27447; principal; 2021-03-04 07:45)
DX: M17.11 Unilateral primary osteoarthritis, right knee (principal); I25.10 Atherosclerotic heart disease of native coronary artery without angina pectoris; J44.9 Chronic obstructive pulmonary disease, unspecified; I10 Essential (primary) hypertension; Z86.73 Personal history of transient ischemic attack (TIA), and cerebral infarction without residual deficits
CPT/HCPCS: 27487; 36415; 64450; 73560; 85014; 85018; 85610; 97110; 97116; 97162; 97530; C1776; G0378; C9290; J0690; J1100; J2250; J2405; J2704; J3010

== ENCOUNTER → 2021-03-15 18:49 | Outpatient (ROUT) | payer OTHER, SELFPAY ==
[2021-03-04 11:13] VITALS: BMI 25.8
[2021-03-15 19:28] LABS: Add Manual Diff / Slide Review NO; Basophils Absolute Auto 100 /uL (0-100); Basophils Percent Auto 0.8 % (0-2); Eosinophils Absolute Auto 500 /uL (0-450); Eosinophils Percent Auto 5.8 % (2-4); Hematocrit 29.8 % (41-53); Hemoglobin 9.9 g/dL (13.5-17.5); Lymphocytes Absolute Auto 700 /uL (1100-4500); Lymphocytes Percent Auto 8.2 % (25-40); Mean Corpuscular HGB Conc 33.2 % (30-36); Mean Corpuscular Volume 105.6 fL (80-100); Monocytes Absolute Auto 1100 /uL (0-900); Monocytes Percent Auto 11.9 % (3-14); Neutrophils Absolute Auto 6500 /uL (1500-7000); Neutrophils Percent Auto 73.3 % (50-75); Platelet Count 332 X10^3/uL (150-400); Red Blood Cell Count 2.82 X10^6/uL (4.5-5.9); White Blood Cell Count 8.8 X10^3/uL (4.5-11.0)
[2021-03-15 19:36] LABS: Alanine Aminotransferase 52 IU/L (<50); Albumin 3.5 g/dL (3.5-5.0); Albumin Globulin Ratio 1.3 (1.0-2.8); Alkaline Phosphatase 132 U/L (38-126); Aspartate Aminotransferase 81 IU/L (17-59); BUN Creatinine Ratio 21.2 (6-22); Bilirubin Total 1.3 mg/dL (0.2-1.3); Blood Urea Nitrogen 21 mg/dL (9-20); Calcium 9.1 mg/dL (8.4-10.2); Carbon Dioxide 26 mmol/L (22-32); Chloride 104 mmol/L (98-107); Estimated Glomerular Filt Rate > 60.0 mL/min (>60); Globulin 2.7 g/dL (1.7-4.1); Glucose 127 mg/dL (80-110); HEMOLYSIS < 15 (0-50); Sodium 138 mmol/L (137-145); Total Protein 6.2 g/dL (6.3-8.2)
[2021-03-15 19:41] LABS: NT-proBNP (BNP-Adult 18+) 1410 pg/mL (<450)
== END ==
PROVIDERS: PCP Internal Medicine; Visit Provider Internal Medicine
DX: I48.20 Chronic atrial fibrillation, unspecified (principal)
CPT/HCPCS: 80053; 83880; 85025

== ENCOUNTER → 2021-03-23 19:47 | Outpatient (ROUT) | payer OTHER, SELFPAY ==
[2021-03-04 11:13] VITALS: BMI 25.8
[2021-03-23 20:04] LABS: Add Manual Diff / Slide Review NO; Basophils Absolute Auto 100 /uL (0-100); Basophils Percent Auto 1.3 % (0-2); Eosinophils Absolute Auto 500 /uL (0-450); Eosinophils Percent Auto 8.4 % (2-4); Hematocrit 33.9 % (41-53); Hemoglobin 11.3 g/dL (13.5-17.5); Lymphocytes Absolute Auto 800 /uL (1100-4500); Lymphocytes Percent Auto 13.3 % (25-40); Mean Corpuscular HGB Conc 33.2 % (30-36); Mean Corpuscular Hemoglobin 34.9 PG (26-34); Mean Corpuscular Volume 105.1 fL (80-100); Monocytes Absolute Auto 1100 /uL (0-900); Monocytes Percent Auto 18.3 % (3-14); Neutrophils Absolute Auto 3500 /uL (1500-7000); Neutrophils Percent Auto 58.7 % (50-75); Platelet Count 360 X10^3/uL (150-400); Red Blood Cell Count 3.23 X10^6/uL (4.5-5.9); Red Cell Distribution Width 14.2 % (11.6-14.8)
[2021-03-23 20:15] LABS: Blood Urea Nitrogen 49 mg/dL (9-20); Calcium 9.3 mg/dL (8.4-10.2); Carbon Dioxide 32 mmol/L (22-32); Chloride 95 mmol/L (98-107); Estimated Glomerular Filt Rate 42.7 mL/min (>60); Glucose 106 mg/dL (80-110); HEMOLYSIS < 15 (0-50); Potassium 3.2 mmol/L (3.4-5.1); Sodium 136 mmol/L (137-145)
== END ==
PROVIDERS: PCP Internal Medicine; Visit Provider Internal Medicine
DX: I50.22 Chronic systolic (congestive) heart failure (principal)
CPT/HCPCS: 80048; 85025

== ENCOUNTER → 2021-03-24 08:56 | Outpatient (CLI) | payer OTHER, SELFPAY ==
[2021-03-04 11:13] VITALS: BMI 25.8
--- NOTE | 2021-03-24 | DI.RAD.S_ITS ---
PROCEDURE: XR CHEST 2V INDICATIONS: Unspecified foreign body in respiratory tract, part unspecif TECHNIQUE: 2 views of the chest were acquired. COMPARISON: [facility], [facility], CHEST 2 VIEW, 10/26/2017, 12:39. [facility], [facility], XR CHEST 2V, 03/24/2019, 15:02. FINDINGS: Surgical changes and devices: Median sternotomy wires and mitral valve prosthesis are stable. Status post CABG procedure Lungs and pleura: Lungs are clear. No pleural effusions or pneumothorax. Eventration of the right hemidiaphragm. Mediastinum: Mediastinal contours are normal. Heart size is normal. Bones and chest wall: No suspicious bony abnormalities. Soft tissues appear unremarkable. IMPRESSION: 1. No acute cardiopulmonary disease process. 2. No with exception of postsurgical changes, no radiodense foreign body identified. Dictated by: Stephanie Gillette MD, PhD on 03/24/2021 at 17:29 Approved by: Stephanie Gillette MD, PhD on 03/24/2021 at 17:32
== END ==
PROVIDERS: PCP Internal Medicine; Referring Provider Internal Medicine; Visit Provider Internal Medicine
DX: J44.9 Chronic obstructive pulmonary disease, unspecified (principal); T17.908D Unspecified foreign body in respiratory tract, part unspecified causing other injury, subsequent encounter
CPT/HCPCS: 71046

== ENCOUNTER 2021-04-21 15:17 | Outpatient (RCR) | payer OTHER, SELFPAY ==
[2021-03-04 11:13] VITALS: BMI 25.8
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
== END 2021-05-26 07:50 | disposition home or self-care (01) ==
LOC: SP 15:17
PROVIDERS: PCP Internal Medicine; Referring Provider Otolaryngology; Visit Provider Otolaryngology
DX: J38.01 Paralysis of vocal cords and larynx, unilateral (principal); R49.0 Dysphonia; R13.10 Dysphagia, unspecified
CPT/HCPCS: 92524

== ENCOUNTER 2021-05-07 13:47 | Emergency (ER) | payer OTHER, SELFPAY ==
[2021-03-04 11:13] VITALS: BMI 25.8
[2021-05-07 13:56] VITALS: BP 109/63; PULSE 58; RESP 16; TEMP 36.6; O2SAT 97; BMI 25.0
--- NOTE | 2021-05-07 15:21 | ED.GENADULT ---
HPI - General Adult General Chief complaint: Extremity Injury, Upper Stated complaint: CUT THE END OF FINGER. ON BLOOD THINNERS Time Seen by Provider: 05/07/21 15:16 History of Present Illness HPI narrative: Patient is a 75-year-old male here for evaluation of a cut to the end of his 3rd finger. He states he was cutting a watermelon and cut his finger during this process. He is on Coumadin and was having difficulty controlling the bleeding. He put pressure over the area. Related Data Home Medications Medication Instructions Recorded Confirmed aspirin 81 mg tablet,delayed 81 mg PO DAILY #0 04/01/09 03/04/21 release multivitamin 1 cap PO DAILY #0 04/01/09 03/04/21 atorvastatin 80 mg tablet (Lipitor) 80 mg PO HS #0 06/14/13 03/04/21 cholecalciferol (vitamin D3) 50 2,000 unit PO DAILY #0 06/14/13 03/04/21 mcg (2,000 unit) capsule (Vitamin D3) folic acid 1 mg tablet 3 mg PO QDAY #0 06/14/13 03/04/21 furosemide 40 mg tablet 60 mg PO QDAY #0 06/14/13 03/04/21 gabapentin 300 mg capsule 600 mg PO TID #0 06/14/13 03/04/21 (Neurontin) magnesium oxide 400 mg (241.3 mg 400 mg PO Q24H #0 06/14/13 03/04/21 magnesium) tablet potassium chloride 20 mEq 30 meq PO AMCC #0 06/14/13 03/04/21 tablet,extended release(part/cryst) (Klor-Con M) sulfasalazine 500 mg tablet 1,500 mg PO BID #0 06/14/13 03/04/21 terazosin 10 mg capsule 10 mg PO HS #0 06/14/13 03/04/21 warfarin 2.5 mg tablet (Coumadin) 5 mg PO SEEINSTR #0 06/14/13 03/04/21 calcium carbonate 500 mg (1,250 1 tab PO BID 04/09/18 03/04/21 mg)-vitamin D3 200 unit tablet (Calcium 500 + D) cyanocobalamin (vitamin B-12) 1,000 mcg PO DAILY 04/09/18 03/04/21 1,000 mcg tablet (Vitamin B-12) lisinopril 5 mg tablet 5 mg PO SEEINSTR 04/09/18 03/04/21 carvedilol 12.5 mg tablet 12.5 mg PO BID 06/04/19 03/04/21 oxybutynin chloride 5 mg 5 mg PO DAILY 06/04/19 03/04/21 tablet,extended release 24 hr vit C,E,zinc,copper-[id number] 250 1 cap PO DAILY 06/04/19 03/04/21 mg-lutein 5 mg-zeaxanthin 1 mg capsule (Ocuvite Adult 50 Plus) mirtazapine 15 mg tablet 30 mg PO BEDTIME tab 11/18/19 03/04/21 ferrous sulfate 324 mg (65 mg 324 mg PO DAILY 10/27/20 03/04/21 iron) tablet,delayed release omeprazole 20 mg capsule,delayed 20 mg PO DAILY 10/27/20 03/04/21 release duloxetine 60 mg capsule,delayed 60 mg PO DAILY 02/24/21 03/04/21 release levothyroxine 100 mcg tablet 100 mcg PO DAILY 02/24/21 03/04/21 vit C 250 mg-vit E 90 mg-zinc 40 1 tab PO BID 02/24/21 03/04/21 mg-copper 1 [id number] capsule (PreserVision AREDS-2) Previous Rx's Medication Instructions Recorded acetaminophen 325 mg tablet 650 mg PO TID #90 tab 03/05/21 aspirin 81 mg tablet,delayed 81 mg PO BID #90 tab 03/05/21 release oxycodone 10 mg tablet 10 mg PO Q3HR PRN #42 tab 03/05/21 hydromorphone 2 mg tablet 2 mg PO Q4-6H PRN #30 tab 03/06/21 (Dilaudid) Allergies Allergy/AdvReac Type Severity Reaction Status Date / Time No Known Drug Allergies Allergy Verified 03/04/21 06:50 Review of Systems Musculoskeletal Comments: Finger pain over the area the cut Integumentary/Breasts Comments: Cut to the 3rd finger of left hand Neurologic Comments: No tingling Hematologic/Lymphatic On Anticoagulants: Yes Patient History Medical History Acute bronchitis (~03/2019) Anemia Atrial fibrillation CAD (coronary artery disease) Cardiomyopathy Centrilobular emphysema Cerebrovascular accident (CVA) (~2003) CHF (congestive heart failure) Chronic anticoagulation Chronic sinusitis COPD (chronic obstructive pulmonary disease) DDD (degenerative disc disease) Depression ELENA (dyspnea on exertion) Edema Facet arthropathy, lumbar Fatty liver Former smoker HLD (hyperlipidemia) HTN (hypertension) Hypothyroidism due to amiodarone Mild cognitive impairment Myocardial infarction Obstructive sleep apnea syndrome Orthostatic hypotension Osteoarthritis Prostate cancer Raynaud's syndrome Rheumatoid arthritis Right arm fracture (~04/2016) Right knee DJD Scoliosis deformity of spine Surgical History (Updated 04/26/21 @ 23:09 by AVERY Lorenzo) History of lumbar laminectomy Hx of angioplasty (~1984) Hx of arthroscopy of right knee Hx of bilateral cataract extraction Hx of bilateral inguinal hernia repair Hx of CABG (~2003) Hx of elbow surgery Hx of lumbosacral spine surgery (~2008) Hx of mitral valve repair (~2003) S/P right unicompartmental knee replacement Status post correction of deviated nasal septum Status post total right knee replacement (~03/04/21) Social History household members: spouse Smoking Status: Former smoker Tobacco: How many years used: 8 alcohol intake: former Smoking Status: Former smoker Substance Use Type: does not use Exam Initial Vital Signs Initial Vital Signs: Vital Signs Temperature 97.9 F 05/07/21 13:56 Pulse Rate 58 L 05/07/21 13:56 Respiratory Rate 16 05/07/21 13:56 Blood Pressure 109/63 05/07/21 13:56 Pulse Oximetry 97 05/07/21 13:56 HENMT Head: normal to inspection Cardio Pulses: radial pulses present on the left Skin Other: Patient with a 1 cm superficial avulsion of the skin to the tip of the left 3rd finger that does not involve the nail. Neuro General: patient alert, patient awake and moves all extremities Extrem Other: Full range of motion joints of 3rd digit left hand. Psych Appearance: grossly normal and well kempt Course Vital Signs Vital signs: Vital Signs - 8 hr 05/07/21 13:56 05/07/21 15:36 Temperature 97.9 F Pulse Rate 58 L 58 L Respiratory Rate 16 18 Blood Pressure 109/63 130/59 L Pulse Oximetry 97 97 Medical Decision Making MDM Narrative Medical decision making narrative: The wound was covered with a small piece of Gelfoam and also with a bandage. No indication for x-rays. He was given care instructions and return precautions. He expressed understanding and agreement. Discharge Plan Departure Patient Disposition: Home Clinical Impression: Laceration Instructions: DI for Minor Laceration Activity Restrictions/Additional Instructions: Recommend that you leave the bandage that was placed here in the emergency department on for the next 24 hours. You then can remove it like we discussed. Contact your primary provider for follow-up. Return to the emergency department for any new or worsening symptoms. Prescriptions: No Action aspirin 81 mg Tablet,Delayed Release (Dr/Ec) 81 mg PO DAILY Qty: 0 RF: 0 multivitamin Capsule 1 cap PO DAILY Qty: 0 RF: 0 atorvastatin [Lipitor] 80 MG tablet 80 mg PO HS Qty: 0 RF: 0 cholecalciferol (vitamin D3) [Vitamin D3] 2,000 unit Capsule 2,000 unit PO DAILY Qty: 0 RF: 0 folic acid 1 MG tablet 3 mg PO QDAY Qty: 0 RF: 0 gabapentin [Neurontin] 300 MG capsule 600 mg PO TID Qty: 0 RF: 0 furosemide 40 MG tablet 60 mg PO QDAY Qty: 0 RF: 0 magnesium oxide 400 MG tablet 400 mg PO Q24H Qty: 0 RF: 0 potassium chloride [Klor-Con M20] 20 MEQ tablet,ER particles/crystals 30 meq PO AMCC Qty: 0 RF: 0 sulfasalazine 500 MG tablet 1,500 mg PO BID Qty: 0 RF: 0 terazosin 10 MG capsule 10 mg PO HS Qty: 0 RF: 0 warfarin [Coumadin] 2.5 MG tablet 5 mg PO SEEINSTR Qty: 0 RF: 0 Ocuvite Adult 50 Plus 250-5-1 mg Capsule 1 cap PO DAILY RF: 0 carvedilol 12.5 mg Tablet 12.5 mg PO BID RF: 0 oxybutynin chloride 5 mg Tablet Extended Release 24hr 5 mg PO DAILY RF: 0 cyanocobalamin (vitamin B-12) [Vitamin B-12] 1,000 mcg Tablet 1,000 mcg PO DAILY RF: 0 lisinopril 5 mg Tablet 5 mg PO SEEINSTR RF: 0 calcium carbonate-vitamin D3 [Calcium 500 + D] 500 mg(1,250mg) -200 unit Tablet 1 tab PO BID RF: 0 mirtazapine 15 mg tablet 30 mg PO BEDTIME RF: 0 duloxetine 60 mg Capsule,Delayed Release(Dr/Ec) 60 mg PO DAILY RF: 0 levothyroxine 100 mcg Tablet 100 mcg PO DAILY RF: 0 PreserVision AREDS-2 250-90-40-1 mg Capsule 1 tab PO BID RF: 0 acetaminophen 325 mg Tablet 650 mg PO TID Qty: 90 RF: 0 aspirin 81 mg Tablet,Delayed Release (Dr/Ec) 81 mg PO BID Qty: 90 RF: 0 oxycodone 10 mg Tablet 10 mg PO Q3HR PRN (Reason: Pain, Severe (7-10)) Qty: 42 RF: 0 hydromorphone [Dilaudid] 2 mg tablet 2 mg PO Q4-6H PRN (Reason: pain) Qty: 30 RF: 0 omeprazole 20 mg capsule,delayed release(DR/EC) 20 mg PO DAILY RF: 0 ferrous sulfate 324 mg (65 mg iron) tablet,delayed release (DR/EC) 324 mg PO DAILY RF: 0 Referrals: Mark Palafox MD [Primary Care Provider] -
[2021-05-07 15:36] VITALS: BP 130/59; PULSE 58; RESP 18; O2SAT 97
== END 2021-05-07 15:25 | disposition home or self-care (01) ==
PROVIDERS: Emergency Provider Emergency Medicine; PCP Internal Medicine
DX: S61.213A Laceration without foreign body of left middle finger without damage to nail, initial encounter (principal); W26.0XXA Contact with knife, initial encounter
CPT/HCPCS: 99281

== ENCOUNTER → 2021-08-04 13:54 | Outpatient (CLI) | payer OTHER, SELFPAY ==
[2021-03-04 11:13] VITALS: BMI 25.8
[2021-08-04 14:31] LABS: Add Manual Diff / Slide Review NO; Basophils Absolute Auto 100 /uL (0-100); Basophils Percent Auto 1.3 % (0-2); Eosinophils Absolute Auto 200 /uL (0-450); Hematocrit 37.5 % (41-53); Hemoglobin 12.1 g/dL (13.5-17.5); Lymphocytes Absolute Auto 1000 /uL (1100-4500); Mean Corpuscular HGB Conc 32.4 % (30-36); Mean Corpuscular Hemoglobin 33.3 PG (26-34); Mean Corpuscular Volume 102.8 fL (80-100); Monocytes Absolute Auto 600 /uL (0-900); Monocytes Percent Auto 14.1 % (3-14); Neutrophils Absolute Auto 2700 /uL (1500-7000); Neutrophils Percent Auto 58.6 % (50-75); Platelet Count 176 X10^3/uL (150-400); Red Blood Cell Count 3.65 X10^6/uL (4.5-5.9); Red Cell Distribution Width 14.8 % (11.6-14.8); White Blood Cell Count 4.5 X10^3/uL (4.5-11.0)
[2021-08-04 14:53] LABS: Erythrocyte Sedimentation Rate 23 MM/HR (0-15)
[2021-08-04 14:55] LABS: Alanine Aminotransferase 30 IU/L (<50); Albumin 4.4 g/dL (3.5-5.0); Albumin Globulin Ratio 1.8 (1.0-2.8); Alkaline Phosphatase 76 U/L (38-126); Aspartate Aminotransferase 51 IU/L (17-59); BUN Creatinine Ratio 26.8 (6-22); Bilirubin Total 0.5 mg/dL (0.2-1.3); Blood Urea Nitrogen 26 mg/dL (9-20); C-Reactive Protein Quant < 0.5 mg/dL (<1.0); Calcium 9.5 mg/dL (8.4-10.2); Carbon Dioxide 29 mmol/L (22-32); Chloride 98 mmol/L (98-107); Estimated Glomerular Filt Rate > 60.0 mL/min (>60); Globulin 2.5 g/dL (1.7-4.1); Glucose 87 mg/dL (80-110); HEMOLYSIS < 15 (0-50); Potassium 4.4 mmol/L (3.4-5.1); Sodium 137 mmol/L (137-145); Total Protein 6.9 g/dL (6.3-8.2)
[2021-08-04 15:24] LABS: Prostate Specific Antigen < 0.064 ng/mL (0.10-4.00)
== END ==
PROVIDERS: Urology; PCP Internal Medicine; Referring Provider Internal Medicine Rheumatology; Visit Provider Internal Medicine Rheumatology
DX: M06.09 Rheumatoid arthritis without rheumatoid factor, multiple sites (principal)
CPT/HCPCS: 36415; 80053; 84153; 85025; 85651; 86140

== ENCOUNTER → 2021-10-28 11:07 | Outpatient (CLI) | payer OTHER, SELFPAY ==
[2021-03-04 11:13] VITALS: BMI 25.8
[2021-10-28 11:53] LABS: COVID19 -Nasal RAPID POSITIVE (Negative)
== END ==
PROVIDERS: PCP Internal Medicine; Visit Provider Nurse Practitioner Critical Care Medicine
DX: U07.1 COVID-19 (principal); Z20.822 Contact with and (suspected) exposure to COVID-19
CPT/HCPCS: 87635

== ENCOUNTER → 2021-10-28 11:34 | Outpatient (CLI) | payer OTHER, SELFPAY ==
[2021-03-04 11:13] VITALS: BMI 25.8
--- NOTE | 2021-10-28 11:35 | DI.RAD.S_ITS ---
PROCEDURE: XR CHEST 2V INDICATIONS: cough, HX COPD TECHNIQUE: 2 views of the chest were acquired. COMPARISON: [facility], CR, XR CHEST 2V, 03/24/2021, 9:26. FINDINGS: Surgical changes and devices: Median sternotomy wires and prosthetic heart valve are again seen. Lungs and pleura: Lungs are clear. No pleural effusions or pneumothorax. Mediastinum: Mediastinal contours are normal. Heart size is normal. Bones and chest wall: No suspicious bony abnormalities. Soft tissues appear unremarkable. IMPRESSION: No acute cardiopulmonary pathology. Dictated by: Christopher Ferreira M.D. on 10/28/2021 at 12:09 Approved by: Christopher Ferreira M.D. on 10/28/2021 at 12:10
== END ==
PROVIDERS: PCP Internal Medicine; Referring Provider Nurse Practitioner Critical Care Medicine; Visit Provider Nurse Practitioner Critical Care Medicine
DX: U07.1 COVID-19
CPT/HCPCS: 71046; 87635

== ENCOUNTER → 2022-01-03 11:06 | Outpatient (CLI) | payer OTHER, SELFPAY ==
[2021-03-04 11:13] VITALS: BMI 25.8
[2022-01-03 12:37] LABS: Add Manual Diff / Slide Review NO; Basophils Absolute Auto 0 /uL (0-100); Eosinophils Absolute Auto 100 /uL (0-450); Eosinophils Percent Auto 3.5 % (2-4); Hematocrit 35.5 % (41-53); Lymphocytes Absolute Auto 1000 /uL (1100-4500); Lymphocytes Percent Auto 23.5 % (25-40); Mean Corpuscular HGB Conc 33.8 % (30-36); Mean Corpuscular Hemoglobin 35.4 PG (26-34); Mean Corpuscular Volume 104.5 fL (80-100); Monocytes Absolute Auto 600 /uL (0-900); Monocytes Percent Auto 14.5 % (3-14); Neutrophils Absolute Auto 2500 /uL (1500-7000); Neutrophils Percent Auto 57.5 % (50-75); Platelet Count 143 X10^3/uL (150-400); Red Cell Distribution Width 13.2 % (11.6-14.8); White Blood Cell Count 4.3 X10^3/uL (4.5-11.0)
[2022-01-03 13:04] LABS: Alanine Aminotransferase 35 IU/L (<50); Albumin 4.2 g/dL (3.5-5.0); Albumin Globulin Ratio 1.7 (1.0-2.8); Alkaline Phosphatase 63 U/L (38-126); Aspartate Aminotransferase 52 IU/L (17-59); BUN Creatinine Ratio 25.5 (6-22); Bilirubin Total 0.5 mg/dL (0.2-1.3); Blood Urea Nitrogen 27 mg/dL (9-20); C-Reactive Protein Quant < 0.5 mg/dL (<1.0); Calcium 9.3 mg/dL (8.4-10.2); Carbon Dioxide 30 mmol/L (22-32); Chloride 104 mmol/L (98-107); Estimated Glomerular Filt Rate > 60.0 mL/min (>60); Globulin 2.5 g/dL (1.7-4.1); Glucose 93 mg/dL (80-110); HEMOLYSIS < 15 (0-50); Sodium 140 mmol/L (137-145); Total Protein 6.7 g/dL (6.3-8.2)
[2022-01-03 13:12] LABS: Erythrocyte Sedimentation Rate 19 MM/HR (0-15)
== END ==
PROVIDERS: PCP Internal Medicine; Referring Provider Internal Medicine Rheumatology; Visit Provider Internal Medicine Rheumatology
DX: M06.09 Rheumatoid arthritis without rheumatoid factor, multiple sites (principal)
CPT/HCPCS: 36415; 80053; 85025; 85651; 86140

== ENCOUNTER → 2022-01-16 13:14 | Outpatient (CLI) | payer OTHER, SELFPAY ==
[2021-03-04 11:13] VITALS: BMI 25.8
[2022-01-16 15:00] LABS: Add Manual Diff / Slide Review NO; Basophils Absolute Auto 100 /uL (0-100); Basophils Percent Auto 1.3 % (0-2); Eosinophils Absolute Auto 200 /uL (0-450); Eosinophils Percent Auto 4.4 % (2-4); Hematocrit 36.4 % (41-53); Hemoglobin 12.1 g/dL (13.5-17.5); Lymphocytes Absolute Auto 1000 /uL (1100-4500); Mean Corpuscular HGB Conc 33.3 % (30-36); Mean Corpuscular Hemoglobin 34.9 PG (26-34); Mean Corpuscular Volume 104.8 fL (80-100); Monocytes Absolute Auto 600 /uL (0-900); Monocytes Percent Auto 15.8 % (3-14); Neutrophils Absolute Auto 2200 /uL (1500-7000); Neutrophils Percent Auto 54.5 % (50-75); Platelet Count 141 X10^3/uL (150-400); Red Blood Cell Count 3.48 X10^6/uL (4.5-5.9); Red Cell Distribution Width 12.9 % (11.6-14.8)
== END ==
PROVIDERS: PCP Internal Medicine; Referring Provider Internal Medicine Rheumatology; Visit Provider Internal Medicine Rheumatology
DX: D72.819 Decreased white blood cell count, unspecified (principal)
CPT/HCPCS: 36415; 85025

== ENCOUNTER → 2022-02-15 11:25 | Outpatient (CLI) | payer OTHER, SELFPAY ==
[2021-03-04 11:13] VITALS: BMI 25.8
[2022-02-15 13:10] LABS: Add Manual Diff / Slide Review NO; Basophils Absolute Auto 0 /uL (0-100); Basophils Percent Auto 0.9 % (0-2); Eosinophils Absolute Auto 200 /uL (0-450); Eosinophils Percent Auto 4.1 % (2-4); Hematocrit 38.3 % (41-53); Hemoglobin 12.8 g/dL (13.5-17.5); Lymphocytes Absolute Auto 1000 /uL (1100-4500); Lymphocytes Percent Auto 20.7 % (25-40); Mean Corpuscular HGB Conc 33.5 % (30-36); Mean Corpuscular Hemoglobin 34.3 PG (26-34); Mean Corpuscular Volume 102.3 fL (80-100); Monocytes Absolute Auto 600 /uL (0-900); Monocytes Percent Auto 13.5 % (3-14); Neutrophils Absolute Auto 2900 /uL (1500-7000); Neutrophils Percent Auto 60.8 % (50-75); Platelet Count 152 X10^3/uL (150-400); Red Blood Cell Count 3.75 X10^6/uL (4.5-5.9); Red Cell Distribution Width 12.8 % (11.6-14.8); White Blood Cell Count 4.7 X10^3/uL (4.5-11.0)
== END ==
PROVIDERS: Internal Medicine Rheumatology; PCP Internal Medicine; Referring Provider Internal Medicine; Visit Provider Internal Medicine
DX: Z79.899 Other long term (current) drug therapy (principal); M06.09 Rheumatoid arthritis without rheumatoid factor, multiple sites
CPT/HCPCS: 36415; 85025

== ENCOUNTER → 2022-03-14 14:10 | Outpatient (CLI) | payer OTHER, SELFPAY ==
[2021-03-04 11:13] VITALS: BMI 25.8
[2022-03-14 15:16] LABS: Add Manual Diff / Slide Review NO; Basophils Absolute Auto 100 /uL (0-100); Basophils Percent Auto 1.3 % (0-2); Eosinophils Absolute Auto 200 /uL (0-450); Eosinophils Percent Auto 3.8 % (2-4); Hematocrit 35.9 % (41-53); Hemoglobin 12.4 g/dL (13.5-17.5); Lymphocytes Absolute Auto 800 /uL (1100-4500); Lymphocytes Percent Auto 17.5 % (25-40); Mean Corpuscular HGB Conc 34.5 % (30-36); Mean Corpuscular Hemoglobin 34.9 PG (26-34); Mean Corpuscular Volume 101.2 fL (80-100); Monocytes Absolute Auto 700 /uL (0-900); Monocytes Percent Auto 15.3 % (3-14); Neutrophils Absolute Auto 2900 /uL (1500-7000); Neutrophils Percent Auto 62.1 % (50-75); Platelet Count 152 X10^3/uL (150-400); Red Blood Cell Count 3.54 X10^6/uL (4.5-5.9); Red Cell Distribution Width 12.9 % (11.6-14.8); White Blood Cell Count 4.7 X10^3/uL (4.5-11.0)
== END ==
PROVIDERS: PCP Internal Medicine; Referring Provider Internal Medicine Rheumatology; Visit Provider Internal Medicine Rheumatology
DX: M06.09 Rheumatoid arthritis without rheumatoid factor, multiple sites (principal)
CPT/HCPCS: 36415; 85025

== ENCOUNTER 2022-05-01 13:30 | Outpatient (RCR) | payer OTHER, SELFPAY ==
[2021-03-04 11:13] VITALS: BMI 25.8
--- NOTE | 2021-10-05 11:32 | ST.IPIE ---
Visit Care Team Role Provider Type Mark Palafox MD Primary Care Provider Physician Specialty: Internal Medicine Address: [address] [place] [address], [id number] Email: [email or web address] Puma Vázquez MD Attending Provider Non-Staff Referring Provider Specialty: Ear, Nose, Throat Address: [address] [place] [address], [id number] Email: Current Diagnoses Paralysis of vocal cords and larynx, unilateral (10/04/21) Past Medical History (Last Reviewed 05/13/21 @ 23:42 by Kyler Morgan MD) Acute bronchitis (Medical ~03/2019) Anemia (Medical) Atrial fibrillation (Medical) CAD (coronary artery disease) (Medical) Cardiomyopathy (Medical) Centrilobular emphysema (Medical) Cerebrovascular accident (CVA) (Medical ~2003) Left paralysis, mild residual weakness CHF (congestive heart failure) (Medical) Chronic anticoagulation (Medical) Chronic sinusitis (Medical) COPD (chronic obstructive pulmonary disease) (Medical) DDD (degenerative disc disease) (Medical) Depression (Medical) ELENA (dyspnea on exertion) (Medical) COPD, CHF Edema (Medical) Facet arthropathy, lumbar (Medical) Fatty liver (Medical) Former smoker (Medical) Quit age 28 History of lumbar laminectomy (Medical) HLD (hyperlipidemia) (Medical) HTN (hypertension) (Medical) Hx of angioplasty (Medical ~1984) Hx of arthroscopy of right knee (Medical) x3 Hx of bilateral cataract extraction (Medical) Hx of bilateral inguinal hernia repair (Medical) Hx of CABG (Medical ~2003) Hx of elbow surgery (Medical) Left elbow fracture Hx of lumbosacral spine surgery (Medical ~2008) L4-5 Hx of mitral valve repair (Medical ~2003) w/CABG Hypothyroidism due to amiodarone (Medical) Mild cognitive impairment (Medical) Myocardial infarction (Medical) Inferolateral Obstructive sleep apnea syndrome (Medical) Orthostatic hypotension (Medical) Osteoarthritis (Medical) Prostate cancer (Medical) Seed implants 09/30 Raynaud's syndrome (Medical) Rheumatoid arthritis (Medical) Right arm fracture (Medical ~04/2016) Right knee DJD (Medical) S/P right unicompartmental knee replacement (Medical) Scoliosis deformity of spine (Medical) Status post correction of deviated nasal septum (Medical) Status post total right knee replacement (Medical ~03/04/21) ST IP Initial Evaluation Report BONE CHAR KILN OPERATOR Voice Resonance Evaluation Start: 10/04/21 15:37 Freq: Status: Active Protocol: Document 10/04/21 15:38 LNK (Rec: 10/04/21 17:05 LNK [id number]) Voice and Resonance Assessment Session Time Visit Start Time 15:30 Visit Stop Time 16:30 Total Visit Minutes 60 Visit Information Plan of Care Dates 10/04/21-01/02/[address] Vázquez Reason for Referral unilateral vocal fold paraysis Setting Setting Outpatient Care Patient History General Information Pt is a 76 year old gentleman referred for left vocal fold paralysis. Pt was intubated. He reports that his voice was changed and very hoarse following surgery for knee replacement on 03/04/21. Pt was referred for examination with Dr Fredy Miramontes, ENT, who diagnosed a left side unilateral vocal fold paralysis. Pt was then referred to Dr. Vázquez, ENT , for further assessment on . Dr Vázquez described vocal fods as the left fold bowed with no mobility; the right fold ws bowed with reduced mobility. After discussing therapeutic options with Dr. Vázquez, the pt opted for injection augmentation, which the pt reported occurred 2 months ago . Voice therapy eas recommended to the pt for vocal quality. Today, pt is presenting for voice evaluation and treatment to improvement vocal quality and speaking endurance. Occupational Status Occupation Status retired Previous Therapy Previous Speech-Language Therapy No Oral Motor Assessment Source: [employer] (VAUGHN). Oral-Motor Eval Completed No Oral-Motor Assessment Informal observation indicated structures and function to be WNL - Laryngeal Performance CAPE-V Overall Severity 63 Roughness 80 Breathiness 31 Strain n/a Pitch WNL Loudness WNL Normal Resonance? No Additional Features Pitch Instability Maximum Phonation Time MPT Norms: Women (15-25) Men (25-35) Loudness (50-60 dB); Speaking Rate: Oral Reading of Sentences (190 Words Per Minute); Oral Reading of Paragraphs (160-170 WPM); Speaking Rate in Conversation (150-250 WPM) Maximum Phonation Time 12.9 Maximum Phonation Time Adequate for Speech Jitter/Shimmer Norms: Jitter (Less than or equal to 1.040% - Frequency) Norms: Shimmer (Less than or equal to 3.810% - Amplitude) Jitter 4.23 High Shimmer 10.73 High Pitch Austin Pitch Austin Pitch Breaks,Reduced Range, Cessation of Voicing Muscle Tension Assessment Muscle Tension Assessment None Tongue Base Tension Tongue Base Tension Comment WFL Breath Support Breath Support At Rest Abdominal Breath Support Sustained Phonation Abdominal Breath Support Conversation Abdominal Speaks on Room Air Yes Postural Alignment Stance Balanced Neck Free and Loose Shoulders Symmetrical Pelvis Unremarkable Voice Pitch Range Norms: Women (100-300 Hz) Men (70-250 Hz) Fundamental Frequency Norms: Women (Mean: 225 Hz; Range: 155-334 Hz) Men ( Mean: 128 Hz; Range: 85-196 Hz) Voice Pitch Normal,Pitch Breaks Voice Loudness Normal Voice Phonatory-based Quality Strident,Glottal Phelps,Pitch Breaks Fundamental Frequency 82-139Hz Paradoxical Vocal Fold Movement No Indications Resonance Nasal Resonance Normal Oral Resonance Normal Therapeutic Techniques Therapy Tactics Shifting Tone Focus,Breath Support,Increase Loudness Other Tactics Glottal adduction exercises: Hold breath 3-5s with abdominal resistance. Do exercise 10x at 4-5x per day Findings Findings Moderate Impairment Voice/Resonance Assessment Assessment Pt presented with rough/ glottal phelps vocal quality secondary to VF paralysis, bilateral bowing and is s/p injection augmentation. Pt noted that his voice weakens by the end of the day and becomes more breathy. He also mentioned that he continues to cough when he swallows thin liquids. Following assessment , pt was given vocal adduction exercises to complete 3-5x/ day, or more often if he desires. Demonstration with written directions was conducted. Pt demonstrated exercise appropriately and indicated he understood and agreed with the POC. Prognosis Rehabilitation Potential Excellent - Recommendations Treatment Recommended Yes Treatment Frequency/Duration 1x/week initially, then 1x/ every 3-4 weeks to monitor exercise progress Therapy Recommendations Voice therapy Short Term Goals Pt will carry out home vocal exercises 3-5/day to increase vocal fold strength and mobility. Pt will turn head to the right to better approximate the vocal folds when drinking thin liquids. Senior Care Goals Pt's vocal quality will improve to WFL per pt report and with follow up appointments monitoring vocal quality. Patient/Caregiver Education Patient/Family Education Described results of evaluation,Patient Understanding,Patient Demonstration
--- NOTE | 2021-10-05 11:35 | ST.OPPOC ---
Physical, Occupational & Speech Therapy At [facility] Visit Care Team Role Provider Type Mark Palafox MD Primary Care Provider Physician Address: [address] [place] [address], [address] Puma Vázquez MD Attending Provider Non-Staff Referring Provider Address: [address] [place] [address], [address] Speech Pathology Plan of Care General Information Pt is a 76 year old gentleman referred for left vocal fold paralysis. Pt was intubated. He reports that his voice was changed and very hoarse following surgery for knee replacement on 03/04/21. Pt was referred for examination with Dr Fredy Miramontes, ENT, who diagnosed a left side unilateral vocal fold paralysis. Pt was then referred to Dr. Vázquez, ENT, for further assessment on 04/05/21. Dr Vázquez described vocal fods as the left fold bowed with no mobility; the right fold was bowed with reduced mobility. After discussing therapeutic options with Dr. Vázquez, the pt opted for injection augmentation, which the pt reported occurred 2 months ago. Voice therapy was recommended to the pt for vocal quality. Today, pt is presenting for voice evacluation and treatment to improvement vocal quality and speaking endurance . Plan of Care Dates 10/04/21-01/02/22 Band Saw Filer Goals Pt's vocal quality will improve to WFL per pt report and with follow up appointments monitoring vocal quality. Electronically Signed by: Rehana Larson, AUDITOR IN CHARGE 10/05/21 [id number] Please Sign and Return: I have reviewed this Plan of Care and certify that the skilled therapy services above are required to meet the patient?s needs. Physician Signature Date Printed Name and Credentials Clinical Instructor Signature Printed Name and Credentials
--- NOTE | 2021-10-11 11:32 | ST.OPTN ---
Visit Care Team Role Provider Type Mark Palafox MD Primary Care Provider Physician Address: [address] [place] [address], [address] Puma Vázquez MD Attending Provider Non-Staff Referring Provider Address: [facility] Cathy Bradley [address], [address] FIRE ALARM MECHANIC Treatment Note FIRE ALARM MECHANIC Treatment Note Start: 10/04/21 15:37 Freq: Status: Active Protocol: Document 10/11/21 11:22 LNK (Rec: 10/11/21 11:32 LNK [id number]) Speech Pathology Treatment Note Session Time Visit Start Time 10:30 Visit Stop Time 11:00 Total Visit Minutes 30 Visit Information Visit Number 2 Plan of Care Dates 10/04/21-01/02/22 Setting Treatment Setting Outpatient Care Visit Type Note Type Treatment Note Next Note Type Next Note Type Treatment Note General Information General Information Pt is a 76 year old gentleman referred for left vocal fold paralysis. Pt was intubated. He reports that his voice was changed and very hoarse following surgery for knee replacement on 03/04/21. Pt was referred for examination with Dr Fredy Miramontes, ENT, who diagnosed a left side unilateral vocal fold paralysis. Pt was then referred to Dr. Vázquez, ENT , for further assessment on . Dr Vázquez described vocal folds as the left fold bowed with no mobility; the right fold was bowed with reduced mobility. After discussing therapeutic options with Dr. Vázquez, the pt opted for injection augmentation, which the pt reported occurred 2 months ago . Voice therapy eas recommended to the pt for vocal quality. Today, pt is presenting for voice evaluation and treatment to improvement vocal quality and speaking endurance. Subjective Identification Type Date of Chief Complaint(s) Voice Rehab Expectation/Goals: Patient Goals Improve vocal quality to WFL/ WNL Patient Knowledge/Awareness of FIRE ALARM MECHANIC Role Excellent in Treatment Objective Short Term Goals Pt will carry out home vocal exercises 3-5/day to increase vocal fold strength and mobility. Pt will turn head to the right to better approximate the vocal folds when drinking thin liquids. Taping Supervisor Goals Pt's vocal quality will improve to WFL per pt report and with follow up appointments monitoring vocal quality. Treatment Activities Reviewed all exercises. Pt demonstrated exercises. Pt questions answered to patient's satisfaction. Perceptually pt's vocal quality improved. Jitter and Shimmer values assessed. Both jitter and shimmer were reduced: Jitter 2 .194 (down from 4.23) and Shimmer 7.80 (down from 10.73) . Pt is very encouraged. Follow up in 2 weeks. Assessment Patient Response to Treatment Excellent Rehab Potential Excellent Impairments Identified Dysphonia,Vocal Quality Progress Towards Goals Good Progress Assessment of Overall Progress Improving Reviewed with Patient Progress Being Made,Home Exercise Program Plan Amount of Therapy Recommended 3 Months Frequency of Treatment Once a Week Length of Session 45 Minutes Therapeutic Contents Voice Training Provided Patient/Caregiver Instruction Home Exercise Program Therapy Recommendations Continue with Current Program
--- NOTE | 2021-11-15 11:16 | ST.OPTN ---
Visit Care Team Role Provider Type Mark Palafox MD Primary Care Provider Physician Address: [address] [place] [address], [id number] Puma Vázquez MD Attending Provider Non-Staff Referring Provider Address: [facility] Cathy Bradley [address], [address] CLAM GRADER Treatment Note CLAM GRADER Treatment Note Start: 10/04/21 15:37 Freq: Status: Active Protocol: Document 11/15/21 10:34 LNK (Rec: 11/15/21 11:16 LNK [id number]) Speech Pathology Treatment Note Session Time Visit Start Time 10:30 Visit Stop Time 11:00 Total Visit Minutes 30 Visit Information Visit Number 2 Plan of Care Dates 10/04/21-01/02/22 Setting Treatment Setting Outpatient Care Visit Type Note Type Treatment Note Next Note Type Next Note Type Treatment Note General Information General Information Pt is a 76 year old gentleman referred for left vocal fold paralysis. Pt was intubated. He reports that his voice was changed and very hoarse following surgery for knee replacement on 03/04/21. Pt was referred for examination with Dr Fredy Miramontes, ENT, who diagnosedd a left side unilateral vocal fold paralysis. Pt was then referred to Dr. Vázquez, ENT , for further assessment on . Dr Vázquez described vocal fods as the left fold bowed with no mobility; the right fold ws bowed with reduced mobility. After discussing therapeutic options with Dr. Vázquez, the pt opted for injection augmentation, which the pt reorted occurred 2 months ago . Voice therapy eas recommended to the pt for vocal quality. Today, pt is presenting for voice evacluation and treatment to improvement vocal quality and speaking endurance. Subjective Identification Type Date of Chief Complaint(s) Voice Rehab Expectation/Goals: Patient Goals Improve vocal quality to WFL/ WNL Patient Knowledge/Awareness of CLAM GRADER Role Excellent in Treatment Objective Short Term Goals Pt will carry out home vocal exercises 3-5/day to increase vocal fold strength and mobility. Pt will turn head to the right to better approximate the vocal folds when drinking thin liquids. Turf Sales Person Goals Pt's vocal quality will improve to WFL per pt report and with follow up appointments monitoring vocal quality. Treatment Activities Reviewed all exercises. Pt demonstrated exercises. Pt questions answered to patient' s satisfaction. Perceptually pt's vocal quality presented with ,ore glottal carlson than last session. Jitter and Shimmer values assessed. Both jitter and shimmer were increased: Jitter 4.5 (up from 2.19) and Shimmer 15.23 (up from 7.8). Pt reported that pt had to cancel appt because he had COVID for ~8 days. He reported coughing when he was ill. he also stated he felt his voice has been more raspy lately. His coughing may account for increased variability on vocal cord vibration. Also it may be a slight reduction in the vocal fold enhancement material. ( left) Assessment Patient Response to Treatment Excellent Rehab Potential Excellent Impairments Identified Dysphonia,Vocal Quality Progress Towards Goals Good Progress Assessment of Overall Progress Improving Assessment of Improvement Pt will be out of town for the month of November. Recommend he see Dr Car at the beginning of December and return for therapy if indicated. Reviewed with Patient Progress Being Made,Home Exercise Program Plan Amount of Therapy Recommended 3 Months Frequency of Treatment Once a Week Length of Session 45 Minutes Therapeutic Contents Voice Training Provided Patient/Caregiver Instruction Home Exercise Program Therapy Recommendations Continue with Current Program
--- NOTE | 2022-01-23 17:05 | ST.OPTN ---
Visit Care Team Role Provider Type Mark Palafox MD Primary Care Provider Physician Address: [address] [place] [address], [id number] Puma Vázquez MD Attending Provider Non-Staff Referring Provider Address: [facility] Cathy Bradley [address], [address] DEVELOPMENT REPRESENTATIVE Treatment Note DEVELOPMENT REPRESENTATIVE Treatment Note Start: 10/04/21 15:37 Freq: Status: Active Protocol: Document 01/23/22 16:55 LNK (Rec: 01/23/22 17:04 LNK [id number]) Speech Pathology Treatment Note Session Time Visit Start Time 15:30 Visit Stop Time 16:00 Total Visit Minutes 30 Visit Information Visit Number 3 Plan of Care Dates 01/02/22-04/04/22 Setting Treatment Setting Outpatient Care Visit Type Note Type Re-Evaluation Next Note Type Next Note Type Treatment Note General Information Patient History Pt is a 76 year old gentleman referred for left vocal fold paralysis. Pt was intubated. He reports that his voice was changed and very hoarse following surgery for knee replacement on 03/04/21. Pt was referred for examination with Dr Fredy Miramontes, ENT, who diagnosed a left side unilateral vocal fold paralysis. Pt was then referred to Dr. Vázquez, ENT , for further assessment on . Dr Vázquez described vocal folds as the left fold bowed with no mobility; the right fold was bowed with reduced mobility. After discussing therapeutic options with Dr. Vázquez, the pt opted for injection augmentation, which the pt reoprted occurred 2 months ago . Voice therapy is recommended to the pt for vocal quality. Today, pt is presenting for voice evaluation and treatment to improvement vocal quality and speaking endurance. Subjective Identification Type Date of Chief Complaint(s) Voice Rehab Expectation/Goals: Patient Goals Improve vocal quality to WFL/ WNL Patient Knowledge/Awareness of DEVELOPMENT REPRESENTATIVE Role Excellent in Treatment Objective Short Term Goals Pt will carry out home vocal exercises 3-5/day to increase vocal fold strength and mobility. Pt will turn head to the right to better approximate the vocal folds when drinking thin liquids. Caustic Purification Operator Goals Pt's vocal quality will improve to WFL per pt report and with follow up appointments monitoring vocal quality. Treatment Activities Reviewed all exercises. Pt demonstrated exercises. Perceptually pt's vocal quality presented has improved since last session. Jitter and Shimmer values assessed. Both jitter and shimmer were decreased: Jitter 2.9 4 and Shimmer 8.8 Pt reported that he saw Dr Car, who indicated that vocal adduction as improved with a small amount of filler keeping posterior glottis open. Will follow up in 2 months. Pt encouraged to keep up exercise program. Assessment Patient Response to Treatment Excellent Rehab Potential Excellent Impairments Identified Dysphonia,Vocal Quality Progress Towards Goals Good Progress Assessment of Overall Progress Improving Reviewed with Patient Progress Being Made,Home Exercise Program Plan Amount of Therapy Recommended 3 Months Frequency of Treatment Once a Week Length of Session 45 Minutes Therapeutic Contents Voice Training Provided Patient/Caregiver Instruction Home Exercise Program Therapy Recommendations Continue with Current Program
--- NOTE | 2022-05-01 14:24 | ST.OPDS ---
Visit Care Team Role Provider Type Mark Palafox MD Primary Care Provider Physician Address: [address] [place] [address], [id number] Puma Vázquez MD Attending Provider Non-Staff Referring Provider Address: [facility] Cathy Bradley [address], [address] STRATEGIC INTELLIGENCE OFFICER Treatment Note STRATEGIC INTELLIGENCE OFFICER Treatment Note Start: 10/04/21 15:37 Freq: Status: Active Protocol: Document 05/01/22 14:05 LNK (Rec: 05/01/22 14:15 LNK [id number]) Speech Pathology Treatment Note Session Time Visit Start Time 13:30 Visit Stop Time 14:00 Total Visit Minutes 30 Visit Information Visit Number 4 Plan of Care Dates 05/01/22-05/21/22 Setting Treatment Setting Outpatient Care Visit Type Note Type Discharge Summary Next Note Type Next Note Type Discharge Summary General Information Patient History Pt is a 76 year old gentleman who has been seen for referred for unilateral vocal fold paralysis with the left fold bowed and the right fold was bowed with reduced mobility. After discussing therapeutic options with Dr. Vázquez, the pt opted for injection augmentation, improved vocal quality. Voice therapy was recommended. Today, pt is presenting for re- evaluation of vocal quality and speaking endurance. Subjective Identification Type Date of Chief Complaint(s) Voice Rehab Expectation/Goals: Patient Goals Improve vocal quality to WFL/ WNL Patient Knowledge/Awareness of STRATEGIC INTELLIGENCE OFFICER Role Excellent in Treatment Objective Short Term Goals Pt will carry out home vocal exercises 3-5/day to increase vocal fold strength and mobility. GOAL MET Pt will turn head to the right to better approximate the vocal folds when drinking thin liquids. GOAL MET Deputy Editor In Chief Goals Pt's vocal quality will improve to WFL per pt report and with follow up appointments monitoring vocal quality. Treatment Activities Reviewed all exercises. Pt demonstrated exercises. Perceptually pt's vocal quality presented has improved since last session. Jitter and Shimmer values assessed. Both jitter and shimmer were improved to WNL. Pt encouraged to keep up exercise program. pt is discharged from therapy at this time. Assessment Patient Response to Treatment Excellent Rehab Potential Excellent Progress Towards Goals Good Progress Assessment of Overall Progress Improving,Rehabilitated Reviewed with Patient Home Exercise Program Plan Amount of Therapy Recommended No Further Therapy Frequency of Treatment No Further Therapy Provided Patient/Caregiver Instruction Home Exercise Program Therapy Recommendations Discharge from Speech Therapy
--- NOTE | 2022-05-04 13:28 | ST.OPPOC ---
Physical, Occupational & Speech Therapy At [facility] Visit Care Team Role Provider Type Mark Palafox MD Primary Care Provider Physician Address: [address] [place] [address], [id number] Puma Vázquez MD Attending Provider Non-Staff Referring Provider Address: [address] [place] [address], [id number] Speech Pathology Plan of Care Plan of Care Dates 05/01/22-05/21/[address] Vázquez Patient History Pt is a 76 year old gentleman who has been seen for referred for unilateral vocal fold paralysis with the left fold bowed and the right fold was bowed with reduced mobility. After discussing therapeutic options with Dr. Vázquez, the pt opted for injection augmentation, improved vocal quality. Voice therapy was recommended. Today, pt is presenting for re- evaluation of vocal quality and speaking endurance. Short Term Goals Pt will carry out home vocal exercises 3-5/day to increase vocal fold strength and mobility. GOAL MET Pt will turn head to the right to better approximate the vocal folds when drinking thin liquids. GOAL MET Long-Term Goals Pt's vocal quality will improve to WFL per pt report and with follow up appointments monitoring vocal quality. Progress Towards Goals Good Progress Comment: Electronically Signed by: ANA Markham 05/04/22 [id number] If you are in agreement with this Plan of Care, please return a signed and dated copy. I have reviewed this Plan of Care and certify that the skilled therapy services above are required to meet the patient?s needs. Physician Signature Date Printed Name and Credentials Clinical Instructor Signature Printed Name and Credentials
== END 2022-05-12 14:07 ==
LOC: SP 13:30
PROVIDERS: PCP Internal Medicine; Referring Provider Specialist; Visit Provider Specialist
DX: J38.01 Paralysis of vocal cords and larynx, unilateral (principal)
CPT/HCPCS: 92507; 92520; 92524

== ENCOUNTER → 2022-05-26 11:58 | Outpatient (CLI) | payer OTHER, SELFPAY ==
[2021-03-04 11:13] VITALS: BMI 25.8
[2022-05-26 13:32] LABS: TSH w/ Reflex to FT4 1.85 uIU/mL (0.47-4.68)
[2022-05-26 13:37] LABS: Cholesterol 150 mg/dL (140-199); HDL Cholesterol 47 mg/dL (40-60); LDL Cholesterol Calculated 74 mg/dL (<100); Triglycerides 145 mg/dL (35-150)
[2022-05-26 13:54] LABS: Prostate Specific Antigen < 0.064 ng/mL (0.10-4.00)
== END ==
PROVIDERS: PCP Internal Medicine; Referring Provider Internal Medicine; Visit Provider Internal Medicine
DX: E03.9 Hypothyroidism, unspecified (principal); Z85.46 Personal history of malignant neoplasm of prostate; E78.2 Mixed hyperlipidemia
CPT/HCPCS: 36415; 80061; 84153; 84443

== ENCOUNTER → 2022-06-17 09:57 | Outpatient (CLI) | payer OTHER, SELFPAY ==
[2021-03-04 11:13] VITALS: BMI 25.8
[2022-06-17 12:32] LABS: Add Manual Diff / Slide Review NO; Basophils Absolute Auto 0 /uL (0-100); Eosinophils Absolute Auto 100 /uL (0-450); Eosinophils Percent Auto 3.6 % (2-4); Hematocrit 36.8 % (41-53); Hemoglobin 12.6 g/dL (13.5-17.5); Lymphocytes Absolute Auto 1000 /uL (1100-4500); Lymphocytes Percent Auto 24.2 % (25-40); Mean Corpuscular HGB Conc 34.3 % (30-36); Mean Corpuscular Hemoglobin 35.2 PG (26-34); Mean Corpuscular Volume 102.8 fL (80-100); Monocytes Absolute Auto 600 /uL (0-900); Monocytes Percent Auto 14.9 % (3-14); Neutrophils Absolute Auto 2200 /uL (1500-7000); Neutrophils Percent Auto 56.3 % (50-75); Platelet Count 131 X10^3/uL (150-400); Red Blood Cell Count 3.58 X10^6/uL (4.5-5.9); Red Cell Distribution Width 13.4 % (11.6-14.8)
[2022-06-17 12:42] LABS: Alanine Aminotransferase 39 IU/L (<50); Albumin 4.1 g/dL (3.5-5.0); Albumin Globulin Ratio 1.5 (1.0-2.8); Alkaline Phosphatase 69 U/L (38-126); Aspartate Aminotransferase 52 IU/L (17-59); BUN Creatinine Ratio 21.7 (6-22); Bilirubin Total 0.7 mg/dL (0.2-1.3); Blood Urea Nitrogen 23 mg/dL (9-20); Calcium 8.8 mg/dL (8.4-10.2); Carbon Dioxide 34 mmol/L (22-32); Chloride 100 mmol/L (98-107); Estimated Glomerular Filt Rate > 60 mL/min (>60); Globulin 2.8 g/dL (1.7-4.1); Glucose 91 mg/dL (80-110); HEMOLYSIS < 15 (0-50); Potassium 3.6 mmol/L (3.4-5.1); Sodium 140 mmol/L (137-145); Total Protein 6.9 g/dL (6.3-8.2)
== END ==
PROVIDERS: PCP Internal Medicine; Referring Provider Internal Medicine Rheumatology; Visit Provider Internal Medicine Rheumatology
DX: M06.09 Rheumatoid arthritis without rheumatoid factor, multiple sites (principal); D72.819 Decreased white blood cell count, unspecified; Z79.899 Other long term (current) drug therapy
CPT/HCPCS: 36415; 80053; 85025

== ENCOUNTER → 2022-07-25 12:54 | Outpatient (CLI) | payer OTHER, SELFPAY ==
[2021-03-04 11:13] VITALS: BMI 25.8
[2022-07-25 13:37] LABS: Add Manual Diff / Slide Review NO; Basophils Absolute Auto 100 /uL (0-100); Basophils Percent Auto 1.3 % (0-2); Eosinophils Absolute Auto 200 /uL (0-450); Eosinophils Percent Auto 5.3 % (2-4); Hematocrit 39.3 % (41-53); Hemoglobin 13.2 g/dL (13.5-17.5); Lymphocytes Absolute Auto 900 /uL (1100-4500); Lymphocytes Percent Auto 22.7 % (25-40); Mean Corpuscular HGB Conc 33.5 % (30-36); Mean Corpuscular Hemoglobin 34.4 PG (26-34); Mean Corpuscular Volume 102.8 fL (80-100); Monocytes Absolute Auto 600 /uL (0-900); Monocytes Percent Auto 14.8 % (3-14); Neutrophils Absolute Auto 2300 /uL (1500-7000); Neutrophils Percent Auto 55.9 % (50-75); Platelet Count 170 X10^3/uL (150-400); Red Blood Cell Count 3.82 X10^6/uL (4.5-5.9); Red Cell Distribution Width 12.7 % (11.6-14.8)
[2022-07-25 14:05] LABS: Alanine Aminotransferase 40 IU/L (<50); Albumin 4.2 g/dL (3.5-5.0); Albumin Globulin Ratio 1.4 (1.0-2.8); Alkaline Phosphatase 70 U/L (38-126); Aspartate Aminotransferase 60 IU/L (17-59); BUN Creatinine Ratio 28.6 (6-22); Bilirubin Total 0.7 mg/dL (0.2-1.3); Blood Urea Nitrogen 34 mg/dL (9-20); Calcium 9.2 mg/dL (8.4-10.2); Carbon Dioxide 30 mmol/L (22-32); Chloride 99 mmol/L (98-107); Estimated Glomerular Filt Rate > 60 mL/min (>60); Globulin 3.1 g/dL (1.7-4.1); Glucose 108 mg/dL (80-110); HEMOLYSIS < 15 (0-50); Potassium 3.8 mmol/L (3.4-5.1); Sodium 140 mmol/L (137-145); Total Protein 7.3 g/dL (6.3-8.2)
[2022-07-27 13:10] LABS: QuantiFERON Mitogen Value >10.00 IU/mL (.); QuantiFERON Nil Value 0.02 IU/mL (.); QuantiFERON TB Gold Plus Negative (Negative); QuantiFERON TB1 Ag Value 0.02 IU/mL (.); QuantiFERON TB2 Ag Value 0.02 IU/mL (.)
[2022-07-27 16:27] LABS: Hepatitis B Surface Antigen NEGATIVE s/c (NEGATIVE)
[2022-07-27 16:44] LABS: Hep C Virus Ab w/Reflex Quant NEGATIVE s/c (NEGATIVE)
== END ==
PROVIDERS: PCP Internal Medicine; Referring Provider Internal Medicine Rheumatology; Visit Provider Internal Medicine Rheumatology
DX: M06.09 Rheumatoid arthritis without rheumatoid factor, multiple sites (principal); Z79.899 Other long term (current) drug therapy
CPT/HCPCS: 36415; 80053; 85025; 86480; 86803; 87340

== ENCOUNTER → 2022-08-23 08:07 | Outpatient (CLI) | payer OTHER, SELFPAY ==
[2021-03-04 11:13] VITALS: BMI 25.8
[2022-08-23 10:33] LABS: INR 1.3 (0.9-1.3); Prothrombin Time 14.7 SECONDS (10.1-12.7)
== END ==
PROVIDERS: PCP Internal Medicine; Referring Provider Internal Medicine; Visit Provider Internal Medicine
DX: I48.20 Chronic atrial fibrillation, unspecified (principal); Z79.01 Long term (current) use of anticoagulants
CPT/HCPCS: 36415; 85610

== ENCOUNTER → 2022-08-30 08:30 | Outpatient (CLI) | payer OTHER, SELFPAY ==
[2021-03-04 11:13] VITALS: BMI 25.8
[2022-08-30 09:59] LABS: Add Manual Diff / Slide Review NO; Basophils Absolute Auto 100 /uL (0-100); Eosinophils Absolute Auto 200 /uL (0-450); Eosinophils Percent Auto 4.5 % (2-4); Hematocrit 37.2 % (41-53); Hemoglobin 12.6 g/dL (13.5-17.5); Lymphocytes Absolute Auto 1000 /uL (1100-4500); Lymphocytes Percent Auto 18.7 % (25-40); Mean Corpuscular Volume 102.9 fL (80-100); Monocytes Absolute Auto 800 /uL (0-900); Monocytes Percent Auto 14.1 % (3-14); Neutrophils Absolute Auto 3300 /uL (1500-7000); Neutrophils Percent Auto 61.7 % (50-75); Platelet Count 143 X10^3/uL (150-400); Red Blood Cell Count 3.62 X10^6/uL (4.5-5.9); Red Cell Distribution Width 13.1 % (11.6-14.8); White Blood Cell Count 5.4 X10^3/uL (4.5-11.0)
[2022-08-30 10:29] LABS: Alanine Aminotransferase 38 IU/L (<50); Albumin 4.2 g/dL (3.5-5.0); Albumin Globulin Ratio 1.5 (1.0-2.8); Alkaline Phosphatase 79 U/L (38-126); Aspartate Aminotransferase 48 IU/L (17-59); BUN Creatinine Ratio 22.2 (6-22); Bilirubin Total 0.6 mg/dL (0.2-1.3); Blood Urea Nitrogen 24 mg/dL (9-20); Carbon Dioxide 30 mmol/L (22-32); Chloride 102 mmol/L (98-107); Estimated Glomerular Filt Rate > 60 mL/min (>60); Globulin 2.8 g/dL (1.7-4.1); Glucose 107 mg/dL (80-110); HEMOLYSIS < 15 (0-50); Potassium 4.1 mmol/L (3.4-5.1); Sodium 140 mmol/L (137-145)
[2022-08-31 17:28] LABS: Hepatitis B Surface Antigen NEGATIVE s/c (NEGATIVE)
[2022-09-01 16:11] LABS: INR 2.2 (0.9-1.3); Prothrombin Time 25.8 SECONDS (10.1-12.7)
[2022-09-01 18:37] LABS: QuantiFERON Mitogen Value >10.00 IU/mL (.); QuantiFERON Nil Value 0.04 IU/mL (.); QuantiFERON TB Gold Plus Negative (Negative); QuantiFERON TB1 Ag Value 0.04 IU/mL (.); QuantiFERON TB2 Ag Value 0.05 IU/mL (.)
== END ==
PROVIDERS: PCP Internal Medicine; Referring Provider Internal Medicine Rheumatology; Visit Provider Internal Medicine Rheumatology
DX: I48.20 Chronic atrial fibrillation, unspecified (principal); M06.09 Rheumatoid arthritis without rheumatoid factor, multiple sites; Z79.01 Long term (current) use of anticoagulants; Z79.899 Other long term (current) drug therapy
CPT/HCPCS: 36415; 80053; 85025; 85610; 86480; 87340; 87522

== ENCOUNTER → 2022-12-04 11:30 | Outpatient (CLI) | payer OTHER, SELFPAY ==
[2021-03-04 11:13] VITALS: BMI 25.8
[2022-12-04 12:30] LABS: Add Manual Diff / Slide Review NO; Basophils Absolute Auto 0 /uL (0-100); Basophils Percent Auto 0.7 % (0-2); Eosinophils Absolute Auto 200 /uL (0-450); Eosinophils Percent Auto 4.2 % (2-4); Hematocrit 37.7 % (41-53); Hemoglobin 12.5 g/dL (13.5-17.5); Lymphocytes Absolute Auto 1000 /uL (1100-4500); Lymphocytes Percent Auto 21.8 % (25-40); Mean Corpuscular HGB Conc 33.3 % (30-36); Mean Corpuscular Hemoglobin 33.9 PG (26-34); Mean Corpuscular Volume 102.1 fL (80-100); Monocytes Absolute Auto 500 /uL (0-900); Monocytes Percent Auto 11.5 % (3-14); Neutrophils Absolute Auto 2900 /uL (1500-7000); Neutrophils Percent Auto 61.8 % (50-75); Platelet Count 135 X10^3/uL (150-400); Red Blood Cell Count 3.69 X10^6/uL (4.5-5.9); White Blood Cell Count 4.6 X10^3/uL (4.5-11.0)
[2022-12-04 13:01] LABS: Alanine Aminotransferase 42 IU/L (<50); Albumin 4.2 g/dL (3.5-5.0); Albumin Globulin Ratio 1.4 (1.0-2.8); Alkaline Phosphatase 73 U/L (38-126); Aspartate Aminotransferase 61 IU/L (17-59); BUN Creatinine Ratio 20.6 (6-22); Bilirubin Total 0.7 mg/dL (0.2-1.3); Blood Urea Nitrogen 21 mg/dL (9-20); Calcium 9.2 mg/dL (8.4-10.2); Carbon Dioxide 29 mmol/L (22-32); Chloride 100 mmol/L (98-107); Estimated Glomerular Filt Rate > 60 mL/min (>60); Glucose 119 mg/dL (80-110); HEMOLYSIS < 15 (0-50); Potassium 3.7 mmol/L (3.4-5.1); Sodium 140 mmol/L (137-145); Total Protein 7.2 g/dL (6.3-8.2)
== END ==
PROVIDERS: PCP Internal Medicine; Referring Provider Internal Medicine Rheumatology; Visit Provider Internal Medicine Rheumatology
DX: Z79.899 Other long term (current) drug therapy (principal); M06.09 Rheumatoid arthritis without rheumatoid factor, multiple sites
CPT/HCPCS: 36415; 80053; 85025

== ENCOUNTER 2022-12-06 09:09 | Day surgery (SDC) | payer OTHER, SELFPAY ==
[2021-03-04 11:13] VITALS: BMI 25.8
[2022-12-01 12:11] VITALS: BMI 24.3
[2022-12-06] VITALS (8 sets, daily range): BP systolic 104–149; BP diastolic 64–88; PULSE 74–94; RESP 10–22; TEMP 35.7–36.1; O2SAT 92–97; BMI 23.6
[2022-12-06] MEDS: LACTATED RINGERS 1,000 ML 100 ML IV (09:19)
--- NOTE | 2022-12-06 10:04 | PM.PREOP ---
Pre-operative Note Interval Note History & Physical reviewed/Exam performed by Physician: Yes Changes to H&P: No
[2022-12-06] MEDS: CEFAZOLIN 2 GM/100 ML PREMIX 100 ML IV (10:10)
[2022-12-06] MEDS: BUPIVACAINE 0.25% (PF) VIAL 30 ML INJ (10:27)
--- NOTE | 2022-12-06 10:29 | SUR.OPER ---
Supine on padded OR bed, head on pillow, arms secured on padded arm boards at <90 degrees abduction, legs uncrossed, safety belt at thigh.
--- NOTE | 2022-12-06 11:32 | P.OP_ITS ---
Operative Date/Time/Diagnoses Date of procedure: 12/06/22 Pre-op diagnosis: Incisional ventral hernia Post-op diagnosis: same Procedure & Clinicians Procedure: Open repair of incisional ventral hernia 5 cm Same procedure as scheduled: Yes Indications: 77M with a symptomatic epigastric incisional ventral hernia following open heart surgery here for elective repair Surgeon: Mario Cintron Click Yes if Unassisted: Yes Anesthesia Type: General Operative Notes Findings: Viable omentum with hernia sac 5 cm fascial defect Specimen(s): none sent Estimated Blood Loss (mL): 10 Procedure in detail: Patient was brought to the operating room placed supine on the table. Bilateral lower extremity compression devices were applied. They received 2 g of Ancef prior to skin incision. Prepped and draped in sterile fashion, ioban was placed. Time-out was performed. The abdominal portion of his sternotomy scar was sharply opened. The subcutaneous tissue was divided to expose the midline fascia. The fascia had an apporximately 5 cm fascial defect containing omentum. The fascia was grasped elevated and sharply opened. A towel was then placed over the visceral content to protect it out of harms way. The peritoneum was then reapproximated with Vicryl suture. A Bard Ventralex mesh was placed behind the rectus muscle and peritoneum with the anti-adhesive surface face down. The mesh provided excellent overlap in all directions. It was secured to the overlying fascia with Ethibond suture. The rectus muscle was then r eapproximated over the mesh and closed with a running Prolene suture. Hemostasis was checked. The subcutaneous tissue was then reapproximated using Vicryl skin closed with running 4-0 Monocryl followed by the application of Dermabond. Patient emerged from anesthesia was extubated and transferred to recovery room in stable condition. Complications: none Post-operative Condition: stable Disposition: same day surgery
--- NOTE | 2022-12-06 11:32 | SUR.PHASEI ---
Patient following commands appropriately. Answering yes, no and good to all questions, even those requesting his location or who will be taking him home.
--- NOTE | 2022-12-06 11:45 | SUR.PHASEI ---
Patient answering questions appropriately.
--- NOTE | 2022-12-06 11:53 | SUR.PHASEI ---
Patient answering questions mostly with one or two word responses. Dr. Partida notified/updated. Will continue to monitor.
== END 2022-12-06 12:25 | disposition home or self-care (01) ==
PROVIDERS: PCP Internal Medicine; Referring Provider Surgery; Visit Provider Surgery
PROC: (CPT 49593; principal; 2022-12-06 10:15)
DX: K43.2 Incisional hernia without obstruction or gangrene (principal); Z95.1 Presence of aortocoronary bypass graft; J44.9 Chronic obstructive pulmonary disease, unspecified
CPT/HCPCS: 49593; 85610; J0690; J1100; J1885; J2405; J2704; J3010; J3490

== ENCOUNTER → 2023-02-27 15:11 | Outpatient (CLI) | payer OTHER, SELFPAY ==
[2021-03-04 11:13] VITALS: BMI 25.8
[2023-02-27 15:39] LABS: Add Manual Diff / Slide Review NO; Basophils Absolute Auto 0 /uL (0-100); Basophils Percent Auto 0.7 % (0-2); Eosinophils Absolute Auto 200 /uL (0-450); Eosinophils Percent Auto 3.7 % (2-4); Hematocrit 35.3 % (41-53); Hemoglobin 11.9 g/dL (13.5-17.5); Lymphocytes Absolute Auto 1100 /uL (1100-4500); Lymphocytes Percent Auto 17.4 % (25-40); Mean Corpuscular HGB Conc 33.7 % (30-36); Mean Corpuscular Hemoglobin 34.3 PG (26-34); Monocytes Absolute Auto 900 /uL (0-900); Monocytes Percent Auto 14.5 % (3-14); Neutrophils Absolute Auto 3900 /uL (1500-7000); Neutrophils Percent Auto 63.7 % (50-75); Platelet Count 146 X10^3/uL (150-400); Red Blood Cell Count 3.46 X10^6/uL (4.5-5.9); Red Cell Distribution Width 13.3 % (11.6-14.8); White Blood Cell Count 6.1 X10^3/uL (4.5-11.0)
[2023-02-27 15:56] LABS: Alanine Aminotransferase 41 IU/L (<50); Albumin Globulin Ratio 1.4 (1.0-2.8); Alkaline Phosphatase 69 U/L (38-126); Aspartate Aminotransferase 57 IU/L (17-59); BUN Creatinine Ratio 29.7 (6-22); Bilirubin Total 0.5 mg/dL (0.2-1.3); Blood Urea Nitrogen 33 mg/dL (9-20); Carbon Dioxide 31 mmol/L (22-32); Chloride 101 mmol/L (98-107); Estimated Glomerular Filt Rate > 60 mL/min (>60); Globulin 2.9 g/dL (1.7-4.1); Glucose 95 mg/dL (80-110); HEMOLYSIS < 15 (0-50); Sodium 139 mmol/L (137-145); Total Protein 6.9 g/dL (6.3-8.2)
== END ==
PROVIDERS: PCP Internal Medicine; Referring Provider Internal Medicine Rheumatology; Visit Provider Internal Medicine Rheumatology
DX: M06.09 Rheumatoid arthritis without rheumatoid factor, multiple sites (principal); Z79.899 Other long term (current) drug therapy
CPT/HCPCS: 36415; 80053; 85025

== ENCOUNTER 2023-04-13 10:47 | Emergency (ER) | payer OTHER, SELFPAY ==
[2021-03-04 11:13] VITALS: BMI 25.8
[2023-04-13 10:55] VITALS: BP 131/66; PULSE 61; RESP 16; TEMP 36.7; O2SAT 95; BMI 24.3
--- NOTE | 2023-04-13 10:59 | DI.CT.S_ITS ---
PROCEDURE: CT HEAD/BRAIN WO CON INDICATIONS: fall 2 week ago, on warfarin, increased confusion TECHNIQUE: Noncontrast 4.5 mm thick angled axial sections acquired from the foramen magnum to the vertex, with coronal and sagittal reformats. For radiation dose reduction, the following was used: automated exposure control, adjustment of mA and/or kV according to patient size. COMPARISON: [facility], CT, CT HEAD WITHOUT CONTRAST, 04/02/2023, 13:23. [facility], CT, CT HEAD/BRAIN WO CON, 06/10/2019, 11:17. FINDINGS: Image quality: Excellent. CSF spaces: Basal cisterns are patent. No extra-axial fluid collections. The ventricles are symmetric in size and shape. Brain: There is an old infarct in the right parietal lobe with encephalomalacia. No intracranial bleeds or masses. There is mild generalized cerebral volume loss for age, with resultant ventricular and sulcal prominence. There are mild periventricular and deep white matter chronic small vessel ischemic changes. There is intracranial internal carotid artery atherosclerosis. Skull and face: Calvarium and visualized facial bones appear intact, without suspicious lesions. Sinuses: Visualized sinuses and mastoids are clear. IMPRESSION: 1. No acute intracranial abnormalities. 2. 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 3. Generalized cerebral volume loss and chronic microvascular ischemic changes. Dictated by: Shar Velázquez M.D. on 04/13/2023 at 11:51 Approved by: Shar Velázquez M.D. on 04/13/2023 at 12:01
[2023-04-13 11:49] VITALS: PULSE 69; O2SAT 99
[2023-04-13 11:51] VITALS: BP 164/67; PULSE 68; O2SAT 93
--- NOTE | 2023-04-13 12:01 | ED_ITS ---
HPI - Neuro Symptoms/Deficit General Chief Complaint: Neuro Symptoms/Deficit Stated Complaint: fell t-14 confussion Time Seen by Provider: 04/13/23 12:01 Source: patient and family Mode of arrival: Family Vehicle Limitations: no limitations History of Present Illness HPI Narrative: This is a 77-year-old male with history of prior stroke anticoagulated on warfarin. Patient had fall 2 weeks ago had head injury with hematoma and bruising that came down under the eye he had a CT at that time which was negative but INR was 3.9. Family brings him in as they state he still little bit confused more than they would expect. states that she is always had to speak slower and give directions a little bit more clearly since he had a stroke 20 years ago but seems like it is little bit worse than it had been. She did notice a bit of a change right after the head injury does not seem to be worsening but has not resolved as quickly as she would expect. Did have headaches until about 2 or 3 days ago. She states she will give him directions and he seems confused for a minute or 2. Still able to do his normal activities although he has not gone to the gym since his fall. He has had his INR rechecked in most recently yesterday and was reviewed. Patient has not had any fevers no chills no chest pain no shortness of breath, no new neurologic changes, no numbness, tingling or weakness, no new dysuria urgency frequency or incontinence. No diarrhea constipation. No known drug allergies. Patient is accompanied by his . On Anticoagulants: Yes Related Data Home Medications Medication Instructions Recorded Confirmed aspirin 81 mg tablet,delayed 81 mg PO DAILY ##0 04/01/09 01/17/23 release multivitamin 1 cap PO DAILY ##0 04/01/09 01/17/23 cholecalciferol (vitamin D3) 50 2,000 unit PO DAILY ##0 06/14/13 01/17/23 mcg (2,000 unit) capsule (Vitamin D3) folic acid 1 mg tablet 3 mg PO QDAY ##0 06/14/13 01/17/23 magnesium oxide 400 mg (241.3 mg 400 mg PO Q24H ##0 06/14/13 01/17/23 magnesium) tablet terazosin 10 mg capsule 10 mg PO HS ##0 06/14/13 01/17/23 cyanocobalamin (vitamin B-12) 1,000 mcg PO DAILY 04/09/18 01/17/23 1,000 mcg tablet (Vitamin B-12) carvedilol 12.5 mg tablet 12.5 mg PO BID 06/04/19 01/17/23 oxybutynin chloride 5 mg 5 mg PO DAILY 06/04/19 01/17/23 tablet,extended release 24 hr levothyroxine 100 mcg tablet 50 mcg PO DAILY 02/24/21 01/17/23 vit C 250 mg-vit E 90 mg-zinc 40 1 tab PO BID 02/24/21 01/17/23 mg-copper 1 hh-dvlvds-talrea capsule (PreserVision AREDS-2) calcium carbonate 500 mg calcium 500 mg PO BID 03/13/22 01/17/23 (1,250 mg) tablet sulfasalazine 500 mg tablet 1,000 mg PO TID 05/26/22 01/17/23 Previous Rx's Medication Instructions Recorded mirtazapine 45 mg tablet See Rx Instructions .Route 05/22/22 .COMPLEX #90 tabs lisinopril 5 mg tablet See Rx Instructions PO DAILY #135 07/03/22 tabs furosemide 40 mg tablet See Rx Instructions .Route 08/07/22 .COMPLEX #180 tabs omeprazole 20 mg capsule,delayed See Rx Instructions .Route 08/23/22 release .COMPLEX #90 caps warfarin 2.5 mg tablet See Rx Instructions PO .COMPLEX 10/30/22 #90 tabs atorvastatin 80 mg tablet (Lipitor) 80 mg PO HS #90 tabs 11/08/22 acetaminophen 325 mg capsule 650 mg PO QID PRN pain #60 caps 12/06/22 (Tylenol) docusate sodium 100 mg capsule 100 mg PO BID #30 caps 12/06/22 (Colace) potassium chloride 20 mEq See Rx Instructions .Route 12/07/22 tablet,extended release(part/cryst) .COMPLEX #135 tabs gabapentin 600 mg tablet 600 mg PO TID #270 tabs 02/05/23 duloxetine 60 mg capsule,delayed 60 mg PO DAILY #90 caps 03/12/23 release Allergies Allergy/AdvReac Type Severity Reaction Status Date / Time No Known Drug Allergies Allergy Verified 01/17/23 14:33 Review of Systems Review of Systems ROS Unobtainable: All systems reviewed & are unremarkable except as noted in HPI and below Hematologic/Lymphatic On Anticoagulants: Yes Patient History Medical History Acquired hypothyroidism Acute bronchitis (~03/2019) Anemia Arthritis CAD (coronary artery disease) Cardiomyopathy Centrilobular emphysema Cerebrovascular accident (CVA) (~2003) Cerebrovascular disease CHF (congestive heart failure) Chronic anticoagulation Chronic atrial fibrillation Chronic sinusitis COPD (chronic obstructive pulmonary disease) COVID-19 virus infection (10/2021) DDD (degenerative disc disease) Depression Diverticulosis ELENA (dyspnea on exertion) Easy bruisability Edema Essential hypertension Facet arthropathy, lumbar Fatty liver Former smoker GERD (gastroesophageal reflux disease) History of alcohol use disorder History of blood clots History of prostate cancer HLD (hyperlipidemia) HTN (hypertension) Hypothyroidism due to amiodarone Kidney stones Mild cognitive impairment Mixed hyperlipidemia Myocardial infarction (~1984) Obstructive sleep apnea syndrome Orthostatic hypotension Osteoarthritis Primary osteoarthritis involving multiple joints Prostate cancer Raynaud's syndrome Rheumatoid arthritis Right arm fracture (~04/2016) Right knee DJD Scoliosis deformity of spine Sleep apnea Systolic CHF, chronic Surgical History History of lumbar laminectomy Hx of angioplasty (~1984) Hx of arthroscopy of right knee Hx of bilateral cataract extraction Hx of bilateral inguinal hernia repair Hx of CABG (~2003) Hx of elbow surgery Hx of heart artery stent Hx of lumbosacral spine surgery (~2008) Hx of mitral valve repair (~2003) S/P right unicompartmental knee replacement Status post correction of deviated nasal septum Status post total right knee replacement (~03/04/21) Social History household members: spouse Smoking Status: Former smoker Tobacco: How many years used: 8 alcohol intake: former Smoking Status: Former smoker Substance Use Type: does not use Exam Narrative Exam Narrative: GENERAL: Alert and oriented x three, elderly male in mild distress. HEENT: Head normocephalic, atraumatic except for small amount of purple ecchymosis over the right cheek, no hematoma, EOMI, pupils reactive, face symmetric, moist mucous membranes NECK: Supple, full range of motion CARDIOVASCULAR: Regular rate and rhythm without murmurs, rubs or gallops. RESPIRATORY: Breath sounds equal bilaterally, no wheezes rales or rhonchi. ABDOMEN: Soft, nontender. Normoactive bowel sounds all 4 quadrants. No guarding or rebound, rigidity, no mass : No CVA tenderness EXTREMITIES: Normal range of motion, no clubbing or edema. Neurovascularly intact. Normal gait. NEUROLOGICAL: Cranial nerves II through XII grossly intact. Moving all extremities SKIN: Warm, dry, no petechiae, no rashes or lesions. Initial Vital Signs Initial Vital Signs: Vital Signs Temperature 98.1 F 04/13/23 10:55 Pulse Rate 61 04/13/23 10:55 Respiratory Rate 16 04/13/23 10:55 Blood Pressure 131/66 04/13/23 10:55 Pulse Oximetry 95 04/13/23 10:55 Oxygen Delivery Method Room Air 04/13/23 10:55 Course Orders Ordered: ED Orders 04/13/23 10:59 CT head/brain wo con Stat Vital Signs Vital signs: Vital Signs - 8 hr 04/13/23 10:55 04/13/23 11:49 04/13/23 11:51 Temperature 98.1 F Pulse Rate 61 69 Respiratory Rate 16 Blood Pressure 131/66 164/67 H Pulse Oximetry 95 99 Oxygen Delivery Method Room Air 04/13/23 11:51 Temperature Pulse Rate 68 Respiratory Rate Blood Pressure Pulse Oximetry 93 Oxygen Delivery Method MDM - Neuro Symptoms/Deficit Imaging Data CT scan - head: Radiologist's Impression: Roman Macedo??77??M??1945 ? Allergy/Adv: No Known Drug Allergies Close Head CT (Signed) Shar Velázquez - 04/13/23 Chest X-Ray (Signed) Christopher Ferreira - 10/28/21 Chest X-Ray (Signed) Stephanie Gillette - 03/24/21 Telemetry Strips 03/05/21 Knee X-Ray (Signed) Medhat Lewis - 03/04/21 Outside Echo 12/27/20 Outside EKG 12/03/20 Knee X-Ray (Signed) Curry Gagnon - 05/17/20 Injection Lumbar, Sacrum (Signed) Kyree Waddell - 04/15/20 Facet Joint Injection X-Ray (Signed) Medhat Lewis - 12/29/19 Facet Joint Injection X-Ray (Signed) Medhat Lewis - 12/01/19 Lumbar Spine X-Ray (Signed) Rebecca Leary - 10/20/19 Outside DI 10/08/19 Telemetry Strips 09/23/[address] (Signed) Stephanie Gillette - 06/10/19 Echocardiogram Ultrasound (Signed) JessicaBuck baltazarar - 04/02/19 Chest X-Ray (Signed) JoshuaMedhat - 03/24/19 Outside EKG 10/11/18 Renal Ultrasound (Signed) Curry Gagnon - 06/11/18 Outside Echo 04/03/[address] (Signed) Curry Gagnon - 03/21/18 Pulmonary Function Test 03/05/18 Launch?Image [address] [address] [address] Scan Report Signed Patient: Roman Macedo MR#: [id number] : 1945 Acct:[id number] Age/Sex: 77 / M Date of Service: 04/13/23 Loc: ED Accession Number: [id number] ?? Procedure: CT head/brain wo con Ordering Provider: Crista Bear D.O. PROCEDURE:? CT HEAD/BRAIN WO CON ? INDICATIONS:? fall 2 week ago, on warfarin, increased confusion ? TECHNIQUE:? Noncontrast 4.5 mm thick angled axial sections acquired from the foramen magnum to the vertex, with coronal and sagittal reformats.? For radiation dose reduction, the following was used:? automated exposure control, adjustment of mA and/or kV according to patient size.? ? COMPARISON:? [facility], CT, CT HEAD WITHOUT CONTRAST, 04/02/2023, 13:23.? [facility], CT, CT HEAD/BRAIN WO CON, 06/10/2019, 11:17. ? FINDINGS:? Image quality:? Excellent.? ? CSF spaces:? Basal cisterns are patent.? No extra-axial fluid collections.? The ventricles are symmetric in size and shape.? ? Brain:? There is an old infarct in the right parietal lobe with encephalomalacia.? No intracranial bleeds or masses.? There is mild generalized cerebral volume loss for age, with resultant ventricular and sulcal prominence.? There are mild periventricular and deep white matter chronic small vessel ischemic changes.? There is intracranial internal carotid artery atherosclerosis.? ? Skull and face:? Calvarium and visualized facial bones appear intact, without suspicious lesions.? ? Sinuses:? Visualized sinuses and mastoids are clear.? ? IMPRESSION:? ? 1. No acute intracranial abnormalities. ? 2. 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 ? 3. Generalized cerebral volume loss and chronic microvascular ischemic changes. ? ? ? Dictated by: Shar Velázquez M.D. on 04/13/2023 at 11:51 ? ? Approved by: Shar Velázquez M.D. on 04/13/2023 at 12:01?? MDM Narrative Medical decision making narrative: Patient had INR yesterday was 2.7. CT head shows no acute change. Discussed with patient and family he may have had some postconcussive symptoms. Discussed we can check some basic labs to check electrolytes, his urine sample for infection or other things that might be prolonging his confusion. Sounds like he has a little bit of baseline but feels like with slightly increased after his head injury and has been improving but still a little bit more than typical. They defer additional workup they state they have follow-up this coming week with primary care and will follow with him. They do not know any other acute neurologic changes. We discussed return precautions all questions answered. Discharge Plan Departure Patient Disposition: Home Clinical Impression: Head injury Activity Restrictions/Additional Instructions: Please follow-up with your physician at your scheduled appointment next week. Hope you continue to feel improved. As discussed we did do lab work or check your urine for signs of infection if you are continuing not to improve I discu ssed with your physician about whether he would be appropriate to check these things. Please return for worsening confusion, alterations in mental status, severe headaches, new chest pain, shortness of breath, persistent vomiting, no numbness, tingling weakness, urinary symptoms or other new or concerning changes. Prescriptions: No Action aspirin 81 mg Tablet,Delayed Release (Dr/Ec) 81 mg PO DAILY Qty: 0 multivitamin Capsule 1 cap PO DAILY Qty: 0 cholecalciferol (vitamin D3) [Vitamin D3] 2,000 unit Capsule 2,000 unit PO DAILY Qty: 0 folic acid 1 MG tablet 3 mg PO QDAY Qty: 0 magnesium oxide 400 MG tablet 400 mg PO Q24H Qty: 0 terazosin 10 MG capsule 10 mg PO HS Qty: 0 mirtazapine 45 mg tablet See Rx Instructions .ROUTE .COMPLEX Qty: 90 3RF Dose Instruction: TAKE 1 TABLET EVERY NIGHT Rx Instructions: TAKE 1 TABLET EVERY NIGHT lisinopril 5 mg tablet See Rx Instructions PO DAILY Qty: 135 3RF Rx Instructions: 1/2 tab in AM, 1 tab in PM orally daily; furosemide 40 mg tablet See Rx Instructions .ROUTE .COMPLEX Qty: 180 3RF Dose Instruction: TAKE 2 TABLETS EVERY DAY Rx Instructions: TAKE 2 TABLETS EVERY DAY omeprazole 20 mg capsule,delayed release(DR/EC) See Rx Instructions .ROUTE .COMPLEX Qty: 90 4RF Dose Instruction: TAKE 1 CAPSULE EVERY DAY Rx Instructions: TAKE 1 CAPSULE EVERY DAY warfarin 2.5 mg tablet See Rx Instructions PO .COMPLEX Qty: 90 3RF Rx Instructions: 2.5mg x 6 days/5mg Sunday, or as directed atorvastatin [Lipitor] 80 mg tablet 80 mg PO HS Qty: 90 3RF potassium chloride 20 mEq tablet,ER particles/crystals See Rx Instructions .ROUTE .COMPLEX Qty: 135 3RF Dose Instruction: TAKE 1 AND 1/2 TABLETS (30 MEQ TOTAL) EVERY DAY WITH MEALS Rx Instructions: TAKE 1 AND 1/2 TABLETS (30 MEQ TOTAL) EVERY DAY WITH MEALS gabapentin 600 mg tablet 600 mg PO TID Qty: 270 3RF duloxetine 60 mg capsule,delayed release(DR/EC) 60 mg PO DAILY Qty: 90 3RF calcium carbonate 500 mg calcium (1,250 mg) tablet 500 mg PO BID sulfasalazine 500 mg tablet 1,000 mg PO TID Patient Comments: 1000mg qam, 500mg qnoon, 500mg qpm carvedilol 12.5 mg Tablet 12.5 mg PO BID oxybutynin chloride 5 mg Tablet Extended Release 24hr 5 mg PO DAILY cyanocobalamin (vitamin B-12) [Vitamin B-12] 1,000 mcg Tablet 1,000 mcg PO DAILY levothyroxine 100 mcg Tablet 50 mcg PO DAILY PreserVision AREDS-2 250-90-40-1 mg Capsule 1 tab PO BID docusate sodium [Colace] 100 mg capsule 100 mg PO BID Qty: 30 0RF acetaminophen [Tylenol] 325 mg capsule 650 mg PO QID PRN (Reason: pain) Qty: 60 0RF Referrals: Mark Palafox MD [Primary Care Provider] - Stand Alone Forms: Patient Portal/API
== END 2023-04-13 13:23 | disposition home or self-care (01) ==
PROVIDERS: Emergency Provider Emergency Medicine; PCP Internal Medicine
DX: S09.90XA Unspecified injury of head, initial encounter (principal); W18.30XA Fall on same level, unspecified, initial encounter; Z79.01 Long term (current) use of anticoagulants; Z79.899 Other long term (current) drug therapy
CPT/HCPCS: 70450; 99281; 99284

== ENCOUNTER → 2023-05-31 08:16 | Outpatient (CLI) | payer OTHER, SELFPAY ==
[2021-03-04 11:13] VITALS: BMI 25.8
[2023-05-31 09:11] LABS: Cholesterol 158 mg/dL (140-199); HDL Cholesterol 48 mg/dL (40-60); LDL Cholesterol Calculated 77 mg/dL (<100); Triglycerides 163 mg/dL (35-150)
[2023-05-31 09:43] LABS: Prostate Specific Antigen < 0.064 ng/mL (0.10-4.00)
== END ==
PROVIDERS: PCP Internal Medicine; Referring Provider Internal Medicine; Visit Provider Internal Medicine
DX: E78.2 Mixed hyperlipidemia (principal); Z85.46 Personal history of malignant neoplasm of prostate
CPT/HCPCS: 36415; 80061; 84153

== ENCOUNTER → 2023-07-30 12:37 | Outpatient (CLI) | payer OTHER, SELFPAY ==
[2023-07-30 12:28] VITALS: BMI 25.8
[2023-07-30 14:38] LABS: Add Manual Diff / Slide Review NO; Basophils Absolute Auto 100 /uL (0-100); Basophils Percent Auto 1.3 % (0-2); Eosinophils Absolute Auto 300 /uL (0-450); Eosinophils Percent Auto 6.2 % (2-4); Hematocrit 36.7 % (41-53); Hemoglobin 12.3 g/dL (13.5-17.5); Lymphocytes Absolute Auto 1100 /uL (1100-4500); Mean Corpuscular HGB Conc 33.6 % (30-36); Mean Corpuscular Hemoglobin 34.1 PG (26-34); Mean Corpuscular Volume 101.6 fL (80-100); Monocytes Absolute Auto 800 /uL (0-900); Monocytes Percent Auto 16.8 % (3-14); Neutrophils Absolute Auto 2500 /uL (1500-7000); Neutrophils Percent Auto 52.7 % (50-75); Platelet Count 139 X10^3/uL (150-400); Red Blood Cell Count 3.61 X10^6/uL (4.5-5.9); Red Cell Distribution Width 13.2 % (11.6-14.8); White Blood Cell Count 4.8 X10^3/uL (4.5-11.0)
[2023-07-30 14:50] LABS: Alanine Aminotransferase 44 IU/L (<50); Albumin 4.1 g/dL (3.5-5.0); Albumin Globulin Ratio 1.4 (1.0-2.8); Alkaline Phosphatase 65 U/L (38-126); Aspartate Aminotransferase 56 IU/L (17-59); BUN Creatinine Ratio 31.6 (6-22); Bilirubin Total 0.5 mg/dL (0.2-1.3); Blood Urea Nitrogen 31 mg/dL (9-20); C-Reactive Protein Quant 0.6 mg/dL (<1.0); Calcium 9.4 mg/dL (8.4-10.2); Carbon Dioxide 32 mmol/L (22-32); Chloride 102 mmol/L (98-107); Estimated Glomerular Filt Rate > 60 mL/min (>60); Globulin 2.9 g/dL (1.7-4.1); Glucose 93 mg/dL (80-110); HEMOLYSIS < 15 (0-50); Potassium 3.8 mmol/L (3.4-5.1); Sodium 140 mmol/L (137-145)
[2023-07-30 15:13] LABS: Erythrocyte Sedimentation Rate 18 MM/HR (0-15)
== END ==
PROVIDERS: PCP Internal Medicine; Referring Provider Internal Medicine Rheumatology; Visit Provider Internal Medicine Rheumatology
DX: M06.09 Rheumatoid arthritis without rheumatoid factor, multiple sites (principal); Z79.899 Other long term (current) drug therapy
CPT/HCPCS: 36415; 80053; 85025; 85651; 86140

== ENCOUNTER → 2023-08-30 15:35 | Outpatient (CLI) | payer OTHER, SELFPAY ==
[2023-07-30 12:28] VITALS: BMI 25.8
[2023-08-30 18:25] LABS: Influenza A - CEPHEID Flu A NEGATIVE (NEGATIVE); Influenza B - CEPHEID Flu B NEGATIVE (NEGATIVE); Respiratory Syncytial Virus Negative (Negative)
[2023-08-30 18:48] LABS: COVID-19 CEPHEID 4-PLEX PCR Negative (Negative)
== END ==
PROVIDERS: PCP Internal Medicine; Visit Provider Physician Assistant
DX: R09.81 Nasal congestion (principal); Z20.822 Contact with and (suspected) exposure to COVID-19
CPT/HCPCS: 0241U

== ENCOUNTER → 2023-09-04 | Outpatient (CLI) | payer OTHER, SELFPAY ==
[2023-07-30 12:28] VITALS: BMI 25.8
== END ==
PROVIDERS: PCP Internal Medicine; Referring Provider Internal Medicine; Visit Provider Internal Medicine

== ENCOUNTER → 2023-10-18 13:13 | Outpatient (CLI) | payer OTHER, SELFPAY ==
[2023-07-30 12:28] VITALS: BMI 25.8
[2023-10-18 14:22] LABS: Prothrombin Time 59.4 SECONDS (9.4-12.5)
[2023-10-18 14:37] LABS: INR 5.1 (0.9-1.3)
== END ==
PROVIDERS: PCP Internal Medicine; Referring Provider Internal Medicine; Visit Provider Internal Medicine
DX: I82.409 Acute embolism and thrombosis of unspecified deep veins of unspecified lower extremity (principal)
CPT/HCPCS: 36415; 85610

== ENCOUNTER → 2023-11-10 09:54 | Outpatient (CLI) | payer OTHER, SELFPAY ==
[2023-07-30 12:28] VITALS: BMI 25.8
[2023-11-10 11:48] LABS: Add Manual Diff / Slide Review NO; Basophils Absolute Auto 100 /uL (0-100); Eosinophils Absolute Auto 200 /uL (0-450); Eosinophils Percent Auto 3.2 % (2-4); Hemoglobin 13.3 g/dL (13.5-17.5); Lymphocytes Absolute Auto 1000 /uL (1100-4500); Lymphocytes Percent Auto 18.2 % (25-40); Mean Corpuscular HGB Conc 33.9 % (30-36); Mean Corpuscular Hemoglobin 33.8 PG (26-34); Mean Corpuscular Volume 99.6 fL (80-100); Monocytes Absolute Auto 700 /uL (0-900); Monocytes Percent Auto 13.7 % (3-14); Neutrophils Absolute Auto 3400 /uL (1500-7000); Neutrophils Percent Auto 63.9 % (50-75); Platelet Count 149 X10^3/uL (150-400); Red Blood Cell Count 3.92 X10^6/uL (4.5-5.9); Red Cell Distribution Width 13.6 % (11.6-14.8); White Blood Cell Count 5.4 X10^3/uL (4.5-11.0)
[2023-11-10 12:09] LABS: Alanine Aminotransferase 38 IU/L (<50); Albumin 4.2 g/dL (3.5-5.0); Albumin Globulin Ratio 1.4 (1.0-2.8); Alkaline Phosphatase 85 U/L (38-126); Aspartate Aminotransferase 58 IU/L (17-59); BUN Creatinine Ratio 21.2 (6-22); Bilirubin Total 0.7 mg/dL (0.2-1.3); Blood Urea Nitrogen 21 mg/dL (9-20); Calcium 9.7 mg/dL (8.4-10.2); Carbon Dioxide 31 mmol/L (22-32); Chloride 100 mmol/L (98-107); Estimated Glomerular Filt Rate > 60 mL/min (>60); Globulin 3.1 g/dL (1.7-4.1); Glucose 111 mg/dL (80-110); HEMOLYSIS < 15 (0-50); Potassium 3.3 mmol/L (3.4-5.1); Sodium 140 mmol/L (137-145); Total Protein 7.3 g/dL (6.3-8.2)
[2023-11-10 12:36] LABS: TSH w/ Reflex to FT4 0.76 uIU/mL (0.47-4.68)
[2023-11-11 08:08] LABS: Immunoglobulin A 223 mg/dL (61-437)
[2023-11-13 11:36] LABS: Calprotectin, Stool 90 ug/g (0-120)
[2023-11-14 13:36] LABS: Tissue Transglutaminase IgA <2 U/mL (0-3)
== END ==
LOC: LAB 10:01
PROVIDERS: PCP Internal Medicine; Referring Provider Nurse Practitioner Family; Visit Provider Nurse Practitioner Family
DX: R19.4 Change in bowel habit (principal); R19.7 Diarrhea, unspecified; K21.9 Gastro-esophageal reflux disease without esophagitis; I48.20 Chronic atrial fibrillation, unspecified
CPT/HCPCS: 36415; 80053; 82784; 83516; 83993; 84443; 85025; 87045; 87177

== ENCOUNTER → 2023-11-22 13:14 | Outpatient (CLI) | payer OTHER, SELFPAY ==
[2023-07-30 12:28] VITALS: BMI 25.8
[2023-11-22 14:42] LABS: BUN Creatinine Ratio 20.9 (6-22); Blood Urea Nitrogen 23 mg/dL (9-20); Calcium 9.4 mg/dL (8.4-10.2); Carbon Dioxide 31 mmol/L (22-32); Chloride 102 mmol/L (98-107); Estimated Glomerular Filt Rate > 60 mL/min (>60); Glucose 90 mg/dL (80-110); HEMOLYSIS < 15 (0-50); Potassium 3.9 mmol/L (3.4-5.1); Sodium 139 mmol/L (137-145)
[2023-11-22 15:49] LABS: Folate > 20.0 ng/mL (2.76-20.0); Vitamin B12 > 1000 pg/mL (239-931)
== END ==
PROVIDERS: PCP Internal Medicine; Referring Provider Student in an Organized Health Care Education/Training Program; Visit Provider Student in an Organized Health Care Education/Training Program
DX: E78.6 Lipoprotein deficiency (principal); D53.9 Nutritional anemia, unspecified
CPT/HCPCS: 36415; 80048; 82607; 82746

== ENCOUNTER → 2023-12-03 13:36 | Outpatient (CLI) | payer OTHER, SELFPAY ==
[2023-07-30 12:28] VITALS: BMI 25.8
[2023-12-03 14:31] LABS: Add Manual Diff / Slide Review NO; Basophils Absolute Auto 100 /uL (0-100); Basophils Percent Auto 1.3 % (0-2); Eosinophils Absolute Auto 200 /uL (0-450); Eosinophils Percent Auto 4.3 % (2-4); Hemoglobin 12.5 g/dL (13.5-17.5); Lymphocytes Absolute Auto 1000 /uL (1100-4500); Lymphocytes Percent Auto 19.3 % (25-40); Mean Corpuscular HGB Conc 33.8 % (30-36); Mean Corpuscular Hemoglobin 33.8 PG (26-34); Monocytes Absolute Auto 900 /uL (0-900); Monocytes Percent Auto 17.5 % (3-14); Neutrophils Absolute Auto 3000 /uL (1500-7000); Neutrophils Percent Auto 57.6 % (50-75); Platelet Count 166 X10^3/uL (150-400); Red Cell Distribution Width 13.8 % (11.6-14.8); White Blood Cell Count 5.3 X10^3/uL (4.5-11.0)
[2023-12-03 14:44] LABS: Alanine Aminotransferase 38 IU/L (<50); Albumin Globulin Ratio 1.2 (1.0-2.8); Alkaline Phosphatase 76 U/L (38-126); Aspartate Aminotransferase 61 IU/L (17-59); BUN Creatinine Ratio 22.5 (6-22); Bilirubin Total 0.7 mg/dL (0.2-1.3); Blood Urea Nitrogen 23 mg/dL (9-20); C-Reactive Protein Quant 0.7 mg/dL (<1.0); Carbon Dioxide 29 mmol/L (22-32); Chloride 101 mmol/L (98-107); Estimated Glomerular Filt Rate > 60 mL/min (>60); Globulin 3.3 g/dL (1.7-4.1); Glucose 93 mg/dL (80-110); HEMOLYSIS < 15 (0-50); Potassium 3.7 mmol/L (3.4-5.1); Sodium 139 mmol/L (137-145); Total Protein 7.3 g/dL (6.3-8.2)
[2023-12-03 15:04] LABS: Erythrocyte Sedimentation Rate 29 MM/HR (0-15)
== END ==
PROVIDERS: PCP Internal Medicine; Referring Provider Internal Medicine Rheumatology; Visit Provider Internal Medicine Rheumatology
DX: M06.09 Rheumatoid arthritis without rheumatoid factor, multiple sites (principal); Z79.899 Other long term (current) drug therapy
CPT/HCPCS: 36415; 80053; 85025; 85651; 86140

== ENCOUNTER → 2024-01-22 08:59 | Outpatient (CLI) | payer OTHER, SELFPAY ==
[2023-07-30 12:28] VITALS: BMI 25.8
[2024-01-22 09:56] LABS: Hematocrit 40.7 % (41-53); Hemoglobin 13.9 g/dL (13.5-17.5); Mean Corpuscular HGB Conc 34.2 % (30-36); Mean Corpuscular Hemoglobin 34.4 PG (26-34); Mean Corpuscular Volume 100.7 fL (80-100); Platelet Count 175 X10^3/uL (150-400); Red Blood Cell Count 4.04 X10^6/uL (4.5-5.9); Red Cell Distribution Width 14.2 % (11.6-14.8); White Blood Cell Count 6.3 X10^3/uL (4.5-11.0)
[2024-01-22 10:30] LABS: Alanine Aminotransferase 40 IU/L (<50); Albumin 4.1 g/dL (3.5-5.0); Albumin Globulin Ratio 1.4 (1.0-2.8); Alkaline Phosphatase 87 U/L (38-126); Amylase 70 U/L (30-110); Aspartate Aminotransferase 56 IU/L (17-59); BUN Creatinine Ratio 26.9 (6-22); Bilirubin Total 0.7 mg/dL (0.2-1.3); Blood Urea Nitrogen 29 mg/dL (9-20); Calcium 9.6 mg/dL (8.4-10.2); Carbon Dioxide 33 mmol/L (22-32); Chloride 101 mmol/L (98-107); Cholesterol 173 mg/dL (140-199); Estimated Glomerular Filt Rate > 60 mL/min (>60); Glucose 93 mg/dL (80-110); HDL Cholesterol 53 mg/dL (40-60); HEMOLYSIS < 15 (0-50); LDL Cholesterol Calculated 92 mg/dL (<100); Lipase 172 U/L (23-300); Potassium 3.6 mmol/L (3.4-5.1); Sodium 140 mmol/L (137-145); Total Protein 7.1 g/dL (6.3-8.2); Triglycerides 140 mg/dL (35-150)
[2024-01-22 10:56] LABS: Prostate Specific Antigen < 0.064 ng/mL (0.10-4.00)
== END ==
PROVIDERS: PCP Internal Medicine; Referring Provider Internal Medicine; Visit Provider Internal Medicine
DX: R10.84 Generalized abdominal pain (principal); Z85.46 Personal history of malignant neoplasm of prostate; I48.20 Chronic atrial fibrillation, unspecified
CPT/HCPCS: 36415; 80053; 80061; 82150; 83690; 84153; 85027

== ENCOUNTER → 2024-01-29 09:09 | Outpatient (CLI) | payer OTHER, SELFPAY ==
[2023-07-30 12:28] VITALS: BMI 25.8
--- NOTE | 2024-01-29 10:58 | DI.CT.S_ITS ---
PROCEDURE: CT ABDOMEN PELVIS W CON INDICATIONS: abd pain TECHNIQUE: After the administration of intravenous contrast, axial sections acquired from the lung bases to the pubic symphysis. Coronal and sagittal reformats were performed. For radiation dose reduction, the following was used: automated exposure control, adjustment of mA and/or kV according to patient size. COMPARISON: None. FINDINGS: Image quality: Diagnostic. Lower Chest: No significant findings. ABDOMEN: Liver: The liver is diffusely hypodense suggesting fatty infiltration. No solid mass. Gallbladder: No radiopaque gallstones or wall thickening. Biliary ducts: No biliary dilation. Pancreas: Pancreas is moderately atrophic. Spleen: Size is within normal limits. A circumscribed low-density cystic lesion is present within the anterior spleen. Adrenal Glands: No adrenal nodules. Kidneys and Ureters: No hydronephrosis. No solid mass. No complex renal cystic lesion which requires follow up. There is a 11.1 cm in diameter simple cyst within the upper pole of the right kidney and a 2.1 cm simple cyst within the lower pole of the left kidney. 2 mm nonobstructing stones are present bilaterally within the renal collecting systems. No ureterolithiasis or hydroureter. Stomach and Bowel: Normal colonic caliber, without significant wall thickening. There is likely a small, thin walled contrast filled appendix visualized. There are scattered colonic diverticula, some of which appear calcified. No evidence for diverticulitis. Peritoneum: No abnormal intraperitoneal fluid. No free air. Ventral Wall: No significant ventral hernia. Abdominal Nodes: No retroperitoneal or mesenteric adenopathy by size criteria. Vessels: Aorta and inferior vena cava are normal in size. There are scattered atheromatous calcifications throughout the aorta and iliac arteries bilaterally. PELVIS: Pelvic Organs: Unremarkable. Brachytherapy beads are noted throughout the prostate. Bladder: No bladder wall thickening, accounting for underdistention. Pelvic Nodes: No enlarged lymph nodes. Miscellaneous: Right fat containing inguinal hernia. Bones: No aggressive osseous abnormality. IMPRESSION: 1. Large simple right upper pole renal cyst. If the patient describes right flank pain, this cyst may be contributing to the patient's symptoms. 2. Bilateral nonobstructing nephrolithiasis. 3. Diverticulosis. No acute diverticulitis. 4. Hepatic steatosis. Dictated by: Bhumi Moreno M.D. on 01/29/2024 at 14:11 Approved by: Bhumi Moreno M.D. on 01/29/2024 at 14:16
== END ==
PROVIDERS: PCP Internal Medicine; Referring Provider Internal Medicine; Visit Provider Internal Medicine
DX: N28.1 Cyst of kidney, acquired (principal); N20.0 Calculus of kidney; K76.0 Fatty (change of) liver, not elsewhere classified; K40.90 Unilateral inguinal hernia, without obstruction or gangrene, not specified as recurrent; R10.84 Generalized abdominal pain; I48.20 Chronic atrial fibrillation, unspecified; K57.90 Diverticulosis of intestine, part unspecified, without perforation or abscess without bleeding; Z85.46 Personal history of malignant neoplasm of prostate
CPT/HCPCS: 74177; Q9967

== ENCOUNTER → 2024-02-26 09:55 | Outpatient (CLI) | payer OTHER, SELFPAY ==
[2023-07-30 12:28] VITALS: BMI 25.8
[2024-02-26 10:35] LABS: Add Manual Diff / Slide Review NO; Basophils Absolute Auto 0 /uL (0-100); Eosinophils Absolute Auto 200 /uL (0-450); Eosinophils Percent Auto 3.2 % (2-4); Hematocrit 41.4 % (41-53); Hemoglobin 13.6 g/dL (13.5-17.5); Lymphocytes Absolute Auto 1200 /uL (1100-4500); Lymphocytes Percent Auto 24.4 % (25-40); Mean Corpuscular HGB Conc 32.8 % (30-36); Mean Corpuscular Volume 100.6 fL (80-100); Monocytes Absolute Auto 700 /uL (0-900); Monocytes Percent Auto 13.5 % (3-14); Neutrophils Absolute Auto 2900 /uL (1500-7000); Neutrophils Percent Auto 57.9 % (50-75); Platelet Count 160 X10^3/uL (150-400); Red Blood Cell Count 4.12 X10^6/uL (4.5-5.9); Red Cell Distribution Width 13.8 % (11.6-14.8)
[2024-02-26 10:50] LABS: Erythrocyte Sedimentation Rate 25 MM/HR (0-15)
[2024-02-26 11:03] LABS: Alanine Aminotransferase 44 IU/L (<50); Albumin 4.3 g/dL (3.5-5.0); Albumin Globulin Ratio 1.4 (1.0-2.8); Alkaline Phosphatase 86 U/L (38-126); Aspartate Aminotransferase 64 IU/L (17-59); BUN Creatinine Ratio 27.1 (6-22); Bilirubin Total 0.6 mg/dL (0.2-1.3); Blood Urea Nitrogen 26 mg/dL (9-20); C-Reactive Protein Quant < 0.5 mg/dL (<1.0); Calcium 9.4 mg/dL (8.4-10.2); Carbon Dioxide 31 mmol/L (22-32); Chloride 103 mmol/L (98-107); Estimated Glomerular Filt Rate > 60 mL/min (>60); Globulin 3.1 g/dL (1.7-4.1); Glucose 138 mg/dL (80-110); HEMOLYSIS < 15 (0-50); Potassium 3.7 mmol/L (3.4-5.1); Sodium 140 mmol/L (137-145); Total Protein 7.4 g/dL (6.3-8.2)
== END ==
PROVIDERS: PCP Internal Medicine; Referring Provider Internal Medicine Rheumatology; Visit Provider Internal Medicine Rheumatology
DX: M06.09 Rheumatoid arthritis without rheumatoid factor, multiple sites (principal); Z79.899 Other long term (current) drug therapy
CPT/HCPCS: 36415; 80053; 85025; 85651; 86140

== ENCOUNTER → 2024-06-02 15:21 | Outpatient (CLI) | payer OTHER, SELFPAY ==
[2023-07-30 12:28] VITALS: BMI 25.8
[2024-06-02 16:26] LABS: Add Manual Diff / Slide Review NO; Basophils Absolute Auto 100 /uL (0-100); Basophils Percent Auto 0.7 % (0-2); Eosinophils Absolute Auto 200 /uL (0-450); Eosinophils Percent Auto 3.2 % (2-4); Hemoglobin 13.4 g/dL (13.5-17.5); Lymphocytes Absolute Auto 1400 /uL (1100-4500); Lymphocytes Percent Auto 18.9 % (25-40); Mean Corpuscular HGB Conc 34.4 % (30-36); Mean Corpuscular Hemoglobin 34.5 PG (26-34); Mean Corpuscular Volume 100.2 fL (80-100); Monocytes Absolute Auto 1000 /uL (0-900); Monocytes Percent Auto 13.1 % (3-14); Neutrophils Absolute Auto 4700 /uL (1500-7000); Neutrophils Percent Auto 64.1 % (50-75); Platelet Count 181 X10^3/uL (150-400); White Blood Cell Count 7.4 X10^3/uL (4.5-11.0)
[2024-06-02 16:58] LABS: Alanine Aminotransferase 35 IU/L (<50); Albumin 4.1 g/dL (3.5-5.0); Albumin Globulin Ratio 1.4 (1.0-2.8); Alkaline Phosphatase 81 U/L (38-126); Aspartate Aminotransferase 55 IU/L (17-59); BUN Creatinine Ratio 23.7 (6-22); Bilirubin Total 0.6 mg/dL (0.2-1.3); Blood Urea Nitrogen 31 mg/dL (9-20); C-Reactive Protein Quant < 0.5 mg/dL (<1.0); Carbon Dioxide 28 mmol/L (22-32); Chloride 103 mmol/L (98-107); Estimated Glomerular Filt Rate 55 mL/min (>60); Glucose 123 mg/dL (80-110); HEMOLYSIS < 15 (0-50); Potassium 3.8 mmol/L (3.4-5.1); Sodium 140 mmol/L (137-145); Total Protein 7.1 g/dL (6.3-8.2)
[2024-06-02 17:03] LABS: Erythrocyte Sedimentation Rate 14 MM/HR (0-15)
== END ==
PROVIDERS: PCP Internal Medicine; Referring Provider Internal Medicine Rheumatology; Visit Provider Internal Medicine Rheumatology
DX: M06.09 Rheumatoid arthritis without rheumatoid factor, multiple sites (principal); Z79.899 Other long term (current) drug therapy
CPT/HCPCS: 36415; 80053; 85025; 85651; 86140

== ENCOUNTER → 2024-07-16 15:53 | Outpatient (CLI) | payer OTHER, SELFPAY ==
[2023-07-30 12:28] VITALS: BMI 25.8
--- NOTE | 2024-07-16 15:55 | DI.RAD.S_ITS ---
PROCEDURE: XR CHEST 2V INDICATIONS: cough TECHNIQUE: 2 views of the chest were acquired. COMPARISON: [facility], CR, XR CHEST 2V, 10/28/2021, 12:52. FINDINGS: Surgical changes and devices: Median sternotomy wires and prosthetic aortic valve is seen. Lungs and pleura: There is mild pulmonary vascular congestion and suggestion of interstitial pulmonary edema. Superimposed interstitial infiltrates cannot be excluded. No pleural effusions or pneumothorax. Mediastinum: Mediastinal contours are normal. Heart size is enlarged. Bones and chest wall: No suspicious bony abnormalities. Soft tissues appear unremarkable. IMPRESSION: Finding is suggestive of mild CHF. Superimposed interstitial pulmonary infiltrates cannot be excluded. No pleural effusion or pneumothorax. Dictated by: Christopher Ferreira M.D. on 07/17/2024 at 9:51 Approved by: Christopher Ferreira M.D. on 07/17/2024 at 9:54
== END ==
PROVIDERS: PCP Internal Medicine; Referring Provider Internal Medicine; Visit Provider Internal Medicine
DX: J20.9 Acute bronchitis, unspecified (principal); I51.7 Cardiomegaly
CPT/HCPCS: 71046

== ENCOUNTER → 2024-11-20 13:08 | Outpatient (CLI) | payer MEDICARE, SELFPAY ==
[2023-07-30 12:28] VITALS: BMI 25.8
--- NOTE | 2024-11-20 13:10 | DI.RAD.S_ITS ---
PROCEDURE: XR CHEST 2V INDICATIONS: r/o PNA TECHNIQUE: 2 views of the chest were acquired. COMPARISON: [facility], CR, XR CHEST 2V, 07/16/2024, 15:55. FINDINGS: Heart, mediastinum and pulmonary vascular: Heart is mildly enlarged. Mitral annuloplasty changes noted with sternotomy.. Mediastinum is unremarkable. Pulmonary vascular shows mild distention. Lungs: Faint Weston B-lines known the lateral bases. Lungs otherwise clear. Pleural spaces: Normal-no effusions or pneumothorax. Bones and soft tissues: Moderate degenerative disc disease seen throughout the thoracic spine. IMPRESSION: Mild CHF Dictated by: Roman Jimenez M.D. on 11/21/2024 at 12:47 Approved by: Roman Jimenez M.D. on 11/21/2024 at 12:48
== END ==
PROVIDERS: PCP Internal Medicine; Referring Provider Nurse Practitioner Family; Visit Provider Nurse Practitioner Family
DX: I50.9 Heart failure, unspecified (principal); R05.9 Cough, unspecified; M51.34 Other intervertebral disc degeneration, thoracic region
CPT/HCPCS: 71046

== ENCOUNTER → 2024-12-04 10:56 | Outpatient (CLI) | payer MEDICARE, SELFPAY ==
[2023-07-30 12:28] VITALS: BMI 25.8
[2024-12-04 12:01] LABS: Hemoglobin 13.7 g/dL (13.5-17.5); Mean Corpuscular HGB Conc 33.3 % (30-36); Mean Corpuscular Volume 105.2 fL (80-100); Platelet Count 185 X10^3/uL (150-400); Red Cell Distribution Width 13.5 % (11.6-14.8); White Blood Cell Count 5.9 X10^3/uL (4.5-11.0)
[2024-12-04 12:30] LABS: Alanine Aminotransferase 37 IU/L (<50); Albumin 4.2 g/dL (3.5-5.0); Albumin Globulin Ratio 1.6 (1.0-2.8); Alkaline Phosphatase 79 U/L (38-126); Aspartate Aminotransferase 58 IU/L (17-59); BUN Creatinine Ratio 18.7 (6-22); Bilirubin Total 0.6 mg/dL (0.2-1.3); Blood Urea Nitrogen 23 mg/dL (9-20); Calcium 9.7 mg/dL (8.4-10.2); Carbon Dioxide 32 mmol/L (22-32); Chloride 102 mmol/L (98-107); Cholesterol 174 mg/dL (140-199); Estimated Glomerular Filt Rate 59 mL/min (>60); Globulin 2.7 g/dL (1.7-4.1); Glucose 97 mg/dL (80-110); HDL Cholesterol 62 mg/dL (40-60); HEMOLYSIS < 15 (0-50); LDL Cholesterol Calculated 91 mg/dL (<100); Potassium 3.5 mmol/L (3.4-5.1); Sodium 140 mmol/L (137-145); Total Protein 6.9 g/dL (6.3-8.2); Triglycerides 106 mg/dL (35-150)
[2024-12-04 13:04] LABS: Prostate Specific Antigen < 0.064 ng/mL (0.10-4.00)
== END ==
LOC: LAB 10:57
PROVIDERS: PCP Internal Medicine; Referring Provider Internal Medicine; Visit Provider Internal Medicine
DX: I11.0 Hypertensive heart disease with heart failure (principal); I50.22 Chronic systolic (congestive) heart failure; D63.8 Anemia in other chronic diseases classified elsewhere; Z85.46 Personal history of malignant neoplasm of prostate
CPT/HCPCS: 36415; 80053; 80061; 84153; 85027

== ENCOUNTER 2025-02-19 06:22 | Day surgery (SDC) | payer MEDICARE, SELFPAY ==
[2023-07-30 12:28] VITALS: BMI 25.8
[2025-02-10 12:43] VITALS: BMI 21.9
[2025-02-19] VITALS (14 sets, daily range): BP systolic 97–135; BP diastolic 54–77; PULSE 53–93; RESP 12–20; TEMP 35.9–37.1; O2SAT 92–97; BMI 21.9
[2025-02-19] MEDS: LACTATED RINGERS 1,000 ML 42 ML IV ×2 (06:58→10:07)
[2025-02-19] MEDS: VANCOMYCIN 1,000 MG in SODIUM CHLORIDE 0.9% 250 ML 250 MG IV (06:58)
[2025-02-19] MEDS: FAMOTIDINE 20 MG/2 ML VIAL IV (06:59)
[2025-02-19] MEDS: ACETAMINOPHEN 325 MG TABLET 975 MG PO (06:59)
[2025-02-19] MEDS: CELECOXIB 200 MG CAPSULE PO (07:00)
--- NOTE | 2025-02-19 07:36 | PM.PREOP ---
Pre-operative Note Interval Note History & Physical reviewed/Exam performed by Physician: Yes Changes to H&P: No
--- NOTE | 2025-02-19 07:46 | DI.RAD.S_ITS ---
PROCEDURE: XR KNEE LT 1TO2V INDICATIONS: total left knee TECHNIQUE: 2 view(s) of the knee acquired. COMPARISON: [facility], CR, XR KNEE 4+ VIEWS LEFT, 12/31/2024, 8:45. [facility], CR, XR KNEE RT 1TO2V, 03/04/2021, 10:24. [facility], CR, XR KNEE RT 3V, 05/17/2020, 10:41. FINDINGS: Bones: Patient is status post knee joint arthroplasty. Hardware components are in expected positions. Visualized bony structures are intact. Soft tissues: Overlying postoperative changes are noted. IMPRESSION: Expected post-operative appearance of a knee arthroplasty. Dictated by: Michael Landry M.D. on 02/20/2025 at 12:19 Approved by: Michael Landry M.D. on 02/20/2025 at 12:19
--- NOTE | 2025-02-19 07:46 | PM.OP.1 ---
Operative Date/Time/Diagnoses Date of procedure: 02/19/25 Time of procedure: 08:00 Pre-op diagnosis: left knee OA Post-op diagnosis: same Procedure & Clinicians Procedure: left total knee arthroplasty Same procedure as scheduled: Yes Indications: The patient has had progressively worsening left knee pain with radiographic changes consistent with arthritis. Non-operative management has failed and the patient has requested total knee replacement. The risks, benefits and alternatives to surgery were discussed with the patient prior to proceeding. Risks discussed included, but were not limited to, failure to relieve pain, stiffness, infection, nerve damage, deep venous thrombosis, pulmonary embolism, stroke, coma, heart attack, permanent paralysis and , as well as the potential need for eventual revision of the prosthetic. Surgeon: Brigette Stock Artificial Snow Making Machine Operator: Shabbir Hathaway Anesthesia Type: Peripheral nerve block Operative Notes Findings: Severe left knee OA Closure Type: primary Specimen(s): none sent Prosthetic devices, grafts, tissues, transplants, or devices: Stock and nephjosé miguel mendoza BCS2 femur 8, tibia 6, patella 35 by 7.5, poly 9 Estimated Blood Loss (mL): 250 Blood products transfused: none Tourniquet time (min): 78 Procedure in detail: The patient was seen in the pre-operative area, where the patient identified the left knee as the operative site and this was marked with my initials. The patient received pre-operative antibiotics, and was taken to the operating room and placed on the operative table in the supine position. After satisfactory anesthesia, a night time babysitter out was performed. The left leg was encircled with a tourniquet about the proximal thigh, and the leg was prepared from the toes to the tourniquet with ChloroPrep in the usual fashion and draped through sterile drapes. The leg was elevated and exsanguinated with Eschmark bandage and the tourniquet inflated to [250] mmHg pressure. A PA was used during the procedure and was essential for intraoperative retraction and safe implantation of the components. The knee was approached through an approximately 18 cm incision centered over the patella and carried into the knee through a medial parapatellar arthrotomy. Portion of the medial and lateral meniscus was resected. Soft tissue was carefully mobilized around the patella the patella was measured with a caliper. Bone was resected from the patella and the patellar height was reconstituted with up an appropriate sized patellar component. A cover was then placed on the patella. A small amount of additional medial and lateral meniscus was resected. Pins were placed for Cori assisted robotic navigation. The knee was meticulously meticulously mapped. A plan was taken and developed optimize range of motion, balance and stability. The Cori robotic bur was used for the distal femoral resection. It looked like an appropriate distal femoral cut and the cut was made without difficulty. The rotation was assessed and the appropriate size femoral guide was placed on the distal femur and finishing cuts were made. There was no evidence of notching. The anterior, posterior and chamfer cuts were then made. The posterior osteophytes and soft tissues were then removed. The posterior capsule was injected with part of a mixture of 60 ml 0.25% Marcaine mixed with 20 ml Exparel for post operative pain control. The remainder of this mixture was injected into the capsule and subcutaneous tissues during cement curing. The tibial adjustable guide was meticulously navigated with robotic assistance. It was pinned to the proximal tibia and a proximal tibial cut was made without difficulty. The patient was placed in extension residual medial and lateral meniscus as well as any residual bone was carefully resected. [No] additional tibia was resected. Hemostasis was achieved especially posteriorly. Additional local was injected into the posterior capsule. The extension gap was assessed. The femoral component trial was placed and the notch was finished. Trial tibial and femoral components were then placed and the knee placed through a range of motion. Range of motion was [0-130], with good stability throughout the range. The trials were then removed, and the tibia was finished. The bone was prepared with pulsatile lavage, and dried with a sponge. Cement was applied and the final prosthetics placed. Excess cement was removed during and after cement curing. A brief Betadine soak was performed. After confirming there was no extruded cement posteriorly, the final tibial insert was placed. The knee was copiously irrigated and the tourniquet deflated. Hemostasis was obtained with the Bovie cautery. The capsule was closed with interrupted Vicryl suture. The subcutaneous layer was closed with barbed sutures, and the skin with a running 3-0 V-Lock suture and Surgical glue. An Aquacel Ag dressing was applied and the patient was taken to recovery having tolerated the procedure well. Complications: none Post-operative Condition: stable Disposition: Acute Care Plan for aftercare: The patient will be maintained on a standard total knee replacement protocol with weight bearing as tolerated. The patient will receive Eliquis and sequential compression devices for DVT prophylaxis. The patient will be discharged home when safe for the home environment. He has multiple medical problems including COPD and a history of a stroke and a history of congestive heart failure and does require hospital admission for additional monitoring. He can be discharged to home when safe
--- NOTE | 2025-02-19 08:09 | SUR.PREOP ---
Block start time [0743] . Monitoring initiated and maintained throughout procedure. Oxygen and medications given per anesthesiologist instructions. Patient remained stable throughout procedure, no adverse reactions noted. Block end time [0750].
[2025-02-19] MEDS: CEFAZOLIN 2 GM/100 ML PREMIX 100 ML IV ×3 (08:15→23:59)
[2025-02-19] MEDS: TRANEXAMIC ACID 1,000 MG VIAL 1000 MG INJ (08:15)
--- NOTE | 2025-02-19 08:33 | SUR.OPER ---
Addendum entered by Haydee Mandujano R.N. 02/19/25 08:37: Supine on padded OR bed. Pillow under head, arms secured on padded armboards <90 degree abduction. Safety belt across torso. Non-operative leg secured with tape over blanket over lower leg. Operative leg secured in DeMayo/Tariq/Nathe positioner. Foam padded brace at thigh of operative leg. Dr. Stock in room at time of positioning, approved of positioning. All pressure points padded. Original Note: Supine on padded OR bed. Pillow under head, arms secured on padded armboards <90 degree abduction. Safety belt across torso. Non-operative leg secured with tape over blanket over lower leg. Operative leg secured in DeMayo/Tariq/Nathe positioner. Foam padded brace at thigh of operative leg.
[2025-02-19] MEDS: BUPIVACAINE LIPOSOME 266 MG/20 ML VIAL INJ (08:43)
[2025-02-19] MEDS: BUPIVACAINE 0.25% W/ EPI 30 ML VIAL 60 ML INJ (08:43)
[2025-02-19] MEDS: LACTATED RINGERS 1,000 ML 100 ML IV ×2 (11:20→20:59)
[2025-02-19] MEDS: ACETAMINOPHEN 325 MG TABLET 650 MG PO ×3 (11:21→23:59)
--- NOTE | 2025-02-19 12:04 | PC.NURSE ---
Pt arrived to unit from PACU at 1050. Incision is covered with aquacel and larry wrap. Pt denied any pain. CMS intact. Pt oriented to room and how to use call light.
[2025-02-19] MEDS: OXYCODONE IR 5 MG TABLET PO ×2 (13:34→18:03)
[2025-02-19] MEDS: ALBUTEROL 2.5 MG/3 ML NEB (ADULT) INH ×2 (14:12→19:40)
--- NOTE | 2025-02-19 14:30 | PT.IIE ---
Current Diagnoses Unilateral primary osteoarthritis, left knee (02/19/25) Surgery Performed Operation Date: 02/19/25 07:45 Actual Procedures p Total Knee Arthroplasty - Robot(Left) - Brigette Stock MD Surgical History (Last Reviewed 02/19/25 @ 07:16 by Estrellita Green, RN) History of lumbar laminectomy Hx of angioplasty (~1984) Hx of arthroscopy of right knee Hx of bilateral cataract extraction Hx of bilateral inguinal hernia repair Hx of CABG (~2003) Hx of circumcision Hx of elbow surgery Hx of heart artery stent Hx of lumbosacral spine surgery (~2008) Hx of mitral valve repair (~2003) Hx of prostate biopsy Hx of vasectomy S/P right unicompartmental knee replacement Status post correction of deviated nasal septum Status post total right knee replacement (~03/04/21) Medical History (Last Reviewed 02/19/25 @ 06:44 by Estrellita Green, RN) Acquired hypothyroidism Acute bronchitis (~03/2019) Anemia Anemia, chronic disease Arthritis BCC (basal cell carcinoma) (02/09/25) CAD (coronary artery disease) Centrilobular emphysema Cerebrovascular disease (2003) Chronic anticoagulation Chronic atrial fibrillation Chronic bronchitis Chronic sinusitis COPD (chronic obstructive pulmonary disease) COVID-19 virus infection (10/2021) DDD (degenerative disc disease) Depression Depression, major, recurrent Diverticulosis ELENA (dyspnea on exertion) Easy bruisability Edema Essential hypertension Facet arthropathy, lumbar Fatty liver Former smoker GERD (gastroesophageal reflux disease) History of alcohol use disorder History of blood clots History of COVID-19 (~2022) History of heart attack History of prostate cancer HLD (hyperlipidemia) HTN (hypertension) Hypothyroidism due to amiodarone IBS (irritable colon syndrome) Kidney stones Left hemiparesis Mild cognitive impairment Mixed hyperlipidemia Mucopurulent chronic bronchitis Obstructive sleep apnea syndrome Orthostatic hypotension Osteoarthritis Primary osteoarthritis involving multiple joints Raynaud's syndrome Renal cyst, right Rheumatoid arthritis without rheumatoid factor, multiple sites Right arm fracture (~04/2016) Right knee DJD Scoliosis deformity of spine Sleep apnea Systolic CHF, chronic Physical Therapy Inpatient Evaluation/Re-Eval M1 PT/OT-IP Prior Functional Status Start: 02/19/25 13:09 Freq: NEEDED Status: Active Protocol: Document 02/19/25 14:18 [facility] (Rec: 02/19/25 14:30 [facility] [id number]) Medical Review Prior Functional Status Medical History Reviewed Yes Communication A and O x 4 Mobility and Gait modified independent using device due to pain 1 wide step/landing to get into house Activities of Daily Living and IADL's indep Prior Functional Level (Other details) indep Social History Household Members spouse Living Arrangements House Number of Floors (Floors) One Floor Number of Stairs To Enter/Railing? 1 Home Equipment Front Wheel Walker,Straight Cane,Grab Bars Near Toilet, Grab Bars In Shower Employment Status Retired M2 PT-IP Current Condition Start: 02/19/25 13:09 Freq: NEEDED Status: Active Protocol: Document 02/19/25 14:18 [facility] (Rec: 02/19/25 14:30 [facility] [id number]) Physical Therapy Current Condition Current Condition Evaluation Date 02/19/25 Treatment Diagnosis s/p left TKA Onset Date 02/19/25 M3 PT-IP Subjective Start: 02/19/25 13:09 Freq: NEEDED Status: Active Protocol: Document 02/19/25 14:18 [facility] (Rec: 02/19/25 14:30 [facility] [id number]) Subjective Physical Therapy Visit Type Type Initial Evaluation Visit Start Time 13:15 Visit Stop Time 13:40 Number of FIRE OFFICER Visits 0 Physical Therapy Visit Comments Patient Comments pain 4/10, not sure if has had pain medication. Prior Right TKA with good results. Therapy Pain Assessment Pain When Pain Assessed During Mobility Pain Present Pain Present Pain Reported Location Left Knee Intensity 4 Right Knee Intensity 4 M4 PT-IP Mobility and Gait Start: 02/19/25 13:09 Freq: NEEDED Status: Active Protocol: Document 02/19/25 14:18 [facility] (Rec: 02/19/25 14:30 [facility] [id number]) PT-Bed Mobility Assessment Rolling Level of Assist Standby Assistance Supine to Sit Supine to Sit Standby Assistance Sit to Supine Sit to Supine Standby Assistance Scooting Scooting to Edge of Bed Standby Assistance PT-Transfer Assessment Sit to and From Stand Sit to and from Stand Contact Guard Assistance,Use of Upper Extremities Equipment Transfer Assistive Device Front Wheeled Walker Orthotic/Prosthetic Devices or Brace: No Transfers Transfer Destination Bed Transfer Technique Stand Step Pivot Transfer Ability Level of Assist Contact Guard Assistance Comments Mobility Comments no LOB noted Gait Assessment Gait Gait Assistance Required: Standby Assistance,Contact Guard Assist Distance (Feet) 20 Able to Maintain Weight Bearing Status Yes During Gait Assistive Devices Assistive Device Front Wheeled Walker Orthotic/Prosthetic Devices or Brace: No Gait Deviations General Gait Pattern Antalgic Factors Limiting Gait Function Factors Limiting Gait Function Pain Comments Gait Comments steady, safe use of walker. Required cues to reach for bed to sit PT-Balance Assessment Sitting Balance and Reactions Static Sitting Balance Ability Good Dynamic Sitting Balance Ability Good Standing Balance and Reactions Static Standing Balance Ability Good Dynamic Standing Balance Ability Fair Device Used FWW M5 PT-IP Objective Assessments Start: 02/19/25 13:09 Freq: NEEDED Status: Active Protocol: Document 02/19/25 14:18 [facility] (Rec: 02/19/25 14:30 [facility] [id number]) Orientation Orientation/Cognition Level of Alertness Alert Orientation Name,Date,Place,Situation Language Function Ability No Deficits Noted Safety Awareness Understands Safety Issues Memory Description No Deficits Noted Gross Range of Motion Upper Extremity ROM Assessment Within Functional Limits Lower Extremity ROM Assessment Within Functional Limits Impairments left knee AROM 10-90 Strength Upper Extremity Strength Assessment Within Functional Limits Lower Extremity Strength Assessment Left Impaired Comments Strength Comments s/p left TKA, no MMT performed due to surgeryy Coordination Assessment Gross Coordination Gross Coordination WNL Sensation Assessment Sensation Gross Sensation WNL M6 PT-IP Treatment Start: 02/19/25 13:09 Freq: NEEDED Status: Active Protocol: Document 02/19/25 14:18 [facility] (Rec: 02/19/25 14:30 [facility] [id number]) Physical Therapy Treatment Exercises Exercises Ankle Pumps,Quad Sets,Heel Slides,Straight Leg Raises, Short Arc Quads Knee ROM Measurement 10-90 AROM, 0-95 AAROM Education Education Provided Weight Bearing Status,Post-Op Packet M7 PT-IP Assessment and Plan Start: 02/19/25 13:09 Freq: NEEDED Status: Active Protocol: Document 02/19/25 14:18 [facility] (Rec: 02/19/25 14:30 [facility] [id number]) PT Summary Assessment and Plan Potential Rehabilitation Potential Excellent Status of Condition at Evaluation Stable Summary Impairments Pain,ROM,Strength,Gait Assessment Summary Patient seen post-op left TKA with reports of pain /10. Denied dizziness or SOB. Left knee AROM 10-90, AAROM 0-95. Bed mobility with SBA, transfers with CGA and cues. Able to mbulate to the bathrrom with FWW and CGA, no LOB, demonstrated good safety awareness. Anticipate he will be able to discharge home with assist tomorrow. Practice 1 step/platform prior to discharge to assure safety Goals Bed Mobility Goal Independent Transfer Goal Independent Gait Goal Independent,Front Wheel Walker Gait Distance 75 Days to Meet Goals 2 Frequency of Treatment Frequency Of Treatment Twice a Day Treatment Plan Physical Therapy Treatment Plan Bed Mobility Training,Transfer Training,Gait Training, Therapeutic Exercise,Post Op Education,Hot or Cold Pack Weight Bearing Status Weight Bearing Status Weight Bear as Tolerated Recommendations To Nursing Amount of Assist Needed 1 Person Assist Discharge Recommendations PT Discharge Recommendations Home with Assistance, Outpatient PT Transportation Needs at Discharge Private Vehicle
[2025-02-19] MEDS: GABAPENTIN 600 MG TABLET PO ×2 (15:05→21:00)
[2025-02-19] MEDS: BUDESONIDE 0.5 MG/2 ML NEB INH (19:40)
[2025-02-19] MEDS: MIRTAZAPINE 15 MG TABLET 45 MG PO (20:59)
[2025-02-19] MEDS: TERAZOSIN 5 MG CAPSULE 10 MG PO (20:59)
[2025-02-19] MEDS: carvediloL 3.125 MG TABLET 6.25 MG PO (21:00)
[2025-02-19] MEDS: DOCUSATE 100 MG CAPSULE PO (21:00)
[2025-02-19] MEDS: ASPIRIN EC 81 MG TABLET PO (21:00)
[2025-02-19] MEDS: ATORVASTATIN 20 MG TABLET 80 MG PO (21:00)
[2025-02-20] VITALS: BP 111/71; PULSE 89; TEMP 36.7; O2SAT 93
[2025-02-20 04:00] VITALS: BP 110/71; PULSE 65; RESP 12; TEMP 36.9; O2SAT 93
[2025-02-20] MEDS: OXYCODONE IR 5 MG TABLET PO ×2 (04:04→06:34)
[2025-02-20 04:24] LABS: Hematocrit 32.2 % (41-53); Hemoglobin 11.1 g/dL (13.5-17.5)
[2025-02-20] MEDS: ACETAMINOPHEN 325 MG TABLET 650 MG PO ×2 (06:34→13:20)
[2025-02-20] MEDS: LEVOTHYROXINE 100 MCG TABLET PO (06:35)
[2025-02-20] MEDS: PANTOPRAZOLE DR 20 MG TABLET PO (06:35)
--- NOTE | 2025-02-20 07:32 | PM.DS.1 ---
History of Present Illness History of Present Illness Date Patient Seen: 02/20/25 Time Patient Seen: 07:15 Chief complaint: Left Total Knee Arthroplasty - Robot Narrative: The patient has had progressively worsening left knee pain with radiographic changes consistent with arthritis. Non-operative management has failed and the patient has requested total knee replacement. The risks, benefits and alternatives to surgery were discussed with the patient prior to proceeding. Risks discussed included, but were not limited to, failure to relieve pain, stiffness, infection, nerve damage, deep venous thrombosis, pulmonary embolism, stroke, coma, heart attack, permanent paralysis and , as well as the potential need for eventual revision of the prosthetic. Discharge Providers Provider Discharge Date: 02/20/25 Primary care physician: Mark Palafox MD Consults: 02/19/25 07:46 Consult to Anesthesiology Routine Comment: Consulting Provider: Anesthesiologist Reason for consultation: Regional block for post operative pain control Has provider been notified: No 02/19/25 10:51 Consult to Discharge Planning Routine Comment: Consult to Occupational Therapy Evaluate & Treat Comment: Physician Instructions: Evaluate and treat Consult to Physical Therapy Evaluate & Treat Comment: Physician Instructions: postop TKA protocol Discharge provider: Shabbir Hathaway PA-C Summary Hospital Course Discharge Diagnosis: left knee OA Hospital Course: left total knee arthroplasty Same procedure as scheduled: Yes Surgeon: Brigette Stock Buggy Ladle Tender: Shabbir Hathaway Anesthesia Type: Peripheral nerve block Operative Notes Findings: Severe left knee OA Closure Type: primary Specimen(s): none sent Prosthetic devices, grafts, tissues, transplants, or devices: Stock and nephew [employer] [place] [employer]2 femur 8, tibia 6, patella 35 by 7.5, poly 9 Estimated Blood Loss (mL): 250 Blood products transfused: none Tourniquet time (min): 78 Status at Discharge Cognitive/behavioral status at discharge: oriented Functional status at discharge: uses cane/walker Overall status at discharge: patient is back to baseline Time Spent with Patient Time spent: Less than 30 minutes Exam Vital Signs (past 8 hours): - 02/20/25 00:00 02/20/25 04:00 Temperature 98.1 F 98.5 F Pulse Rate 89 65 Respiratory Rate 12 Blood Pressure 111/71 110/71 Pulse Oximetry 93 93 Oxygen Flow Rate 0 0 Oxygen Delivery Method Room Air Oxygen Flow Rate 0 Narrative Exam Narrative: Patient's pain is controlled with oral medication. ?Pain is localized to surgical site. ?Patient declines any new numbness or tingling at the surgical extremity. ?Patient denies any shortness of breath, dizziness, light-headedness, nausea, vomiting, fever or chills. 5/5 strength in hip flexors, quadriceps, hamstrings, DF, PF, EHL bilaterally. Sensation to light touch intact throughout BLE. Calves soft, compressible, nontender. Dressing placed intraoperatively CDI. Resp Effort & Inspection: normal respiratory effort and able to speak in complete sentences Objective Labs 02/20/25 04:05 Labs: Laboratory Results - last 24 hr 02/20/25 04:05 Hgb 11.1 L Hct 32.2 L [facility] Medical History History of COVID-19 (~2022) BCC (basal cell carcinoma) (02/09/25) Rheumatoid arthritis without rheumatoid factor, multiple sites Mucopurulent chronic bronchitis Chronic bronchitis Depression, major, recurrent Renal cyst, right IBS (irritable colon syndrome) History of heart attack Anemia, chronic disease Left hemiparesis History of alcohol use disorder Kidney stones Easy bruisability Diverticulosis GERD (gastroesophageal reflux disease) Arthritis Sleep apnea History of blood clots COVID-19 virus infection (10/2021) History of prostate cancer Primary osteoarthritis involving multiple joints Acquired hypothyroidism Mixed hyperlipidemia Essential hypertension Cerebrovascular disease (2003) Chronic atrial fibrillation Systolic CHF, chronic Orthostatic hypotension Obstructive sleep apnea syndrome Right knee DJD Scoliosis deformity of spine Chronic anticoagulation Facet arthropathy, lumbar Mild cognitive impairment Right arm fracture (~04/2016) Hypothyroidism due to amiodarone Chronic sinusitis DDD (degenerative disc disease) Acute bronchitis (~03/2019) Edema COPD (chronic obstructive pulmonary disease) ELENA (dyspnea on exertion) Former smoker Anemia Centrilobular emphysema CAD (coronary artery disease) Depression Fatty liver HLD (hyperlipidemia) HTN (hypertension) Osteoarthritis Raynaud's syndrome Surgical History Hx of vasectomy Hx of prostate biopsy Hx of circumcision Hx of heart artery stent Status post total right knee replacement (~03/04/21) History of lumbar laminectomy Hx of CABG (~2003) Hx of angioplasty (~1984) Hx of arthroscopy of right knee Hx of lumbosacral spine surgery (~2008) Hx of bilateral cataract extraction Hx of bilateral inguinal hernia repair Status post correction of deviated nasal septum Hx of elbow surgery Hx of mitral valve repair (~2003) S/P right unicompartmental knee replacement Family History Grandmother Cancer Father CVA (cerebral vascular accident) CAD (coronary artery disease) Hyperlipidemia Hypertension Kidney stones Mother Diabetes mellitus Thyroid disorder Social History marital status: number of children: 2 household members: spouse Smoking Status: Former smoker Tobacco: How many years used: 12 alcohol intake: former caffeine: Yes Type(s) of exercise: other frequency: 3-4 times per week duration: 60-90 minutes/day Discharge Assessment & Plan Assessment and Plan Assessment: Status post left knee total arthroplasty Plan of Treatment: Discharge to home. ? Ambulate and weight bear as tolerated with assistive devices. ? Restart Eliquis 5 mg b.i.d. on February 21, 2025. For DVT prevention Baseline pain relief with acetaminophen 500mg every 4 hours as needed. ?Patient has been prescribed oxycodone 5 mg every 4 ?hours as needed for breakthrough pain. ? Initiate physical therapy in the next 5-10 days. ? Keep dressing clean and dry. Keep dressing on until first office visit. If dressing becomes dirty or disrupted, replace with appropriate sized dressing. Follow up in clinic in 2 weeks for wound check. Contact clinic if there are any questions or concerns. Discharge Plan Discharge Plan Patient Disposition: Home Discharge orders & Medications Discharge Orders: Discharge (Order); Ordered 02/20/25 Ordered By: Shabbir Hathaway Prescriptions: Continued aspirin 81 mg Tablet,Delayed Release (Dr/Ec) 81 mg PO DAILY Qty: 0 multivitamin Capsule 1 cap PO DAILY Qty: 0 cholecalciferol (vitamin D3) [Vitamin D3] 2,000 unit Capsule 2,000 unit PO DAILY Qty: 0 magnesium oxide 400 MG tablet 400 mg PO DAILY Qty: 0 potassium chloride 20 mEq tablet,ER particles/crystals 20 meq PO DAILY Qty: 90 3RF sulfasalazine 500 mg tablet 1,000 mg PO TID Patient Comments: 1000mg qam, 500mg qnoon, 500mg qpm fluticasone propionate [Flonase Allergy Relief] 50 mcg/actuation spray,suspension 1 spray intranasal DAILY Qty: 16 2RF Rx Instructions: administer into each nostril dicyclomine 10 mg capsule 10 mg PO TID PRN (Reason: Cramps) albuterol sulfate 90 mcg/actuation HFA aerosol inhaler 2 puff inhalation Q4H PRN (Reason: wheezing) atorvastatin [Lipitor] 80 mg tablet 80 mg PO HS Qty: 90 3RF carvedilol 6.25 mg tablet 6.25 mg PO BID Qty: 180 3RF duloxetine 60 mg capsule,delayed release(DR/EC) 60 mg PO DAILY Qty: 90 3RF Eliquis 5 mg tablet 5 mg PO BID Qty: 180 3RF folic acid 1 mg tablet 3 mg PO QDAY Qty: 270 3RF gabapentin 600 mg tablet 600 mg PO TID Qty: 270 3RF furosemide 40 mg tablet 60 mg PO DAILY Qty: 135 3RF levothyroxine 100 mcg tablet 100 mcg PO DAILY Qty: 90 3RF lisinopril 2.5 mg tablet 2.5 mg PO DAILY Qty: 90 3RF mirtazapine 45 mg tablet 45 mg PO BEDTIME Qty: 90 3RF omeprazole 20 mg capsule,delayed release(DR/EC) 20 mg PO DAILY Qty: 90 3RF oxybutynin chloride 5 mg tablet extended release 24hr 5 mg PO DAILY Qty: 90 3RF terazosin 10 mg capsule 10 mg PO HS Qty: 90 3RF Jardiance 10 mg tablet 10 mg PO DAILY Qty: 90 3RF fluticasone propion-salmeterol [Wixela Inhub] 500-50 mcg/dose blister with device 1 inh inhalation BID acetaminophen [Tylenol] 325 mg capsule 975 mg PO QID PRN (Reason: Headache) ferrous sulfate [iron] 325 mg (65 mg iron) Tablet 325 mg PO DAILY cyanocobalamin (vitamin B-12) [Vitamin B-12] 1,000 mcg Tablet 1,000 mcg PO DAILY PreserVision AREDS-2 250-90-40-1 mg Capsule 1 tab PO BID vitamin A-vitamin C-vit E-min [Ocuvite] 1 tab PO DAILY Follow up/Referrals: Mark Palafox MD [Primary Care Provider] - Diet/Activity/Treatments Diet: Diet as Tolerated Diet comment: Ambulate multiple times a day. Use a cane or walker as needed. Full weigh Cold/Heat Therapy: Use ice multiple times a day. Skin/Wound/Dressing Care Report to your healthcare provider any signs of infection, such as:: chills, fever, night sweats, unusual drainage and unusual redness Dressing: May shower. Leave dressing in place until follow up in office. No bathing or otherwise soaking incision. Call the office if the dressing becomes saturated inside. Visit Report/Discharge Packet Instructions: DI for Knee Replacement, DI for Prescription Opioid Use Stand Alone Forms: Patient Portal/API, Surgery Discharge Discharge Data Primary Care Provider: Mark Palafox V Attending Provider: Brigette Stock VTE Deep Vein Thrombosis/Pulmonary Embolism Present on Admission: No
[2025-02-20 07:35] VITALS: PULSE 70; RESP 20; O2SAT 95
[2025-02-20] MEDS: ALBUTEROL 2.5 MG/3 ML NEB (ADULT) INH ×2 (07:35→11:44)
[2025-02-20] MEDS: BUDESONIDE 0.5 MG/2 ML NEB INH (07:36)
[2025-02-20] MEDS: carvediloL 3.125 MG TABLET 6.25 MG PO (08:55)
[2025-02-20] MEDS: DOCUSATE 100 MG CAPSULE PO (08:56)
[2025-02-20] MEDS: FUROSEMIDE 40 MG TABLET 60 MG PO (08:57)
[2025-02-20] MEDS: DULOXETINE 30 MG CAPSULE 60 MG PO (08:57)
[2025-02-20] MEDS: MULTIVITAMIN 1 TABLET 1 TAB PO (08:57)
[2025-02-20] MEDS: lisinopriL 5 MG TABLET 2.5 MG PO (08:58)
[2025-02-20] MEDS: CYANOCOBALAMIN (VITAMIN B-12) 500 MCG TABLET 1000 MCG PO (08:59)
[2025-02-20] MEDS: ASPIRIN EC 81 MG TABLET PO (09:00)
[2025-02-20] MEDS: CHOLECALCIFEROL (VITAMIN D3) 1,000 UNIT TABLET 2000 UNIT PO (09:01)
[2025-02-20] MEDS: FOLIC ACID 1 MG TABLET 3 MG PO (09:01)
[2025-02-20] MEDS: FERROUS SULFATE 325 MG TABLET PO (09:01)
[2025-02-20] MEDS: MAGNESIUM OXIDE 400 MG TABLET PO (09:02)
[2025-02-20] MEDS: POTASSIUM CHLORIDE 20 MEQ TAB PO (09:02)
[2025-02-20] MEDS: OXYBUTYNIN 5 MG ER TAB PO (09:02)
[2025-02-20] MEDS: GABAPENTIN 600 MG TABLET PO ×2 (09:02→14:22)
[2025-02-20] MEDS: OXYCODONE IR 10 MG TABLET PO ×2 (09:49→14:22)
[2025-02-20] MEDS: VIT C/E/ZN/COPPR/LUTEIN/ZEAXAN CAPSULE 1 CAP PO (10:57)
--- NOTE | 2025-02-20 11:30 | CM.DANOTE ---
DCP Assessment Note: Pt is a 79yo male, resident [facility], is s/p L TKA. Pt lives in a house with his , Leah. Pt's Primary Care Provider is Dr. Mark Palafox and insurance is [employer] Medicare. Reviewed chart and discussed with multidisciplinary team pt's medical status and initial discharge needs. DCP attempted to meet w/patient at bedside; introduced self and role. Per RN, pt attempting to get more rest while managing pain, requesting no visitors at this time. No needs identified. RN reports pt very eager to discharge home. Plan: Anticipating dc home with spouse after lunch. CM team will follow closely for coordination of discharge plans. Gaby Westbrook [facility] Discharge Planning/Care Management Advanced directive, confirm from FAMILY Start: 02/19/25 11:15 Freq: Q24H Status: Active Protocol: Document 02/19/25 11:15 JJ (Rec: 02/19/25 11:59 JJ [id number]) Advance Directive, confirm on record Time 11:59 Person contacted pt Copy received No CM Discharge Assessment Start: 02/20/25 11:28 Freq: Status: Active Protocol: Document 02/20/25 11:28 MW (Rec: 02/20/25 11:29 MW [id number]) Discharge Planning Assessment Assigned Manager Hiv URIEL Griffin DPOA/Assigned Designee Name Leah, Contact Information [phone] Advance Directives? Yes Advance Directives on File Yes History Provided By Patient,Family Member,Medical Record Prior Living Arrangements House Household Members spouse Type of transporation used prior to Drives own vehicle admit Independent with ADL's Yes Is patient alert and oriented? Yes Caregiver for Another No DME Already Rented / Owned FWW / Walker Patient/Family Preference OP PT Therapy Comment Home Barriers to Discharge No Discharge Plan Home Transportation Arrangement Spouse Referrals Initiated None needed Review Status In Process Please Provide Date Initial DC 02/20/25 Assessment Was Performed Next Review Type Continued Stay Review
[2025-02-20 11:35] VITALS: PULSE 69; RESP 16; O2SAT 94
--- NOTE | 2025-02-20 11:38 | OT.IP.EVAL ---
Current Diagnoses Unilateral primary osteoarthritis, left knee (02/19/25) Surgery Performed Operation Date: 02/19/25 07:45 Actual Procedures p Total Knee Arthroplasty - Robot(Left) - Brigette Stock MD Past Medical History (Last Reviewed 02/19/25 @ 06:44 by Estrellita Green, RN) Acquired hypothyroidism Acute bronchitis (~03/2019) Anemia Anemia, chronic disease Arthritis BCC (basal cell carcinoma) (02/09/25) CAD (coronary artery disease) Centrilobular emphysema Cerebrovascular disease (2003) Chronic anticoagulation Chronic atrial fibrillation Chronic bronchitis Chronic sinusitis COPD (chronic obstructive pulmonary disease) COVID-19 virus infection (10/2021) DDD (degenerative disc disease) Depression Depression, major, recurrent Diverticulosis ELENA (dyspnea on exertion) Easy bruisability Edema Essential hypertension Facet arthropathy, lumbar Fatty liver Former smoker GERD (gastroesophageal reflux disease) History of alcohol use disorder History of blood clots History of COVID-19 (~2022) History of heart attack History of prostate cancer HLD (hyperlipidemia) HTN (hypertension) Hypothyroidism due to amiodarone IBS (irritable colon syndrome) Kidney stones Left hemiparesis Mild cognitive impairment Mixed hyperlipidemia Mucopurulent chronic bronchitis Obstructive sleep apnea syndrome Orthostatic hypotension Osteoarthritis Primary osteoarthritis involving multiple joints Raynaud's syndrome Renal cyst, right Rheumatoid arthritis without rheumatoid factor, multiple sites Right arm fracture (~04/2016) Right knee DJD Scoliosis deformity of spine Sleep apnea Systolic CHF, chronic Surgical History (Last Reviewed 02/19/25 @ 07:16 by Estrellita Green, RN) History of lumbar laminectomy Hx of angioplasty (~1984) Hx of arthroscopy of right knee Hx of bilateral cataract extraction Hx of bilateral inguinal hernia repair Hx of CABG (~2003) Hx of circumcision Hx of elbow surgery Hx of heart artery stent Hx of lumbosacral spine surgery (~2008) Hx of mitral valve repair (~2003) Hx of prostate biopsy Hx of vasectomy S/P right unicompartmental knee replacement Status post correction of deviated nasal septum Status post total right knee replacement (~03/04/21) Occupational Therapy Inpatient Evaluation/Re-Eval M1 PT/OT-IP Prior Functional Status Start: 02/19/25 13:09 Freq: NEEDED Status: Active Protocol: Document 02/20/25 11:59 [facility] (Rec: 02/20/25 12:15 [facility] Desktop) Medical Review Prior Functional Status Medical History Reviewed Yes Communication A and O x 4 Mobility and Gait modified independent using device due to pain 1 wide step/landing to get into house Activities of Daily Living and IADL's indep Prior Functional Level (Other details) indep Social History Household Members spouse Living Arrangements House Number of Floors (Floors) One Floor Number of Stairs To Enter/Railing? 1 Home Environment High Toilet,Walk in Shower Home Equipment Front Wheel Walker,Straight Cane,Shower Seat with Backrest ,[employer] Accountant,Grab Bars Near Toilet ,Grab Bars In Shower M2 OT-IP Current Condition Start: 02/20/25 11:59 Freq: Status: Active Protocol: Document 02/20/25 11:59 [facility] (Rec: 02/20/25 12:15 [facility] Desktop) Occupational Therapy Current Condition Current Condition Evaluation Date 02/20/25 Treatment Diagnosis S/P L TKA Diagnosis Onset Date 02/19/25 M3 OT- IP Subjective and Pain Start: 02/20/25 11:59 Freq: Status: Active Protocol: Document 02/20/25 11:59 [facility] (Rec: 02/20/25 12:15 [facility] Desktop) OT- Subjective Occupational Therapy Visit Type Type Initial Evaluation Visit Start Time 08:45 Visit Stop Time 11:38 Notes Pt seen from [id number] and 1120- 1138. Occupational Therapy Visit Comments Patient Comments Pt in too much pain during 1st session and wanting to try again before lunch. Patient/Caregiver Goals To go home. OT Pain Assessment Pain When Pain Assessed At Rest Pain Present Pain Present Pain Reported Location Left Knee Intensity 7 Scale Used Numeric (0 - 10) M4 OT- IP ADL's Start: 02/20/25 11:59 Freq: Status: Active Protocol: Document 02/20/25 11:59 [facility] (Rec: 02/20/25 12:15 [facility] Desktop) OT [id number] Comments OT Self-Feeding Comments Not at meal time. OT ADL-Grooming Comments OT Grooming Comments Pt refused. OT ADL-Oral Care Comments Oral Care Comments Pt refused. OT ADL-Dressing General Eval Lower Body Dressing Ability Maximum Assistance Comments OT Dressing Comments Educated to dress his LLE first and take out last. Also to be mindful not to twist his knee especially during ADL needs. OT ADL-Toileting Comments OT Toileting Comments Educated to have the FWW over the toilet so able to hold to while standing to urinate. Pt prefers to stand to urinate. Suggested pt take the urinal home as well. Able to have pt' s assist pt to walk to the bathroom and use the toilet. OT ADL-Bathing Comments OT Bathing Comments Spoke of care for dressing needs. M5 OT- IP IADL's Start: 02/20/25 11:59 Freq: Status: Active Protocol: Document 02/20/25 11:59 [facility] (Rec: 02/20/25 12:15 [facility] Desktop) OT-Instrumental Activities of Daily Living Home Safety Awareness Home Safety Comments Pt is a bit groggy at this time. M6 OT- IP Functional Cognition Start: 02/20/25 11:59 Freq: Status: Active Protocol: Document 02/20/25 11:59 [facility] (Rec: 02/20/25 12:15 [facility] Desktop) Cognitive Factors Limiting Selfcare Function Cognitive Ability Level of Alertness Alert Patient Orientation Name,Place,Situation Attention Span Ability Capable of Focused Attention, Capable of Sustained Attention Ability to Follow Commands Able to Follow One Step Commands with Increased Time, Able to Follow One Step Commands with Repetition Safety Awareness Underestimates Need for Assistance Cognitive Comments Cognitive Assessment Comments Pt is a bit groggy and impulsive and needing cues for safety awareness. OT- Vision and Hearing OT- Vision Assessment Visual Acuity Glasses All The Time Visual Attentiveness WFL Occular Pursuits WFL M7 OT- IP Mobility and Balance Start: 02/20/25 11:59 Freq: Status: Active Protocol: Document 02/20/25 11:59 [facility] (Rec: 02/20/25 12:15 [facility] Desktop) OT- Bed Mobility Assessment Supine to Sit Supine to Sit Assist Moderate Assistance Sit to Supine Sit to Supine Assist Minimal Assistance OT-Transfer Assessment Sit to and From Stand Sit to and from Stand Minimal Assistance,Moderate Assistance,1 Person Assistance Transfers Transfer Ability Minimal Assistance Technique Transfer Destination Bed Transfer Technique Stand Step Pivot Devices Transfer Assistive Devices Gait Belt,Front Wheeled Walker Comments Mobility Comments Educated pt's how to luisito /doff the gait belt and how to best assist with her with the FWW. Pt needing assist for LLE to get out of the bed and with his trunk some. MIN/MODA x1 to stand to the FWW and able to walk with SINTIA to the bathroom with his . OT- Balance Assessment Sitting Balance and Reactions Static Sitting Balance Ability Good Dynamic Sitting Balance Ability Fair Standing Balance and Reactions Static Standing Balance Ability Fair Dynamic Standing Balance Ability Fair M8 OT- IP Objective Assessments Start: 02/20/25 11:59 Freq: Status: Active Protocol: Document 02/20/25 11:59 [facility] (Rec: 02/20/25 12:15 [facility] Desktop) OT Gross Range of Motion Upper Extremity Range of Motion ROM Impairments grossly WFL OT Strength Comments Strength Comments WFL for needs M9 OT- IP Assessment and Plan Start: 02/20/25 11:59 Freq: Status: Active Protocol: Document 02/20/25 11:59 [facility] (Rec: 02/20/25 12:15 [facility] Desktop) OT Summary Assessment and Plan Potential Rehabilitation Potential Good Analytic Complexity at Evaluation Low Summary OT Impairments Pain,Strength,Balance, Functional Mobility,Dressing, Toileting,Bathing,Toilet Transfers,Shower Transfers, Activity Tolerance Progress Towards Goals Progressing Toward Goals,Slow Progress due to Pain Assessment Summary Pt low complexity and main barriers are steps and pain. Pt has a supportive that will benefit from continued caregiver training for assist with ADL and mobility needs. Pt to go home with 24/7 assist and outpt PT when medically stable. Goals Self-Feeding Goal Independent Grooming Goal Independent Dressing Goal Independent Toileting Goal Independent Bathing Goal Minimal Assistance Toilet Transfer Goal Independent Shower Transfer Goal Contact Guard Assistance Days to Meet Goals 10 Frequency of Treatment Other frequency 5x/week Treatment Plan OT Treatment Plan ADL Training,Functional Mobility,Patient/Family Education,Discharge Planning Discharge Recommendations OT Discharge Recommendations Home with 24/7 Assist Available,Outpatient PT Transportation Needs at Discharge Private Vehicle
--- NOTE | 2025-02-20 11:53 | PT-IP ANOTE ---
checked on pt and refused PT. spouse in room and stated that pt cannot do PT since pt has 9-10/10 pain and wants pt to rest and sleep for now. informed nurse.
[2025-02-20] MEDS: TRAMADOL 50 MG TABLET PO (13:20)
--- NOTE | 2025-02-20 14:30 | PT.IPTN ---
Current Diagnoses Unilateral primary osteoarthritis, left knee (02/19/25) Surgery Performed Operation Date: 02/19/25 07:45 Actual Procedures p Total Knee Arthroplasty - Robot(Left) - Brigette Stock MD Physical Therapy Treatment Note M2 PT-IP Current Condition Start: 02/19/25 13:09 Freq: NEEDED Status: Discharge Protocol: Document 02/19/25 14:18 SAK (Rec: 02/19/25 14:30 SAK [id number]) Physical Therapy Current Condition Current Condition Evaluation Date 02/19/25 Treatment Diagnosis s/p left TKA Onset Date 02/19/25 M3 PT-IP Subjective Start: 02/19/25 13:09 Freq: NEEDED Status: Discharge Protocol: Document 02/20/25 14:30 AB (Rec: 02/20/25 16:13 AB [id number]) Subjective Physical Therapy Visit Type Type Treatment Note Visit Start Time 14:30 Visit Stop Time 14:55 Number of [employer]FETER[employer] DIRECTOR Visits 0 Therapy Pain Assessment Pain When Pain Assessed At Rest Pain Present Pain Present Pain Reported Location Left Knee Intensity 7 Scale Used Numeric (0 - 10) Pain Management Techniques Distraction,Modification of Treatment,Re-positioning, Timing of Activity with Medications M4 PT-IP Mobility and Gait Start: 02/19/25 13:09 Freq: NEEDED Status: Discharge Protocol: Document 02/20/25 14:30 AB (Rec: 02/20/25 16:13 AB [id number]) PT-Bed Mobility Assessment Supine to Sit Supine to Sit Minimal Assistance PT-Transfer Assessment Sit to and From Stand Sit to and from Stand Minimal Assistance,1 Person Assistance,Use of Upper Extremities Equipment Transfer Assistive Device Gait Belt,Front Wheeled Walker Orthotic/Prosthetic Devices or Brace: No Transfers Transfer Destination Chair Transfer Technique ambulated Transfer Ability Level of Assist Contact Guard Assistance,1 Person Assistance,Use of Upper Extremities Comments Mobility Comments pt in bed and spouse in room. agreed to do PT. supine to sit min A for moving RLE to EOB. educated spouse on how to assist pt with bed mobility and was able to assist pt. pt sat in EOB SBA. educated spouse on how to use safety belt and how to assist pt. spouse was able to put safety belt on pt. pt completed sit to stand min A and cues and ambulated to the chair using FWW CGA. pt rested. educated pt and spouse on how to do stairs. pt completed sit to stand from the chair min A and ambulated ~ 25 ft using fWW CGA. pt completed up/down platform step using FWW min A and cues with PT assisting. pt repeated with spouse providing assistance. pt ambulated back to the chair using fWW CGA with spouse assisting. positioned pt on the chair. call light and table placed within reach. educated pt and spouse on car transfers. pt and spouse without any other concerns. Gait Assessment Gait Gait Assistance Required: Contact Guard Assist,1 Person Assist Distance (Feet) 25 Able to Maintain Weight Bearing Status Yes During Gait Assistive Devices Assistive Device Gait Belt,Front Wheeled Walker Orthotic/Prosthetic Devices or Brace: No Gait Deviations General Gait Pattern Antalgic,Decreased Stride Length,Decreased Feet Clearance,Step-to Gait Factors Limiting Gait Function Factors Limiting Gait Function Decreased Activity Tolerance, Decreased Strength,Difficulty Following Directions,Limited Range of Motion,Pain,Poor Balance,Poor Safety Awareness Stair Climbing Assessment Evaluation Level of Assist On Stairs Minimal Assistance,1 Person Assistance Devices Stair Climbing Assistive Devices Front Wheel Walker Technique/Endurance Stair Climbing Direction Ascend and Descend Stair Climbing Technique Step to Step Number of Steps Climbed 1 Stair Climbing Set # Repetitions (reps) 2 M5 PT-IP Objective Assessments Start: 02/19/25 13:09 Freq: NEEDED Status: Discharge Protocol: Document 02/19/25 14:18 [facility] (Rec: 02/19/25 14:30 [facility] [id number]) Orientation Orientation/Cognition Level of Alertness Alert Orientation Name,Date,Place,Situation Language Function Ability No Deficits Noted Safety Awareness Understands Safety Issues Memory Description No Deficits Noted Gross Range of Motion Upper Extremity ROM Assessment Within Functional Limits Lower Extremity ROM Assessment Within Functional Limits Impairments left knee AROM 10-90 Strength Upper Extremity Strength Assessment Within Functional Limits Lower Extremity Strength Assessment Left Impaired Comments Strength Comments s/p left TKA, no MMT performed due to surgeryy Coordination Assessment Gross Coordination Gross Coordination WNL Sensation Assessment Sensation Gross Sensation WNL M6 PT-IP Treatment Start: 02/19/25 13:09 Freq: NEEDED Status: Discharge Protocol: Document 02/20/25 14:30 AB (Rec: 02/20/25 16:13 AB [id number]) Physical Therapy Treatment Education Education Provided Safety M7 PT-IP Assessment and Plan Start: 02/19/25 13:09 Freq: NEEDED Status: Discharge Protocol: Document 02/20/25 14:30 AB (Rec: 02/20/25 16:13 AB [id number]) PT Summary Assessment and Plan Potential Rehabilitation Potential Good Summary Impairments Pain,ROM,Strength,Balance, Coordination,Sensation,Tone, Cognition,Bed Mobility, Transfers,Gait,Activity Tolerance Progress Towards Goals Slow Progress due to Pain Assessment Summary pt requiring min A for bed mobility, sit to stand and CGA for ambulation using FWW. caregiver training conducted and spouse was able to assist pt safely. pt may go home when medically stable. Goals Bed Mobility Goal Independent Transfer Goal Independent,Front Wheeled Walker Gait Goal Independent,Front Wheel Walker Gait Distance 75 Other Goals up/down 2 platform steps using fWW mod I Days to Meet Goals 2 Frequency of Treatment Frequency Of Treatment Twice a Day Treatment Plan Physical Therapy Treatment Plan Bed Mobility Training,Transfer Training,Gait Training, Therapeutic Exercise,Post Op Education,Discharge Planning, Hot or Cold Pack Weight Bearing Status Weight Bearing Status Weight Bear as Tolerated Allowed Weight Bearing Amount (enter % LLE WBAT or #) (%) Recommendations To Nursing Amount of Assist Needed 1 Person Assist Discharge Recommendations PT Discharge Recommendations Home with Assistance, Outpatient PT Transportation Needs at Discharge Private Vehicle
--- NOTE | 2025-02-20 15:27 | PC.NURSE ---
Pt cntinued to c/o pain 05/31 most of mornig Order for tramadol received, and given w/ good results. Dsg CDI SL D/C intact, D/C orders received, Instructins given, Pt escorted by staff via W/C to waiting vehicle D/C in stable post op status.
--- NOTE | 2025-02-22 11:06 | P.CONS_ITS ---
History of Present Illness Consult details Date Patient Seen: 02/22/25 Time Patient Seen: 10:45 Chief complaint: Left Total Knee Arthroplasty Reason for consult: Concerns with altered mental status postop day 3 Requesting provider: Sameera Mobley Narrative: The patient is an 79-year-old male with a history of a left total knee arthroplasty on February 19, [address] Stock. hx afib and cva with baseline L side weakness--He was discharged home on postoperative day 1. He was brought to the emergency room today by medics on 02/22/2025 for altered mental status. Concerns that he may have urinary retention as well as signs of hypotension hypoxia. His called me this morning and reported symptoms including altered mental status and difficulty controlling his body and pain and intolerance of the pain medications. I recommended evaluation in the emergency room at which point she reported to me that she had already sent him there and he should the there now. she reports things were getting more difficult over the course of the last few days since discharge on Sunday. Reported that she has noted he has done worse over the last few days did not tolerate the oxycodone and even though they cut it down to half doses he has still had pain and been more somnolent and difficult to move around. She reports she was difficult for her to wake can him this morning and he seems sluggish therefore medics were called. She does report that he has not recently had a bowel movement but she gave him Dulcolax this morning. Patient was seen in the emergency room he is in the stretcher. At this point in time he was on 2 L of nasal cannula oxygen. He is responding to questions but confused. Meds Home Medications and Allergies Home Medications Medication Instructions Recorded Confirmed Type aspirin 81 mg tablet,delayed 81 mg PO DAILY ##0 04/01/09 02/19/25 History release multivitamin 1 cap PO DAILY ##0 04/01/09 02/19/25 History cholecalciferol (vitamin D3) 50 2,000 unit PO DAILY ##0 06/14/13 02/19/25 History mcg (2,000 unit) capsule (Vitamin D3) magnesium oxide 400 mg (241.3 mg 400 mg PO DAILY ##0 06/14/13 02/19/25 History magnesium) tablet cyanocobalamin (vitamin B-12) 1,000 mcg PO DAILY 04/09/18 02/19/25 History 1,000 mcg tablet (Vitamin B-12) vit C 250 mg-vit E 90 mg-zinc 40 1 tab PO BID 02/24/21 02/19/25 History mg-copper 1 [id number]-vbrefa capsule (PreserVision AREDS-2) sulfasalazine 500 mg tablet 1,000 mg PO TID 05/26/22 02/19/25 History vitamin A-vitamin C-vit E-min 1 tab PO DAILY 05/01/23 02/19/25 History [Ocuvite] fluticasone propionate 50 1 spray intranasal DAILY #16 grams 01/09/24 02/19/25 Rx mcg/actuation nasal spray,suspension (Flonase Allergy Relief) dicyclomine 10 mg capsule 10 mg PO TID PRN Cramps 02/25/24 02/19/25 History potassium chloride 20 mEq 20 meq PO DAILY #90 tabs 07/16/24 02/19/25 Rx tablet,extended release(part/cryst) acetaminophen 325 mg capsule 975 mg PO QID PRN Headache 07/21/24 02/19/25 History (Tylenol) ferrous sulfate 325 mg (65 mg 325 mg PO DAILY 07/21/24 02/19/25 History iron) tablet (iron) fluticasone 500 mcg-salmeterol 50 1 inh inhalation BID 11/20/24 02/10/25 History mcg/dose blistr powdr for inhalation (Wixela Inhub) albuterol sulfate 90 mcg/actuation 2 puff inhalation Q4H PRN wheezing 12/01/24 02/19/25 History aerosol inhaler apixaban 5 mg tablet (Eliquis) 5 mg PO BID #180 tabs 12/01/24 02/19/25 Rx atorvastatin 80 mg tablet (Lipitor) 80 mg PO HS #90 tabs 12/01/24 02/19/25 Rx carvedilol 6.25 mg tablet 6.25 mg PO BID #180 tabs 12/01/24 02/19/25 Rx duloxetine 60 mg capsule,delayed 60 mg PO DAILY #90 caps 12/01/24 02/19/25 Rx release empagliflozin 10 mg tablet 10 mg PO DAILY #90 tabs 12/01/24 02/19/25 Rx (Jardiance) folic acid 1 mg tablet 3 mg (3 x 1 mg) PO QDAY #270 tabs 12/01/24 02/19/25 Rx furosemide 40 mg tablet 60 mg (1.5 x 40 mg) PO DAILY #135 12/01/24 02/19/25 Rx tabs gabapentin 600 mg tablet 600 mg PO TID #270 tabs 12/01/24 02/19/25 Rx levothyroxine 100 mcg tablet 100 mcg PO DAILY #90 tabs 12/01/24 02/19/25 Rx lisinopril 2.5 mg tablet 2.5 mg PO DAILY #90 tabs 12/01/24 02/19/25 Rx mirtazapine 45 mg tablet 45 mg PO BEDTIME #90 tabs 12/01/24 02/19/25 Rx omeprazole 20 mg capsule,delayed 20 mg PO DAILY #90 caps 12/01/24 02/19/25 Rx release oxybutynin chloride 5 mg 5 mg PO DAILY #90 tabs 12/01/24 02/19/25 Rx tablet,extended release 24 hr terazosin 10 mg capsule 10 mg PO HS #90 caps 12/01/24 02/19/25 Rx Allergies Allergy/AdvReac Type Severity Reaction Status Date / Time No Known Drug Allergies Allergy Verified 02/22/25 10:28 Review of Systems Review of Systems ROS: Yes unobtainable due to mental status Exam Vital Signs (past 8 hours): Oxygen Delivery Method Room Air Oxygen Flow Rate 0 Narrative Exam Narrative: Lying on stretcher. Able to speak responds to simple questions but confused about location and history. Follows commands. Is able to dorsiflex and plantar flex his ankles and move bilateral lower and upper extremities on command. Nasal cannula oxygen 2 L.--was 86% on room air then placed on nasal cannula Abdomen with some distension bladder scan pending Left lower extremity is examined , mild swelling to the level of the ankle most around the knee which was the recent surgical site. Aquacel dressing in place on the knee. There is swelling but no erythema. Aquacel lifted up to inspect incision closed with the Dermabond which was intact does not have any erythema or drainage or signs of infection. There is swelling and effusion consistent with recent total knee arthroplasty. One small serous fracture blisters is decompressed medially. Calf and thigh are soft and compressible. Palpable dorsalis pedis pulse. Again ankle dorsiflexion plantar flexion for actively demonstrated. No signs or symptoms of lower extremity surgical site infection. It was noted the patient is on Eliquis Objective Labs 02/20/25 04:05 Labs: Cr - elevated 2.8 ( baseline 1.2-1.3) elevated BNP [facility] Medical History History of COVID-19 (~2022) BCC (basal cell carcinoma) (02/09/25) Rheumatoid arthritis without rheumatoid factor, multiple sites Mucopurulent chronic bronchitis Chronic bronchitis Depression, major, recurrent Renal cyst, right IBS (irritable colon syndrome) History of heart attack Anemia, chronic disease Left hemiparesis History of alcohol use disorder Kidney stones Easy bruisability Diverticulosis GERD (gastroesophageal reflux disease) Arthritis Sleep apnea History of blood clots COVID-19 virus infection (10/2021) History of prostate cancer Primary osteoarthritis involving multiple joints Acquired hypothyroidism Mixed hyperlipidemia Essential hypertension Cerebrovascular disease (2003) Chronic atrial fibrillation Systolic CHF, chronic Orthostatic hypotension Obstructive sleep apnea syndrome Right knee DJD Scoliosis deformity of spine Chronic anticoagulation Facet arthropathy, lumbar Mild cognitive impairment Right arm fracture (~04/2016) Hypothyroidism due to amiodarone Chronic sinusitis DDD (degenerative disc disease) Acute bronchitis (~03/2019) Edema COPD (chronic obstructive pulmonary disease) ELENA (dyspnea on exertion) Former smoker Anemia Centrilobular emphysema CAD (coronary artery disease) Depression Fatty liver HLD (hyperlipidemia) HTN (hypertension) Osteoarthritis Raynaud's syndrome Surgical History Hx of vasectomy Hx of prostate biopsy Hx of circumcision Hx of heart artery stent Status post total right knee replacement (~03/04/21) History of lumbar laminectomy Hx of CABG (~2003) Hx of angioplasty (~1984) Hx of arthroscopy of right knee Hx of lumbosacral spine surgery (~2008) Hx of bilateral cataract extraction Hx of bilateral inguinal hernia repair Status post correction of deviated nasal septum Hx of elbow surgery Hx of mitral valve repair (~2003) S/P right unicompartmental knee replacement Family History Grandmother Cancer Father CVA (cerebral vascular accident) CAD (coronary artery disease) Hyperlipidemia Hypertension Kidney stones Mother Diabetes mellitus Thyroid disorder Social History marital status: number of children: 2 household members: spouse Tobacco & Substance Use Smoking Status: Former smoker Tobacco: How many years used: 12 alcohol intake: former Diet and Exercise caffeine: Yes Type(s) of exercise: other frequency: 3-4 times per week duration: 60-90 minutes/day Assessment & Plan Assessment and plan (1) ROJELIO (acute kidney injury): Status: Acute (2) Pneumonia: Status: Acute (3) Arthritis of knee, left: Status: Acute Plan Postop day 3 left total knee arthroplasty. Now with altered mental status. Brought to the emergency room for workup. --appears to be PNA and ROJELIO--- will be admitted to Hospitalist team-- appreciate their care -getting IVF and abx for rojelio and PNA --Ortho available for any questions regarding surgical site Orthopaedic evaluation for the recent surgical site. Knee Appears to be routine postoperative swelling no signs or symptoms of infection. Calf and thigh compartments are soft. We will await emergency room workup for remainder of symptoms/confusion with labs chest x-ray blood cultures etc.. Patient has been restarted on his home anticoagulation of Eliquis 5 mg b.i.d.. Aquacel dressing clean dry and intact. Would be able to weightbear as tolerated and full ROM as tolerated on the left lower extremity with assistive devices. Time-Based Coding :: [TOTAL MINUTES] spent with patient and on the chart (including review of chart, obtaining history, exam, reviewing outside data, placing orders, documenting exam and treatment plan, and counseling patient) on [DATE].
== END 2025-02-20 15:25 | disposition home or self-care (01) ==
LOC: OR 06:23 → AC 06:25
PROVIDERS: PCP Internal Medicine; Referring Provider Orthopaedic Surgery; Visit Provider Orthopaedic Surgery
PROC: 0SRD0JZ Replacement of Left Knee Joint with Synthetic Substitute, Open Approach (ICD-10-PCS; CPT 27447; principal; 2025-02-19 07:45)
CPT/HCPCS: 36415; 64450; 73560; 85014; 85018; 94640; 97161; 97165; 97530; 97535; C1776; C1713; J0666; J0690; J1100; J2405; J2704; J3010; J3490; J7613

== ENCOUNTER 2025-02-22 10:25 | Inpatient (IN) | payer MEDICARE, SELFPAY ==
[2025-02-19 11:09] VITALS: BMI 21.9
[2025-02-22] VITALS (61 sets, daily range): BP systolic 89–132; BP diastolic 50–82; PULSE 76–104; RESP 10–28; TEMP 36.2–37.4; O2SAT 87–100; BMI 25.0; BMI 25.2
--- NOTE | 2025-02-22 10:38 | DI.RAD.S_ITS ---
PROCEDURE: XR CHEST 1V INDICATIONS: confusion TECHNIQUE: One view of the chest was acquired. COMPARISON: [facility], CR, XR CHEST 2V, 11/20/2024, 13:13. FINDINGS: Surgical changes and devices: Cerclage wires are present. Cardiac valve prosthesis. Lungs and pleura: Lungs are clear. No pleural effusions or pneumothorax. Mediastinum: Mediastinal contours appear normal. Heart size is normal. Bones and chest wall: No suspicious bony lesions. Overlying soft tissues appear unremarkable. IMPRESSION: No acute cardiopulmonary abnormality is seen. Dictated by: Uriel Pennington M.D. on 02/22/2025 at 11:05 Approved by: Uriel Pennington M.D. on 02/22/2025 at 11:06
--- NOTE | 2025-02-22 10:44 | EKG_ITS ---
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
[2025-02-22] MEDS: LIDOCAINE 2% (GLYDO) 6 ML GEL TOP (11:00)
--- NOTE | 2025-02-22 11:00 | PC.NURSE ---
PT with history of CVA 20 years ago with left sided deficit including left facial droop and left sided weakness with partial vision loss. endorses pt being confused and that he is normally oriented. Pt has been walking around at home prior to today.
--- NOTE | 2025-02-22 11:10 | PC.NURSE ---
EMS started a 1L NS IV bolus on pt LUMBER SCALER. IV NS infused 1liter. Dr. Mobley at bedside verbal order additional 1L NS fluid bolus. Pt resting in bed with eyes partially open, breathing even and non labored. Pt is responsive to voice. at bedside.
--- NOTE | 2025-02-22 11:12 | ED_ITS ---
HPI - Altered Mental Status General Chief Complaint: Altered Mental Status Stated Complaint: Confusion Time Seen by Provider: 02/22/25 10:38 Source: patient and EMS Mode of arrival: EMS History of Present Illness HPI narrative: Patient is an 79-year-old male status post left knee arthroplasty CA 3. Presenting today with confusion. He has prior history of CVA with left-sided deficits and occasional left facial droop was off Eliquis but I think his back on now. reports that he has previously had difficulty recovering from surgery. She increased confusion and abdominal discomfort last night. She has been pushing fluids but noticed that his urine is quite norris. Initially patient awake alert able to follow some commands. Do not appreciate worsening left sided weakness today. He was noted to be hypoxic 86% we will blood pressure systolic in the 80s. Related Data Home Medications Medication Instructions Recorded Confirmed aspirin 81 mg tablet,delayed 81 mg PO DAILY ##0 04/01/09 02/22/25 release multivitamin 1 cap PO DAILY ##0 04/01/09 02/22/25 cholecalciferol (vitamin D3) 50 2,000 unit PO DAILY ##0 06/14/13 02/22/25 mcg (2,000 unit) capsule (Vitamin D3) magnesium oxide 400 mg (241.3 mg 400 mg PO DAILY ##0 06/14/13 02/22/25 magnesium) tablet cyanocobalamin (vitamin B-12) 1,000 mcg PO DAILY 04/09/18 02/22/25 1,000 mcg tablet (Vitamin B-12) vit C 250 mg-vit E 90 mg-zinc 40 1 tab PO BID 02/24/21 02/22/25 mg-copper 1 [id number] capsule (PreserVision AREDS-2) sulfasalazine 500 mg tablet 1,000 mg PO TID 05/26/22 02/22/25 vitamin A-vitamin C-vit E-min 1 tab PO DAILY 05/01/23 02/22/25 [Ocuvite] dicyclomine 10 mg capsule 10 mg PO TID PRN Cramps 02/25/24 02/22/25 acetaminophen 325 mg capsule 975 mg PO QID PRN Headache 07/21/24 02/22/25 (Tylenol) ferrous sulfate 325 mg (65 mg 325 mg PO DAILY 07/21/24 02/22/25 iron) tablet (iron) fluticasone 500 mcg-salmeterol 50 1 inh inhalation BID 11/20/24 02/22/25 mcg/dose blistr powdr for inhalation (Wixela Inhub) albuterol sulfate 90 mcg/actuation 2 puff inhalation Q4H PRN wheezing 12/01/24 02/22/25 aerosol inhaler apixaban 5 mg tablet (Eliquis) 5 mg PO BID 02/22/25 02/22/25 empagliflozin 10 mg tablet 10 mg PO DAILY 02/22/25 02/22/25 (Jardiance) Previous Rx's Medication Instructions Recorded fluticasone propionate 50 1 spray intranasal DAILY #16 grams 01/09/24 mcg/actuation nasal spray,suspension (Flonase Allergy Relief) potassium chloride 20 mEq 20 meq PO DAILY #90 tabs 07/16/24 tablet,extended release(part/cryst) atorvastatin 80 mg tablet (Lipitor) 80 mg PO HS #90 tabs 12/01/24 carvedilol 6.25 mg tablet 6.25 mg PO BID #180 tabs 12/01/24 duloxetine 60 mg capsule,delayed 60 mg PO DAILY #90 caps 12/01/24 release folic acid 1 mg tablet 3 mg (3 x 1 mg) PO QDAY #270 tabs 12/01/24 furosemide 40 mg tablet 60 mg (1.5 x 40 mg) PO DAILY #135 12/01/24 tabs gabapentin 600 mg tablet 600 mg PO TID #270 tabs 12/01/24 levothyroxine 100 mcg tablet 100 mcg PO DAILY #90 tabs 12/01/24 lisinopril 2.5 mg tablet 2.5 mg PO DAILY #90 tabs 12/01/24 mirtazapine 45 mg tablet 45 mg PO BEDTIME #90 tabs 12/01/24 omeprazole 20 mg capsule,delayed 20 mg PO DAILY #90 caps 12/01/24 release oxybutynin chloride 5 mg 5 mg PO DAILY #90 tabs 12/01/24 tablet,extended release 24 hr terazosin 10 mg capsule 10 mg PO HS #90 caps 12/01/24 Allergies Allergy/AdvReac Type Severity Reaction Status Date / Time No Known Drug Allergies Allergy Verified 02/22/25 10:28 Patient History Medical History History of COVID-19 (~2022) BCC (basal cell carcinoma) (02/09/25) Rheumatoid arthritis without rheumatoid factor, multiple sites Mucopurulent chronic bronchitis Chronic bronchitis Depression, major, recurrent Renal cyst, right IBS (irritable colon syndrome) History of heart attack Anemia, chronic disease Left hemiparesis History of alcohol use disorder Kidney stones Easy bruisability Diverticulosis GERD (gastroesophageal reflux disease) Arthritis Sleep apnea History of blood clots COVID-19 virus infection (10/2021) History of prostate cancer Primary osteoarthritis involving multiple joints Acquired hypothyroidism Mixed hyperlipidemia Essential hypertension Cerebrovascular disease (2003) Chronic atrial fibrillation Systolic CHF, chronic Orthostatic hypotension Obstructive sleep apnea syndrome Right knee DJD Scoliosis deformity of spine Chronic anticoagulation Facet arthropathy, lumbar Mild cognitive impairment Right arm fracture (~04/2016) Hypothyroidism due to amiodarone Chronic sinusitis DDD (degenerative disc disease) Acute bronchitis (~03/2019) Edema COPD (chronic obstructive pulmonary disease) ELENA (dyspnea on exertion) Former smoker Anemia Centrilobular emphysema CAD (coronary artery disease) Depression Fatty liver HLD (hyperlipidemia) HTN (hypertension) Osteoarthritis Raynaud's syndrome Surgical History Hx of vasectomy Hx of prostate biopsy Hx of circumcision Hx of heart artery stent Status post total right knee replacement (~03/04/21) History of lumbar laminectomy Hx of CABG (~2003) Hx of angioplasty (~1984) Hx of arthroscopy of right knee Hx of lumbosacral spine surgery (~2008) Hx of bilateral cataract extraction Hx of bilateral inguinal hernia repair Status post correction of deviated nasal septum Hx of elbow surgery Hx of mitral valve repair (~2003) S/P right unicompartmental knee replacement Family History Grandmother Cancer Father CVA (cerebral vascular accident) CAD (coronary artery disease) Hyperlipidemia Hypertension Kidney stones Mother Diabetes mellitus Thyroid disorder Social History marital status: number of children: 2 household members: spouse Tobacco: How many years used: 12 alcohol intake: former caffeine: Yes Type(s) of exercise: other frequency: 3-4 times per week duration: 60-90 minutes/day Exam Initial Vital Signs Initial Vital Signs: Vital Signs Temperature 97.9 F 02/22/25 10:20 Pulse Rate 88 02/22/25 10:20 Respiratory Rate 14 02/22/25 10:20 Blood Pressure 103/61 02/22/25 10:20 Pulse Oximetry 87 L 02/22/25 10:20 Oxygen Delivery Method Room Air 02/22/25 10:20 GENERAL: Awake alert week 79-year-old male and in no acute distress. HEENT: Head atraumatic,EOMI, pupils reactive, face symmetric, moist mucous membranes CARDIOVASCULAR: Regular rate and rhythm without murmurs, rubs or gallops. RESPIRATORY: Breath sounds equal bilaterally, no wheezes rales or rhonchi. ABDOMEN: Distended nontender no hyperactive bowel sounds EXTREMITIES: Normal range of motion, no clubbing or edema. Neurovascularly intact NEUROLOGICAL: Alert and oriented to person place and time. [employer] strength equal bilaterally no appreciable weakness no significant left facial droop no slurring of speech SKIN: Warm, dry, no laceration, no petechiae, no rashes or lesions. Left knee postop dressing in place no significant erythema distal pedal pulse intact Course Orders Ordered: ED Orders 02/22/25 10:26 Complete Blood Count AUTO DIFF Stat Comprehensive Metabolic Panel Stat Lactate (Lactic Acid) Stat Procalcitonin Stat Troponin & CK Cardiac Panel Stat 02/22/25 10:38 XR chest 1V Stat EKG-12 Lead Stat 02/22/25 10:40 Blood Culture Stat 02/22/25 11:05 Urinalysis and Microscopic Stat 02/22/25 11:10 Covid-19 + FLU A/B + RSV - PCR Stat 02/22/25 11:18 CT abdomen pelvis w con Stat CT angio chest PE protocol Stat CT head/brain wo con Stat BNP [NT-proBNP (BNP-Adult 18+)] Stat 02/22/25 12:28 ABG [Arterial Blood Gas] STAT Acetaminophen (Acetaminophen 325 Mg Tablet) 975 mg PO QID PRN PRN Reason: Headache Hydrocodone Bitart/Acetaminophen (Hydrocodone/Acet 5/325 Tablet) 1 tab PO Q4H PRN PRN Reason: Pain, Moderate (4-6) Albuterol (Albuterol 2.5 Mg/3 Ml Neb (Adult)) 2.5 mg INH RTQ4HR PRN PRN Reason: Wheezing Albuterol (Albuterol 2.5 Mg/3 Ml Neb (Adult)) 2.5 mg INH [id number] [facility] Last Admin: 02/22/25 15:09 Dose: 2.5 mg Documented By: BERT Apixaban (Apixaban 5 Mg Tablet) 2.5 mg PO BID [facility] Aspirin (Aspirin Ec 81 Mg Tablet) 81 mg PO DAILY [facility] Last Admin: 02/22/25 16:29 Dose: 81 mg Documented By: LUIS Atorvastatin Calcium (Atorvastatin 20 Mg Tablet) 80 mg PO BEDTIME ILANA Budesonide (Budesonide 0.5 Mg/2 Ml Neb) 0.5 mg INH RTBID ILANA Carvedilol (Carvedilol 3.125 Mg Tablet) 6.25 mg PO BID ILANA Duloxetine HCl (Duloxetine 30 Mg Capsule) 60 mg PO DAILY [facility] Gabapentin (Gabapentin 300 Mg Capsule) 300 mg PO BID ILANA Sodium Chloride (Normal Saline 0.9%) 1,000 mls @ 100 mls/hr IV CONT [facility] Last Infusion: 02/22/25 15:00 Dose: 100 mls/hr Documented By: Admin: 02/22/25 12:37 Dose: 100 mls/hr Documented By: ERIKA Sodium Chloride (Normal Saline 0.9%) 1,000 mls @ 125 mls/hr IV CONT [facility] Last Admin: 02/22/25 16:29 Dose: 125 mls/hr Documented By: LUIS Lactulose (Lactulose 20 Gm/30 Ml Solution) 20 gm PO TID ILANA Stop: 02/24/25 06:00 Last Admin: 02/22/25 16:29 Dose: 20 gm Documented By: LUIS Levothyroxine Sodium (Levothyroxine 100 Mcg Tablet) 100 mcg PO DAILY@0600 [facility] Mirtazapine (Mirtazapine 15 Mg Tablet) 45 mg PO BEDTIME [facility] Naloxone HCl (Naloxone 0.4 Mg/Ml Vial) 0.2 mg IV Q2MIN PRN PRN Reason: Opiate Reversal Ondansetron HCl (Ondansetron 4 Mg/2 Ml Inj) 4 mg IV Q4HR PRN PRN Reason: Nausea And Vomiting Pantoprazole Sodium (Pantoprazole Dr 20 Mg Tablet) 20 mg PO DAILY [facility] Terazosin HCl (Terazosin 5 Mg Capsule) 10 mg PO BEDTIME [facility] Discontinued Medications Albuterol/Ipratropium (Albuterol/Ipratropium 3 Ml Ampul) 3 ml INH NOW ONE Stop: 02/22/25 12:29 Last Admin: 02/22/25 12:36 Dose: 3 ml Documented By: BERT Gabapentin (Gabapentin 600 Mg Tablet) 600 mg PO TID [facility] Sodium Chloride (Normal Saline 0.9%) 1,000 mls @ 1,000 mls/hr IV BOLUS ONE Stop: 02/22/25 12:17 Last Infusion: 02/22/25 12:18 Dose: Infused Documented By: Admin: 02/22/25 11:20 Dose: 1,000 mls/hr Documented By: SPF Piperacillin Sod/Tazobactam (Sod 4.5 gm/ Sodium Chloride) 100 mls @ 200 mls/hr IV NOW ONE Stop: 02/22/25 11:54 Last Infusion: 02/22/25 12:48 Dose: Infused Documented By: Admin: 02/22/25 12:09 Dose: 200 mls/hr Documented By: SPF Lidocaine HCl (Lidocaine 2% (Glydo) 6 Ml Gel) 6 ml TOP NOW ONE Stop: 02/22/25 11:01 Last Admin: 02/22/25 11:00 Dose: 6 ml Documented By: SPF Mineral Oil (Mineral Oil 1 Each Enema) 1 each MN NOW ONE Stop: 02/22/25 14:39 Non-Formulary Medication (Acetaminophen [Tylenol]) 975 mg PO QID PRN PRN Reason: Headache Non-Formulary Medication (Albuterol Sulfate) 2 puff INHALATION Q4H PRN PRN Reason: wheezing Non-Formulary Medication (Carvedilol) 6.25 mg PO BID ILANA Non-Formulary Medication (Fluticasone Propion-Salmeterol [Wixela Inhub]) 1 inhalation INHALATION BID ILANA Non-Formulary Medication (Omeprazole) 20 mg PO DAILY [facility] Vital Signs Vital signs: Vital Signs - 8 hr 02/22/25 10:20 02/22/25 10:29 02/22/25 10:30 Temperature 97.9 F Pulse Rate 88 Respiratory Rate 14 Blood Pressure 103/61 108/59 L 103/61 Pulse Oximetry 87 L Oxygen Delivery Method Room Air Oxygen Flow Rate Fraction of Inspired Oxygen 02/22/25 10:31 02/22/25 10:36 02/22/25 10:36 Temperature Pulse Rate 84 90 Respiratory Rate 12 Blood Pressure 118/59 L Pulse Oximetry 88 L 97 Oxygen Delivery Method Room Air Nasal Cannula Oxygen Flow Rate 2 Fraction of Inspired Oxygen 02/22/25 10:40 02/22/25 10:40 02/22/25 10:45 Temperature Pulse Rate 93 H 89 Respiratory Rate 14 18 Blood Pressure 132/58 L Pulse Oximetry 99 98 Oxygen Delivery Method Nasal Cannula Oxygen Flow Rate 2 Fraction of Inspired Oxygen 02/22/25 10:45 02/22/25 10:50 02/22/25 10:50 Temperature Pulse Rate 88 Respiratory Rate 22 Blood Pressure 113/53 L 97/50 L Pulse Oximetry 97 Oxygen Delivery Method Oxygen Flow Rate Fraction of Inspired Oxygen 02/22/25 10:55 02/22/25 10:55 02/22/25 11:00 Temperature Pulse Rate 85 Respiratory Rate 13 Blood Pressure 98/55 L 103/52 L Pulse Oximetry 98 Oxygen Delivery Method Nasal Cannula Oxygen Flow Rate 2 Fraction of Inspired Oxygen 02/22/25 11:00 02/22/25 11:05 02/22/25 11:05 Temperature Pulse Rate 90 86 Respiratory Rate 13 12 Blood Pressure 91/53 L Pulse Oximetry 98 98 Oxygen Delivery Method Nasal Cannula Oxygen Flow Rate 2 Fraction of Inspired Oxygen 02/22/25 11:10 02/22/25 11:10 02/22/25 11:15 Temperature Pulse Rate 86 Respiratory Rate 10 L Blood Pressure 102/53 L 91/53 L Pulse Oximetry 97 Oxygen Delivery Method Oxygen Flow Rate Fraction of Inspired Oxygen 02/22/25 11:15 02/22/25 11:20 02/22/25 11:20 Temperature 99.3 F Pulse Rate 92 H 87 Respiratory Rate 14 13 Blood Pressure 96/50 L Pulse Oximetry 98 92 Oxygen Delivery Method Nasal Cannula Oxygen Flow Rate 2 Fraction of Inspired Oxygen 02/22/25 11:26 02/22/25 11:26 02/22/25 11:27 Temperature 99.3 F Pulse Rate 84 Respiratory Rate 13 Blood Pressure 102/57 L 104/52 L Pulse Oximetry Oxygen Delivery Method Oxygen Flow Rate Fraction of Inspired Oxygen 02/22/25 11:27 02/22/25 11:30 02/22/25 11:30 Temperature 99.3 F 99.3 F Pulse Rate 85 83 Respiratory Rate 13 16 Blood Pressure 106/59 L Pulse Oximetry 99 Oxygen Delivery Method Oxygen Flow Rate Fraction of Inspired Oxygen 02/22/25 11:36 02/22/25 11:36 02/22/25 11:39 Temperature Pulse Rate 87 Respiratory Rate Blood Pressure 100/53 L 101/54 L Pulse Oximetry Oxygen Delivery Method Oxygen Flow Rate Fraction of Inspired Oxygen 02/22/25 11:39 02/22/25 11:42 02/22/25 11:42 Temperature 99.3 F 99.3 F Pulse Rate 87 84 Respiratory Rate 13 13 Blood Pressure 92/53 L Pulse Oximetry 99 99 Oxygen Delivery Method Oxygen Flow Rate Fraction of Inspired Oxygen 02/22/25 11:45 02/22/25 11:45 02/22/25 11:48 Temperature 99.1 F Pulse Rate 86 Respiratory Rate 13 Blood Pressure 109/51 L 101/50 L Pulse Oximetry 100 Oxygen Delivery Method Oxygen Flow Rate Fraction of Inspired Oxygen 02/22/25 11:48 02/22/25 11:50 02/22/25 11:50 Temperature 99.1 F 99.1 F Pulse Rate 90 85 Respiratory Rate 22 11 L Blood Pressure 112/54 L Pulse Oximetry 99 99 Oxygen Delivery Method Oxygen Flow Rate Fraction of Inspired Oxygen 02/22/25 11:51 02/22/25 11:51 02/22/25 11:53 Temperature 99.1 F 99.1 F Pulse Rate 86 84 Respiratory Rate 10 L 11 L Blood Pressure 97/54 L Pulse Oximetry 98 98 Oxygen Delivery Method Nasal Cannula Oxygen Flow Rate 2 Fraction of Inspired Oxygen 02/22/25 11:54 02/22/25 11:54 02/22/25 11:57 Temperature 99.1 F Pulse Rate 84 Respiratory Rate 16 Blood Pressure 107/54 L 91/55 L Pulse Oximetry 97 Oxygen Delivery Method Oxygen Flow Rate Fraction of Inspired Oxygen 02/22/25 11:57 02/22/25 12:00 02/22/25 12:04 Temperature 99.0 F 99.0 F Pulse Rate 81 82 Respiratory Rate 15 21 Blood Pressure 100/57 L Pulse Oximetry 96 96 Oxygen Delivery Method Nasal Cannula Oxygen Flow Rate 2 Fraction of Inspired Oxygen 02/22/25 12:04 02/22/25 12:06 02/22/25 12:06 Temperature 99.0 F 99.0 F Pulse Rate 85 85 Respiratory Rate 17 16 Blood Pressure 108/61 Pulse Oximetry 97 97 Oxygen Delivery Method Oxygen Flow Rate Fraction of Inspired Oxygen 02/22/25 12:09 02/22/25 12:09 02/22/25 12:12 Temperature 99.0 F 99.0 F Pulse Rate 84 83 Respiratory Rate 17 18 Blood Pressure 96/59 L Pulse Oximetry 96 97 Oxygen Delivery Method Nasal Cannula Oxygen Flow Rate 2 Fraction of Inspired Oxygen 02/22/25 12:12 02/22/25 12:15 02/22/25 12:15 Temperature 98.8 F Pulse Rate 84 Respiratory Rate 17 Blood Pressure 110/59 L 104/58 L Pulse Oximetry 97 Oxygen Delivery Method Nasal Cannula Oxygen Flow Rate 2 Fraction of Inspired Oxygen 02/22/25 12:18 02/22/25 12:18 02/22/25 12:21 Temperature 98.8 F 98.8 F Pulse Rate 88 88 Respiratory Rate 17 16 Blood Pressure 92/53 L Pulse Oximetry 97 96 Oxygen Delivery Method Nasal Cannula Oxygen Flow Rate 2 Fraction of Inspired Oxygen 02/22/25 12:21 02/22/25 12:24 02/22/25 12:24 Temperature 98.8 F Pulse Rate 86 Respiratory Rate 16 Blood Pressure 100/57 L 94/53 L Pulse Oximetry 96 Oxygen Delivery Method Oxygen Flow Rate Fraction of Inspired Oxygen 02/22/25 12:27 02/22/25 12:27 02/22/25 12:30 Temperature 98.8 F 98.6 F Pulse Rate 86 82 Respiratory Rate 26 H 18 Blood Pressure 100/57 L Pulse Oximetry 97 96 Oxygen Delivery Method Nasal Cannula Oxygen Flow Rate 2 Fraction of Inspired Oxygen 02/22/25 12:30 02/22/25 12:33 02/22/25 12:33 Temperature 98.6 F Pulse Rate 80 Respiratory Rate 19 Blood Pressure 100/55 L 102/57 L Pulse Oximetry 97 Oxygen Delivery Method Oxygen Flow Rate Fraction of Inspired Oxygen 02/22/25 12:36 02/22/25 12:36 02/22/25 12:37 Temperature 98.6 F Pulse Rate 85 76 Respiratory Rate 28 H 18 Blood Pressure 108/52 L Pulse Oximetry 96 97 Oxygen Delivery Method Nasal Cannula Oxygen Flow Rate 2 Fraction of Inspired Oxygen 02/22/25 12:39 02/22/25 12:39 02/22/25 12:42 Temperature 98.6 F Pulse Rate 81 Respiratory Rate 17 Blood Pressure 95/55 L 89/51 L Pulse Oximetry 97 Oxygen Delivery Method Oxygen Flow Rate Fraction of Inspired Oxygen 02/22/25 12:42 02/22/25 12:45 02/22/25 12:45 Temperature 98.6 F 98.4 F Pulse Rate 88 79 Respiratory Rate 18 14 Blood Pressure 98/56 L Pulse Oximetry 97 97 Oxygen Delivery Method Oxygen Flow Rate Fraction of Inspired Oxygen 02/22/25 12:49 02/22/25 12:49 02/22/25 12:51 Temperature 98.4 F Pulse Rate 83 Respiratory Rate 15 Blood Pressure 98/82 100/58 L Pulse Oximetry 95 Oxygen Delivery Method Oxygen Flow Rate Fraction of Inspired Oxygen 02/22/25 12:51 02/22/25 12:54 02/22/25 12:54 Temperature 98.4 F 98.4 F Pulse Rate 82 84 Respiratory Rate 16 12 Blood Pressure 107/57 L Pulse Oximetry 95 96 Oxygen Delivery Method Oxygen Flow Rate Fraction of Inspired Oxygen 02/22/25 12:57 02/22/25 12:57 02/22/25 13:00 Temperature 98.4 F 98.4 F Pulse Rate 83 84 Respiratory Rate 20 10 L Blood Pressure 101/55 L Pulse Oximetry 96 97 Oxygen Delivery Method Oxygen Flow Rate Fraction of Inspired Oxygen 02/22/25 13:30 02/22/25 13:34 02/22/25 13:34 Temperature 98.1 F 98.1 F Pulse Rate 88 86 Respiratory Rate 22 18 Blood Pressure 106/56 L Pulse Oximetry 88 L Oxygen Delivery Method Room Air Oxygen Flow Rate Fraction of Inspired Oxygen 02/22/25 13:46 02/22/25 13:46 02/22/25 14:00 Temperature 98.1 F 98.1 F Pulse Rate 88 86 Respiratory Rate 19 Blood Pressure 110/54 L Pulse Oximetry 88 L Oxygen Delivery Method Room Air Oxygen Flow Rate Fraction of Inspired Oxygen MDM - Altered Mental Status Lab Data 02/22/25 10:26 02/22/25 10:26 Labs: Lab Results 02/22/25 02/22/25 02/22/25 Range/Units 10:26 11:05 11:10 WBC 10.3 (4.5-11.0) X10^3/uL RBC 2.78 L (4.5-5.9) X10^6/uL Hgb 10.0 L (13.5-17.5) g/dL Hct 29.2 L (41-53) % MCV 105.0 H (80-100) fL MCH 36.0 H (26-34) PG MCHC 34.2 (30-36) % RDW 14.2 (11.6-14.8) % Plt Count 122 L (150-400) X10^3/uL Neut % (Auto) 72.0 (50-75) % Lymph % (Auto) 13.1 L (25-40) % [place] % (Auto) 12.6 (3-14) % Eos % (Auto) 1.9 L (2-4) % Baso % (Auto) 0.4 (0-2) % Neut # (Auto) 7400 H (7004-3894) /uL Lymph # (Auto) 1400 (5089-2195) /uL [place] # (Auto) 1300 H (0-900) /uL Eos # (Auto) 200 (0-450) /uL Baso # (Auto) 0 (0-100) /uL ABG Sample Site ABG pH (7.35-7.45) ABG pCO2 (35-45) mmHg ABG pO2 (80-100) mmHg ABG HCO3 (23-27) mmol/L ABG Total CO2 (23-27) mmol/L ABG O2 Saturation (95-100) % ABG Base Excess (-2-3) mmol/L Keaton Test O2 Delivery Device FiO2 % % Sodium 131 L (137-145) mmol/L Potassium 4.3 (3.4-5.1) mmol/L Chloride 96 L (98-107) mmol/L Carbon Dioxide 30 (22-32) mmol/L BUN 44 H (9-20) mg/dL Creatinine 2.81 H (0.66-1.25) mg/dL Estimated GFR 22 L (>60) mL/min BUN/Creatinine Ratio 15.7 (6-22) Glucose 106 H (70-99) mg/dL Lactate 1.0 (0.7-2.1) mmol/L Calcium 8.4 (8.4-10.2) mg/dL Total Bilirubin 1.3 (0.2-1.3) mg/dL AST 51 (17-59) IU/L ALT 31 (<50) IU/L Alkaline Phosphatase 60 (38-126) U/L Total Creatine Kinase 48 L (55-170) U/L Troponin I 0.018 (0.01-0.034) ng/mL NT-Pro-B Natriuret Pep (<450) pg/mL Total Protein 5.8 L (6.3-8.2) g/dL Albumin 3.1 L (3.5-5.0) g/dL Globulin 2.7 (1.7-4.1) g/dL Albumin/Globulin Ratio 1.1 (1.0-2.8) Procalcitonin 3.60 H (<0.5) ng/mL Urine Color Yellow Urine Appearance Clear Urine pH 5.5 (4.5-8.0) Ur Specific [place] 1.025 (1.000-1.035) Urine Protein Trace H (Negative) Urine Glucose (UA) 1+ H (Negative) g/dL Urine Ketones Trace H (NEGATIVE) Urine Occult Blood Negative (Negative) Urine Nitrate Negative (Negative) Urine Bilirubin Negative (NEGATIVE) Urine Urobilinogen 0.2 (0.2) E.U./dL Ur Leukocyte Esterase Negative (NEGATIVE) Urine RBC 0-1/hpf (0-5/HPF) Urine WBC 0-1/hpf (0-5/HPF) Ur Squamous Epith Cells None seen (0-5/HPF) Urine Bacteria None seen (None) Hyaline Casts 0-1/lpf (None) Ur Culture Indicated? Cult not indicated Vol Urine Centrifuged 10ml (spun) SARS-CoV-2 (PCR) Negative (Negative) Influenza A (RT-PCR) Flu a negative (NEGATIVE) Influenza B (RT-PCR) Flu b negative (NEGATIVE) RSV (PCR) Negative (Negative) 02/22/25 02/22/25 Range/Units 11:18 13:07 WBC (4.5-11.0) X10^3/uL RBC (4.5-5.9) X10^6/uL Hgb (13.5-17.5) g/dL Hct (41-53) % MCV (80-100) fL MCH (26-34) PG MCHC (30-36) % RDW (11.6-14.8) % Plt Count (150-400) X10^3/uL Neut % (Auto) (50-75) % Lymph % (Auto) (25-40) % [place] % (Auto) (3-14) % Eos % (Auto) (2-4) % Baso % (Auto) (0-2) % Neut # (Auto) (9010-8460) /uL Lymph # (Auto) (9894-8325) /uL [place] # (Auto) (0-900) /uL Eos # (Auto) (0-450) /uL Baso # (Auto) (0-100) /uL ABG Sample Site Left radial ABG pH 7.29 L* (7.35-7.45) ABG pCO2 53.1 H (35-45) mmHg ABG pO2 83 (80-100) mmHg ABG HCO3 26 (23-27) mmol/L ABG Total CO2 25 (23-27) mmol/L ABG O2 Saturation 95 (95-100) % ABG Base Excess -1.3 (-2-3) mmol/L Keaton Test Positive O2 Delivery Device Cannula FiO2 % 28 % % Sodium (137-145) mmol/L Potassium (3.4-5.1) mmol/L Chloride (98-107) mmol/L Carbon Dioxide (22-32) mmol/L BUN (9-20) mg/dL Creatinine (0.66-1.25) mg/dL Estimated GFR (>60) mL/min BUN/Creatinine Ratio (6-22) Glucose (70-99) mg/dL Lactate (0.7-2.1) mmol/L Calcium (8.4-10.2) mg/dL Total Bilirubin (0.2-1.3) mg/dL AST (17-59) IU/L ALT (<50) IU/L Alkaline Phosphatase (38-126) U/L Total Creatine Kinase (55-170) U/L Troponin I (0.01-0.034) ng/mL NT-Pro-B Natriuret Pep 4180 H (<450) pg/mL Total Protein (6.3-8.2) g/dL Albumin (3.5-5.0) g/dL Globulin (1.7-4.1) g/dL Albumin/Globulin Ratio (1.0-2.8) Procalcitonin (<0.5) ng/mL Urine Color Urine Appearance Urine pH (4.5-8.0) Ur Specific [place] (1.000-1.035) Urine Protein (Negative) Urine Glucose (UA) (Negative) g/dL Urine Ketones (NEGATIVE) Urine Occult Blood (Negative) Urine Nitrate (Negative) Urine Bilirubin (NEGATIVE) Urine Urobilinogen (0.2) E.U./dL Ur Leukocyte Esterase (NEGATIVE) Urine RBC (0-5/HPF) Urine WBC (0-5/HPF) Ur Squamous Epith Cells (0-5/HPF) Urine Bacteria (None) Hyaline Casts (None) Ur Culture Indicated? Vol Urine Centrifuged SARS-CoV-2 (PCR) (Negative) Influenza A (RT-PCR) (NEGATIVE) Influenza B (RT-PCR) (NEGATIVE) RSV (PCR) (Negative) Imaging Data Chest x-ray: Radiologist's Impression: PROCEDURE: XR CHEST 1V INDICATIONS: confusion TECHNIQUE: One view of the chest was acquired. COMPARISON: [facility], , XR CHEST 2V, 11/20/2024, 13:13. FINDINGS: Surgical changes and devices: Cerclage wires are present. Cardiac valve prosthesis. Lungs and pleura: Lungs are clear. No pleural effusions or pneumothorax. Mediastinum: Mediastinal contours appear normal. Heart size is normal. Bones and chest wall: No suspicious bony lesions. Overlying soft tissues appear unremarkable. IMPRESSION: No acute cardiopulmonary abnormality is seen. Dictated by: Uriel Pennington M.D. on 02/22/2025 at 11:05 CT scan - chest: Radiologist's Impression: PROCEDURE: CT ANGIO CHEST PE PROTOCOL INDICATIONS: post op hypoxia and hypotension TECHNIQUE: After the administration of intravenous contrast, 2 mm thick sections acquired from the pulmonary apices to the posterior costophrenic angles. 3-dimensional maximum intensity projection (MIP) coronal and sagittal reformats were then acquired through the thorax. For radiation dose reduction, the following was used: automated exposure control, adjustment of mA and/or kV according to patient size. COMPARISON: None. FINDINGS: Image quality: Diagnostic. Pulmonary arteries: Pulmonary arteries are normal in size, and demonstrate no intraluminal filling defects to suggest central pulmonary embolism. Lower Neck: No enlarged lymph nodes. Thyroid: No thyroid nodules which require sonographic follow up, per consensus guidelines. Axillae: No enlarged lymph nodes. Chest Wall: Unremarkable. Bones: Unremarkable. Lungs and Pleura: No pneumothorax. Bibasilar atelectasis with small pleural effusions. Right lower lobe 1.1 cm nodule axial image 145. Right upper lobe 9 mm nodule axial image 130. Prominent airway collapse within the main bronchi. Heart: Heart size is normal. No pericardial effusion. Thoracic Vessels: No aortic aneurysm. Mediastinum and Madisyn: No enlarged lymph nodes. Esophagus: No wall thickening. No hiatal hernia. Upper Abdomen: Visualized upper abdomen solid organs and bowel loops appear normal. IMPRESSION: 1. No pulmonary embolus. 2. 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 3. Mild bibasilar atelectasis with small pleural effusions. 4. Right upper and right lower lobe nodules versus focal consolidation may represent atypical infection. Consider short-term follow-up imaging in 3-6 months to ensure resolution. Dictated by: Uriel Pennington M.D. on 02/22/2025 at 11:36 CT scan - abdomen/pelvis: Radiologist's Impression: PROCEDURE: CT ABDOMEN PELVIS W CON INDICATIONS: Abdominal pain and distention TECHNIQUE: After the administration of intravenous contrast, axial sections acquired from the lung bases to the pubic symphysis. Coronal and sagittal reformats were performed. For radiation dose reduction, the following was used: automated exposure control, adjustment of mA and/or kV according to patient size. COMPARISON: [facility], CT, CT ABDOMEN PELVIS W CON, 01/29/2024, 10:42. FINDINGS: Image quality: Diagnostic. Lower Chest: Basilar atelectasis. With small pleural effusions. ABDOMEN: Liver: No solid mass. Nodular contours. Left lobe and caudate hypertrophy Gallbladder: Mildly dilated gallbladder. Cholelithiasis. Biliary ducts: No biliary dilation. Pancreas: The pancreatic tail cyst measuring 1.7 x 1.5 cm, unchanged. Spleen: Size is within normal limits. Anterior splenic hypodensity measuring 2.6 cm, unchanged Adrenal Glands: No adrenal nodules. Kidneys and Ureters: Bilateral nonobstructive renal stones. Large exophytic right renal cyst measuring 11 cm. Stomach and Bowel: Normal colonic caliber, without significant wall thickening. Large stool volume within the colon. Peritoneum: No abnormal intraperitoneal fluid. No free air. Ventral Wall: No significant ventral hernia. Abdominal Nodes: No retroperitoneal or mesenteric adenopathy by size criteria. Vessels: Aorta and inferior vena cava are normal in size. PELVIS: Pelvic Organs: Fiduciary markers within the prostate. Bladder: Heart catheter within the bladder. Pelvic Nodes: No enlarged lymph nodes. Miscellaneous: No inguinal hernias are seen. Bones: No aggressive osseous abnormality. IMPRESSION: 1. Large stool volume throughout the colon. 2. Diverticulosis without evidence of acute diverticulitis. 3. Stable large right exophytic renal cyst measuring 11 cm. 4. Stable small pancreatic cyst. 5. Stable splenic cyst. 6. Nonobstructive nephrolithiasis. 7. Cholelithiasis without evidence of acute cholecystitis. Dictated by: Uriel Pennington M.D. on 02/22/2025 at 11:21 CT scan - head: Radiologist's Impression: PROCEDURE: CT HEAD/BRAIN WO CON INDICATIONS: confusion TECHNIQUE: Noncontrast 4.5 mm thick angled axial sections acquired from the foramen magnum to the vertex, with coronal and sagittal reformats. For radiation dose reduction, the following was used: automated exposure control, adjustment of mA and/or kV according to patient size. COMPARISON: [facility], CT, CT HEAD/BRAIN WO CON, 04/13/2023, 11:36. FINDINGS: Image quality: Diagnostic. CSF spaces: Sequela of remote right temporal stroke. Sequela of remote right parietal stroke. Basal cisterns are patent. No extra-axial fluid collections. Ventricles are normal in size and shape. Brain: No midline shift. No intracranial mass effect or hemorrhage. [place]- white matter interface is normal. Skull and face: Calvarium and visualized facial bones are intact, without suspicious lesions. Sinuses: Visualized sinuses and mastoids are clear. IMPRESSION: No acute intracranial pathology. Sequela of remote right-sided strokes. Dictated by: Uriel Pennington M.D. on 02/22/2025 at 11:19 Approved by: Uriel Pennington M.D. on 02/22/2025 at 11:21 ECG Data Attestation: I personally reviewed and interpreted this ECG as follows: Prior ECG tracings: available for review Interpretation: Atrial fibrillation rate 92 no acute ischemic changes similar to previous EKGs MDM Narrative Medical decision making narrative: MDM CC: Confusion Complicating co-morbidities: AFib on Eliquis previous CVA with left-sided deficits Medical records reviewed: Recent left TKA Differential considered: Sepsis, septic joint UTI pneumonia, pulmonary embolism Exam documented above, pertinent findings include: Patient is alert moving all extremities I do not appreciate any new or acute deficits. Knee is warm no significant erythema no other sign of cellulitis lung sounds are clear Lab Test results independently reviewed as above. Pertinent findings: CBC WBC is 10.3 hemoglobin 10.0 crit 29.2 platelets 122 CMP shows new ROJELIO creatinine 2.8 previously 1.2, sodium 131 potassium 4.3 chloride 96 carbon dioxide 30 BUN 44 creatinine 2.8 glucose 106 Bilirubin liver enzymes within normal limits Lactate 1.0, procalcitonin 3.6 Troponin negative, BNP 4180 Urinalysis does not show evidence of UTI Viral panel is negative Independently reviewed EKG as above Atrial fibrillation no acute ischemia no RVR Imaging studies independently reviewed: Chest x-ray no acute cardiopulmonary process CT angio does show possible pneumonia with consolidation no pulmonary embolus CT abdomen does show large stool burden Consultations: Dr. Meneses accepts Dr. Bautista in ED to see and evaluate patient Treatments: Sepsis fluids Zosyn Re-evaluations: 1300 Blood pressure did improve after IV fluids Discussion: Patient 79-year-old male presenting today with confusion. Postop day 2. At this time I do suspect pneumonia and ROJELIO causing his confusion. He initially was hypotensive but blood pressure responded to IV fluids a. He does not have significant leukocytosis or fever and he has a normal lactic acid procalcitonin is high. And he does have pneumonia on CT. No evidence of pulmonary embolisms. He was somnolent but still responsive. ABG does show some mild hypercapnia with a PaCO2 of 53. He was requiring 1-2 L of oxygen. At this time he was still responsive I would hold off on BiPAP. Discussion with at bedside reports that he was still a full code. I suspect that he was dehydrated with new ROJELIO. Blood pressure responded Discharge Plan Departure Patient Disposition: Admitted As Inpatient Clinical Impression: Pneumonia, ROJELIO (acute kidney injury) Admit Date/Time: 02/22/25 14:00 Admit Provider: Curry Meneses
[2025-02-22 11:13] LABS: Add Manual Diff / Slide Review NO; Basophils Absolute Auto 0 /uL (0-100); Basophils Percent Auto 0.4 % (0-2); Eosinophils Absolute Auto 200 /uL (0-450); Eosinophils Percent Auto 1.9 % (2-4); Hematocrit 29.2 % (41-53); Lymphocytes Absolute Auto 1400 /uL (1100-4500); Lymphocytes Percent Auto 13.1 % (25-40); Mean Corpuscular HGB Conc 34.2 % (30-36); Monocytes Absolute Auto 1300 /uL (0-900); Monocytes Percent Auto 12.6 % (3-14); Neutrophils Absolute Auto 7400 /uL (1500-7000); Platelet Count 122 X10^3/uL (150-400); Red Blood Cell Count 2.78 X10^6/uL (4.5-5.9); Red Cell Distribution Width 14.2 % (11.6-14.8); White Blood Cell Count 10.3 X10^3/uL (4.5-11.0)
--- NOTE | 2025-02-22 11:18 | DI.CT.S_ITS ---
PROCEDURE: CT HEAD/BRAIN WO CON INDICATIONS: confusion TECHNIQUE: Noncontrast 4.5 mm thick angled axial sections acquired from the foramen magnum to the vertex, with coronal and sagittal reformats. For radiation dose reduction, the following was used: automated exposure control, adjustment of mA and/or kV according to patient size. COMPARISON: [facility], CT, CT HEAD/BRAIN WO CON, 04/13/2023, 11:36. FINDINGS: Image quality: Diagnostic. CSF spaces: Sequela of remote right temporal stroke. Sequela of remote right parietal stroke. Basal cisterns are patent. No extra-axial fluid collections. Ventricles are normal in size and shape. Brain: No midline shift. No intracranial mass effect or hemorrhage. Markham-white matter interface is normal. Skull and face: Calvarium and visualized facial bones are intact, without suspicious lesions. Sinuses: Visualized sinuses and mastoids are clear. IMPRESSION: No acute intracranial pathology. Sequela of remote right-sided strokes. Dictated by: Uriel Pennington M.D. on 02/22/2025 at 11:19 Approved by: Uriel Pennington M.D. on 02/22/2025 at 11:21
--- NOTE | 2025-02-22 11:18 | DI.CT.S_ITS ---
PROCEDURE: CT ABDOMEN PELVIS W CON INDICATIONS: Abdominal pain and distention TECHNIQUE: After the administration of intravenous contrast, axial sections acquired from the lung bases to the pubic symphysis. Coronal and sagittal reformats were performed. For radiation dose reduction, the following was used: automated exposure control, adjustment of mA and/or kV according to patient size. COMPARISON: [facility], CT, CT ABDOMEN PELVIS W CON, 01/29/2024, 10:42. FINDINGS: Image quality: Diagnostic. Lower Chest: Basilar atelectasis. With small pleural effusions. ABDOMEN: Liver: No solid mass. Nodular contours. Left lobe and caudate hypertrophy Gallbladder: Mildly dilated gallbladder. Cholelithiasis. Biliary ducts: No biliary dilation. Pancreas: The pancreatic tail cyst measuring 1.7 x 1.5 cm, unchanged. Spleen: Size is within normal limits. Anterior splenic hypodensity measuring 2.6 cm, unchanged Adrenal Glands: No adrenal nodules. Kidneys and Ureters: Bilateral nonobstructive renal stones. Large exophytic right renal cyst measuring 11 cm. Stomach and Bowel: Normal colonic caliber, without significant wall thickening. Large stool volume within the colon. Peritoneum: No abnormal intraperitoneal fluid. No free air. Ventral Wall: No significant ventral hernia. Abdominal Nodes: No retroperitoneal or mesenteric adenopathy by size criteria. Vessels: Aorta and inferior vena cava are normal in size. PELVIS: Pelvic Organs: Fiduciary markers within the prostate. Bladder: Heart catheter within the bladder. Pelvic Nodes: No enlarged lymph nodes. Miscellaneous: No inguinal hernias are seen. Bones: No aggressive osseous abnormality. IMPRESSION: 1. Large stool volume throughout the colon. 2. Diverticulosis without evidence of acute diverticulitis. 3. Stable large right exophytic renal cyst measuring 11 cm. 4. Stable small pancreatic cyst. 5. Stable splenic cyst. 6. Nonobstructive nephrolithiasis. 7. Cholelithiasis without evidence of acute cholecystitis. Dictated by: Uriel Pennington M.D. on 02/22/2025 at 11:21 Approved by: Uriel Pennington M.D. on 02/22/2025 at 11:36
--- NOTE | 2025-02-22 11:18 | DI.CT.S_ITS ---
PROCEDURE: CT ANGIO CHEST PE PROTOCOL INDICATIONS: post op hypoxia and hypotension TECHNIQUE: After the administration of intravenous contrast, 2 mm thick sections acquired from the pulmonary apices to the posterior costophrenic angles. 3-dimensional maximum intensity projection (MIP) coronal and sagittal reformats were then acquired through the thorax. For radiation dose reduction, the following was used: automated exposure control, adjustment of mA and/or kV according to patient size. COMPARISON: None. FINDINGS: Image quality: Diagnostic. Pulmonary arteries: Pulmonary arteries are normal in size, and demonstrate no intraluminal filling defects to suggest central pulmonary embolism. Lower Neck: No enlarged lymph nodes. Thyroid: No thyroid nodules which require sonographic follow up, per consensus guidelines. Axillae: No enlarged lymph nodes. Chest Wall: Unremarkable. Bones: Unremarkable. Lungs and Pleura: No pneumothorax. Bibasilar atelectasis with small pleural effusions. Right lower lobe 1.1 cm nodule axial image 145. Right upper lobe 9 mm nodule axial image 130. Prominent airway collapse within the main bronchi. Heart: Heart size is normal. No pericardial effusion. Thoracic Vessels: No aortic aneurysm. Mediastinum and Madisyn: No enlarged lymph nodes. Esophagus: No wall thickening. No hiatal hernia. Upper Abdomen: Visualized upper abdomen solid organs and bowel loops appear normal. IMPRESSION: 1. No pulmonary embolus. 2. 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 3. Mild bibasilar atelectasis with small pleural effusions. 4. Right upper and right lower lobe nodules versus focal consolidation may represent atypical infection. Consider short-term follow-up imaging in 3-6 months to ensure resolution. Dictated by: Uriel Pennington M.D. on 02/22/2025 at 11:36 Approved by: Uriel Pennington M.D. on 02/22/2025 at 11:47
[2025-02-22] MEDS: SODIUM CHLORIDE 0.9% 1,000 ML 1000 ML IV (11:20)
[2025-02-22 11:28] LABS: Alanine Aminotransferase 31 IU/L (<50); Albumin 3.1 g/dL (3.5-5.0); Albumin Globulin Ratio 1.1 (1.0-2.8); Alkaline Phosphatase 60 U/L (38-126); Aspartate Aminotransferase 51 IU/L (17-59); BUN Creatinine Ratio 15.7 (6-22); Bilirubin Total 1.3 mg/dL (0.2-1.3); Blood Urea Nitrogen 44 mg/dL (9-20); Calcium 8.4 mg/dL (8.4-10.2); Carbon Dioxide 30 mmol/L (22-32); Chloride 96 mmol/L (98-107); Creatine Kinase 48 U/L (55-170); Estimated Glomerular Filt Rate 22 mL/min (>60); Globulin 2.7 g/dL (1.7-4.1); Glucose 106 mg/dL (70-99); HEMOLYSIS < 15 (0-50); Potassium 4.3 mmol/L (3.4-5.1); Sodium 131 mmol/L (137-145); Total Protein 5.8 g/dL (6.3-8.2)
[2025-02-22 11:40] LABS: Troponin I 0.018 ng/mL (0.01-0.034)
[2025-02-22] MEDS: PIPERACILLIN/TAZO 4.5 GM in SODIUM CHLORIDE 0.9% 100 ML IV (12:09)
[2025-02-22 12:11] LABS: NT-proBNP (BNP-Adult 18+) 4180 pg/mL (<450)
[2025-02-22 12:19] LABS: Appearance Urine UA CLEAR; Bilirubin Urine UA NEGATIVE (NEGATIVE); Color Urine UA YELLOW; Glucose Urine UA 1+ g/dL (Negative); Ketones Urine UA TRACE (NEGATIVE); Leukocyte Esterase Urine UA NEGATIVE (NEGATIVE); Nitrite Urine UA NEGATIVE (Negative); Occult Blood Urine UA NEGATIVE (Negative); Protein Urine UA TRACE (Negative); Specific Gravity Urine UA 1.025 (1.000-1.035); Urobilinogen Urine UA 0.2 E.U./dL (0.2); pH Urine UA 5.5 (4.5-8.0)
[2025-02-22 12:29] LABS: Bacteria Urine None Seen; Culture Indicated Urine Cult Not Indicated; Hyaline Casts Urine 0-1/LPF; RBC Urine 0-1/HPF (0-5/HPF); Squamous Epithelial Cell Urine None Seen (0-5/HPF); Urine Volume 10mL (spun); WBC Urine 0-1/HPF (0-5/HPF)
[2025-02-22] MEDS: ALBUTEROL/IPRATROPIUM 3 ML AMPUL INH (12:36)
[2025-02-22] MEDS: SODIUM CHLORIDE 0.9% 1,000 ML 100 ML IV (12:37)
[2025-02-22 12:56] LABS: Influenza A - CEPHEID Flu A NEGATIVE (NEGATIVE); Influenza B - CEPHEID Flu B NEGATIVE (NEGATIVE); Respiratory Syncytial Virus Negative (Negative)
[2025-02-22 12:58] LABS: COVID-19 CEPHEID 4-PLEX PCR Negative (Negative)
[2025-02-22 13:13] LABS: Allen Test for ABG Passed? Positive; Base Excess ABG -1.3 mmol/L (-2-3); Blood Gas Collection Site Left Radial; Delivery System Cannula; HCO3 ABG 26 mmol/L (23-27); Oxygen Saturation ABG 95 % (95-100); PCO2 ABG 53.1 mmHg (35-45); PO2 ABG 83 mmHg (80-100); TCO2 ABG 25 mmol/L (23-27); pH ABG 7.29 (7.35-7.45)
--- NOTE | 2025-02-22 14:00 | PM.HP.1 ---
History of Present Illness History of Present Illness Date Patient Seen: 02/22/25 Chief complaint: Confusion due to encephalopathy postoperative TKR Narrative: Chief complaint: Confusion with hallucinosis postoperative total knee replacement 72 hours with findings consistent with pneumonia, ROJELIO History of present illness: 79-year-old male status post left knee arthroplasty was noted by to have confusion and abdominal discomfort through the night. Noticed that the urine is quite norris Findings in the emergency room patient is confused but oriented to self very pleasant. White count 10.3 (double baseline) ABG shows 7.29/53/83 sodium 131 BUN 44 creatinine 2.8 up from baseline of 13/11.23 pro BNP 4180 procalcitonin 3.6 swabs negative for COVID RSV and flu CT head nonacute CT chest showing right upper and right lower lobe nodules versus focal consolidation bibasilar atelectasis and small pleural effusions CT abdomen pelvis unremarkable except large stool volume throughout the colon diverticulosis without diverticulitis Chest x-ray demonstrates right lower lobe nodular appearing parenchymal changes with air bronchograms Emergency room course: Patient given 2 L of saline and started on Zosyn for presumed healthcare acquired pneumonia blood cultures drawn and referred for admission Past medical history: Coronary artery disease: The patient plans epigastric incisional hernia repair and is otherwise doing well. He presents for follow-up of coronary artery disease that is long-standing, and denies chest pain, dyspnea on exertion, lightheadedness, palpitations, or lower extremity swelling. Pertinent history in this regards includes prior CABG and angioplasty.? The patient reports good compliance with medications. Congestive heart failure: The patient is seen for follow-up of chronic systolic congestive heart failure. The patient reports good with medications and diet.? The last echocardiogram 12/27/2020 EF was 50%. He is followed by Dr. Judd Johnson. Atrial fibrillation: The patient presents for follow-up of chronic atrial fibrillation. The patient reports no symptoms since the last visit. Medications to control the rate include carvedilol and the rate/rhythm seems adequately controlled.? The patient denies chest pain, dyspnea on exertion, lightheadedness, lower extremity swelling, bleeding, bright red blood per rectum, easy bruising, epistaxis, melena.? The patient is presently taking warfarin for anticoagulation and has no bleeding issues related to this. Cerebrovascular disease: Patient has history of cerebrovascular event considered ischemic in 2003. The cerebrovascular accident affects cognitive function with short-term memory deficits and residual left-sided weakness. Overall condition is stable. Hypertension: The patient is currently on carvedilol and lisinopril for blood pressure control.?He measures readings well-controlled at home. The patient is tolerating the medication without side effects reported, and denies exertional or other chest pain, dyspnea, orthopnea, paroxysmal nocturnal dyspnea, pedal edema, or TIA symptoms. Hyperlipidemia: The present medications include atorvastatin. The patient reports good compliance and denies any chest pain, exertional or otherwise. Hypothyroidism: The medication taken is levothyroxine at a dose of 100 mcg per day.? Compliance with the medication is good. TSH was 0.76 on 11/10/2023. Chronic obstructive pulmonary disease (COPD):? The patient reports chronic dyspnea symptoms presently from COPD, feeling much better after a several month respiratory illness. The patient reports using inhalers daily as needed.?He continues to exercise on three days weekly at a local fitness club 25-30 minutes on a treadmill or stationary bike. He states recent PFTs showed improvement. He is followed by Dr. Menendez. Major depression:? The patient states he is doing better at this point. He reports good compliance with duloxetine and mirtazapine, and denies adverse side effects to the medication, and denies feeling depressed, irritable, cranky, fatigued, easily tearful, sleep troubles, anhedonia, social withdrawal, or trouble with memory, focus, or concentration. The patient has good motivation. PHQ-9 score = 4.5/27. Irritable bowel syndrome with diarrhea: The patient states symptoms are currently controlled with peppermint extract. The patient states he is doing much better. He saw Dr. Walker of GI in [place] who prescribed dicyclomine for IBS which has been helpful. He was noted to have an incidental large right renal cyst. He reports intermittent crampy abdominal discomfort up to 6/10 over the past year, improving with dicyclomine or Pepto Bismol. Pain seems to be helped by having a bowel movement. He can eat without pain but only recently. He had taken a 10 day course of Augmentin for a sinus infection, prescribed 08/30/2023 and felt better. EGD and colonoscopy on 11/14/[address] Walker showed gastritis and a poor prep with a tubular adenomatous polyp. He has eliminated dairy products. His sister has ovarian cancer that spread to colon and lungs, he notes. Weight is down 10 pounds due to fear of eating, but since starting dicyclomine he is feeling better and eating more. Abdomen-pelvis CT scan 01/29/2024: 1. Large simple right upper pole renal cyst. If the patient describes right flank pain, this cyst may be contributing to the patient's symptoms. 2. Bilateral nonobstructing nephrolithiasis. 3. Diverticulosis. No acute diverticulitis. 4. Hepatic steatosis. Benign prostatic hyperplasia: The patient reports symptoms are controlled on current therapy on terazosin, with nocturia x 1, and mild urinary frequency, urgency and hesitancy. History of prostate cancer: He is s/p seed implant around 2003. He is followed by Dr. Uriel Evans with PSA < 0.064 in 01/2024. Rheumatoid arthritis: The patient has RA and states symptoms are currently controlled on sulfasalazine. He takes Advil several days weekly. He was followed by Dr. Ruslan Carney. Osteoarthritis: The patient is planning left total knee replacement by Dr. Brigette Stock. The patient has arthritis involving knees s/p right TKR in 2020 and states symptoms are currently inadequately controlled in the left knee. He remains active. Gastroesophageal reflux disease: The patient states symptoms are well controlled and denies abdominal or flank pain, anorexia, nausea or vomiting, dysphagia, change in bowel habits or black or bloody stools. The patient is currently taking omeprazole for gastroesophageal reflux disease at this time, s/p EGD 11/14/2023 (reactive changes). Obstructive sleep apnea: The patient has obstructive sleep apnea and is on a CPAP machine with good compliance and working well in terms of controlling daytime somnolence. He was followed by [facility] sleep medicine. He asks about Inspire for my , given the noise of his equipment. He admits he does not wish a medical procedure for this. History of colon polyps: The patient has a history of colon polyps, s/p colonoscopy 09/23/2019 (normal), 11/14/2023 (tubular adenoma). None further advised. AWV 05/28/2023 Past surgical history Hx of vasectomy Hx of prostate biopsy Hx of circumcision Hx of heart artery stent Status post total right knee replacement (~03/04/21) History of lumbar laminectomy Hx of CABG (~2003) Hx of angioplasty (~1984) Hx of arthroscopy of right knee Hx of lumbosacral spine surgery (~2008) Hx of bilateral cataract extraction Hx of bilateral inguinal hernia repair Status post correction of deviated nasal septum Hx of elbow surgery Hx of mitral valve repair (~2003) S/P right unicompartmental knee replacement Review of systems: Patient unable to participate in her review of systems due to encephalopathy Physical exam: Elderly male no acute distress alert but confused disoriented but overall appears fit for age HEENT unremarkable Neck no JVD Heart irregularly irregular rhythm PI 6 systolic murmur Lungs diminished breath sounds crackles at right base Ativan firm but nontender scant bowel sounds Lower extremities operative site appears clean occlusive bandage in place left lower extremity Good capillary refill and pulses in dorsalis pedis bilaterally Confused but no focal weakness no lateralization For objective data please see bottom of this note Assessment and plan: Postoperative SIRS likely secondary to healthcare acquired pneumonia with relative leukocytosis, ROJELIO, encephalopathy, dehydration, hyponatremia -vigorous hydration to be continued started in emergency department -continue Zosyn for presumed healthcare acquired pneumonia -attempt to laxate from above and below for constipation -continue home meds especially anticoagulant -monitor on telemetry Chronic atrial fibrillation with history of CVA-continue anticoagulation and beta-josé manuel Chronic coronary artery disease-continue all core measures COPD-continue maintenance inhalers as well as acute bronchodilators as needed Chronic congestive heart failure with EF of 50%-hold diuretics at this time as patient is dehydrated with ROJELIO DVT prophylaxis covered with apixaban Code status:-full code Time based coding: A total of 55 minutes spent with patient and on the chart (including review of chart, obtaining history, exam, reviewing outside data, placing orders, documenting exam and treatment plan, and counseling patient) [facility] Medical History History of COVID-19 (~2022) BCC (basal cell carcinoma) (02/09/25) Rheumatoid arthritis without rheumatoid factor, multiple sites Mucopurulent chronic bronchitis Chronic bronchitis Depression, major, recurrent Renal cyst, right IBS (irritable colon syndrome) History of heart attack Anemia, chronic disease Left hemiparesis History of alcohol use disorder Kidney stones Easy bruisability Diverticulosis GERD (gastroesophageal reflux disease) Arthritis Sleep apnea History of blood clots COVID-19 virus infection (10/2021) History of prostate cancer Primary osteoarthritis involving multiple joints Acquired hypothyroidism Mixed hyperlipidemia Essential hypertension Cerebrovascular disease (2003) Chronic atrial fibrillation Systolic CHF, chronic Orthostatic hypotension Obstructive sleep apnea syndrome Right knee DJD Scoliosis deformity of spine Chronic anticoagulation Facet arthropathy, lumbar Mild cognitive impairment Right arm fracture (~04/2016) Hypothyroidism due to amiodarone Chronic sinusitis DDD (degenerative disc disease) Acute bronchitis (~03/2019) Edema COPD (chronic obstructive pulmonary disease) ELENA (dyspnea on exertion) Former smoker Anemia Centrilobular emphysema CAD (coronary artery disease) Depression Fatty liver HLD (hyperlipidemia) HTN (hypertension) Osteoarthritis Raynaud's syndrome Surgical History Hx of vasectomy Hx of prostate biopsy Hx of circumcision Hx of heart artery stent Status post total right knee replacement (~03/04/21) History of lumbar laminectomy Hx of CABG (~2003) Hx of angioplasty (~1984) Hx of arthroscopy of right knee Hx of lumbosacral spine surgery (~2008) Hx of bilateral cataract extraction Hx of bilateral inguinal hernia repair Status post correction of deviated nasal septum Hx of elbow surgery Hx of mitral valve repair (~2003) S/P right unicompartmental knee replacement Family History Grandmother Cancer Father CVA (cerebral vascular accident) CAD (coronary artery disease) Hyperlipidemia Hypertension Kidney stones Mother Diabetes mellitus Thyroid disorder Social History marital status: number of children: 2 household members: spouse Tobacco: How many years used: 12 alcohol intake: former caffeine: Yes Type(s) of exercise: other frequency: 3-4 times per week duration: 60-90 minutes/day Meds Home Medications and Allergies Home Medications Medication Instructions Recorded Confirmed Type aspirin 81 mg tablet,delayed 81 mg PO DAILY ##0 04/01/09 02/19/25 History release multivitamin 1 cap PO DAILY ##0 04/01/09 02/19/25 History cholecalciferol (vitamin D3) 50 2,000 unit PO DAILY ##0 06/14/13 02/19/25 History mcg (2,000 unit) capsule (Vitamin D3) magnesium oxide 400 mg (241.3 mg 400 mg PO DAILY ##0 06/14/13 02/19/25 History magnesium) tablet cyanocobalamin (vitamin B-12) 1,000 mcg PO DAILY 04/09/18 02/19/25 History 1,000 mcg tablet (Vitamin B-12) vit C 250 mg-vit E 90 mg-zinc 40 1 tab PO BID 02/24/21 02/19/25 History mg-copper 1 nm-dkskva-bkrvto capsule (PreserVision AREDS-2) sulfasalazine 500 mg tablet 1,000 mg PO TID 05/26/22 02/19/25 History vitamin A-vitamin C-vit E-min 1 tab PO DAILY 05/01/23 02/19/25 History [Ocuvite] fluticasone propionate 50 1 spray intranasal DAILY #16 grams 01/09/24 02/19/25 Rx mcg/actuation nasal spray,suspension (Flonase Allergy Relief) dicyclomine 10 mg capsule 10 mg PO TID PRN Cramps 02/25/24 02/19/25 History potassium chloride 20 mEq 20 meq PO DAILY #90 tabs 07/16/24 02/19/25 Rx tablet,extended release(part/cryst) acetaminophen 325 mg capsule 975 mg PO QID PRN Headache 07/21/24 02/19/25 History (Tylenol) ferrous sulfate 325 mg (65 mg 325 mg PO DAILY 07/21/24 02/19/25 History iron) tablet (iron) fluticasone 500 mcg-salmeterol 50 1 inh inhalation BID 11/20/24 02/10/25 History mcg/dose blistr powdr for inhalation (Wixela Inhub) albuterol sulfate 90 mcg/actuation 2 puff inhalation Q4H PRN wheezing 12/01/24 02/19/25 History aerosol inhaler apixaban 5 mg tablet (Eliquis) 5 mg PO BID #180 tabs 12/01/24 02/19/25 Rx atorvastatin 80 mg tablet (Lipitor) 80 mg PO HS #90 tabs 12/01/24 02/19/25 Rx carvedilol 6.25 mg tablet 6.25 mg PO BID #180 tabs 12/01/24 02/19/25 Rx duloxetine 60 mg capsule,delayed 60 mg PO DAILY #90 caps 12/01/24 02/19/25 Rx release empagliflozin 10 mg tablet 10 mg PO DAILY #90 tabs 12/01/24 02/19/25 Rx (Jardiance) folic acid 1 mg tablet 3 mg (3 x 1 mg) PO QDAY #270 tabs 12/01/24 02/19/25 Rx furosemide 40 mg tablet 60 mg (1.5 x 40 mg) PO DAILY #135 12/01/24 02/19/25 Rx tabs gabapentin 600 mg tablet 600 mg PO TID #270 tabs 12/01/24 02/19/25 Rx levothyroxine 100 mcg tablet 100 mcg PO DAILY #90 tabs 12/01/24 02/19/25 Rx lisinopril 2.5 mg tablet 2.5 mg PO DAILY #90 tabs 12/01/24 02/19/25 Rx mirtazapine 45 mg tablet 45 mg PO BEDTIME #90 tabs 12/01/24 02/19/25 Rx omeprazole 20 mg capsule,delayed 20 mg PO DAILY #90 caps 12/01/24 02/19/25 Rx release oxybutynin chloride 5 mg 5 mg PO DAILY #90 tabs 12/01/24 02/19/25 Rx tablet,extended release 24 hr terazosin 10 mg capsule 10 mg PO HS #90 caps 12/01/24 02/19/25 Rx Allergies Allergy/AdvReac Type Severity Reaction Status Date / Time No Known Drug Allergies Allergy Verified 02/22/25 10:28 Exam Vital Signs (past 8 hours): - 02/22/25 10:20 02/22/25 10:29 02/22/25 10:30 Temperature 97.9 F Pulse Rate 88 Respiratory Rate 14 Blood Pressure 103/61 108/59 L 103/61 Pulse Oximetry 87 L Oxygen Delivery Method Room Air Oxygen Flow Rate Fraction of Inspired Oxygen 02/22/25 10:31 02/22/25 10:36 02/22/25 10:36 Temperature Pulse Rate 84 90 Respiratory Rate 12 Blood Pressure 118/59 L Pulse Oximetry 88 L 97 Oxygen Delivery Method Room Air Nasal Cannula Oxygen Flow Rate 2 Fraction of Inspired Oxygen 02/22/25 10:40 02/22/25 10:40 02/22/25 10:45 Temperature Pulse Rate 93 H 89 Respiratory Rate 14 18 Blood Pressure 132/58 L Pulse Oximetry 99 98 Oxygen Delivery Method Nasal Cannula Oxygen Flow Rate 2 Fraction of Inspired Oxygen 02/22/25 10:45 02/22/25 10:50 02/22/25 10:50 Temperature Pulse Rate 88 Respiratory Rate 22 Blood Pressure 113/53 L 97/50 L Pulse Oximetry 97 Oxygen Delivery Method Oxygen Flow Rate Fraction of Inspired Oxygen 02/22/25 10:55 02/22/25 10:55 02/22/25 11:00 Temperature Pulse Rate 85 Respiratory Rate 13 Blood Pressure 98/55 L 103/52 L Pulse Oximetry 98 Oxygen Delivery Method Nasal Cannula Oxygen Flow Rate 2 Fraction of Inspired Oxygen 02/22/25 11:00 02/22/25 11:05 02/22/25 11:05 Temperature Pulse Rate 90 86 Respiratory Rate 13 12 Blood Pressure 91/53 L Pulse Oximetry 98 98 Oxygen Delivery Method Nasal Cannula Oxygen Flow Rate 2 Fraction of Inspired Oxygen 02/22/25 11:10 02/22/25 11:10 02/22/25 11:15 Temperature Pulse Rate 86 Respiratory Rate 10 L Blood Pressure 102/53 L 91/53 L Pulse Oximetry 97 Oxygen Delivery Method Oxygen Flow Rate Fraction of Inspired Oxygen 02/22/25 11:15 02/22/25 11:20 02/22/25 11:20 Temperature 99.3 F Pulse Rate 92 H 87 Respiratory Rate 14 13 Blood Pressure 96/50 L Pulse Oximetry 98 92 Oxygen Delivery Method Nasal Cannula Oxygen Flow Rate 2 Fraction of Inspired Oxygen 02/22/25 11:26 02/22/25 11:26 02/22/25 11:27 Temperature 99.3 F Pulse Rate 84 Respiratory Rate 13 Blood Pressure 102/57 L 104/52 L Pulse Oximetry Oxygen Delivery Method Oxygen Flow Rate Fraction of Inspired Oxygen 02/22/25 11:27 02/22/25 11:30 02/22/25 11:30 Temperature 99.3 F 99.3 F Pulse Rate 85 83 Respiratory Rate 13 16 Blood Pressure 106/59 L Pulse Oximetry 99 Oxygen Delivery Method Oxygen Flow Rate Fraction of Inspired Oxygen 02/22/25 11:36 02/22/25 11:36 02/22/25 11:39 Temperature Pulse Rate 87 Respiratory Rate Blood Pressure 100/53 L 101/54 L Pulse Oximetry Oxygen Delivery Method Oxygen Flow Rate Fraction of Inspired Oxygen 02/22/25 11:39 02/22/25 11:42 02/22/25 11:42 Temperature 99.3 F 99.3 F Pulse Rate 87 84 Respiratory Rate 13 13 Blood Pressure 92/53 L Pulse Oximetry 99 99 Oxygen Delivery Method Oxygen Flow Rate Fraction of Inspired Oxygen 02/22/25 11:45 02/22/25 11:45 02/22/25 11:48 Temperature 99.1 F Pulse Rate 86 Respiratory Rate 13 Blood Pressure 109/51 L 101/50 L Pulse Oximetry 100 Oxygen Delivery Method Oxygen Flow Rate Fraction of Inspired Oxygen 02/22/25 11:48 02/22/25 11:50 02/22/25 11:50 Temperature 99.1 F 99.1 F Pulse Rate 90 85 Respiratory Rate 22 11 L Blood Pressure 112/54 L Pulse Oximetry 99 99 Oxygen Delivery Method Oxygen Flow Rate Fraction of Inspired Oxygen 02/22/25 11:51 02/22/25 11:51 02/22/25 11:53 Temperature 99.1 F 99.1 F Pulse Rate 86 84 Respiratory Rate 10 L 11 L Blood Pressure 97/54 L Pulse Oximetry 98 98 Oxygen Delivery Method Nasal Cannula Oxygen Flow Rate 2 Fraction of Inspired Oxygen 02/22/25 11:54 02/22/25 11:54 02/22/25 11:57 Temperature 99.1 F Pulse Rate 84 Respiratory Rate 16 Blood Pressure 107/54 L 91/55 L Pulse Oximetry 97 Oxygen Delivery Method Oxygen Flow Rate Fraction of Inspired Oxygen 02/22/25 11:57 02/22/25 12:00 02/22/25 12:04 Temperature 99.0 F 99.0 F Pulse Rate 81 82 Respiratory Rate 15 21 Blood Pressure 100/57 L Pulse Oximetry 96 96 Oxygen Delivery Method Nasal Cannula Oxygen Flow Rate 2 Fraction of Inspired Oxygen 02/22/25 12:04 02/22/25 12:06 02/22/25 12:06 Temperature 99.0 F 99.0 F Pulse Rate 85 85 Respiratory Rate 17 16 Blood Pressure 108/61 Pulse Oximetry 97 97 Oxygen Delivery Method Oxygen Flow Rate Fraction of Inspired Oxygen 02/22/25 12:09 02/22/25 12:09 02/22/25 12:37 Temperature 99.0 F Pulse Rate 84 76 Respiratory Rate 17 18 Blood Pressure 96/59 L Pulse Oximetry 96 97 Oxygen Delivery Method Nasal Cannula Nasal Cannula Oxygen Flow Rate 2 2 Fraction of Inspired Oxygen 28 Fraction of Inspired Oxygen 28 SaO2/FiO2 Ratio 346 Oxygen Delivery Method Nasal Cannula Oxygen Flow Rate 2 Objective Labs 02/22/25 10:26 02/22/25 10:26 Labs: Laboratory Results - last 24 hr 02/22/25 02/22/25 02/22/25 10:26 11:05 11:10 WBC 10.3 RBC 2.78 L Hgb 10.0 L Hct 29.2 L MCV 105.0 H MCH 36.0 H MCHC 34.2 RDW 14.2 Plt Count 122 L Neut % (Auto) 72.0 Lymph % (Auto) 13.1 L Dewey % (Auto) 12.6 Eos % (Auto) 1.9 L Baso % (Auto) 0.4 Neut # (Auto) 7400 H Lymph # (Auto) 1400 Dewey # (Auto) 1300 H Eos # (Auto) 200 Baso # (Auto) 0 ABG Sample Site ABG pH ABG pCO2 ABG pO2 ABG HCO3 ABG Total CO2 ABG O2 Saturation ABG Base Excess Keaton Test O2 Delivery Device FiO2 % Sodium 131 L Potassium 4.3 Chloride 96 L Carbon Dioxide 30 BUN 44 H Creatinine 2.81 H Estimated GFR 22 L BUN/Creatinine Ratio 15.7 Glucose 106 H Lactate 1.0 Calcium 8.4 Total Bilirubin 1.3 AST 51 ALT 31 Alkaline Phosphatase 60 Total Creatine Kinase 48 L Troponin I 0.018 NT-Pro-B Natriuret Pep Total Protein 5.8 L Albumin 3.1 L Globulin 2.7 Albumin/Globulin Ratio 1.1 Procalcitonin 3.60 H Urine Color Yellow Urine Appearance Clear Urine pH 5.5 Ur Specific Dietrich 1.025 Urine Protein Trace H Urine Glucose (UA) 1+ H Urine Ketones Trace H Urine Occult Blood Negative Urine Nitrate Negative Urine Bilirubin Negative Urine Urobilinogen 0.2 Ur Leukocyte Esterase Negative Urine RBC 0-1/hpf Urine WBC 0-1/hpf Ur Squamous Epith Cells None seen Urine Bacteria None seen Hyaline Casts 0-1/lpf Ur Culture Indicated? Cult not indicated Vol Urine Centrifuged 10ml (spun) SARS-CoV-2 (PCR) Negative Influenza A (RT-PCR) Flu a negative Influenza B (RT-PCR) Flu b negative RSV (PCR) Negative 02/22/25 02/22/25 11:18 13:07 WBC RBC Hgb Hct MCV MCH MCHC RDW Plt Count Neut % (Auto) Lymph % (Auto) Dewey % (Auto) Eos % (Auto) Baso % (Auto) Neut # (Auto) Lymph # (Auto) Dewey # (Auto) Eos # (Auto) Baso # (Auto) ABG Sample Site Left radial ABG pH 7.29 L* ABG pCO2 53.1 H ABG pO2 83 ABG HCO3 26 ABG Total CO2 25 ABG O2 Saturation 95 ABG Base Excess -1.3 Keaton Test Positive O2 Delivery Device Cannula FiO2 % 28 % Sodium Potassium Chloride Carbon Dioxide BUN Creatinine Estimated GFR BUN/Creatinine Ratio Glucose Lactate Calcium Total Bilirubin AST ALT Alkaline Phosphatase Total Creatine Kinase Troponin I NT-Pro-B Natriuret Pep 4180 H Total Protein Albumin Globulin Albumin/Globulin Ratio Procalcitonin Urine Color Urine Appearance Urine pH Ur Specific Dietrich Urine Protein Urine Glucose (UA) Urine Ketones Urine Occult Blood Urine Nitrate Urine Bilirubin Urine Urobilinogen Ur Leukocyte Esterase Urine RBC Urine WBC Ur Squamous Epith Cells Urine Bacteria Hyaline Casts Ur Culture Indicated? Vol Urine Centrifuged SARS-CoV-2 (PCR) Influenza A (RT-PCR) Influenza B (RT-PCR) RSV (PCR) Assessment & Plan Time-Based Coding :: [TOTAL MINUTES] spent with patient and on the chart (including review of chart, obtaining history, exam, reviewing outside data, placing orders, documenting exam and treatment plan, and counseling patient) on [DATE].
[2025-02-22] MEDS: ALBUTEROL 2.5 MG/3 ML NEB (ADULT) INH ×2 (15:09→19:26)
[2025-02-22] MEDS: ASPIRIN EC 81 MG TABLET PO (16:29)
[2025-02-22] MEDS: LACTULOSE 20 GM/30 ML SOLUTION PO ×2 (16:29→20:35)
[2025-02-22] MEDS: SODIUM CHLORIDE 0.9% 1,000 ML 125 ML IV ×2 (16:29→22:34)
[2025-02-22] MEDS: MINERAL OIL 1 EACH ENEMA PR (16:44)
--- NOTE | 2025-02-22 17:25 | PC.NURSE ---
Patient is pleasant and cooperative with care. He is totally confused and does have hallucinations and paranoia at times. He has a bradley catheter in with tea colored urine. U/A done in ER! Patient is distended and rigid to his abdomen and rotund. BT are hypoactive x4.. Patient has been using oxycodone for pain and recently had a l.total knee done on . He started having confusion, and hallucinations and was brought into the ER. XRays showed some small pleural effusions and he does have a high creatinine and BUN. CT scan showed a large amount of bM in colon. It looks like he may have pulled at his bradley, he had a small amount of blood around urethra. Patient cleaned up. He was given some lactulose and a mineral enema. We are awaiting results.
[2025-02-22] MEDS: BUDESONIDE 0.5 MG/2 ML NEB INH (19:26)
[2025-02-22] MEDS: APIXABAN 5 MG TABLET 2.5 MG PO (20:35)
[2025-02-22] MEDS: carvediloL 3.125 MG TABLET 6.25 MG PO (20:35)
[2025-02-22] MEDS: MIRTAZAPINE 15 MG TABLET 45 MG PO (20:35)
[2025-02-22] MEDS: ATORVASTATIN 20 MG TABLET 80 MG PO (20:35)
[2025-02-22] MEDS: GABAPENTIN 300 MG CAPSULE PO (20:36)
[2025-02-23] VITALS (11 sets, daily range): BP systolic 120–141; BP diastolic 61–86; PULSE 64–100; RESP 12–20; TEMP 36.2–37; O2SAT 88–96
[2025-02-23] MEDS: LEVOTHYROXINE 100 MCG TABLET PO (05:24)
[2025-02-23] MEDS: HYDROCODONE/ACET 5/325 TABLET 1 TAB PO ×4 (05:26→19:45)
[2025-02-23 06:26] LABS: BUN Creatinine Ratio 20.4 (6-22); Blood Urea Nitrogen 34 mg/dL (9-20); Calcium 8.3 mg/dL (8.4-10.2); Carbon Dioxide 24 mmol/L (22-32); Chloride 103 mmol/L (98-107); Estimated Glomerular Filt Rate 41 mL/min (>60); Glucose 94 mg/dL (70-99); HEMOLYSIS < 15 (0-50); Potassium 4.1 mmol/L (3.4-5.1); Sodium 134 mmol/L (137-145)
[2025-02-23] MEDS: ALBUTEROL 2.5 MG/3 ML NEB (ADULT) INH ×4 (07:26→19:10)
[2025-02-23] MEDS: BUDESONIDE 0.5 MG/2 ML NEB INH ×2 (07:26→19:10)
[2025-02-23] MEDS: PIPERACILLIN/TAZO 4.5 GM in SODIUM CHLORIDE 0.9% 100 ML IV (08:30)
[2025-02-23] MEDS: PANTOPRAZOLE DR 20 MG TABLET PO (08:31)
[2025-02-23] MEDS: APIXABAN 5 MG TABLET 2.5 MG PO ×2 (08:31→21:12)
[2025-02-23] MEDS: ASPIRIN EC 81 MG TABLET PO (08:31)
[2025-02-23] MEDS: GABAPENTIN 300 MG CAPSULE PO ×2 (08:31→21:11)
[2025-02-23] MEDS: DULOXETINE 30 MG CAPSULE 60 MG PO (08:31)
[2025-02-23] MEDS: carvediloL 3.125 MG TABLET 6.25 MG PO ×2 (08:32→21:17)
--- NOTE | 2025-02-23 09:10 | PC.NURSE ---
Addendum entered by Pat Holliday R.N. 02/23/25 12:52: Patients ivf is actually infusing at 75ml/hr and he is tolerating this well. He had lactulose x2 and a mineral oil enema yesterday. He has had 4 formed bowel movements today. First bowel movement was xl. His abomen is not as distended or rigid and he is passing gas. BT +x4. BS with wheezes throughout lobes, he is on ra and sats in the 90s. Left hand is better to use for pulse ox as you get a better reading. R.hand seems to be colder. Original Note: Patient is more alert today and he knows where he is. He is still having some confusion but today is better for him.. Started on Zosyn and ivf are infusing at 125cc/hr. He is tolerating this well. Patient has a hx of copd and his lung sounds are wheezy. He is on RA and satting 97%. Had a large bm, will give him his lactulose a bit later at his request. Getting up to commode with 1 person assist and he just pivots and sits. Resting comfortably now.
--- NOTE | 2025-02-23 10:53 | P.PN_ITS ---
Subjective Subjective Date Patient Seen: 02/23/25 Interval history: Chief complaint: Confusion with hallucinosis postoperative total knee replacement 72 hours with findings consistent with pneumonia, ROJELIO in emergency department History of present illness: 79-year-old male status post left knee arthroplasty was noted by to have confusion and abdominal discomfort through the night. Noticed that the urine is quite norris Findings in the emergency room patient is confused but oriented to self very pleasant. White count 10.3 (double baseline) ABG shows 7.29/53/83 sodium 131 BUN 44 creatinine 2.8 up from baseline of 13/11.23 pro BNP 4180 procalcitonin 3.6 swabs negative for COVID RSV and flu CT head nonacute CT chest showing right upper and right lower lobe nodules versus focal consolidation bibasilar atelectasis and small pleural effusions CT abdomen pelvis unremarkable except large stool volume throughout the colon diverticulosis without diverticulitis Chest x-ray demonstrates right lower lobe nodular appearing parenchymal changes with air bronchograms Emergency room course: Patient given 2 L of saline and started on Zosyn for presumed healthcare acquired pneumonia blood cultures drawn and referred for admission Hospital course: 02/23: Subjectively much less encephalopathic than yesterday somewhat impulsive today but is oriented to place and date breathing comfortably on room air reportedly slept well overnight no reports of shortness a breath cough fever or chills BUN and creatinine improved from 44/2.8 to 34/1.67 Plan is to continue with gentle IV hydration normal saline at 100 continue to monitor BUN and creatinine and ask also continue Zosyn Review of systems: No fever or chills reported No sinus congestion difficulty swallowing sore throat No palpitations or chest pain Nonproductive cough No nausea vomiting abdominal pain diarrhea constipation No paresthesia or paresis report Physical exam: Elderly male no acute distress alert but confused disoriented but overall appears fit for age HEENT unremarkable Neck no JVD Heart irregularly irregular rhythm PI 6 systolic murmur Lungs diminished breath sounds crackles at right base Ativan firm but nontender scant bowel sounds Lower extremities operative site appears clean occlusive bandage in place left lower extremity Good capillary refill and pulses in dorsalis pedis bilaterally Confused but no focal weakness no lateralization Assessment and plan: Postoperative SIRS likely secondary to healthcare acquired pneumonia with relative leukocytosis, ROJELIO, encephalopathy, dehydration, hyponatremia -vigorous hydration to be continued started in emergency department normal saline at 100 mL an hour -continue Zosyn for presumed healthcare acquired pneumonia in 24-48 hours may be able to deescalate to Augmentin -attempt to laxate from above and below for constipation -continue home meds especially anticoagulant -monitor on telemetry Chronic atrial fibrillation with history of CVA-continue anticoagulation and beta-josé manuel Chronic coronary artery disease-continue all core measures COPD-continue maintenance inhalers as well as acute bronchodilators as needed Chronic congestive heart failure with EF of 50%-hold diuretics at this time as patient is dehydrated with ROJELIO resume diuretics after ROJELIO resolved DVT prophylaxis covered with apixaban Code status:-full code Time based coding: A total of 35 minutes spent with patient and on the chart (including review of chart, obtaining history, exam, reviewing outside data, placing orders, documenting exam and treatment plan, and counseling patient) Exam Vital Signs (past 8 hours): - 02/23/25 04:08 02/23/25 07:27 02/23/25 08:00 Temperature 98.6 F 98.6 F Pulse Rate 89 89 100 H Respiratory Rate 20 18 12 Blood Pressure 131/73 141/68 H Pulse Oximetry 92 89 L 88 L Oxygen Delivery Method Room Air Oxygen Flow Rate 0 0 Fraction of Inspired Oxygen 21 Fraction of Inspired Oxygen 21 SaO2/FiO2 Ratio 423 Oxygen Delivery Method Room Air Oxygen Flow Rate 0 Objective Labs 02/22/25 10:26 02/23/25 05:57 Labs: Laboratory Results - last 24 hr 02/22/25 02/22/25 02/22/25 10:26 11:05 11:10 WBC 10.3 RBC 2.78 L Hgb 10.0 L Hct 29.2 L MCV 105.0 H MCH 36.0 H MCHC 34.2 RDW 14.2 Plt Count 122 L Neut % (Auto) 72.0 Lymph % (Auto) 13.1 L [place] % (Auto) 12.6 Eos % (Auto) 1.9 L Baso % (Auto) 0.4 Neut # (Auto) 7400 H Lymph # (Auto) 1400 [place] # (Auto) 1300 H Eos # (Auto) 200 Baso # (Auto) 0 ABG Sample Site ABG pH ABG pCO2 ABG pO2 ABG HCO3 ABG Total CO2 ABG O2 Saturation ABG Base Excess Keaton Test O2 Delivery Device FiO2 % Sodium 131 L Potassium 4.3 Chloride 96 L Carbon Dioxide 30 BUN 44 H Creatinine 2.81 H Estimated GFR 22 L BUN/Creatinine Ratio 15.7 Glucose 106 H Lactate 1.0 Calcium 8.4 Total Bilirubin 1.3 AST 51 ALT 31 Alkaline Phosphatase 60 Total Creatine Kinase 48 L Troponin I 0.018 NT-Pro-B Natriuret Pep Total Protein 5.8 L Albumin 3.1 L Globulin 2.7 Albumin/Globulin Ratio 1.1 Procalcitonin 3.60 H Urine Color Yellow Urine Appearance Clear Urine pH 5.5 Ur Specific [place] 1.025 Urine Protein Trace H Urine Glucose (UA) 1+ H Urine Ketones Trace H Urine Occult Blood Negative Urine Nitrate Negative Urine Bilirubin Negative Urine Urobilinogen 0.2 Ur Leukocyte Esterase Negative Urine RBC 0-1/hpf Urine WBC 0-1/hpf Ur Squamous Epith Cells None seen Urine Bacteria None seen Hyaline Casts 0-1/lpf Ur Culture Indicated? Cult not indicated Vol Urine Centrifuged 10ml (spun) SARS-CoV-2 (PCR) Negative Influenza A (RT-PCR) Flu a negative Influenza B (RT-PCR) Flu b negative RSV (PCR) Negative 02/22/25 02/22/25 02/23/25 11:18 13:07 05:57 WBC RBC Hgb Hct MCV MCH MCHC RDW Plt Count Neut % (Auto) Lymph % (Auto) [place] % (Auto) Eos % (Auto) Baso % (Auto) Neut # (Auto) Lymph # (Auto) [place] # (Auto) Eos # (Auto) Baso # (Auto) ABG Sample Site Left radial ABG pH 7.29 L* ABG pCO2 53.1 H ABG pO2 83 ABG HCO3 26 ABG Total CO2 25 ABG O2 Saturation 95 ABG Base Excess -1.3 Keaton Test Positive O2 Delivery Device Cannula FiO2 % 28 % Sodium 134 L Potassium 4.1 Chloride 103 Carbon Dioxide 24 BUN 34 H Creatinine 1.67 H Estimated GFR 41 L BUN/Creatinine Ratio 20.4 Glucose 94 Lactate Calcium 8.3 L Total Bilirubin AST ALT Alkaline Phosphatase Total Creatine Kinase Troponin I NT-Pro-B Natriuret Pep 4180 H Total Protein Albumin Globulin Albumin/Globulin Ratio Procalcitonin Urine Color Urine Appearance Urine pH Ur Specific [place] Urine Protein Urine Glucose (UA) Urine Ketones Urine Occult Blood Urine Nitrate Urine Bilirubin Urine Urobilinogen Ur Leukocyte Esterase Urine RBC Urine WBC Ur Squamous Epith Cells Urine Bacteria Hyaline Casts Ur Culture Indicated? Vol Urine Centrifuged SARS-CoV-2 (PCR) Influenza A (RT-PCR) Influenza B (RT-PCR) RSV (PCR) [facility] Medical History History of COVID-19 (~2022) BCC (basal cell carcinoma) (02/09/25) Rheumatoid arthritis without rheumatoid factor, multiple sites Mucopurulent chronic bronchitis Chronic bronchitis Depression, major, recurrent Renal cyst, right IBS (irritable colon syndrome) History of heart attack Anemia, chronic disease Left hemiparesis History of alcohol use disorder Kidney stones Easy bruisability Diverticulosis GERD (gastroesophageal reflux disease) Arthritis Sleep apnea History of blood clots COVID-19 virus infection (10/2021) History of prostate cancer Primary osteoarthritis involving multiple joints Acquired hypothyroidism Mixed hyperlipidemia Essential hypertension Cerebrovascular disease (2003) Chronic atrial fibrillation Systolic CHF, chronic Orthostatic hypotension Obstructive sleep apnea syndrome Right knee DJD Scoliosis deformity of spine Chronic anticoagulation Facet arthropathy, lumbar Mild cognitive impairment Right arm fracture (~04/2016) Hypothyroidism due to amiodarone Chronic sinusitis DDD (degenerative disc disease) Acute bronchitis (~03/2019) Edema COPD (chronic obstructive pulmonary disease) ELENA (dyspnea on exertion) Former smoker Anemia Centrilobular emphysema CAD (coronary artery disease) Depression Fatty liver HLD (hyperlipidemia) HTN (hypertension) Osteoarthritis Raynaud's syndrome Surgical History Hx of vasectomy Hx of prostate biopsy Hx of circumcision Hx of heart artery stent Status post total right knee replacement (~03/04/21) History of lumbar laminectomy Hx of CABG (~2003) Hx of angioplasty (~1984) Hx of arthroscopy of right knee Hx of lumbosacral spine surgery (~2008) Hx of bilateral cataract extraction Hx of bilateral inguinal hernia repair Status post correction of deviated nasal septum Hx of elbow surgery Hx of mitral valve repair (~2003) S/P right unicompartmental knee replacement Family History Grandmother Cancer Father CVA (cerebral vascular accident) CAD (coronary artery disease) Hyperlipidemia Hypertension Kidney stones Mother Diabetes mellitus Thyroid disorder Social History marital status: number of children: 2 household members: spouse Tobacco: How many years used: 12 alcohol intake: former caffeine: Yes Type(s) of exercise: other frequency: 3-4 times per week duration: 60-90 minutes/day Assessment & Plan Time-Based Coding :: [TOTAL MINUTES] spent with patient and on the chart (including review of chart, obtaining history, exam, reviewing outside data, placing orders, documenting exam and treatment plan, and counseling patient) on [DATE]. Quality VTE Deep Vein Thrombosis/Pulmonary Embolism Present on Admission: No
--- NOTE | 2025-02-23 11:36 | OT.IP.EVAL ---
Current Diagnoses Pneumonia, unspecified organism (02/22/25) Past Medical History (Last Reviewed 02/22/25 @ 11:10 by Shelli Bautista MD) Acquired hypothyroidism Acute bronchitis (~03/2019) Anemia Anemia, chronic disease Arthritis BCC (basal cell carcinoma) (02/09/25) CAD (coronary artery disease) Centrilobular emphysema Cerebrovascular disease (2003) Chronic anticoagulation Chronic atrial fibrillation Chronic bronchitis Chronic sinusitis COPD (chronic obstructive pulmonary disease) COVID-19 virus infection (10/2021) DDD (degenerative disc disease) Depression Depression, major, recurrent Diverticulosis ELENA (dyspnea on exertion) Easy bruisability Edema Essential hypertension Facet arthropathy, lumbar Fatty liver Former smoker GERD (gastroesophageal reflux disease) History of alcohol use disorder History of blood clots History of COVID-19 (~2022) History of heart attack History of prostate cancer HLD (hyperlipidemia) HTN (hypertension) Hypothyroidism due to amiodarone IBS (irritable colon syndrome) Kidney stones Left hemiparesis Mild cognitive impairment Mixed hyperlipidemia Mucopurulent chronic bronchitis Obstructive sleep apnea syndrome Orthostatic hypotension Osteoarthritis Primary osteoarthritis involving multiple joints Raynaud's syndrome Renal cyst, right Rheumatoid arthritis without rheumatoid factor, multiple sites Right arm fracture (~04/2016) Right knee DJD Scoliosis deformity of spine Sleep apnea Systolic CHF, chronic Surgical History (Last Reviewed 02/22/25 @ 11:10 by Shelli Bautista MD) History of lumbar laminectomy Hx of angioplasty (~1984) Hx of arthroscopy of right knee Hx of bilateral cataract extraction Hx of bilateral inguinal hernia repair Hx of CABG (~2003) Hx of circumcision Hx of elbow surgery Hx of heart artery stent Hx of lumbosacral spine surgery (~2008) Hx of mitral valve repair (~2003) Hx of prostate biopsy Hx of vasectomy S/P right unicompartmental knee replacement Status post correction of deviated nasal septum Status post total right knee replacement (~03/04/21) Occupational Therapy Inpatient Evaluation/Re-Eval M1 PT/OT-IP Prior Functional Status Start: 02/23/25 11:03 Freq: NEEDED Status: Active Protocol: Document 02/23/25 11:01 MB (Rec: 02/23/25 12:01 MB Desktop) Medical Review Prior Functional Status Medical History Reviewed Yes Communication Unsure baseline diet Mobility and Gait Before knee replacement, I, no AD Activities of Daily Living and IADL's Before knee replacement, I Social History Household Members spouse Living Arrangements House Number of Floors (Floors) One Floor Number of Stairs To Enter/Railing? 1 platform step to enter Home Environment High Toilet,Walk in Shower, Bidet Home Equipment Front Wheel Walker,Straight Cane,Raised Toilet Seat w/ Armrests,Shower Seat with Backrest,Convenience Store Clerk,Grab Bars In Shower Employment Status Retired M1 PT/OT-IP Prior Functional Status Start: 02/23/25 11:41 Freq: NEEDED Status: Active Protocol: Document 02/23/25 11:41 CGR (Rec: 02/23/25 12:01 CGR [id number]) Medical Review Prior Functional Status Medical History Reviewed Yes Communication Pt is an effective verbal communicator. Mobility and Gait Pt was IND at baseline without AD and states that he drove and went to the gym. Activities of Daily Living and IADL's Pt was IND in all ADLs. Social History Household Members spouse Living Arrangements House Number of Floors (Floors) One Floor Number of Stairs To Enter/Railing? 1 wide step to enter. Home Environment High Toilet,Walk in Shower Home Equipment Front Wheel Walker,Straight Cane,Shower Seat with Backrest ,Convenience Store Clerk,Grab Bars Near Toilet ,Grab Bars In Shower Employment Status Retired Additional Social History Comment Pt has a flat bed M2 OT-IP Current Condition Start: 02/23/25 11:41 Freq: Status: Active Protocol: Document 02/23/25 11:41 CGR (Rec: 02/23/25 12:01 CGR [id number]) Occupational Therapy Current Condition Current Condition Evaluation Date 02/23/25 Treatment Diagnosis PNA, ROJELIO after recent L TKA Diagnosis Onset Date 02/22/25 Weight Bearing Status Weight Bearing Status Weight Bear as Tolerated M3 OT- IP Subjective and Pain Start: 02/23/25 11:41 Freq: Status: Active Protocol: Document 02/23/25 11:41 CGR (Rec: 02/23/25 12:01 CGR [id number]) OT- Subjective Occupational Therapy Visit Type Type Initial Evaluation Visit Start Time 11:08 Visit Stop Time 11:36 Notes Pt's present throughout session, pt just returned to bed after getting up to BSC. OT Pain Assessment Pain When Pain Assessed At Rest Pain Present Pain Present Pain Reported Location left calf Scale Used Numeric (0 - 10) Left Knee Scale Used 7.5 M4 OT- IP ADL's Start: 02/23/25 11:41 Freq: Status: Active Protocol: Document 02/23/25 11:41 CGR (Rec: 02/23/25 12:01 R [id number]) OT [id number] Comments OT Self-Feeding Comments not meal time OT ADL-Grooming Comments OT Grooming Comments not performed OT ADL-Oral Care Comments Oral Care Comments not performed OT ADL-Dressing General Eval Lower Body Dressing Ability Total Assistance Areas Needing Assistance Socks OT ADL-Toileting General Evaluation Toileting Ability Total Assistance Comments OT Toileting Comments bradley OT ADL-Bathing Comments OT Bathing Comments not performed M5 OT- IP IADL's Start: 02/23/25 11:41 Freq: Status: Active Protocol: Document 02/23/25 11:41 CGR (Rec: 02/23/25 12:01 R [id number]) OT-Instrumental Activities of Daily Living Deficits IADL Deficits Identified No Deficits Home Safety Awareness Awareness of Need for Assistance at Home Good Awareness Ability to Problem Solve Emergency Able to Problem Solve Situations Medication Management Medication Management No Deficits Identified Money Management Money Management No Deficits Identified Meal Preparation Meal Preparation Caregiver Provides Assist Auditing Clerk Auditing Clerk Caregiver Provides Assist M6 OT- IP Functional Cognition Start: 02/23/25 11:41 Freq: Status: Active Protocol: Document 02/23/25 11:41 CGR (Rec: 02/23/25 12:01 R [id number]) Cognitive Factors Limiting Selfcare Function Cognitive Ability Level of Alertness Alert Patient Orientation Name,Age,Birthday,Month,Date, Year,Day of Week,Place, Situation Attention Span Ability Capable of Focused Attention, Capable of Sustained Attention Cognitive Comments Cognitive Assessment Comments Pt was oriented throughout session but appears sleepy. OT- Vision and Hearing OT- Hearing Assessment OT- Hearing Assessment WFL OT- Vision Assessment Visual Attentiveness Impaired Vision Assessment Comments Pt had difficulty tracking during session. M7 OT- IP Mobility and Balance Start: 02/23/25 11:41 Freq: Status: Active Protocol: Document 02/23/25 11:41 CGR (Rec: 02/23/25 12:01 R [id number]) OT- Bed Mobility Assessment Supine to Sit Supine to Sit Assist Moderate Assistance,1 Person Assistance Scooting Scooting to Edge of Bed Moderate Assistance,1 Person Assistance OT-Transfer Assessment Sit to and From Stand Sit to and from Stand Moderate Assistance,1 Person Assistance Transfers Transfer Ability Moderate Assistance,2 Person Assistance Technique Transfer Destination Bed,Chair Transfer Technique Stand Step Pivot Devices Transfer Assistive Devices Gait Belt,Front Wheeled Walker Comments Mobility Comments Pt needed lots of cueing and extra time for all activity. Pt with very little functional movement to the LLE. OT- Balance Assessment Sitting Balance and Reactions Static Sitting Balance Ability Fair Dynamic Sitting Balance Ability Fair Standing Balance and Reactions Static Standing Balance Ability Poor Dynamic Standing Balance Ability Poor M8 OT- IP Objective Assessments Start: 02/23/25 11:41 Freq: Status: Active Protocol: Document 02/23/25 11:41 CGR (Rec: 02/23/25 12:01 CGR [id number]) OT Gross Range of Motion Upper Extremity Range of Motion Assessment Within Functional Limits OT Strength Upper Extremity Strength Assessment Left Impaired Comments Strength Comments RUE grossly 5/5 LUE grossly 4/5, pt has a hx of cva with L weakness. OT- Coordination Assessment Upper Extremity Finger to Nose Test Within Functional Limits Finger Tapping Test Within Functional Limits OT-Muscle Tone Assessment Muscle Tone WNL Yes OT Sensation Assessment Edema Edema Absent M9 OT- IP Assessment and Plan Start: 02/23/25 11:41 Freq: Status: Active Protocol: Document 02/23/25 11:41 CGR (Rec: 02/23/25 12:01 CGR [id number]) OT Summary Assessment and Plan Potential Rehabilitation Potential Good Analytic Complexity at Evaluation High Summary OT Impairments Pain,Strength,Balance, Functional Mobility,Grooming, Dressing,Toileting,Bathing, Toilet Transfers,Shower Transfers,Activity Tolerance Progress Towards Goals Progressing Toward Goals Assessment Summary Pt presents as a high complexity evaluation s/p admit for PNA and ROJELIO after recent discharge from the hospital after L TKA. Per notes from recent admit, pt is WBAT to the LLE. Pt is oriented in todays session but needed mod a for most mobility and mod x 2 fro transfer to chair. Pt needs extra time for all activity. Pt's states that her son is planning to come out to help but agrees that perhaps pt would be most appropriate for discharge to SNF which is the recommendation of this typewriters functional tester. Pt will benefit from more consistent therapies upon discharge and increased assist. Recommend d/c to SNF. Goals Grooming Goal Independent Dressing Goal Independent Toileting Goal Independent Bathing Goal Independent Toilet Transfer Goal Standby Assistance Shower Transfer Goal Standby Assistance Days to Meet Goals 15 Frequency of Treatment Other frequency 5x per week Treatment Plan OT Treatment Plan ADL Training,Functional Mobility,Patient/Family Education,Discharge Planning Other Treatment Recommendations and Next ADLs seated, BSC tranfer. Treatment Focus Discharge Recommendations OT Discharge Recommendations SNF Rehab Transportation Needs at Discharge Wheelchair/Cabulance
--- NOTE | 2025-02-23 12:02 | PT.IIE ---
Current Diagnoses Pneumonia, unspecified organism (02/22/25) Surgical History (Last Reviewed 02/22/25 @ 11:10 by Shelli Bautista MD) History of lumbar laminectomy Hx of angioplasty (~1984) Hx of arthroscopy of right knee Hx of bilateral cataract extraction Hx of bilateral inguinal hernia repair Hx of CABG (~2003) Hx of circumcision Hx of elbow surgery Hx of heart artery stent Hx of lumbosacral spine surgery (~2008) Hx of mitral valve repair (~2003) Hx of prostate biopsy Hx of vasectomy S/P right unicompartmental knee replacement Status post correction of deviated nasal septum Status post total right knee replacement (~03/04/21) Medical History (Last Reviewed 02/22/25 @ 11:10 by Shelli Bautista MD) Acquired hypothyroidism Acute bronchitis (~03/2019) Anemia Anemia, chronic disease Arthritis BCC (basal cell carcinoma) (02/09/25) CAD (coronary artery disease) Centrilobular emphysema Cerebrovascular disease (2003) Chronic anticoagulation Chronic atrial fibrillation Chronic bronchitis Chronic sinusitis COPD (chronic obstructive pulmonary disease) COVID-19 virus infection (10/2021) DDD (degenerative disc disease) Depression Depression, major, recurrent Diverticulosis ELENA (dyspnea on exertion) Easy bruisability Edema Essential hypertension Facet arthropathy, lumbar Fatty liver Former smoker GERD (gastroesophageal reflux disease) History of alcohol use disorder History of blood clots History of COVID-19 (~2022) History of heart attack History of prostate cancer HLD (hyperlipidemia) HTN (hypertension) Hypothyroidism due to amiodarone IBS (irritable colon syndrome) Kidney stones Left hemiparesis Mild cognitive impairment Mixed hyperlipidemia Mucopurulent chronic bronchitis Obstructive sleep apnea syndrome Orthostatic hypotension Osteoarthritis Primary osteoarthritis involving multiple joints Raynaud's syndrome Renal cyst, right Rheumatoid arthritis without rheumatoid factor, multiple sites Right arm fracture (~04/2016) Right knee DJD Scoliosis deformity of spine Sleep apnea Systolic CHF, chronic Physical Therapy Inpatient Evaluation/Re-Eval M1 PT/OT-IP Prior Functional Status Start: 02/23/25 11:03 Freq: NEEDED Status: Active Protocol: Document 02/23/25 11:01 MB (Rec: 02/23/25 12:01 MB Desktop) Medical Review Prior Functional Status Medical History Reviewed Yes Communication Unsure baseline diet Mobility and Gait Before knee replacement, I, no AD Activities of Daily Living and IADL's Before knee replacement, I Social History Household Members spouse Living Arrangements House Number of Floors (Floors) One Floor Number of Stairs To Enter/Railing? 1 platform step to enter Home Environment High Toilet,Walk in Shower, Bidet Home Equipment Front Wheel Walker,Straight Cane,Raised Toilet Seat w/ Armrests,Shower Seat with Backrest,Cement Crusher Operator,Grab Bars In Shower Employment Status Retired M1 PT/OT-IP Prior Functional Status Start: 02/23/25 11:41 Freq: NEEDED Status: Active Protocol: Document 02/23/25 11:41 CGR (Rec: 02/23/25 12:01 CGR [id number]) Medical Review Prior Functional Status Medical History Reviewed Yes Communication Pt is an effective verbal communicator. Mobility and Gait Pt was IND at baseline without AD and states that he drove and went to the gym. Activities of Daily Living and IADL's Pt was IND in all ADLs. Social History Household Members spouse Living Arrangements House Number of Floors (Floors) One Floor Number of Stairs To Enter/Railing? 1 wide step to enter. Home Environment High Toilet,Walk in Shower Home Equipment Front Wheel Walker,Straight Cane,Shower Seat with Backrest ,Cement Crusher Operator,Grab Bars Near Toilet ,Grab Bars In Shower Employment Status Retired Additional Social History Comment Pt has a flat bed M2 PT-IP Current Condition Start: 02/23/25 11:03 Freq: NEEDED Status: Active Protocol: Document 02/23/25 11:01 MB (Rec: 02/23/25 12:01 MB Desktop) Physical Therapy Current Condition Current Condition Evaluation Date 02/23/25 Treatment Diagnosis Encephalopathy and PNA post-op LTKR M3 PT-IP Subjective Start: 02/23/25 11:03 Freq: NEEDED Status: Active Protocol: Document 02/23/25 11:01 MB (Rec: 02/23/25 12:01 MB Desktop) Subjective Physical Therapy Visit Type Type Initial Evaluation Visit Start Time 11:01 Visit Stop Time 11:35 Number of BIRD CAGE ASSEMBLER Visits 0 Physical Therapy Visit Comments Patient Comments Pt is hypoverbal and answers many questions. Therapy Pain Assessment Pain When Pain Assessed At Rest Pain Present Pain Present Pain Reported Location Left Knee Scale Used 7.5 M4 PT-IP Mobility and Gait Start: 02/23/25 11:03 Freq: NEEDED Status: Active Protocol: Document 02/23/25 11:01 MB (Rec: 02/23/25 12:01 MB Desktop) PT-Bed Mobility Assessment Rolling Type of Rolling Roll to Left Level of Assist Moderate Assistance,1 Person Assistance Supine to Sit Supine to Sit Moderate Assistance,1 Person Assistance,Head of Bed Elevated,Bedrails Scooting Scooting to Edge of Bed Moderate Assistance PT-Transfer Assessment Sit to and From Stand Sit to and from Stand Moderate Assistance,1 Person Assistance,Use of Upper Extremities Equipment Transfer Assistive Device Gait Belt,Front Wheeled Walker Orthotic/Prosthetic Devices or Brace: No Transfers Transfer Destination Chair Transfer Technique Stepping Transfer Ability Level of Assist Moderate Assistance,2 Person Assistance,Use of Upper Extremities Comments Mobility Comments Assist to guard left leg to get to EOB cues for use of rail, rolling to left side, pushing through right foot to scoot hips to the left and pt is able to follow commands. BP and HR in RUE sitting 106/52, 87. Very little movement of LLE and it is edematous and bruised. Pt tends to keep eyes closed for mobility and requires constant cueing to stay on task. Gait Assessment Gait Gait Assistance Required: Moderate Assistance,2 Person Assist Distance (Feet) 1 Able to Maintain Weight Bearing Status Yes During Gait Assistive Devices Assistive Device Gait Belt,Front Wheeled Walker Orthotic/Prosthetic Devices or Brace: No Gait Deviations General Gait Pattern Antalgic,Decreased Stride Length,Decreased Feet Clearance,Flexed Trunk,Step-to Gait Factors Limiting Gait Function Factors Limiting Gait Function Abnormal Tonal Influences, Decreased Activity Tolerance, Decreased Sensation,Decreased Strength,Difficulty Following Directions,Incoordination, Limited Range of Motion,Pain, Poor Balance,Poor Safety Awareness Comments Gait Comments Very little functional use of LLE including buckling of left knee and left foot drop functionally with standing and stepping today and pt does not fully weight bear or step through left leg. Pt performs AP with trace today and no QS or HS in supine with LLE PT-Balance Assessment Sitting Balance and Reactions Static Sitting Balance Ability Fair Dynamic Sitting Balance Ability Fair Standing Balance and Reactions Static Standing Balance Ability Poor Dynamic Standing Balance Ability Poor Device Used RW M5 PT-IP Objective Assessments Start: 02/23/25 11:03 Freq: NEEDED Status: Active Protocol: Document 02/23/25 11:01 MB (Rec: 02/23/25 12:01 MB Desktop) Orientation Orientation/Cognition Level of Alertness Alert Orientation Name,Age,Birthday,Month,Date, Year,Place,Situation Safety Awareness Decreased Safety Awareness Comments answers PLOF Gross Range of Motion Upper Extremity ROM Impairments See OT consult Lower Extremity ROM Assessment Left Impaired Impairments No active movement left knee today, functional foot drop left foot Strength Lower Extremity Strength Assessment Left Impaired Comments Strength Comments No MMT tolerance left LE, trace movement ankle and knee Coordination Assessment Assessment Coordination Comments Impaired LEs Sensation Assessment Comments Sensation Comments Cannot follow commands M6 PT-IP Treatment Start: 02/23/25 11:03 Freq: NEEDED Status: Active Protocol: Document 02/23/25 11:01 MB (Rec: 02/23/25 12:01 MB Desktop) Physical Therapy Treatment Exercises Exercises Ankle Pumps,Gluteal Sets,Quad Sets,Heel Slides Education Education Provided Safety Other Treatments Other Treatment Performed Reviewed all post-op exercises with and she states they were doing prior to this adm after knee replacement as taught by PT, pt cannot perform with PT and will need tactile assistance M7 PT-IP Assessment and Plan Start: 02/23/25 11:03 Freq: NEEDED Status: Active Protocol: Document 02/23/25 11:01 MB (Rec: 02/23/25 12:01 MB Desktop) PT Summary Assessment and Plan Potential Rehabilitation Potential Fair Status of Condition at Evaluation Evolving Summary Impairments Pain,ROM,Strength,Balance, Coordination,Sensation,Tone, Bed Mobility,Transfers,Gait, Activity Tolerance Assessment Summary Pt is an 79 y/o male readm after left TKR the end of last week. Pt has history of stroke affecting left side and today, he has no functional AP, QS, HS of the LLE and no good functional use of LLE with transfers, standing and stepping. He presents with functional left foot drop and knee buckling. Pt is hypoverbal and tends to keep eyes closed and he requires cues for all mobility today. supportive and present during assessment and recommend SNF at d/c given his current functional level and LLE weakness. Pt is high risk for DVT in post-op LLE in limb affected by stroke and pt is anticoagulated. He presents with LLE edema and ecchymosis today and decreased ROM ability can be challenging for both DVT prevention and obtaining functional L knee range. Goals Bed Mobility Goal Standby Assistance Transfer Goal Standby Assistance,Front Wheeled Walker Gait Goal Standby Assistance,Front Wheel Walker Gait Distance 50 Other Goals Pt will ascend and descend 1 platform step with use of LRAD and no more than CGA. Pt will perform LLE AP, QS, GS and HS with cues only, performing left knee range to at least 0-90 deg in supine. Days to Meet Goals 10 Frequency of Treatment Frequency Of Treatment Once a Day Treatment Plan Physical Therapy Treatment Plan Bed Mobility Training,Transfer Training,Gait Training, Therapeutic Exercise,Balance Retraining,Post Op Education, Discharge Planning,Hot or Cold Pack,Neuromuscular Re-ed, Coordination Retraining,Manual Therapy Weight Bearing Status Weight Bearing Status Weight Bear as Tolerated Allowed Weight Bearing Amount (enter % Per old orders from last week or #) (%) after surgery Recommendations To Nursing Amount of Assist Needed 2 Person Assist Discharge Recommendations PT Discharge Recommendations SNF Rehab Transportation Needs at Discharge Wheelchair/Cabulance - PT assist x2
--- NOTE | 2025-02-23 12:23 | CM.DANOTE ---
Patient is an 79 yo male who was a Readmit on 02/22/25 for Encephalopathy. Pt has AARP MCR under [employer] for insurance and his PCP is Dr. Mark Palafox. EMR was reviewed. Per MD, pt a readmit after recent LTKA with Ortho and medical treatment for pneumonia, ROJELIO, constipation and SIRS. Pt was quite confused with hallucinations at admission and now resolved. PT/OT, pt currently 2PA and recommending SNF at d/c. SW met bedside with pt and spouse and explained role and they confirm they live at home in [place] and both quite independent with ADLs at baseline. Spouse very supportive and involved in pt's PT as he has hx of CVA many years ago with residual left sided weakness and they have been working hard at going to the gym and strengthening. Pt had been able to d/c home on 02/20/25 after LTKA and recommendation had been home with spouse assist and outpt PT and spouse states it had been going well the first couple days and then day of admission he took a turn for the worst. Pt has no hx of SNF and explained services and provided SNF Choice list and discussed the need to get insurance auth for SNF and spouse acknowledged understanding and pt and spouse in agreement that SNF needed before return home. Preference is [facility]. [facility] referral made and they confirm they can accept him and will submit for SNF auth today 02/23. PASRR done but needs MD signature for exempted hospital discharge due to depression and medication. URIEL Smith Discharge Planning/Care Management Advanced directive, confirm from FAMILY Start: 02/22/25 15:42 Freq: Q24H Status: Active Protocol: Document 02/22/25 17:22 CLL (Rec: 02/22/25 17:23 CLL [id number]) Advance Directive, confirm on record Time 05:23 Person contacted Copy received No CM Discharge Assessment Start: 02/23/25 12:20 Freq: Status: Active Protocol: Document 02/23/25 12:20 BF (Rec: 02/23/25 12:23 BF [id number]) Discharge Planning Assessment Assigned Administrative Director URIEL Luna DPOA/Assigned Designee Name spouse Leah Contact Information [phone] Advance Directives? Yes Advance Directives on File Yes History Provided By Patient,Significant Other, Medical Record Has Patient been admitted in last 30 Yes days? Comment recently discharged home after LTKA on 02/20/25 Prior Living Arrangements House Household Members spouse Type of transporation used prior to Relies on Others admit Independent with ADL's Yes: mostly Is patient alert and oriented? Yes Needs Assistance With Meal Prep,Managing Medications ,Home Chores / Shopping Caregiver for Another No DME Already Rented / Owned FWW / Walker,Cane Patient/Family Preference Alf Facility Barriers to Discharge No Comment Will need AARP MCR [employer] auth for SNF Discharge Plan Alf Facility Transportation Arrangement facility van Referrals Initiated Alf If patient plan is SNF: Has PASSR been Yes completed? Medicare Choice List Provided Yes Medicare choice list reviewed on patient,family electronic tablet with SNF/HH Preference [facility] Has Agency SNF been contacted Yes Whiteboard Updated in Patient Room with Yes name and ext. # of Administrative Director Review Status In Process Please Provide Date Initial DC 02/23/25 Assessment Was Performed Next Review Type Continued Stay Review
[2025-02-23] MEDS: SODIUM CHLORIDE 0.9% 1,000 ML 75 ML IV (15:18)
[2025-02-23] MEDS: PIPERACILLIN/TAZO 3.375 GM in SODIUM CHLORIDE 0.9% 100 ML IV ×2 (16:01→23:35)
[2025-02-23 18:57] LABS: Add Manual Diff / Slide Review NO; Basophils Absolute Auto 0 /uL (0-100); Basophils Percent Auto 0.3 % (0-2); Eosinophils Absolute Auto 200 /uL (0-450); Eosinophils Percent Auto 2.3 % (2-4); Hematocrit 29.2 % (41-53); Hemoglobin 9.8 g/dL (13.5-17.5); Lymphocytes Absolute Auto 1000 /uL (1100-4500); Lymphocytes Percent Auto 10.9 % (25-40); Mean Corpuscular HGB Conc 33.7 % (30-36); Mean Corpuscular Hemoglobin 35.2 PG (26-34); Mean Corpuscular Volume 104.6 fL (80-100); Monocytes Absolute Auto 1600 /uL (0-900); Monocytes Percent Auto 16.8 % (3-14); Neutrophils Absolute Auto 6600 /uL (1500-7000); Neutrophils Percent Auto 69.7 % (50-75); Platelet Count 130 X10^3/uL (150-400); Red Blood Cell Count 2.79 X10^6/uL (4.5-5.9); Red Cell Distribution Width 13.6 % (11.6-14.8); White Blood Cell Count 9.5 X10^3/uL (4.5-11.0)
[2025-02-23] MEDS: MIRTAZAPINE 15 MG TABLET 45 MG PO (21:11)
[2025-02-23] MEDS: ATORVASTATIN 20 MG TABLET 80 MG PO (21:11)
[2025-02-23] MEDS: TERAZOSIN 5 MG CAPSULE 10 MG PO (21:11)
[2025-02-24] VITALS (11 sets, daily range): BP systolic 110–146; BP diastolic 54–85; PULSE 74–98; RESP 15–18; TEMP 36–36.9; O2SAT 91–97
[2025-02-24 05:42] LABS: BUN Creatinine Ratio 20.3 (6-22); Blood Urea Nitrogen 24 mg/dL (9-20); Calcium 8.4 mg/dL (8.4-10.2); Carbon Dioxide 25 mmol/L (22-32); Chloride 103 mmol/L (98-107); Estimated Glomerular Filt Rate > 60 mL/min (>60); Glucose 96 mg/dL (70-99); HEMOLYSIS < 15 (0-50); Potassium 3.7 mmol/L (3.4-5.1); Sodium 134 mmol/L (137-145)
[2025-02-24] MEDS: LEVOTHYROXINE 100 MCG TABLET PO (06:06)
[2025-02-24] MEDS: BUDESONIDE 0.5 MG/2 ML NEB INH ×2 (06:22→20:25)
[2025-02-24] MEDS: ALBUTEROL 2.5 MG/3 ML NEB (ADULT) INH ×4 (06:22→20:25)
[2025-02-24] MEDS: MORPHINE 2 MG/ML INJ IV (06:35)
[2025-02-24] MEDS: ASPIRIN EC 81 MG TABLET PO (09:24)
[2025-02-24] MEDS: GABAPENTIN 300 MG CAPSULE PO ×2 (09:24→21:30)
[2025-02-24] MEDS: PANTOPRAZOLE DR 20 MG TABLET PO (09:24)
[2025-02-24] MEDS: DULOXETINE 30 MG CAPSULE 60 MG PO (09:24)
[2025-02-24] MEDS: APIXABAN 5 MG TABLET 2.5 MG PO ×2 (09:25→21:31)
[2025-02-24] MEDS: PIPERACILLIN/TAZO 3.375 GM in SODIUM CHLORIDE 0.9% 100 ML IV (09:28)
[2025-02-24] MEDS: carvediloL 3.125 MG TABLET 6.25 MG PO ×2 (09:28→21:34)
--- NOTE | 2025-02-24 10:35 | PT.IPTN ---
Current Diagnoses Pneumonia, unspecified organism (02/22/25) Physical Therapy Treatment Note M2 PT-IP Current Condition Start: 02/23/25 11:03 Freq: NEEDED Status: Active Protocol: Document 02/23/25 11:01 MB (Rec: 02/23/25 12:01 MB Desktop) Physical Therapy Current Condition Current Condition Evaluation Date 02/23/25 Treatment Diagnosis Encephalopathy and PNA post-op LTKR M3 PT-IP Subjective Start: 02/23/25 11:03 Freq: NEEDED Status: Active Protocol: Document 02/24/25 10:35 AB (Rec: 02/24/25 12:12 AB [id number]) Subjective Physical Therapy Visit Type Type Treatment Note Visit Start Time 10:35 Visit Stop Time 11:15 Number of FOOD MIXER ASSEMBLER Visits 0 Physical Therapy Visit Comments Patient Comments agreeable to do PT Therapy Pain Assessment Pain When Pain Assessed At Rest Pain Present Pain Present Pain Reported Location Left Knee Scale Used pain scale not stated Pain Management Techniques Distraction,Modification of Treatment,Re-positioning, Timing of Activity with Medications M4 PT-IP Mobility and Gait Start: 02/23/25 11:03 Freq: NEEDED Status: Active Protocol: Document 02/24/25 10:35 AB (Rec: 02/24/25 12:12 AB [id number]) PT-Bed Mobility Assessment Supine to Sit Supine to Sit Maximum Assistance,Head of Bed Elevated,Bedrails PT-Transfer Assessment Sit to and From Stand Sit to and from Stand Maximum Assistance,1 Person Assistance,2 Person Assistance ,Use of Upper Extremities Equipment Transfer Assistive Device Gait Belt,Front Wheeled Walker Orthotic/Prosthetic Devices or Brace: No Transfers Transfer Destination Chair,Bedside Commode Transfer Technique Stand Step Pivot Transfer Ability Level of Assist Maximum Assistance,1 Person Assistance,2 Person Assistance ,Use of Upper Extremities Comments Mobility Comments pt in bed and agreed to do PT. completed heel slides/ AAROM on L knee. c/o increase pain. (+) LLE swelling. gentle stretching to L knee in flexion completed due to increase tightness. only able to flex ~ 10 degrees initially AAROM; able to flex ~ 50 degrees PROM after stretching. completed supine to sit max A and max cues. pt tends to keep his eyes closed. cues to keep eyes open. max A for scooting to EOB. sit to stand max A x 1-2 from EOB. pt needing to be cleaned up. sat pt back on EOB. NAC provided wet wipes and brief. pt completed sit to stand again max A x 1-2 and max cues and was able to maintain standing using FWW for support max A and max cues while NAC assisted pt with hygiene care and brief management. pt completed step transfer to chair max A x 1-2 and max cues using FWW. upon sitting, pt requested to use the toilet. bedside commode positioned next to pt. sit to stand from chair max A x 1-2 and max cues and step transfer to commode using fWW max A x 1-2 and max cues. Left pt with NAC. M5 PT-IP Objective Assessments Start: 02/23/25 11:03 Freq: NEEDED Status: Active Protocol: Document 02/23/25 11:01 MB (Rec: 02/23/25 12:01 MB Desktop) Orientation Orientation/Cognition Level of Alertness Alert Orientation Name,Age,Birthday,Month,Date, Year,Place,Situation Safety Awareness Decreased Safety Awareness Comments answers PLOF Gross Range of Motion Upper Extremity ROM Impairments See OT consult Lower Extremity ROM Assessment Left Impaired Impairments No active movement left knee today, functional foot drop left foot Strength Lower Extremity Strength Assessment Left Impaired Comments Strength Comments No MMT tolerance left LE, trace movement ankle and knee Coordination Assessment Assessment Coordination Comments Impaired LEs Sensation Assessment Comments Sensation Comments Cannot follow commands M6 PT-IP Treatment Start: 02/23/25 11:03 Freq: NEEDED Status: Active Protocol: Document 02/24/25 10:35 AB (Rec: 02/24/25 12:12 AB [id number]) Physical Therapy Treatment Exercises Exercises Heel Slides Education Education Provided Safety M7 PT-IP Assessment and Plan Start: 02/23/25 11:03 Freq: NEEDED Status: Active Protocol: Document 02/24/25 10:35 AB (Rec: 02/24/25 12:12 AB [id number]) PT Summary Assessment and Plan Potential Rehabilitation Potential Fair Summary Impairments Pain,ROM,Strength,Balance, Coordination,Sensation,Tone, Cognition,Bed Mobility, Transfers,Gait,Activity Tolerance Progress Towards Goals Slow Progress due to Pain Assessment Summary pt requiring max A x 1-2 and max cues with mobility using FWW. pt with c/o increase L knee pain affecting mobility. pt will benefit from SNF rehab to improve overall strength and function. Goals Bed Mobility Goal Standby Assistance Transfer Goal Standby Assistance,Front Wheeled Walker Gait Goal Standby Assistance,Front Wheel Walker Gait Distance 50 Other Goals Pt will ascend and descend 1 platform step with use of LRAD and no more than CGA. Pt will perform LLE AP, QS, GS and HS with cues only, performing left knee range to at least 0-90 deg in supine. Days to Meet Goals 10 Frequency of Treatment Frequency Of Treatment Once a Day Treatment Plan Physical Therapy Treatment Plan Bed Mobility Training,Transfer Training,Gait Training, Therapeutic Exercise,Balance Retraining,Post Op Education, Discharge Planning,Hot or Cold Pack,Neuromuscular Re-ed, Coordination Retraining,Manual Therapy Weight Bearing Status Weight Bearing Status Weight Bear as Tolerated Allowed Weight Bearing Amount (enter % Per old orders from last week or #) (%) after surgery Recommendations To Nursing Amount of Assist Needed 2 Person Assist Discharge Recommendations PT Discharge Recommendations SNF Rehab Transportation Needs at Discharge Wheelchair/Cabulance - PT assist 2
[2025-02-24] MEDS: SODIUM CHLORIDE 0.9% 1,000 ML 75 ML IV (12:50)
[2025-02-24] MEDS: HYDROCODONE/ACET 5/325 TABLET 1 TAB PO (12:57)
--- NOTE | 2025-02-24 12:58 | CM.DPC ---
DCP Cont. Reviewed EMR and team rounds for status updates. Auth is still pending for [facility]. Likely will not d/c until Sunday, monitoring closely.
--- NOTE | 2025-02-24 13:20 | PC.NURSE ---
Rec'd report from Maykel MAHER Pt visiting with family and working with PT. Also up in chair. [place]shine for pain of 7 about 13:00
--- NOTE | 2025-02-24 14:25 | OT.IPNOTE ---
Attempted to see pt for OT and pt refusing at this time as too tired from getting up earlier. To check on pt later as time allows.
--- NOTE | 2025-02-24 15:32 | DI.US.S_ITS ---
PROCEDURE: US PERIPH VENOUS LOW EXTREM LT INDICATIONS: leg swelling, pain, recent surgery, r/o DVT TECHNIQUE: Real-time imaging, as well as color and pulse Doppler interrogation, were performed of the lower extremity deep veins from the inguinal ligament to the popliteal fossa, with documentation of the visualized calf veins. COMPARISON: None. FINDINGS: The common femoral, femoral, popliteal, and the visualized calf veins are normally compressible, and free of intraluminal thrombus. Color and pulse Doppler demonstrate normal phasic intraluminal flow. There is normal augmentation response to distal compression maneuver. Complex cystic structure is seen in left popliteal fossa measures 4.9 x 1.3 x 2.1 cm in size. IMPRESSION: 1. No findings of lower extremity deep venous thrombosis. 2. Complex left popliteal cyst versus soft tissue hematoma measures 4.9 x 1.3 x 2.1 cm in size. Dictated by: Christopher Ferreira M.D. on 02/24/2025 at 16:45 Approved by: Christopher Ferreira M.D. on 02/24/2025 at 16:46
[2025-02-24] MEDS: OXYCODONE IR 5 MG TABLET PO (16:16)
--- NOTE | 2025-02-24 19:03 | PM.PN.1 ---
Subjective Subjective Interval history: Confusion is improving today, more alert and oriented today. L leg swelling today, US negative for DVT shows possible popliteal cyst vs hematoma. Exam Vital Signs (past 8 hours): - 02/24/25 11:29 02/24/25 12:00 02/24/25 16:00 Temperature 97.6 F 98.4 F Pulse Rate 87 87 90 Respiratory Rate 18 16 15 Blood Pressure 146/72 H 114/62 Pulse Oximetry 95 91 92 Oxygen Delivery Method Room Air Oxygen Flow Rate 0 Fraction of Inspired Oxygen 21 Fraction of Inspired Oxygen 21 SaO2/FiO2 Ratio 452 Oxygen Delivery Method Room Air Oxygen Flow Rate 0 Narrative Exam Narrative: Elderly male no acute distress alert, not confused. Per family speech is a bit slow but much improved today. HEENT unremarkable Neck no JVD Heart irregularly irregular rhythm, no m/r/g Lungs diminished breath sounds crackles at right base S NT ND L leg bandage with scant blood, L leg swollen and tender compared to R diffusely. Objective Labs 02/23/25 18:50 02/24/25 05:00 Labs: Laboratory Results - last 24 hr 02/24/25 05:00 Sodium 134 L Potassium 3.7 Chloride 103 Carbon Dioxide 25 BUN 24 H Creatinine 1.18 Estimated GFR > 60 BUN/Creatinine Ratio 20.3 Glucose 96 Calcium 8.4 [facility] Medical History History of COVID-19 (~2022) BCC (basal cell carcinoma) (02/09/25) Rheumatoid arthritis without rheumatoid factor, multiple sites Mucopurulent chronic bronchitis Chronic bronchitis Depression, major, recurrent Renal cyst, right IBS (irritable colon syndrome) History of heart attack Anemia, chronic disease Left hemiparesis History of alcohol use disorder Kidney stones Easy bruisability Diverticulosis GERD (gastroesophageal reflux disease) Arthritis Sleep apnea History of blood clots COVID-19 virus infection (10/2021) History of prostate cancer Primary osteoarthritis involving multiple joints Acquired hypothyroidism Mixed hyperlipidemia Essential hypertension Cerebrovascular disease (2003) Chronic atrial fibrillation Systolic CHF, chronic Orthostatic hypotension Obstructive sleep apnea syndrome Right knee DJD Scoliosis deformity of spine Chronic anticoagulation Facet arthropathy, lumbar Mild cognitive impairment Right arm fracture (~04/2016) Hypothyroidism due to amiodarone Chronic sinusitis DDD (degenerative disc disease) Acute bronchitis (~03/2019) Edema COPD (chronic obstructive pulmonary disease) ELENA (dyspnea on exertion) Former smoker Anemia Centrilobular emphysema CAD (coronary artery disease) Depression Fatty liver HLD (hyperlipidemia) HTN (hypertension) Osteoarthritis Raynaud's syndrome Surgical History Hx of vasectomy Hx of prostate biopsy Hx of circumcision Hx of heart artery stent Status post total right knee replacement (~03/04/21) History of lumbar laminectomy Hx of CABG (~2003) Hx of angioplasty (~1984) Hx of arthroscopy of right knee Hx of lumbosacral spine surgery (~2008) Hx of bilateral cataract extraction Hx of bilateral inguinal hernia repair Status post correction of deviated nasal septum Hx of elbow surgery Hx of mitral valve repair (~2003) S/P right unicompartmental knee replacement Family History Grandmother Cancer Father CVA (cerebral vascular accident) CAD (coronary artery disease) Hyperlipidemia Hypertension Kidney stones Mother Diabetes mellitus Thyroid disorder Social History marital status: number of children: 2 household members: spouse Tobacco: How many years used: 12 alcohol intake: former caffeine: Yes Type(s) of exercise: other frequency: 3-4 times per week duration: 60-90 minutes/day Assessment & Plan Assessment & Plan narrative: Sepsis secondary to healthcare acquired pneumonia with ROJELIO, acute metabolic encephalopathy, improving -encephalopathy is improving along with renal function which now is close to baseline with Cr 1.18 from 2.81 on admission. - continue IV antibiotics for now, transition to oral on discharge. - PT/OT recommending SNF, pending insurance authorization. - can stop IV fluids today. Chronic atrial fibrillation with history of CVA-continue anticoagulation and beta-josé manuel Chronic coronary artery disease-continue all core measures COPD-continue maintenance inhalers as well as acute bronchodilators as needed Chronic congestive heart failure with EF of 50%-hold diuretics at this time as patient is dehydrated with ROJELIO resume diuretics after ROJELIO resolved L popliteal cyst vs hematoma - trend h/h, 02/20 was 11 down to 9.8 yesterday. Ordered but not drawn today. Repeat h/h tomorrow. US was negative for DVT. DVT prophylaxis covered with apixaban, surrogate is patient's spouse Code status:-full code Dispo: pending insurance auth for SNF, need to document stable h/h given L popliteal possible hematoma prior to discharge. Time-Based Coding :: [TOTAL MINUTES] spent with patient and on the chart (including review of chart, obtaining history, exam, reviewing outside data, placing orders, documenting exam and treatment plan, and counseling patient) on [DATE]. Quality VTE Deep Vein Thrombosis/Pulmonary Embolism Present on Admission: No
[2025-02-24] MEDS: MIRTAZAPINE 15 MG TABLET 45 MG PO (21:27)
[2025-02-24] MEDS: TERAZOSIN 5 MG CAPSULE 10 MG PO (21:30)
[2025-02-24] MEDS: ATORVASTATIN 20 MG TABLET 80 MG PO (21:30)
[2025-02-24] MEDS: AMOXICILLIN/CLAV 875/125 MG 1 TAB PO (21:31)
[2025-02-25] VITALS (9 sets, daily range): BP systolic 131–161; BP diastolic 78–89; PULSE 65–104; RESP 15–24; TEMP 36.3–36.7; O2SAT 92–97
[2025-02-25] MEDS: LEVOTHYROXINE 100 MCG TABLET PO (05:39)
[2025-02-25 05:40] LABS: Add Manual Diff / Slide Review NO; Basophils Absolute Auto 100 /uL (0-100); Basophils Percent Auto 0.7 % (0-2); Eosinophils Absolute Auto 300 /uL (0-450); Eosinophils Percent Auto 3.9 % (2-4); Hematocrit 28.5 % (41-53); Hemoglobin 9.8 g/dL (13.5-17.5); Lymphocytes Absolute Auto 900 /uL (1100-4500); Mean Corpuscular HGB Conc 34.4 % (30-36); Mean Corpuscular Hemoglobin 35.6 PG (26-34); Mean Corpuscular Volume 103.5 fL (80-100); Monocytes Absolute Auto 1400 /uL (0-900); Monocytes Percent Auto 20.3 % (3-14); Neutrophils Absolute Auto 4300 /uL (1500-7000); Neutrophils Percent Auto 62.1 % (50-75); Platelet Count 147 X10^3/uL (150-400); Red Blood Cell Count 2.75 X10^6/uL (4.5-5.9); Red Cell Distribution Width 13.4 % (11.6-14.8)
[2025-02-25 05:58] LABS: BUN Creatinine Ratio 19.1 (6-22); Blood Urea Nitrogen 21 mg/dL (9-20); Calcium 8.3 mg/dL (8.4-10.2); Carbon Dioxide 26 mmol/L (22-32); Chloride 105 mmol/L (98-107); Estimated Glomerular Filt Rate > 60 mL/min (>60); Glucose 105 mg/dL (70-99); HEMOLYSIS < 15 (0-50); Potassium 3.4 mmol/L (3.4-5.1); Sodium 135 mmol/L (137-145)
[2025-02-25] MEDS: BUDESONIDE 0.5 MG/2 ML NEB INH ×2 (07:47→19:55)
[2025-02-25] MEDS: ALBUTEROL 2.5 MG/3 ML NEB (ADULT) INH ×4 (07:48→19:55)
[2025-02-25] MEDS: OXYCODONE IR 5 MG TABLET PO ×3 (08:17→21:07)
[2025-02-25] MEDS: PANTOPRAZOLE DR 20 MG TABLET PO (08:17)
[2025-02-25] MEDS: GABAPENTIN 300 MG CAPSULE PO ×2 (08:17→20:30)
[2025-02-25] MEDS: ASPIRIN EC 81 MG TABLET PO (08:18)
[2025-02-25] MEDS: APIXABAN 5 MG TABLET 2.5 MG PO (08:18)
[2025-02-25] MEDS: AMOXICILLIN/CLAV 875/125 MG 1 TAB PO ×2 (08:19→20:30)
[2025-02-25] MEDS: carvediloL 3.125 MG TABLET 6.25 MG PO ×2 (08:19→20:33)
[2025-02-25] MEDS: DULOXETINE 30 MG CAPSULE 60 MG PO (08:20)
[2025-02-25] MEDS: POTASSIUM CHLORIDE 20 MEQ TAB 40 MEQ PO (11:22)
--- NOTE | 2025-02-25 11:30 | PT.IPTN ---
Current Diagnoses Pneumonia, unspecified organism (02/22/25) Physical Therapy Treatment Note M2 PT-IP Current Condition Start: 02/23/25 11:03 Freq: NEEDED Status: Active Protocol: Document 02/23/25 11:01 MB (Rec: 02/23/25 12:01 MB Desktop) Physical Therapy Current Condition Current Condition Evaluation Date 02/23/25 Treatment Diagnosis Encephalopathy and PNA post-op LTKR M3 PT-IP Subjective Start: 02/23/25 11:03 Freq: NEEDED Status: Active Protocol: Document 02/25/25 11:30 AB (Rec: 02/25/25 13:26 AB [id number]) Subjective Physical Therapy Visit Type Type Treatment Note Visit Start Time 11:30 Visit Stop Time 12:05 Number of GRAIN MANAGER Visits 0 Physical Therapy Visit Comments Patient Comments agreeable to do PT Therapy Pain Assessment Pain When Pain Assessed At Rest Pain Present Pain Present Pain Reported Location Left Knee Intensity 5 Scale Used Numeric (0 - 10) Pain Behaviors Facial Grimacing,Guarding, Wincing Pain Management Techniques Apply Cold,Elevation, Modification of Treatment,Re- positioning,Timing of Activity with Medications M4 PT-IP Mobility and Gait Start: 02/23/25 11:03 Freq: NEEDED Status: Active Protocol: Document 02/25/25 11:30 AB (Rec: 02/25/25 13:26 AB [id number]) PT-Bed Mobility Assessment Supine to Sit Supine to Sit Moderate Assistance,1 Person Assistance Scooting Scooting to Edge of Bed Maximum Assistance PT-Transfer Assessment Sit to and From Stand Sit to and from Stand Maximum Assistance,1 Person Assistance,2 Person Assistance ,Use of Upper Extremities Equipment Transfer Assistive Device Gait Belt,Front Wheeled Walker Orthotic/Prosthetic Devices or Brace: No Transfers Transfer Destination Chair Transfer Technique Stand Step Pivot Transfer Ability Level of Assist Maximum Assistance,1 Person Assistance,Use of Upper Extremities Comments Mobility Comments pt in bed. spouse in room. pt agreed to do PT. completed heel slides in bed PROM/AAROM. increase guarding, tightness and swelling. PROM: 10-30 degrees on L knee. pt completed supine to sit mod A and max cues. pt needed increase time to complete. sit to stand from EOB max A x 1-2 and max cues. step transfer to chair using FWW max A. pt sat on chair and rested. agreed to ambulate. sit to stand from the chair max A and max cues and ambulated ~ 3 ft using fWW with chair follow max A and max cues. decrease LE elevation and flexion during ambulation. positioned pt on the chair. showed pt and spouse on heel slides to help with L knee ROM. Left pt with OT. Gait Assessment Gait Gait Assistance Required: Maximum Assistance Distance (Feet) 3 Able to Maintain Weight Bearing Status Yes During Gait Assistive Devices Assistive Device Gait Belt,Front Wheeled Walker Orthotic/Prosthetic Devices or Brace: No Gait Deviations General Gait Pattern Antalgic,Decreased Stride Length,Decreased Feet Clearance,Step-to Gait Factors Limiting Gait Function Factors Limiting Gait Function Decreased Activity Tolerance, Decreased Strength,Difficulty Following Directions,Limited Range of Motion,Pain,Poor Balance,Poor Safety Awareness M5 PT-IP Objective Assessments Start: 02/23/25 11:03 Freq: NEEDED Status: Active Protocol: Document 02/23/25 11:01 MB (Rec: 02/23/25 12:01 MB Desktop) Orientation Orientation/Cognition Level of Alertness Alert Orientation Name,Age,Birthday,Month,Date, Year,Place,Situation Safety Awareness Decreased Safety Awareness Comments answers PLOF Gross Range of Motion Upper Extremity ROM Impairments See OT consult Lower Extremity ROM Assessment Left Impaired Impairments No active movement left knee today, functional foot drop left foot Strength Lower Extremity Strength Assessment Left Impaired Comments Strength Comments No MMT tolerance left LE, trace movement ankle and knee Coordination Assessment Assessment Coordination Comments Impaired LEs Sensation Assessment Comments Sensation Comments Cannot follow commands M6 PT-IP Treatment Start: 02/23/25 11:03 Freq: NEEDED Status: Active Protocol: Document 02/25/25 11:30 AB (Rec: 02/25/25 13:26 AB [id number]) Physical Therapy Treatment Exercises Exercises Heel Slides Education Education Provided Safety M7 PT-IP Assessment and Plan Start: 02/23/25 11:03 Freq: NEEDED Status: Active Protocol: Document 02/25/25 11:30 AB (Rec: 02/25/25 13:26 AB [id number]) PT Summary Assessment and Plan Potential Rehabilitation Potential Fair Status of Condition at Evaluation Evolving Summary Impairments Pain,ROM,Strength,Balance, Coordination,Sensation,Tone, Cognition,Bed Mobility, Transfers,Gait,Activity Tolerance Progress Towards Goals Slow Progress due to Pain,Slow Progress due to Medical Issues Assessment Summary pt is improving slowly with mobility and able to ambulated ~ 3ft using fWW max A and max cues. pt will require SNF rehab to improve overall strength and function. Goals Bed Mobility Goal Standby Assistance Transfer Goal Standby Assistance,Front Wheeled Walker Gait Goal Standby Assistance,Front Wheel Walker Gait Distance 50 Other Goals Pt will ascend and descend 1 platform step with use of LRAD and no more than CGA. Pt will perform LLE AP, QS, GS and HS with cues only, performing left knee range to at least 0-90 deg in supine. Days to Meet Goals 10 Frequency of Treatment Frequency Of Treatment Once a Day Treatment Plan Physical Therapy Treatment Plan Bed Mobility Training,Transfer Training,Gait Training, Therapeutic Exercise,Balance Retraining,Post Op Education, Discharge Planning,Hot or Cold Pack,Neuromuscular Re-ed, Coordination Retraining,Manual Therapy Weight Bearing Status Weight Bearing Status Weight Bear as Tolerated Allowed Weight Bearing Amount (enter % LLE WBAT or #) (%) Recommendations To Nursing Amount of Assist Needed 2 Person Assist Discharge Recommendations PT Discharge Recommendations SNF Rehab Transportation Needs at Discharge Wheelchair/Cabulance - PT assist 1-2
--- NOTE | 2025-02-25 12:15 | OT.IP.TRT ---
Current Diagnoses Pneumonia, unspecified organism (02/22/25) Occupational Therapy Treatment Note M2 OT-IP Current Condition Start: 02/23/25 11:41 Freq: Status: Active Protocol: Document 02/23/25 11:41 CGR (Rec: 02/23/25 12:01 CGR [id number]) Occupational Therapy Current Condition Current Condition Evaluation Date 02/23/25 Treatment Diagnosis PNA, ROJELIO after recent L TKA Diagnosis Onset Date 02/22/25 Weight Bearing Status Weight Bearing Status Weight Bear as Tolerated M3 OT- IP Subjective and Pain Start: 02/23/25 11:41 Freq: Status: Active Protocol: Document 02/25/25 12:17 [facility] (Rec: 02/25/25 12:24 [facility] Desktop) OT- Subjective Occupational Therapy Visit Type Type Treatment Note Visit Start Time 11:45 Visit Stop Time 12:17 Occupational Therapy Visit Comments Patient Comments Pt agreed to get up . PT present for beginning of the session. Patient/Caregiver Goals TO get better. OT Pain Assessment Pain When Pain Assessed At Rest Pain Present Pain Present Pain Reported Location Left Knee Intensity 7 Scale Used Numeric (0 - 10) M4 OT- IP ADL's Start: 02/23/25 11:41 Freq: Status: Active Protocol: Document 02/25/25 12:17 [facility] (Rec: 02/25/25 12:24 [facility] Desktop) OT [id number] General Evaluation Self-Feeding Ability Standby Assistance OT ADL-Grooming General Evaluation Grooming Ability Standby Assistance Areas Needing Assistance Retrieving/Set-up of Grooming Items Comments OT Grooming Comments While seated. OT ADL-Oral Care General Eval Oral Care Ability Standby Assistance Comments Oral Care Comments Pt tends to perseverate on brushing his teeth and needing cues to move to the rinse his mouth out. OT ADL-Dressing General Eval Lower Body Dressing Ability Total Assistance Areas Needing Assistance Socks OT ADL-Toileting Comments OT Toileting Comments Not performed. OT ADL-Bathing Comments OT Bathing Comments Not performed. M5 OT- IP IADL's Start: 02/23/25 11:41 Freq: Status: Active Protocol: Document 02/23/25 11:41 CGR (Rec: 02/23/25 12:01 CGR [id number]) OT-Instrumental Activities of Daily Living Deficits IADL Deficits Identified No Deficits Home Safety Awareness Awareness of Need for Assistance at Home Good Awareness Ability to Problem Solve Emergency Able to Problem Solve Situations Medication Management Medication Management No Deficits Identified Money Management Money Management No Deficits Identified Meal Preparation Meal Preparation Caregiver Provides Assist Soda Drier Feeder Soda Drier Feeder Caregiver Provides Assist M6 OT- IP Functional Cognition Start: 02/23/25 11:41 Freq: Status: Active Protocol: Document 02/25/25 12:17 [facility] (Rec: 02/25/25 12:24 [facility] Desktop) Cognitive Factors Limiting Selfcare Function Cognitive Comments Cognitive Assessment Comments Pt slow to initiate and needing cues for hand placement and FWW safety. M7 OT- IP Mobility and Balance Start: 02/23/25 11:41 Freq: Status: Active Protocol: Document 02/25/25 12:17 [facility] (Rec: 02/25/25 12:24 [facility] Desktop) OT- Bed Mobility Assessment Supine to Sit Supine to Sit Assist Moderate Assistance,1 Person Assistance OT-Transfer Assessment Sit to and From Stand Sit to and from Stand Maximum Assistance,1 Person Assistance Transfers Transfer Ability Maximum Assistance,1 Person Assistance Technique Transfer Destination Bed,Chair Transfer Technique Stand Step Pivot Devices Transfer Assistive Devices Gait Belt,Front Wheeled Walker Comments Mobility Comments Pt MODA to assist to get his trunk upright. MAX AX 1 to scoot forwards on the bed. MOD /MAXA x1 to stand to the FWW and MAXAx1 for transfer-assist with balance and to help guide the FWW. OT- Balance Assessment Sitting Balance and Reactions Static Sitting Balance Ability Fair Dynamic Sitting Balance Ability Fair Standing Balance and Reactions Static Standing Balance Ability Poor Dynamic Standing Balance Ability Poor M8 OT- IP Objective Assessments Start: 02/23/25 11:41 Freq: Status: Active Protocol: Document 02/23/25 11:41 CGR (Rec: 02/23/25 12:01 CGR [id number]) OT Gross Range of Motion Upper Extremity Range of Motion Assessment Within Functional Limits OT Strength Upper Extremity Strength Assessment Left Impaired Comments Strength Comments RUE grossly 5/5 LUE grossly 4/5, pt has a hx of cva with L weakness. OT- Coordination Assessment Upper Extremity Finger to Nose Test Within Functional Limits Finger Tapping Test Within Functional Limits OT-Muscle Tone Assessment Muscle Tone WNL Yes OT Sensation Assessment Edema Edema Absent M9 OT- IP Assessment and Plan Start: 02/23/25 11:41 Freq: Status: Active Protocol: Document 02/25/25 12:17 [facility] (Rec: 02/25/25 12:24 [facility] Desktop) OT Summary Assessment and Plan Potential Rehabilitation Potential Good Analytic Complexity at Evaluation High Summary OT Impairments Pain,Strength,Balance, Functional Mobility,Grooming, Dressing,Toileting,Bathing, Toilet Transfers,Shower Transfers,Activity Tolerance Progress Towards Goals Progressing Toward Goals Assessment Summary Pt still needing increased time to process and follow commands. Pt able to transfer and take some steps with MAX AX 1 with FWW. Pt also able to participate in grooming and oral care needs prior to lunch . Pt to go to SNF when medically stable. Goals Grooming Goal Independent Dressing Goal Independent Toileting Goal Independent Bathing Goal Independent Toilet Transfer Goal Standby Assistance Shower Transfer Goal Standby Assistance Days to Meet Goals 25 Frequency of Treatment Other frequency 5x per week Treatment Plan OT Treatment Plan ADL Training,Functional Mobility,Patient/Family Education,Discharge Planning Other Treatment Recommendations and Next ADLs seated, BSC tranfer. Treatment Focus Discharge Recommendations OT Discharge Recommendations SNF Rehab Transportation Needs at Discharge Wheelchair/Cabulance
--- NOTE | 2025-02-25 14:51 | PM.PN.1 ---
Subjective Subjective Interval history: Confusion continues to improve today, still with occasional left knee pain, swelling slightly better he thinks. Exam Vital Signs (past 8 hours): - 02/25/25 08:00 02/25/25 08:00 02/25/25 08:19 Temperature 97.4 F L Pulse Rate 96 H 94 H 98 H Respiratory Rate 17 16 Blood Pressure 139/78 139/78 Pulse Oximetry 94 97 Oxygen Delivery Method Room Air Oxygen Flow Rate 02/25/25 11:49 02/25/25 12:00 Temperature 97.9 F Pulse Rate 87 65 Respiratory Rate 16 15 Blood Pressure 161/89 H Pulse Oximetry 96 93 Oxygen Delivery Method Room Air Oxygen Flow Rate 0 Fraction of Inspired Oxygen 21 SaO2/FiO2 Ratio 452 Oxygen Delivery Method Room Air Oxygen Flow Rate 0 Narrative Exam Narrative: Elderly male no acute distress alert, not confused. Per family speech is a bit slow but much improved today. HEENT unremarkable Neck no JVD Heart irregularly irregular rhythm, no m/r/g Lungs diminished breath sounds crackles at right base S NT ND L leg bandage with scant blood, L leg swollen and tender compared to R diffusely. Objective Labs 02/25/25 05:16 02/25/25 05:16 Labs: Laboratory Results - last 24 hr 02/24/25 02/25/25 20:14 05:16 WBC Cancelled 7.0 RBC Cancelled 2.75 L Hgb Cancelled 9.8 L Hct Cancelled 28.5 L MCV Cancelled 103.5 H MCH Cancelled 35.6 H MCHC Cancelled 34.4 RDW Cancelled 13.4 Plt Count Cancelled 147 L Neut % (Auto) Cancelled 62.1 Lymph % (Auto) Cancelled 13.0 L [place] % (Auto) Cancelled 20.3 H Eos % (Auto) Cancelled 3.9 Baso % (Auto) Cancelled 0.7 Neut # (Auto) Cancelled 4300 Lymph # (Auto) Cancelled 900 L [place] # (Auto) Cancelled 1400 H Eos # (Auto) Cancelled 300 Baso # (Auto) Cancelled 100 Sodium 135 L Potassium 3.4 Chloride 105 Carbon Dioxide 26 BUN 21 H Creatinine 1.10 Estimated GFR > 60 BUN/Creatinine Ratio 19.1 Glucose 105 H Calcium 8.3 L [facility] Medical History History of COVID-19 (~2022) BCC (basal cell carcinoma) (02/09/25) Rheumatoid arthritis without rheumatoid factor, multiple sites Mucopurulent chronic bronchitis Chronic bronchitis Depression, major, recurrent Renal cyst, right IBS (irritable colon syndrome) History of heart attack Anemia, chronic disease Left hemiparesis History of alcohol use disorder Kidney stones Easy bruisability Diverticulosis GERD (gastroesophageal reflux disease) Arthritis Sleep apnea History of blood clots COVID-19 virus infection (10/2021) History of prostate cancer Primary osteoarthritis involving multiple joints Acquired hypothyroidism Mixed hyperlipidemia Essential hypertension Cerebrovascular disease (2003) Chronic atrial fibrillation Systolic CHF, chronic Orthostatic hypotension Obstructive sleep apnea syndrome Right knee DJD Scoliosis deformity of spine Chronic anticoagulation Facet arthropathy, lumbar Mild cognitive impairment Right arm fracture (~04/2016) Hypothyroidism due to amiodarone Chronic sinusitis DDD (degenerative disc disease) Acute bronchitis (~03/2019) Edema COPD (chronic obstructive pulmonary disease) ELENA (dyspnea on exertion) Former smoker Anemia Centrilobular emphysema CAD (coronary artery disease) Depression Fatty liver HLD (hyperlipidemia) HTN (hypertension) Osteoarthritis Raynaud's syndrome Surgical History Hx of vasectomy Hx of prostate biopsy Hx of circumcision Hx of heart artery stent Status post total right knee replacement (~03/04/21) History of lumbar laminectomy Hx of CABG (~2003) Hx of angioplasty (~1984) Hx of arthroscopy of right knee Hx of lumbosacral spine surgery (~2008) Hx of bilateral cataract extraction Hx of bilateral inguinal hernia repair Status post correction of deviated nasal septum Hx of elbow surgery Hx of mitral valve repair (~2003) S/P right unicompartmental knee replacement Family History Grandmother Cancer Father CVA (cerebral vascular accident) CAD (coronary artery disease) Hyperlipidemia Hypertension Kidney stones Mother Diabetes mellitus Thyroid disorder Social History marital status: number of children: 2 household members: spouse Tobacco: How many years used: 12 alcohol intake: former caffeine: Yes Type(s) of exercise: other frequency: 3-4 times per week duration: 60-90 minutes/day Assessment & Plan Assessment & Plan narrative: Sepsis secondary to healthcare acquired pneumonia with ROJELIO, acute metabolic encephalopathy, improving -encephalopathy is improving along with renal function which now is close to baseline with Cr 1.18 from 2.81 on admission. - continue IV antibiotics for now, transition to oral on discharge. - PT/OT recommending SNF, pending insurance authorization. - IV fluids have been stopped. Chronic atrial fibrillation with history of CVA-continue anticoagulation and beta-josé manuel Chronic coronary artery disease-continue all core measures COPD-continue maintenance inhalers as well as acute bronchodilators as needed Chronic congestive heart failure with EF of 50%-hold diuretics at this time as patient is dehydrated with ROJELIO resume diuretics after ROJELIO resolved L popliteal cyst vs hematoma - trend h/h, 02/20 was 11 down to 9.8 yesterday and is stable today at 9.8 today. US was negative for DVT. Orthopedic surgery states these are quite common after surgery. DVT prophylaxis covered with apixaban, surrogate is patient's spouse Code status:-full code Dispo: pending insurance auth for SNF, h/h is stable. Awaiting SNF. Time-Based Coding :: [TOTAL MINUTES] spent with patient and on the chart (including review of chart, obtaining history, exam, reviewing outside data, placing orders, documenting exam and treatment plan, and counseling patient) on [DATE]. Quality VTE Deep Vein Thrombosis/Pulmonary Embolism Present on Admission: No
[2025-02-25] MEDS: TERAZOSIN 5 MG CAPSULE 10 MG PO (20:30)
[2025-02-25] MEDS: MIRTAZAPINE 15 MG TABLET 45 MG PO (20:30)
[2025-02-25] MEDS: APIXABAN 5 MG TABLET PO (20:30)
[2025-02-25] MEDS: ATORVASTATIN 20 MG TABLET 80 MG PO (20:30)
[2025-02-25] MEDS: SODIUM CHLORIDE 0.9% FLUSH 10 ML IV (20:41)
[2025-02-26 04:21] LABS: Add Manual Diff / Slide Review NO; Basophils Absolute Auto 0 /uL (0-100); Basophils Percent Auto 0.6 % (0-2); Eosinophils Absolute Auto 300 /uL (0-450); Eosinophils Percent Auto 4.6 % (2-4); Hematocrit 27.4 % (41-53); Hemoglobin 9.3 g/dL (13.5-17.5); Lymphocytes Absolute Auto 1000 /uL (1100-4500); Lymphocytes Percent Auto 14.2 % (25-40); Mean Corpuscular HGB Conc 34.1 % (30-36); Mean Corpuscular Hemoglobin 35.2 PG (26-34); Mean Corpuscular Volume 103.2 fL (80-100); Monocytes Absolute Auto 1500 /uL (0-900); Neutrophils Absolute Auto 4300 /uL (1500-7000); Neutrophils Percent Auto 59.6 % (50-75); Platelet Count 159 X10^3/uL (150-400); Red Blood Cell Count 2.66 X10^6/uL (4.5-5.9); Red Cell Distribution Width 13.7 % (11.6-14.8); White Blood Cell Count 7.2 X10^3/uL (4.5-11.0)
[2025-02-26 04:40] LABS: BUN Creatinine Ratio 18.2 (6-22); Blood Urea Nitrogen 18 mg/dL (9-20); Calcium 8.4 mg/dL (8.4-10.2); Carbon Dioxide 26 mmol/L (22-32); Chloride 105 mmol/L (98-107); Estimated Glomerular Filt Rate > 60 mL/min (>60); Glucose 110 mg/dL (70-99); HEMOLYSIS < 15 (0-50); Potassium 3.7 mmol/L (3.4-5.1); Sodium 134 mmol/L (137-145)
[2025-02-26] MEDS: LEVOTHYROXINE 100 MCG TABLET PO (07:00)
[2025-02-26] MEDS: OXYCODONE IR 5 MG TABLET PO (07:01)
[2025-02-26 08:00] VITALS: BP 145/73; PULSE 90; RESP 16; TEMP 36.6; O2SAT 98
[2025-02-26] MEDS: polyethylene glycoL 3350 17 GM POWD.PACK PO (08:25)
[2025-02-26] MEDS: APIXABAN 5 MG TABLET PO (08:26)
[2025-02-26] MEDS: DULOXETINE 30 MG CAPSULE 60 MG PO (08:26)
[2025-02-26] MEDS: GABAPENTIN 300 MG CAPSULE PO (08:26)
[2025-02-26] MEDS: AMOXICILLIN/CLAV 875/125 MG 1 TAB PO (08:26)
[2025-02-26] MEDS: carvediloL 3.125 MG TABLET 6.25 MG PO (08:28)
[2025-02-26] MEDS: ASPIRIN EC 81 MG TABLET PO (08:30)
[2025-02-26] MEDS: PANTOPRAZOLE DR 20 MG TABLET PO (08:32)
[2025-02-26] MEDS: ALBUTEROL 2.5 MG/3 ML NEB (ADULT) INH (09:00)
[2025-02-26] MEDS: BUDESONIDE 0.5 MG/2 ML NEB INH (09:00)
[2025-02-26 09:03] VITALS: PULSE 85; RESP 16; O2SAT 96
--- NOTE | 2025-02-26 10:32 | P.DS_ITS ---
History of Present Illness History of Present Illness Date Patient Seen: 02/26/25 Time Patient Seen: 10:33 Chief complaint: Confusion due to encephalopathy postoperative TKR Narrative: Per admitting provider, History of present illness: 79-year-old male status post left knee arthroplasty was noted by to have confusion and abdominal discomfort through the night. Noticed that the urine is quite norris Findings in the emergency room patient is confused but oriented to self very pleasant. White count 10.3 (double baseline) ABG shows 7.29/53/83 sodium 131 BUN 44 creatinine 2.8 up from baseline of 13/11.23 pro BNP 4180 procalcitonin 3.6 swabs negative for COVID RSV and flu CT head nonacute CT chest showing right upper and right lower lobe nodules versus focal consolidation bibasilar atelectasis and small pleural effusions CT abdomen pelvis unremarkable except large stool volume throughout the colon diverticulosis without diverticulitis Chest x-ray demonstrates right lower lobe nodular appearing parenchymal changes with air bronchograms Emergency room course: Patient given 2 L of saline and started on Zosyn for presumed healthcare acquired pneumonia blood cultures drawn and referred for admission Discharge Providers Provider Date of admission: 02/22/25 14:00 Discharge Date: 02/26/25 Primary care physician: Mark Palafox MD Consults: 02/23/25 10:52 Consult to Occupational Therapy Evaluate & Treat Comment: Physician Instructions: Evaluate and treat Consult to Physical Therapy Evaluate & Treat Comment: Physician Instructions: Evaluate and Treat Discharge provider: Piyush Meraz DO Summary Hospital Course Discharge Diagnosis: Sepsis secondary to healthcare acquired pneumonia with ROJELIO, acute metabolic encephalopathy, improving Chronic atrial fibrillation with history of CVA Chronic coronary artery disease COPD Chronic congestive heart failure, diastolic L popliteal cyst vs hematoma, stable Hospital Course: This is an 79 year old male with recent L knee surgery who was admitted for sepsis due pneumonia seen on CT imaging in the emergency room. He was treated with fluids, and zosyn for antibiotics. With time he had improvement in his encephlaopathy and renal function with his cr eventually returning to baseline. Therapy evaluation after admission recommended SNF. He continued to improve with antibiotics and therapies. Once SNF authorization was obtained, he was transferred for additional PT and OT prior to discharge home. He will complete another 3 days of augmentin for presumed pneumonia after discharge. No other changes to his chronic home medications were recommended at the time of discharge. Time Spent with Patient Time spent: Greater than 30 minutes Exam Vital Signs (past 8 hours): - 02/26/25 08:00 02/26/25 09:03 Temperature 98 F Pulse Rate 90 85 Respiratory Rate 16 16 Blood Pressure 145/73 H Pulse Oximetry 98 96 Oxygen Delivery Method Room Air Oxygen Flow Rate 0 Fraction of Inspired Oxygen 21 SaO2/FiO2 Ratio 452 Oxygen Delivery Method Room Air Oxygen Flow Rate 0 Narrative Exam Narrative: Elderly male no acute distress alert, not confused. Per family speech is a bit slow but much improved today. HEENT unremarkable Neck no JVD Heart irregularly irregular rhythm, no m/r/g Lungs diminished breath sounds crackles at right base S NT ND L leg bandage with scant blood, L leg swollen compared to R diffusely, but improving today. Improved tenderness. Objective Labs 02/26/25 04:09 02/26/25 04:09 Labs: Laboratory Results - last 24 hr 02/26/25 04:09 WBC 7.2 RBC 2.66 L Hgb 9.3 L Hct 27.4 L MCV 103.2 H MCH 35.2 H MCHC 34.1 RDW 13.7 Plt Count 159 Neut % (Auto) 59.6 Lymph % (Auto) 14.2 L [place] % (Auto) 21.0 H Eos % (Auto) 4.6 H Baso % (Auto) 0.6 Neut # (Auto) 4300 Lymph # (Auto) 1000 L [place] # (Auto) 1500 H Eos # (Auto) 300 Baso # (Auto) 0 Sodium 134 L Potassium 3.7 Chloride 105 Carbon Dioxide 26 BUN 18 Creatinine 0.99 Estimated GFR > 60 BUN/Creatinine Ratio 18.2 Glucose 110 H Calcium 8.4 PFSH Medical History History of COVID-19 (~2022) BCC (basal cell carcinoma) (02/09/25) Rheumatoid arthritis without rheumatoid factor, multiple sites Mucopurulent chronic bronchitis Chronic bronchitis Depression, major, recurrent Renal cyst, right IBS (irritable colon syndrome) History of heart attack Anemia, chronic disease Left hemiparesis History of alcohol use disorder Kidney stones Easy bruisability Diverticulosis GERD (gastroesophageal reflux disease) Arthritis Sleep apnea History of blood clots COVID-19 virus infection (10/2021) History of prostate cancer Primary osteoarthritis involving multiple joints Acquired hypothyroidism Mixed hyperlipidemia Essential hypertension Cerebrovascular disease (2003) Chronic atrial fibrillation Systolic CHF, chronic Orthostatic hypotension Obstructive sleep apnea syndrome Right knee DJD Scoliosis deformity of spine Chronic anticoagulation Facet arthropathy, lumbar Mild cognitive impairment Right arm fracture (~04/2016) Hypothyroidism due to amiodarone Chronic sinusitis DDD (degenerative disc disease) Acute bronchitis (~03/2019) Edema COPD (chronic obstructive pulmonary disease) ELENA (dyspnea on exertion) Former smoker Anemia Centrilobular emphysema CAD (coronary artery disease) Depression Fatty liver HLD (hyperlipidemia) HTN (hypertension) Osteoarthritis Raynaud's syndrome Surgical History Hx of vasectomy Hx of prostate biopsy Hx of circumcision Hx of heart artery stent Status post total right knee replacement (~03/04/21) History of lumbar laminectomy Hx of CABG (~2003) Hx of angioplasty (~1984) Hx of arthroscopy of right knee Hx of lumbosacral spine surgery (~2008) Hx of bilateral cataract extraction Hx of bilateral inguinal hernia repair Status post correction of deviated nasal septum Hx of elbow surgery Hx of mitral valve repair (~2003) S/P right unicompartmental knee replacement Family History Grandmother Cancer Father CVA (cerebral vascular accident) CAD (coronary artery disease) Hyperlipidemia Hypertension Kidney stones Mother Diabetes mellitus Thyroid disorder Social History marital status: number of children: 2 household members: spouse Tobacco: How many years used: 12 alcohol intake: former caffeine: Yes Type(s) of exercise: other frequency: 3-4 times per week duration: 60-90 minutes/day Discharge Plan Discharge Plan Patient Disposition: SNF Transfer to: [facility] Provider Discharge Comment: Patient admitted to the hospital with sepsis due to pneumonia after recent L knee surgery. Discharge orders & Medications Prescriptions: New polyethylene glycol 3350 17 gram Powder In Packet 17 g PO DAILY Qty: 14 0RF amoxicillin-pot clavulanate 875-125 mg Tablet 1 tab PO BID 3 Days Qty: 6 0RF oxycodone 5 mg Tablet 5 mg PO Q3HR PRN (Reason: Pain, Moderate (4-6)) 7 Days Qty: 20 0RF Continued aspirin 81 mg Tablet,Delayed Release (Dr/Ec) 81 mg PO DAILY Qty: 0 multivitamin Capsule 1 cap PO DAILY Qty: 0 cholecalciferol (vitamin D3) [Vitamin D3] 2,000 unit Capsule 2,000 unit PO DAILY Qty: 0 magnesium oxide 400 MG tablet 400 mg PO DAILY Qty: 0 potassium chloride 20 mEq tablet,ER particles/crystals 20 meq PO DAILY Qty: 90 3RF sulfasalazine 500 mg tablet 1,000 mg PO TID Patient Comments: 1000mg qam, 500mg qnoon, 500mg qpm fluticasone propionate [Flonase Allergy Relief] 50 mcg/actuation spray,suspension 1 spray intranasal DAILY Qty: 16 2RF Rx Instructions: administer into each nostril dicyclomine 10 mg capsule 10 mg PO TID PRN (Reason: Cramps) albuterol sulfate 90 mcg/actuation HFA aerosol inhaler 2 puff inhalation Q4H PRN (Reason: wheezing) atorvastatin [Lipitor] 80 mg tablet 80 mg PO HS Qty: 90 3RF carvedilol 6.25 mg tablet 6.25 mg PO BID Qty: 180 3RF duloxetine 60 mg capsule,delayed release(DR/EC) 60 mg PO DAILY Qty: 90 3RF folic acid 1 mg tablet 3 mg PO QDAY Qty: 270 3RF gabapentin 600 mg tablet 600 mg PO TID Qty: 270 3RF furosemide 40 mg tablet 60 mg PO DAILY Qty: 135 3RF levothyroxine 100 mcg tablet 100 mcg PO DAILY Qty: 90 3RF lisinopril 2.5 mg tablet 2.5 mg PO DAILY Qty: 90 3RF mirtazapine 45 mg tablet 45 mg PO BEDTIME Qty: 90 3RF omeprazole 20 mg capsule,delayed release(DR/EC) 20 mg PO DAILY Qty: 90 3RF oxybutynin chloride 5 mg tablet extended release 24hr 5 mg PO DAILY Qty: 90 3RF terazosin 10 mg capsule 10 mg PO HS Qty: 90 3RF fluticasone propion-salmeterol [Wixela Inhub] 500-50 mcg/dose blister with device 1 inh inhalation BID acetaminophen [Tylenol] 325 mg capsule 975 mg PO QID PRN (Reason: Headache) ferrous sulfate [iron] 325 mg (65 mg iron) Tablet 325 mg PO DAILY Eliquis 5 mg tablet 5 mg PO BID Jardiance 10 mg tablet 10 mg PO DAILY cyanocobalamin (vitamin B-12) [Vitamin B-12] 1,000 mcg Tablet 1,000 mcg PO DAILY PreserVision AREDS-2 250-90-40-1 mg Capsule 1 tab PO BID vitamin A-vitamin C-vit E-min [Ocuvite] 1 tab PO DAILY Follow up/Referrals: Mark Palafox MD [Primary Care Provider] - Discharge Health Status Precautions: [place] Diet/Activity/Treatments Diet: Diet as Tolerated Liquid consistency: Normal/Thin Food texture: Regular Activity: No restrictions Special Rehabilitation Services Reason for rehabilitation: Post-operative therapy and Recovery r/t decondition Rehab type: Physical therapy and Occupational therapy Visit Report/Discharge Packet Stand Alone Forms: Patient Portal/API Discharge Data Primary Care Provider: Mark Palafox V Quality VTE Deep Vein Thrombosis/Pulmonary Embolism Present on Admission: No
--- NOTE | 2025-02-26 10:36 | CM.DPC ---
DCP Cont. Reviewed EMR and team rounds for pt's status updates. Pt has been medically cleared for d/c to [facility] today. They will transport him at 11:30am. Pt updated. No further CM d/c assistance or resource needs are indicated at this time.
--- NOTE | 2025-02-26 10:54 | PC.NURSE ---
Addendum entered by Pat Holliday R.N. 02/26/25 11:48: Patient discharged to [facility] and report called. Original Note: Patient is alert and oriented x4 today. No confusion noted. Given oxycodone this morning and effective for pain control. Patient has an aquacel dressing to his l.knee that is cdi. He is voiding in the urinal and last bm was on the 7th. Patient is going to be discharged to [facility] at 1130.
--- NOTE | 2025-02-26 16:58 | PC.NURSE ---
1700 - Phone conversation with patient's , Leah related to discharge process concerns. Answered questions with information as provided by Care Management and Primary RN.
--- NOTE | 2025-02-26 19:07 | PC.NURSE ---
Patients right side of penis swollen, told Dr. Meraz he has no new orders at this time.
== END 2025-02-26 11:56 | DRG 871 ==
LOC: ED 14:00 → AC 14:01
PROVIDERS: Internal Medicine; Admitting Provider Internal Medicine; Emergency Provider Emergency Medicine; PCP Internal Medicine; Visit Provider Internal Medicine
DX: A41.9 Sepsis, unspecified organism (principal); G93.41 Metabolic encephalopathy; J18.9 Pneumonia, unspecified organism; N17.9 Acute kidney failure, unspecified; I48.20 Chronic atrial fibrillation, unspecified; I50.32 Chronic diastolic (congestive) heart failure; M96.840 Postprocedural hematoma of a musculoskeletal structure following a musculoskeletal system procedure; J44.0 Chronic obstructive pulmonary disease with (acute) lower respiratory infection; E86.0 Dehydration; K59.00 Constipation, unspecified; I25.10 Atherosclerotic heart disease of native coronary artery without angina pectoris; M71.22 Synovial cyst of popliteal space [Baker], left knee; R65.20 Severe sepsis without septic shock; E78.5 Hyperlipidemia, unspecified; I11.0 Hypertensive heart disease with heart failure; F32.A Depression, unspecified; E03.9 Hypothyroidism, unspecified; K21.9 Gastro-esophageal reflux disease without esophagitis; G47.33 Obstructive sleep apnea (adult) (pediatric); Z87.891 Personal history of nicotine dependence; Z86.73 Personal history of transient ischemic attack (TIA), and cerebral infarction without residual deficits; Z96.652 Presence of left artificial knee joint; Z79.01 Long term (current) use of anticoagulants; Z85.46 Personal history of malignant neoplasm of prostate; Z79.890 Hormone replacement therapy
CPT/HCPCS: 0241U; 36415; 36600; 64450; 70450; 71045; 71275; 73560; 74177; 80048; 80053; 81001; 82550; 82805; 83605; 83880; 84145; 84484; 85014; 85018; 85025; 87040; 93005; 93010; 93971; 94640; 94762; 96361; 96365; 97161; 97162; 97165; 97167; 97530; 97535; 99285; C1776; C1713; J0666; J0690; J1100; J2270; J2405; J2543; J2704; J3010; J3490; J7613; Q9967

== ENCOUNTER → 2025-06-01 12:26 | Outpatient (CLI) | payer MEDICARE, SELFPAY ==
[2025-02-22 14:15] VITALS: BMI 25.2
[2025-06-01 12:53] LABS: Hematocrit 39.2 % (41-53); Hemoglobin 13.0 g/dL (13.5-17.5); Mean Corpuscular HGB Conc 33.3 % (30-36); Mean Corpuscular Hemoglobin 32.9 PG (26-34); Mean Corpuscular Volume 99.0 fL (80-100); Platelet Count 169 X10^3/uL (150-400)
[2025-06-01 13:00] LABS: Hemoglobin A1C% w Est Avg Glu 5.1 % (4.0-6.0)
[2025-06-01 13:07] LABS: Alanine Aminotransferase 33 IU/L (<50); Albumin 4.0 g/dL (3.5-5.0); Albumin Globulin Ratio 1.5 (1.0-2.8); Alkaline Phosphatase 77 U/L (38-126); Blood Urea Nitrogen 28 mg/dL (9-20); Calcium 9.4 mg/dL (8.4-10.2); Carbon Dioxide 33 mmol/L (22-32); Chloride 98 mmol/L (98-107); Cholesterol 158 mg/dL (140-199); Estimated Glomerular Filt Rate > 60 mL/min (>60); Globulin 2.7 g/dL (1.7-4.1); Glucose 93 mg/dL (70-99); HDL Cholesterol 59 mg/dL (40-60); HEMOLYSIS < 15 (0-50); Potassium 3.6 mmol/L (3.4-5.1); Sodium 138 mmol/L (137-145); Total Protein 6.7 g/dL (6.3-8.2); Triglycerides 119 mg/dL (35-150)
[2025-06-01 13:42] LABS: Ferritin 70 ng/mL (18-464)
[2025-06-01 19:26] LABS: HEMOLYSIS < 15 (0-50); Iron 95 ug/dL (49-181)
[2025-06-01 19:46] LABS: Percent Iron Saturation 31 % (20-50); Total Iron Binding Capacity 309 ug/dL (261-462); Transferrin 248 mg/dL (206-381)
[2025-06-01 20:01] LABS: TSH w/ Reflex to FT4 1.98 uIU/mL (0.47-4.68)
== END ==
PROVIDERS: PCP Internal Medicine; Referring Provider Internal Medicine; Visit Provider Internal Medicine
DX: E78.2 Mixed hyperlipidemia (principal); D63.8 Anemia in other chronic diseases classified elsewhere; I50.22 Chronic systolic (congestive) heart failure
CPT/HCPCS: 36415; 80053; 80061; 82728; 83036; 83540; 83550; 84443; 85027

== ENCOUNTER → 2025-07-06 10:33 | Outpatient (CLI) | payer MEDICARE, SELFPAY ==
[2025-02-22 14:15] VITALS: BMI 25.2
--- NOTE | 2025-07-06 10:34 | DI.US.S_ITS ---
US breast LT limited, MM diagnostic mammo BI: 07/06/2025 BI-RADS: 2 CLINICAL: 79-year old male for bilateral diagnostic mammogram and left diagnostic breast ultrasound. Current reported family history of breast cancer: mother. History of ovarian cancer in one first-degree relative. The patient reports a palpable abnormality (3 months) in the left breast. PRIOR EXAMS No prior examinations available. MAMMOGRAPHY TECHNIQUE: 2D and 3D (tomosynthesis) digital mammographic views obtained, with additional images as needed for full coverage. Current study was also evaluated with a Computer Aided Detection (CAD) system. ULTRASOUND TECHNIQUE TARGETED Left Breast Ultrasound: Real-time ultrasound exam was performed focused to area of clinical and/or imaging concern. Real-time carson scale and color doppler imaging of the area of clinical interest was performed with image documentation. DENSITY B. There are scattered areas of fibroglandular density. MAMMOGRAPHY FINDINGS Right: No suspicious mass, asymmetry, microcalcification, or other abnormality seen. Left (finding-1): Central, Retroareolar, Far Anterior depth: Underlying surface marker and correlating with palpable lump, there is a focal asymmetry present. On spot compression views, this finding is consistent with marked nodular gynecomastia. ULTRASOUND FINDINGS Left (finding-1): Central, Retroareolar, measuring 2.4 x 1.4 x 3.4 cm: Underlying a surface marker and correlating with palpable lump and also with findings on mammogram there is retroareolar fibroglandular tissue consistent with gynecomastia. Left: Axilla: No abnormal lymph nodes are seen in the axilla. IMPRESSION: Right * No evidence of malignancy. Left * No evidence of malignancy with benign findings. RECOMMENDATIONS Left * Clinical follow-up is recommended, and further management of palpable abnormalities or other focal signs or symptoms should be based on the results of clinical evaluation. If palpable abnormality or other concerning symptom persists or progresses, further clinical evaluation should be considered. * Clinical follow up is also recommended for the patient's gynecomastia, with evaluation for etiologies including medication/drug-related factors, hormonal or systemic disorders. COMMENTS: Findings and recommendations were conveyed to the patient during today's evaluation. OVERALL ASSESSMENT CATEGORY BI-RADS-2: Benign. ELECTRONICALLY SIGNED: Jennifer Rain M.D. on 07/06/2025 at 12:04:43 PM PT Interpreting Station ID: [id number]
== END ==
LOC: MAMMO 10:33
PROVIDERS: PCP Internal Medicine; Referring Provider Internal Medicine; Visit Provider Internal Medicine
DX: N63.42 Unspecified lump in left breast, subareolar (principal); N63.20 Unspecified lump in the left breast, unspecified quadrant; Z80.3 Family history of malignant neoplasm of breast; Z80.41 Family history of malignant neoplasm of ovary
CPT/HCPCS: 76642; 77066; G0279

== ENCOUNTER → 2025-08-03 10:33 | Outpatient (CLI) | payer MEDICARE, SELFPAY ==
[2025-02-22 14:15] VITALS: BMI 25.2
[2025-08-03 12:08] LABS: Add Manual Diff / Slide Review NO; Hematocrit 38.0 % (41-53); Hemoglobin 12.7 g/dL (13.5-17.5); Lymphocytes Absolute Auto 1600 /uL (1100-4500); Mean Corpuscular HGB Conc 33.4 % (30-36); Mean Corpuscular Hemoglobin 34.5 PG (26-34); Mean Corpuscular Volume 103.3 fL (80-100); Platelet Count 166 X10^3/uL (150-400)
[2025-08-03 12:20] LABS: Alanine Aminotransferase 34 IU/L (<50); Albumin 4.1 g/dL (3.5-5.0); Albumin Globulin Ratio 1.5 (1.0-2.8); Alkaline Phosphatase 98 U/L (38-126); Blood Urea Nitrogen 27 mg/dL (9-20); Calcium 9.3 mg/dL (8.4-10.2); Carbon Dioxide 31 mmol/L (22-32); Chloride 101 mmol/L (98-107); Estimated Glomerular Filt Rate 51 mL/min (>60); Globulin 2.8 g/dL (1.7-4.1); Glucose 88 mg/dL (70-99); HEMOLYSIS < 15 (0-50); Potassium 3.5 mmol/L (3.4-5.1); Sodium 139 mmol/L (137-145); Total Protein 6.9 g/dL (6.3-8.2)
== END ==
PROVIDERS: PCP Internal Medicine; Referring Provider Internal Medicine Rheumatology; Visit Provider Internal Medicine Rheumatology
DX: M06.9 Rheumatoid arthritis, unspecified (principal)
CPT/HCPCS: 36415; 80053; 85025; 86200; 86430